=== PATIENT | female | born 1945 | race Caucasian/White ===

== ENCOUNTER → 2016-06-27 | Outpatient (CLI) | payer MEDICARE | LOC: MW.CHIM 11:00 | PROVIDERS: ATTEND Internal Medicine | DX: I10 Essential (primary) hypertension (principal); E11.9 Type 2 diabetes mellitus without complications; E78.00 Pure hypercholesterolemia, unspecified; E11.65 Type 2 diabetes mellitus with hyperglycemia; E66.9 Obesity, unspecified; J44.9 Chronic obstructive pulmonary disease, unspecified; F17.200 Nicotine dependence, unspecified, uncomplicated | CPT/HCPCS: 36415; 80053; 80061; 83036; 84439; 84443; 85025; 99214 ==

== ENCOUNTER → 2016-07-12 | Outpatient (CLI) | payer MEDICARE | LOC: MW.MNT 09:50 | PROVIDERS: ATTEND Internal Medicine | DX: Z71.3 Dietary counseling and surveillance (principal); E11.9 Type 2 diabetes mellitus without complications | CPT/HCPCS: 97802 ==

== ENCOUNTER 2017-03-31 12:07 | Emergency (ER) | payer MEDICARE ==
[2017-03-31] MEDS ORDERED: Sodium Chloride 0.9% 10 ML Syringe FLUSH PRN (12:11)
[2017-03-31] MEDS ORDERED: Sodium Chloride 0.9% 2.5 ML Syringe FLUSH PRN (12:11)
[2017-03-31] MEDS ORDERED: Sodium Chloride 0.9% 1,000 ML IV ONE (12:11)
[2017-03-31 12:56] LABS: CHLORIDE,CL 103 mmol/L (98-110); SODIUM,NA 136 mmol/L (136-146)
--- NOTE | 2017-03-31 13:24 | CR ---
EXAMINATION: Right forearm HISTORY: Pain COMPARISON: None TECHNIQUE: 2 views FINDINGS/IMPRESSION: There is no acute osseous abnormality, dislocation, or fracture.. There is gener alized soft tissue swelling most prominent along the dorsal aspect of the mid forearm. Degenerative c hanges noted within the first CMC joint, otherwise the joint spaces are preserved.
--- NOTE | 2017-03-31 14:32 | CT ---
EXAMINATION: Non contrast CT head. Coronal and sagittal reformats. HISTORY: Pain FINDINGS: No evidence of intra or extra axial hemorrhage, mass, midline shift, hydrocephalus or edema. No hypoattenuation changes in the major vascular territories to suggest acute infarct. No abnormal intracranial calcifications are detected. No evidence of substantial vascular calcificat ions. There is moderate mucosal thickening within the right maxillary sinus. Orbits and globes are symmetri c. Pituitary fossa appears unremarkable. Calvarium is intact. No evidence of skull fracture. IMPRESSION: 1. No acute intracranial findings. 2. Mild paranasal sinus disease.
--- NOTE | 2017-03-31 14:43 | EDM.PDOC ---
ED HPI GENERAL MEDICAL PROBLEM - General Chief Complaint: Upper Extremity Injury/Pain Stated Complaint: WEAK AND CONFUSION Time Seen by Provider: 03/31/17 12:10 Source of Information: Reports: Patient History Limitations: Reports: No Limitations - History of Present Illness INITIAL COMMENTS - FREE TEXT/NARRATIVE: History of present illness: []Patient was found by [facility] staff wandering the halls confused. Patient states she was coming to the hospital for 2 reasons 1 to see her aunt who was admitted and another to have her right arm looked at as she fell on it 4 days ago. He should states that when she got in the hospital she got turned around and was confused as to where she was at. She denies any headache, numbness or tingling, dizziness, blurry vision, chest pain or shortness of breath. Patient has a large ecchymotic area from her right arm to right forearm with an open laceration that is healing by second intention. No signs of infection Review of systems: As per history of present illness and below otherwise all systems reviewed and negative. Past medical history: As per history of present illness and as reviewed below otherwise noncontributory. Surgical history: As per history of present illness and as reviewed below otherwise noncontributory. Social history: No reported history of drug or alcohol abuse. Family history: As per history of present illness and as reviewed below otherwise noncontributory. Physical exam: General: Well developed, well nourished in NAD HEENT: Atraumatic, normocephalic, pupils reactive, negative for conjunctival pallor or scleral icterus, mucous membranes moist, throat clear, neck supple, nontender, trachea midline. Lungs: Clear to auscultation, breath sounds equal bilaterally, chest nontender. Heart: S1S2, regular, negative for clicks, rubs, or JVD. Abdomen: Soft, nondistended, nontender. Negative for masses or hepatosplenomegaly. Negative for costovertebral tenderness. Pelvis: Stable nontender. Genitourinary: Deferred. Rectal: Deferred. Extremities: Atraumatic, negative for cords or calf pain. Neurovascular unremarkable. Neuro: Awake, alert, oriented. Cranial nerves II through XII unremarkable. Cerebellum unremarkable. Motor and sensory unremarkable throughout. Exam nonfocal. Diagnostics: [] Therapeutics: [] Impression: [] Plan: [] Definitive disposition and diagnosis as appropriate pending reevaluation and review of above. right forearm Pain Score (Numeric/FACES): 8 - Related Data Allergies Allergy/AdvReac Type Severity Reaction Status Date / Time codeine Allergy Vomiting Verified 03/31/17 12:26 propoxyphene HCl Allergy Vomiting Verified 03/31/17 12:26 [From Darvon] Home Meds: Home Meds Hydrochlorothiazide 25 mg PO DAILY 07/24/13 [History] LORazepam 1 tab PO TID PRN 07/24/13 [History] Metoprolol Succinate [Toprol XL 100mg] 100 mg PO DAILY 07/24/13 [History] Nitroglycerin [Nitrostat] 1 tab SL ASDIRECTED PRN 07/24/13 [History] Pravastatin [Pravachol] 160 mg PO BEDTIME 07/24/13 [History] Aspirin [Low Dose Aspirin EC] 81 mg DAILY 10/06/15 [History] Citalopram [Celexa] 20 mg DAILY 10/06/15 [History] Fluticasone/Vilanterol [Breo Ellipta 100-25 MCG Inhalation Kit] 10/06/15 [ History] Gabapentin [Neurontin] 300 mg TID 10/06/15 [History] Potassium Chloride 10 meq DAILY 10/06/15 [History] metFORMIN [Glucophage XR] 500 mg DAILY 10/06/15 [History] Past Medical History - Past Health History Medical/Surgical History: Denies Medical/Surgical History HEENT History: Reports: Impaired Vision Cardiovascular History: Reports: CAD, Heart Failure, High Cholesterol, Hypertension, HI, SOB on Exertion, Stents Other Cardiovascular History: states she has had 7 stents placed Respiratory History: Reports: COPD, Pneumonia, Recurrent Gastrointestinal History: Reports: Irritable Bowel Syndrome Genitourinary History: Reports: UTI, Recurrent [employer] J[employer] History: Reports: Musculoskeletal History: Reports: RA Neurological History: Reports: Migraines Psychiatric History: Reports: Anxiety, Depression, Panic Attack Endocrine/Metabolic History: Reports: Diabetes, Type II - Infectious Disease History Infectious Disease History: Reports: None, Chicken Pox, Measles, Mumps - Past Surgical History HEENT Surgical History: Reports: Tonsillectomy Cardiovascular Surgical History: Reports: Other (See Below) Social & Family History - Family History Family Medical History: Noncontributory - Tobacco Use Smoking Status *Q: Current Every Day Smoker Years of Tobacco use: 45 Packs/Tins Daily: 1 Second Hand Smoke Exposure: Yes - Alcohol Use Days Per Week of Alcohol Use: 0 - Recreational Drug Use Recreational Drug Use: No Review of Systems - Review of Systems Review Of Systems: See Below (See history of present illness) ED EXAM, GENERAL - Physical Exam Exam: See Below (See history of present illness) Course - Vital Signs Last Recorded V/S: Last Vital Signs Temp 97.9 F 03/31/17 12:15 Pulse 70 03/31/17 12:15 Resp 18 03/31/17 12:15 BP 122/61 03/31/17 12:15 Pulse Ox 97 03/31/17 12:15 - Orders/Labs/Meds Orders: Active Orders 24 hr Category Date Time Status Sodium Chloride 0.9% [Saline Flush] Med 03/31/17 12:11 Active 10 ml FLUSH ASDIRECTED PRN Sodium Chloride 0.9% [Saline Flush] Med 03/31/17 12:11 Active 2.5 ml FLUSH ASDIRECTED PRN Saline Lock Insert [OM.PC] Stat Oth 03/31/17 12:10 Ordered Medication Orders Sodium Chloride (Saline Flush) 10 ml FLUSH ASDIRECTED PRN PRN Reason: Keep Vein Open Last Admin: 03/31/17 13:07 Dose: 10 ml Sodium Chloride (Saline Flush) 2.5 ml FLUSH ASDIRECTED PRN PRN Reason: Keep Vein Open Last Admin: 03/31/17 13:07 Dose: 2.5 ml Labs: Laboratory Tests 03/31/17 03/31/17 03/31/17 Range/Units 12:24 12:24 13:35 WBC 5.77 (4.0-11.0) K/uL RBC 4.16 L (4.30-5.90) M/uL Hgb 13.3 (12.0-16.0) g/dL Hct 40.4 (36.0-46.0) % MCV 97.1 (80.0-98.0) fL MCH 32.0 (27.0-32.0) pg MCHC 32.9 (31.0-37.0) g/dL RDW Std Deviation 51.1 (28.0-62.0) fl RDW Coeff of Ame 14 (11.0-15.0) % Plt Count 134 L (150-400) K/uL MPV 11.20 (7.40-12.00) fL Add Manual Diff YES Neutrophils % (Manual) 48 (48.0-80.0) % Lymphocytes % (Manual) 42 H (16.0-40.0) % Monocytes % (Manual) 5 (0.0-15.0) % Eosinophils % (Manual) 4 (0.0-7.0) % Basophils % (Manual) 1 (0.0-1.5) % Nucleated RBC % 0.0 /100WBC Absolute Seg Neuts 2.8 (1.4-5.7) Lymphocytes # (Manual) 2.4 (0.6-2.4) Monocytes # (Manual) 0.3 (0.0-0.8) Eosinophils # (Manual) 0.2 (0.0-0.7) Basophils # (Manual) 0.1 (0.0-0.1) Nucleated RBCs # 0 K/uL Sodium 136 (136-146) mmol/L Potassium 4.0 (3.5-5.1) mmol/L Chloride 103 (98-110) mmol/L Carbon Dioxide 25 (21-31) mmol/L BUN 23 (6.0-23.0) mg/dL Creatinine 0.9 (0.6-1.5) mg/dL Est Cr Clr Drug Dosing TNP Estimated GFR (MDRD) > 60.0 ml/min Glucose 159 H (60-110) mg/dL Calcium 9.7 (8.8-10.8) mg/dL Total Bilirubin 0.5 (0.1-1.5) mg/dL AST 32 (5-40) IU/L ALT 28 (8-54) IU/L Alkaline Phosphatase 112 (40-150) Troponin I < 0.10 (0.0-0.29) NG/ML Total Protein 7.8 (6.0-8.0) g/dL Albumin 3.6 (3.4-4.8) g/dL Globulin 4.2 H (2.0-3.5) g/dL Albumin/Globulin Ratio 0.9 L (1.3-2.8) Urine Color YELLOW Urine Appearance CLEAR Urine pH 6.0 (5.0-8.0) Ur Specific [place] >= 1.030 (1.001-1.035) Urine Protein NEGATIVE (NEGATIVE) mg/dL Urine Glucose (UA) NEGATIVE (NEGATIVE) mg/dL Urine Ketones NEGATIVE (NEGATIVE) mg/dL Urine Occult Blood NEGATIVE (NEGATIVE) Urine Nitrite NEGATIVE (NEGATIVE) Urine Bilirubin NEGATIVE (NEGATIVE) Urine Urobilinogen 0.2 (<2.0) EU/dL Ur Leukocyte Esterase NEGATIVE (NEGATIVE) Urine RBC 0-2 (0-2/HPF) Urine WBC 0-1 (0-5/HPF) Ur Epithelial Cells MODERATE (NONE-FEW) Amorphous Sediment FEW (NEGATIVE) Urine Bacteria FEW (NEGATIVE) Meds: Medications Generic Name Dose Route Start Last Admin Trade Name Freq PRN Reason Stop Dose Admin Sodium Chloride 10 ml 03/31/17 12:11 03/31/17 13:07 Saline Flush FLUSH 10 ml ASDIRECTED PRN Administration Keep Vein Open Sodium Chloride 2.5 ml 03/31/17 12:11 03/31/17 13:07 Saline Flush FLUSH 2.5 ml ASDIRECTED PRN Administration Keep Vein Open Discontinued Medications Generic Name Dose Route Start Last Admin Trade Name Freq PRN Reason Stop Dose Admin Sodium Chloride 1,000 mls @ 999 mls/hr 03/31/17 12:11 03/31/17 13:10 Normal Saline IV 03/31/17 13:11 999 mls/hr .Bolus ONE Administration Departure - Departure Time of Disposition: 14:46 Disposition: Home, Self-Care 01 Condition: Good Clinical Impression: Intermittent confusion Laceration of right forearm Qualifiers: Encounter type: initial encounter Qualified Code(s): S51.811A - Laceration without foreign body of right forearm, initial encounter - Discharge Information Referrals: PCP,Unknown [Primary Care Provider] - Forms: ED Department Discharge Additional Instructions: The following information is given to patients seen in the emergency department who are being discharged to home. This information is to outline your options for follow-up care. We provide all patients seen in our emergency department with a follow-up referral. The need for follow-up, as well as the timing and circumstances, are variable depending upon the specifics of your emergency department visit. If you don't have a primary care physician on staff, we will provide you with a referral. We always advise you to contact your personal physician following an emergency department visit to inform them of the circumstance of the visit and for follow-up with them and/or the need for any referrals to a consulting specialist. The emergency department will also refer you to a specialist when appropriate. This referral assures that you have the opportunity for follow-up care with a specialist. All of these measure are taken in an effort to provide you with optimal care, which includes your follow-up. Under all circumstances we always encourage you to contact your private physician who remains a resource for coordinating your care. When calling for follow-up care, please make the office aware that this follow-up is from your recent emergency room visit. If for any reason you are refused follow-up, please contact the [facility] Emergency Department at and asked to speak to the emergency department charge nurse. Change forearm dressing once a day return if any symptoms worsen or change such as redness or swelling to the arm Follow-up with primary care physician and neurologist [facility] Primary Care [address] [place] [id number] [facility] Specialty Care - Neurology Professional Building [address] [place] [address], [address] [place] [address] - My Orders Last 24 Hours: My Active Orders 03/31/17 12:10 Saline Lock Insert [OM.PC] Stat 03/31/17 12:11 Sodium Chloride 0.9% [Saline Flush] 10 ml FLUSH ASDIRECTED PRN Sodium Chloride 0.9% [Saline Flush] 2.5 ml FLUSH ASDIRECTED PRN - Assessment/Plan Last 24 Hours: My Active Orders 03/31/17 12:10 Saline Lock Insert [OM.PC] Stat 03/31/17 12:11 Sodium Chloride 0.9% [Saline Flush] 10 ml FLUSH ASDIRECTED PRN Sodium Chloride 0.9% [Saline Flush] 2.5 ml FLUSH ASDIRECTED PRN
[2017-03-31 15:06] VITALS: BP 148/88
== END 2017-03-31 15:20 | disposition home or self-care (01) ==
LOC: MW.ED 12:07
DX: S51.811A Laceration without foreign body of right forearm, initial encounter (principal); R41.0 Disorientation, unspecified; I11.0 Hypertensive heart disease with heart failure; I50.9 Heart failure, unspecified; E11.9 Type 2 diabetes mellitus without complications; F17.210 Nicotine dependence, cigarettes, uncomplicated; Z88.8 Allergy status to other drugs, medicaments and biological substances; Z79.899 Other long term (current) drug therapy; Z79.82 Long term (current) use of aspirin; Z79.84 Long term (current) use of oral hypoglycemic drugs; W19.XXXA Unspecified fall, initial encounter
CPT/HCPCS: 36415; 70450; 73090; 80053; 81001; 84484; 85025; 96360; 96361; 99285; J7040; 99284

== ENCOUNTER 2017-05-31 10:46 | Emergency (ER) | payer MEDICARE ==
--- NOTE | 2017-05-31 11:42 | EDM.PDOC ---
ED HPI GENERAL MEDICAL PROBLEM - General Chief Complaint: Lower Extremity Injury/Pain Stated Complaint: RT LEG HURTS Time Seen by Provider: 05/31/17 11:30 Source of Information: Reports: Patient History Limitations: Reports: No Limitations - History of Present Illness INITIAL COMMENTS - FREE TEXT/NARRATIVE: HISTORY AND PHYSICAL: History of present illness: [Patient comes to the emergency room complaining of right lower leg pain for the past week. States that she tripped on a wet rug and fell while at the hockey rink last week. For the past week, she's had pain to her right knee, right lower leg and right ankle. She's had some swelling to her foot as well. No fever or chills. No numbness or tingling. She has been able to bear weight in spite of her leg pain. text of this examiner privately expressing his concerns about increased lethargy and weakness as well as memory loss. He feels as though he's been unable to find a PCP who will spend the time address these concerns with him.] Review of systems: As per history of present illness and below otherwise all systems reviewed and negative. Past medical history: As per history of present illness and as reviewed below otherwise noncontributory. Surgical history: As per history of present illness and as reviewed below otherwise noncontributory. Social history: No reported history of drug or alcohol abuse. Family history: As per history of present illness and as reviewed below otherwise noncontributory. Physical exam: HEENT: Atraumatic, normocephalic. Extremities: Right lower extremity is atraumatic in appearance. She is tender with palpation to her right knee and ankle. No erythema ecchymosis or swelling is appreciated. Range of motion is full and intact. negative for cords or calf pain. Neurovascular unremarkable. Neuro: Awake, alert, oriented. Motor and sensory unremarkable throughout. Exam nonfocal. Diagnostics: [Right knee x-ray, right tib-fib x-ray, right ankle x-ray] Impression: [Right knee pain Right ankle pain] Plan: [Discussed with patient and her that x-rays are normal and without fracture. Recommend zond-zai-csuptil analgesics and anti-inflammatories. She is urged to use a walker when at home until she can follow-up with her PCP. She is put in an air splint today over her right ankle to provide extra support. Discussed with that we can certainly draw blood and do lab today to determine if there are any emergent conditions that may be contributing to patient's lethargy and forgetfulness. declined stating that they would like to be discharged to home at this time. Patient is given referral to establish with a PCP at the [facility]. Encourage to accompany to these appointments and to address his concerns with her PCP. He is in agreement following our discussion. ] Definitive disposition and diagnosis as appropriate pending reevaluation and review of above. right leg Pain Score (Numeric/FACES): 10 - Related Data Allergies Allergy/AdvReac Type Severity Reaction Status Date / Time codeine Allergy Vomiting Verified 05/31/17 11:24 propoxyphene HCl Allergy Vomiting Verified 05/31/17 11:24 [From Darvon] Home Meds: Home Meds Hydrochlorothiazide 25 mg PO DAILY 07/24/13 [History] LORazepam 1 tab PO TID PRN 07/24/13 [History] Metoprolol Succinate [Toprol XL 100mg] 100 mg PO DAILY 07/24/13 [History] Nitroglycerin [Nitrostat] 0.4 mg SL .EVERY 5 MINUTES PRN MDD 3 DOSES 07/24/13 [ History] Pravastatin [Pravachol] 80 mg PO BEDTIME 07/24/13 [History] Aspirin [Low Dose Aspirin EC] 81 mg PO DAILY 10/06/15 [History] Citalopram [Celexa] 20 mg DAILY 10/06/15 [History] Fluticasone/Vilanterol [Breo Ellipta 100-25 MCG Inhalation Kit] 10/06/15 [ History] Gabapentin [Neurontin] 600 mg PO TID 10/06/15 [History] Potassium Chloride 10 meq PO DAILY 10/06/15 [History] metFORMIN [Glucophage XR] 500 mg PO BID 10/06/15 [History] Glimepiride [Amaryl] 2 mg PO DAILY 03/31/17 [History] Nortriptyline [Nortriptyline] 20 mg PO BEDTIME 03/31/17 [History] SitaGLIPtin [Januvia] 100 mg PO DAILY 03/31/17 [History] Past Medical History - Past Health History Medical/Surgical History: Denies Medical/Surgical History HEENT History: Reports: Impaired Vision Cardiovascular History: Reports: CAD, Heart Failure, High Cholesterol, Hypertension, OR, SOB on Exertion, Stents Other Cardiovascular History: states she has had 7 stents placed Respiratory History: Reports: COPD, Pneumonia, Recurrent Gastrointestinal History: Reports: Irritable Bowel Syndrome Genitourinary History: Reports: UTI, Recurrent [employer] THER[employer]IST History: Reports: Musculoskeletal History: Reports: RA Neurological History: Reports: Migraines Psychiatric History: Reports: Anxiety, Depression, Panic Attack Endocrine/Metabolic History: Reports: Diabetes, Type II - Infectious Disease History Infectious Disease History: Reports: None, Chicken Pox, Measles, Mumps - Past Surgical History HEENT Surgical History: Reports: Tonsillectomy Cardiovascular Surgical History: Reports: Other (See Below) Social & Family History - Family History Family Medical History: Noncontributory - Tobacco Use Smoking Status *Q: Current Every Day Smoker Years of Tobacco use: 10 Packs/Tins Daily: 1 Second Hand Smoke Exposure: Yes - Alcohol Use Days Per Week of Alcohol Use: 0 - Recreational Drug Use Recreational Drug Use: No Review of Systems - Review of Systems Review Of Systems: ROS reveals no pertinent complaints other than HPI. ED EXAM, GENERAL - Physical Exam Exam: See Below Course - Vital Signs Last Recorded V/S: Last Vital Signs Temp 98.2 F 05/31/17 10:46 Pulse 82 05/31/17 13:45 Resp 18 05/31/17 13:45 BP 130/60 05/31/17 13:45 Pulse Ox 94 L 05/31/17 10:46 - Orders/Labs/Meds Orders: Active Orders 24 hr Category Date Time Status Ankle Min 3V Rt [CR] Stat Exams 05/31/17 11:39 Taken Knee 3V Rt [CR] Stat Exams 05/31/17 11:39 Taken Tibia Fibula Rt [CR] Stat Exams 05/31/17 11:39 Taken Departure - Departure Time of Disposition: 13:30 Disposition: Home, Self-Care 01 Condition: Good Clinical Impression: Ankle pain, right, Knee pain, right - Discharge Information Instructions: Knee Pain, Ankle Pain Referrals: PCP,Rhett [Primary Care Provider] - Waqar Saldivar [Resident] - Forms: ED Department Discharge Additional Instructions: The following information is given to patients seen in the emergency department who are being discharged to home. This information is to outline your options for follow-up care. We provide all patients seen in our emergency department with a follow-up referral. The need for follow-up, as well as the timing and circumstances, are variable depending upon the specifics of your emergency department visit. If you don't have a primary care physician on staff, we will provide you with a referral. We always advise you to contact your personal physician following an emergency department visit to inform them of the circumstance of the visit and for follow-up with them and/or the need for any referrals to a consulting specialist. The emergency department will also refer you to a specialist when appropriate. This referral assures that you have the opportunity for follow-up care with a specialist. All of these measure are taken in an effort to provide you with optimal care, which includes your follow-up. Under all circumstances we always encourage you to contact your private physician who remains a resource for coordinating your care. When calling for follow-up care, please make the office aware that this follow-up is from your recent emergency room visit. If for any reason you are refused follow-up, please contact the [facility] emergency department at and asked to speak to the emergency department charge nurse. [facility] Primary Care [address] [place] [address] Call the above listed phone number to be scheduled for an appointment with Dr. Saldivar. You should be seen there in the next 48-72 hours. Walkers are available for purchase at a local drug store, pharmacy or at [facility]. Wear your foot splint and use a walker until you see Dr. Saldivar. Return to ER as needed as discussed. - My Orders Last 24 Hours: My Active Orders 05/31/17 11:39 Ankle Min 3V Rt [CR] Stat Knee 3V Rt [CR] Stat Tibia Fibula Rt [CR] Stat - Assessment/Plan Last 24 Hours: My Active Orders 05/31/17 11:39 Ankle Min 3V Rt [CR] Stat Knee 3V Rt [CR] Stat Tibia Fibula Rt [CR] Stat
[2017-05-31 16:06] VITALS: BP 130/60
--- NOTE | 2017-06-02 12:38 | CR ---
EXAM DATE: 05/31/17 PATIENT'S AGE: 71 Patient: SUSAN RAIG Facility: [place], [place] Site . Site : 1945 Study: XRay Knee Right [id number]/10/2018 12:34:38 PM Ordering Physician: Doctor Zavala Final Report: HISTORY: Right knee pain. Fall 1 week Comparison : None. FINDINGS: Three views of the right knee. No evidence for acute fracture or dislocation. Minimal degenerative change. Suggestion of a small suprapatellar joint effusion. Dictated by Anais Zimmerman MD @ May 31 2017 1:05PM (Electronic Signature) Report Signed by Proxy. HANNA
--- NOTE | 2017-06-02 12:39 | CR ---
EXAM DATE: 05/31/17 PATIENT'S AGE: 71 Patient: SUSAN RAIG Facility: [place], [place] Site . Site : 1945 Study: XRay Extremity Right tib/fib [id number]/10/[id number] 12:37:33 PM Ordering Physician: Doctor Zavala Final Report: HISTORY: Fall. Leg pain. COMPARISON: None. FINDINGS: No evidence for acute fracture or dislocation. Soft tissues are within normal. Dictated by Anais Zimmerman MD @ May 31 2017 1:05PM (Electronic Signature) Report Signed by Proxy. HANNA
--- NOTE | 2017-06-02 12:39 | CR ---
EXAM DATE: 05/31/17 PATIENT'S AGE: 71 Patient: SUSAN RAIG Facility: [place], [place] Site . Site : 1945 Study: XRay Extremity Right ankle [id number]/10/[id number] 12:35:08 PM Ordering Physician: Doctor Zavala Final Report: HISTORY: Fall. Ankle pain. COMPARISON: None. FINDINGS: The ankle mortise is intact. No evidence for acute fracture or dislocation. Mild soft tissue swelling about the ankle. Dictated by Anais Zimmerman MD @ May 31 2017 1:05PM (Electronic Signature) Report Signed by Proxy. HANNA
== END 2017-05-31 13:45 | disposition home or self-care (01) ==
LOC: MW.ED 10:46
DX: M25.561 Pain in right knee (principal); M25.571 Pain in right ankle and joints of right foot; I11.0 Hypertensive heart disease with heart failure; I50.9 Heart failure, unspecified; E78.00 Pure hypercholesterolemia, unspecified; I25.10 Atherosclerotic heart disease of native coronary artery without angina pectoris; E11.9 Type 2 diabetes mellitus without complications; J44.9 Chronic obstructive pulmonary disease, unspecified; Z88.5 Allergy status to narcotic agent; Z88.6 Allergy status to analgesic agent; Z79.899 Other long term (current) drug therapy; Z79.84 Long term (current) use of oral hypoglycemic drugs; Z79.82 Long term (current) use of aspirin; W01.0XXA Fall on same level from slipping, tripping and stumbling without subsequent striking against object, initial encounter; Y92.330 Ice skating rink (indoor) (outdoor) as the place of occurrence of the external cause
CPT/HCPCS: 73562-26-RT; 73562-RT; 73590-26-RT; 73590-RT; 73610-26-RT; 73610-RT; 99283

== ENCOUNTER 2017-12-08 13:29 | Emergency (ER) | payer MEDICARE ==
[2017-12-08 13:44] VITALS: BP 140/57
[2017-12-08] MEDS ORDERED: Ketorolac 60 MG/2 ML SDV IM ONE (13:55)
--- NOTE | 2017-12-08 15:39 | EDM.PDOC ---
ED HPI GENERAL MEDICAL PROBLEM - General Chief Complaint: Chest Pain Stated Complaint: BACK PAIN Time Seen by Provider: 12/08/17 13:34 Source of Information: Reports: Patient History Limitations: Reports: No Limitations - History of Present Illness INITIAL COMMENTS - FREE TEXT/NARRATIVE: HISTORY AND PHYSICAL: History of present illness: Patient is a 71-year-old female who presents to the emergency room with complaints of left chest wall pain since falling 2 days ago. He shouldn't reports she was gardening and had tripped over a hose, resulting in her lying on her left side. She denies hitting her head or any loss of consciousness. Patient is fully ambulatory and using all extremities. She denies any fever, chills, chest pain, shortness of breath or cough. Denies any abdominal pain, nausea, vomiting, diarrhea or constipation. Review of systems: As per history of present illness and below otherwise all systems reviewed and negative. Past medical history: As per history of present illness and as reviewed below otherwise noncontributory. Surgical history: As per history of present illness and as reviewed below otherwise noncontributory. Social history: No reported history of drug or alcohol abuse. Family history: As per history of present illness and as reviewed below otherwise noncontributory. Physical exam: General: Well developed and well-nourished 71-year-old female. Alert and oriented. Nontoxic appearing and in no acute distress. HEENT: Atraumatic, normocephalic, pupils equal and reactive bilaterally, negative for conjunctival pallor or scleral icterus, mucous membranes moist, throat clear, neck supple, nontender, trachea midline. No drooling or trismus noted. No meningeal signs Lungs: Clear to auscultation, breath sounds equal bilaterally, left low chest wall pain to midaxillary line to posterior low rib - with palpation. Heart: S1S2, regular rate and rhythm without overt murmur Abdomen: Soft, nondistended, nontender. Negative for masses or hepatosplenomegaly. Negative for costovertebral tenderness. Pelvis: Stable nontender. Genitourinary: Deferred. Rectal: Deferred. Skin: Intact, warm, dry. No bruising, lesions or rashes noted. Extremities: Moves all per self without difficulty or pain. She is negative for cords or calf pain. Neurovascular unremarkable. C-spine/Back: Pinpoint vertebral tenderness upon palpation. No crepitus, step- offs or obvious deformities. Patient is fully ambulatory at the. Neuro: Awake, alert, oriented. Cranial nerves II through XII unremarkable. Cerebellum unremarkable. Motor and sensory unremarkable throughout. Exam nonfocal. Notes: Chest x-ray shows no evidence of fracture, pneumonia or infiltrate. Supportive care measures were reviewed and discussed. She voices understanding and is agreeable to plan of care. Denies any further questions or concerns at this time. Diagnostics: CXR with rib detail Therapeutics: Toradol IM Prescription: [place] #15 Impression: Rib Contusion, left Plan: 1. Alternate ice and gentle heat to the area. 2. Tylenol and/or ibuprofen as needed for pain management. Ultram for moderate to severe pain. This medication may cause drowsiness a do not take it will driving her needing to be functioning outside of the house. 3. Follow up with your primary care provider in the next 1-2 days. Return to the ED as needed and as discussed. Definitive disposition and diagnosis as appropriate pending reevaluation and review of above. Duration: Day(s): Location: Reports: Chest left ribs Pain Score (Numeric/FACES): 10 - Related Data Allergies Allergy/AdvReac Type Severity Reaction Status Date / Time codeine Allergy Vomiting Verified 12/08/17 13:42 diphenhydramine Allergy Itching Verified 12/08/17 13:42 [From Benadryl] propoxyphene HCl Allergy Vomiting Verified 12/08/17 13:42 [From Darvon] Home Meds: Home Meds LORazepam 1 tab PO TID PRN 07/24/13 [History] Metoprolol Succinate [Toprol XL 100mg] 100 mg PO DAILY 07/24/13 [History] Nitroglycerin [Nitrostat] 0.4 mg SL .EVERY 5 MINUTES PRN MDD 3 DOSES 07/24/13 [ History] Pravastatin [Pravachol] 80 mg PO BEDTIME 07/24/13 [History] hydroCHLOROthiazide [Hydrochlorothiazide] 25 mg PO DAILY 07/24/13 [History] Aspirin [Low Dose Aspirin EC] 81 mg PO DAILY 10/06/15 [History] Citalopram [Celexa] 20 mg DAILY 10/06/15 [History] Fluticasone/Vilanterol [Breo Ellipta 100-25 MCG Inhalation Kit] 10/06/15 [ History] Gabapentin [Neurontin] 600 mg PO TID 10/06/15 [History] Potassium Chloride 10 meq PO DAILY 10/06/15 [History] metFORMIN [Glucophage XR] 500 mg PO BID 10/06/15 [History] Glimepiride [Amaryl] 2 mg PO DAILY 03/31/17 [History] Nortriptyline 20 mg PO BEDTIME 03/31/17 [History] SitaGLIPtin [Januvia] 100 mg PO DAILY 03/31/17 [History] Acetaminophen/HYDROcodone [[place] 325-5 MG] 1 tab PO Q4H PRN #15 tablet 12/08/17 [Rx] traMADol [Ultram] 50 mg PO Q4H PRN #20 tab 12/08/17 [Rx] Past Medical History - Past Health History Medical/Surgical History: Denies Medical/Surgical History HEENT History: Reports: Impaired Vision Cardiovascular History: Reports: CAD, Heart Failure, High Cholesterol, Hypertension, [place], SOB on Exertion, Stents, Other (See Below) Other Cardiovascular History: states she has had 7 stents placed. 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: Musculoskeletal History: Reports: Back Pain, Chronic, RA Neurological History: Reports: Migraines Psychiatric History: Reports: Anxiety, Depression, Panic Attack Endocrine/Metabolic History: Reports: Diabetes, Type II, Osteopenia Hematologic History: Reports: Anticoagulation Therapy - Infectious Disease History Infectious Disease History: Reports: Chicken Pox, Measles, Mumps - Past Surgical History HEENT Surgical History: Reports: Tonsillectomy Cardiovascular Surgical History: Reports: Other (See Below) Social & Family History - Family History Family Medical History: Noncontributory - Tobacco Use Smoking Status *Q: Current Every Day Smoker Years of Tobacco use: 40 Packs/Tins Daily: 0.1 - Caffeine Use Caffeine Use: Reports: Coffee - Recreational Drug Use Recreational Drug Use: No ED ROS GENERAL - Review of Systems Review Of Systems: ROS reveals no pertinent complaints other than HPI. ED EXAM, GENERAL - Physical Exam Exam: See Below (See dictation) Course - Vital Signs Last Recorded V/S: Last Vital Signs Temp 97.7 F 12/08/17 13:40 Pulse 67 12/08/17 13:40 Resp 16 12/08/17 13:40 BP 140/57 L 12/08/17 13:40 Pulse Ox 96 12/08/17 13:40 - Orders/Labs/Meds Orders: Active Orders 24 hr Category Date Time Status Ribs 2V w Chest Lt [CR] Stat Exams 12/08/17 13:48 Taken Labs: Laboratory Tests 12/08/17 Range/Units 13:45 POC Glucose 78 (60-110) mg/dL Meds: Medications Discontinued Medications Generic Name Dose Route Start Last Admin Trade Name Freq PRN Reason Stop Dose Admin Ketorolac Tromethamine 60 mg 12/08/17 13:55 12/08/17 14:02 Toradol IM 12/08/17 13:56 60 mg ONETIME ONE Administration Departure - Departure Time of Disposition: 15:38 Disposition: Home, Self-Care 01 Clinical Impression: Contusion of rib on left side Qualifiers: Encounter type: initial encounter Qualified Code(s): S20.212A - Contusion of left front wall of thorax, initial encounter - Discharge Information Prescriptions: Acetaminophen/HYDROcodone [[place] 325-5 MG] 1 tab PO Q4H PRN #15 tablet PRN Reason: Pain traMADol [Ultram] 50 mg PO Q4H PRN #20 tab PRN Reason: Pain Instructions: Chest Contusion, Adult, [id number] Referrals: Keenan Damon MD [Primary Care Provider] - Forms: ED Department Discharge Additional Instructions: The following information is given to patients seen in the emergency department who are being discharged to home. This information is to outline your options for follow-up care. We provide all patients seen in our emergency department with a follow-up referral. The need for follow-up, as well as the timing and circumstances, are variable depending upon the specifics of your emergency department visit. If you don't have a primary care physician on staff, we will provide you with a referral. We always advise you to contact your personal physician following an emergency department visit to inform them of the circumstance of the visit and for follow-up with them and/or the need for any referrals to a consulting specialist. The emergency department will also refer you to a specialist when appropriate. This referral assures that you have the opportunity for follow-up care with a specialist. All of these measure are taken in an effort to provide you with optimal care, which includes your follow-up. Under all circumstances we always encourage you to contact your private physician who remains a resource for coordinating your care. When calling for follow-up care, please make the office aware that this follow-up is from your recent emergency room visit. If for any reason you are refused follow-up, please contact the [facility] Emergency Department at and asked to speak to the emergency department charge nurse. [facility] [place] [id number] 1. Alternate ice and gentle heat to the area. 2. Tylenol and/or ibuprofen as needed for pain management. Ultram for moderate to severe pain. This medication may cause drowsiness a do not take it will driving her needing to be functioning outside of the house. 3. Follow up with your primary care provider in the next 1-2 days. Return to the ED as needed and as discussed. - My Orders Last 24 Hours: My Active Orders 12/08/17 13:48 Ribs 2V w Chest Lt [CR] Stat - Assessment/Plan Last 24 Hours: My Active Orders 12/08/17 13:48 Ribs 2V w Chest Lt [CR] Stat
--- NOTE | 2017-12-08 18:13 | CR ---
EXAM DATE: 12/08/17 PATIENT'S AGE: 71 Patient: SUSAN RAIG Facility: [place], [place] Site . Site : 1945 Study: XRay Chest Left RIBS [id number]/2018 2:37:40 PM Ordering Physician: Doctor Zavala Final Report: HISTORY: Fall. Left rib pain. TECHNIQUE: Frontal chest and 3 views of the left ribs. COMPARISON: Chest x-ray 05/31/2015. FINDINGS: No airspace consolidation. No pleural effusion or pneumothorax. Pulmonary vasculature is within normal limits. Cardiomediastinal silhouette is upper normal size. Coronary artery stent. No left rib fracture. IMPRESSION: No acute findings. No left rib fracture. Dictated by Boy Moeller MD @ Dec 08 2017 3:13PM (Electronic Signature) Report Signed by Proxy. HANNA
== END 2017-12-08 15:50 | disposition home or self-care (01) ==
LOC: MW.ED 13:29
DX: S20.212A Contusion of left front wall of thorax, initial encounter (principal); I11.0 Hypertensive heart disease with heart failure; I50.9 Heart failure, unspecified; E11.9 Type 2 diabetes mellitus without complications; F17.210 Nicotine dependence, cigarettes, uncomplicated; Z88.5 Allergy status to narcotic agent; Z88.8 Allergy status to other drugs, medicaments and biological substances; Z79.82 Long term (current) use of aspirin; Z79.84 Long term (current) use of oral hypoglycemic drugs; W01.0XXA Fall on same level from slipping, tripping and stumbling without subsequent striking against object, initial encounter; Y93.H2 Activity, gardening and landscaping
CPT/HCPCS: 71101; 82962; 96372; 99283; J1885

== ENCOUNTER 2018-11-26 11:47 | Emergency (ER) | payer MEDICARE ==
[2018-11-26] MEDS ORDERED: Sodium Chloride 0.9% 10 ML Syringe FLUSH PRN (12:16)
[2018-11-26] MEDS ORDERED: Sodium Chloride 0.9% 2.5 ML Syringe FLUSH PRN (12:16)
--- NOTE | 2018-11-26 12:16 | EDM.PDOC ---
ED HPI GENERAL MEDICAL PROBLEM - General Chief Complaint: General Stated Complaint: SWELLING OF THE LEGS Time Seen by Provider: 11/26/18 11:56 Source of Information: Reports: Patient History Limitations: Reports: No Limitations - History of Present Illness INITIAL COMMENTS - FREE TEXT/NARRATIVE: History of present illness: []Patient has had chronic leg swelling that is now worse on the left. She saw Dr. Damon for this and was put on a diuretic however it has not been helping her. She denies any chest pain or shortness of breath, fevers, chills, trauma or numbness or tingling. Review of systems: As per history of present illness and below otherwise all systems reviewed and negative. Past medical history: As per history of present illness and as reviewed below otherwise noncontributory. Surgical history: As per history of present illness and as reviewed below otherwise noncontributory. Social history: No reported history of drug or alcohol abuse. Family history: As per history of present illness and as reviewed below otherwise noncontributory. Physical exam: General: Well developed, well nourished in NAD HEENT: Atraumatic, normocephalic, pupils reactive, negative for conjunctival pallor or scleral icterus, mucous membranes moist, throat clear, neck supple, nontender, trachea midline. Lungs: Clear to auscultation, breath sounds equal bilaterally, chest nontender. Heart: S1S2, regular, negative for clicks, rubs, or JVD. Abdomen: NABS, Soft, nondistended, nontender. Negative for masses or hepatosplenomegaly. Negative for costovertebral tenderness. Pelvis: Stable nontender. Genitourinary: Deferred. Rectal: Deferred. Extremities: Atraumatic, negative for cords or calf pain. Neurovascular unremarkable. Neuro: Awake, alert, oriented. Cranial nerves II through XII unremarkable. Cerebellum unremarkable. Motor and sensory unremarkable throughout. Exam nonfocal. Skin:warm and dry Diagnostics: CBC, chemistry, BNP, d-dimer, chest x-ray, ultrasound left lower extremity Therapeutics: Observed ED Course: Stable Impression: Dependent edema Prescriptions: None Plan: Elevate legs as much as possible higher than the heart and follow-up with primary care Definitive disposition and diagnosis as appropriate pending reevaluation and review of above. Generalized Pain Score (Numeric/FACES): 9 - Related Data Allergies Allergy/AdvReac Type Severity Reaction Status Date / Time codeine Allergy Vomiting Verified 12/26/17 13:10 diphenhydramine Allergy Itching Verified 12/26/17 13:10 [From Benadryl] propoxyphene HCl Allergy Vomiting Verified 12/26/17 13:10 [From Darvon] Home Meds: Home Meds LORazepam 1 tab PO TID PRN 07/24/13 [History] Metoprolol Succinate [Toprol XL 100mg] 100 mg PO DAILY 07/24/13 [History] Nitroglycerin [Nitrostat] 0.4 mg SL .EVERY 5 MINUTES PRN MDD 3 DOSES 07/24/13 [ History] Pravastatin [Pravachol] 80 mg PO BEDTIME 07/24/13 [History] hydroCHLOROthiazide [Hydrochlorothiazide] 25 mg PO DAILY 07/24/13 [History] Aspirin [Low Dose Aspirin EC] 81 mg PO DAILY 10/06/15 [History] Citalopram [Celexa] 20 mg DAILY 10/06/15 [History] Fluticasone/Vilanterol [Breo Ellipta 100-25 MCG Inhalation Kit] 10/06/15 [ History] Gabapentin [Neurontin] 600 mg PO TID 10/06/15 [History] Potassium Chloride 10 meq PO DAILY 10/06/15 [History] metFORMIN [Glucophage XR] 500 mg PO BID 10/06/15 [History] Glimepiride [Amaryl] 2 mg PO DAILY 03/31/17 [History] Nortriptyline 20 mg PO BEDTIME 03/31/17 [History] SitaGLIPtin [Januvia] 100 mg PO DAILY 03/31/17 [History] Acetaminophen/HYDROcodone [[place] 325-5 MG] 1 tab PO Q4H PRN #15 tablet 12/08/17 [Rx] traMADol [Ultram] 50 mg PO Q4H PRN #20 tab 12/08/17 [Rx] Penicillin V Potassium 500 mg PO Q6HR #40 tab 12/26/17 [Rx] Past Medical History - Past Health History Medical/Surgical History: Denies Medical/Surgical History HEENT History: Reports: Impaired Vision Cardiovascular History: Reports: CAD, Heart Failure, High Cholesterol, Hypertension, [place], SOB on Exertion, Stents, Other (See Below) Other Cardiovascular History: states she has had 7 stents placed. 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: Musculoskeletal History: Reports: Back Pain, Chronic, RA Neurological History: Reports: Migraines Psychiatric History: Reports: Anxiety, Depression, Panic Attack Endocrine/Metabolic History: Reports: Diabetes, Type II, Osteopenia Hematologic History: Reports: Anticoagulation Therapy - Infectious Disease History Infectious Disease History: Reports: Chicken Pox, Measles, Mumps - Past Surgical History HEENT Surgical History: Reports: Tonsillectomy Cardiovascular Surgical History: Reports: Other (See Below) Musculoskeletal Surgical History: Reports: None Social & Family History - Family History Family Medical History: Noncontributory - Tobacco Use Smoking Status *Q: Current Every Day Smoker Years of Tobacco use: 56 Packs/Tins Daily: 0.5 - Caffeine Use Caffeine Use: Reports: Coffee - Recreational Drug Use Recreational Drug Use: No ED ROS GENERAL - Review of Systems Review Of Systems: See Below ED EXAM, GENERAL - Physical Exam Exam: See Below Course - Vital Signs Last Recorded V/S: Last Vital Signs Temp 97.7 F 11/26/18 11:56 Pulse 58 L 11/26/18 15:53 Resp 16 11/26/18 15:53 BP 119/45 L 11/26/18 15:53 Pulse Ox 94 L 11/26/18 15:53 - Orders/Labs/Meds Orders: Active Orders 24 hr Category Date Time Status EKG 12 Lead [EKG Documentation Completion] [RC] STAT Care 11/26/18 12:21 Active Saline Lock Insert [OM.PC] Stat Oth 11/26/18 12:16 Ordered Labs: Laboratory Tests 11/26/18 11/26/18 11/26/18 Range/Units 12:30 12:30 12:30 D-Dimer, Quantitative 1.54 H (0.0-0.50) mg/L FEU Sodium 142 (136-145) mmol/L Potassium 3.4 L (3.5-5.1) mmol/L Chloride 106 (98-107) mmol/L Carbon Dioxide 28.2 (21.0-32.0) mmol/L BUN 15 (7.0-18.0) mg/dL Creatinine 0.9 (0.6-1.0) mg/dL Est Cr Clr Drug Dosing 50.84 mL/min Estimated GFR (MDRD) > 60.0 ml/min Glucose 112 H (74-106) mg/dL Calcium 9.4 (8.5-10.1) mg/dL Total Bilirubin 0.9 (0.2-1.0) mg/dL AST 29 (15-37) IU/L ALT 19 (14-63) IU/L Alkaline Phosphatase 99 (46-116) U/L B-Natriuretic Peptide 172 H (<100) PG/ML Total Protein 6.8 (6.4-8.2) g/dL Albumin 2.8 L (3.4-5.0) g/dL Globulin 4.0 (2.6-4.0) g/dL Albumin/Globulin Ratio 0.7 L (0.9-1.6) TSH 3rd Generation 1.79 (0.36-3.74) uIU/mL Meds: Medications Discontinued Medications Generic Name Dose Route Start Last Admin Trade Name Freq PRN Reason Stop Dose Admin Sodium Chloride 10 ml 11/26/18 12:16 11/26/18 12:40 Saline Flush FLUSH 10 ml ASDIRECTED PRN Administration Keep Vein Open Sodium Chloride 2.5 ml 11/26/18 12:16 11/26/18 12:40 Saline Flush FLUSH 2.5 ml ASDIRECTED PRN Administration Keep Vein Open Departure - Departure Time of Disposition: 15:40 Disposition: Home, Self-Care 01 Condition: Good Clinical Impression: Dependent edema - Discharge Information *PRESCRIPTION DRUG MONITORING PROGRAM REVIEWED*: No *COPY OF PRESCRIPTION DRUG MONITORING REPORT IN PATIENT RICKY: No Instructions: Edema, [id number] Referrals: PCP,None [Primary Care Provider] - Forms: ED Department Discharge Additional Instructions: The following information is given to patients seen in the emergency department who are being discharged to home. This information is to outline your options for follow-up care. We provide all patients seen in our emergency department with a follow-up referral. The need for follow-up, as well as the timing and circumstances, are variable depending upon the specifics of your emergency department visit. If you don't have a primary care physician on staff, we will provide you with a referral. We always advise you to contact your personal physician following an emergency department visit to inform them of the circumstance of the visit and for follow-up with them and/or the need for any referrals to a consulting specialist. The emergency department will also refer you to a specialist when appropriate. This referral assures that you have the opportunity for follow-up care with a specialist. All of these measure are taken in an effort to provide you with optimal care, which includes your follow-up. Under all circumstances we always encourage you to contact your private physician who remains a resource for coordinating your care. When calling for follow-up care, please make the office aware that this follow-up is from your recent emergency room visit. If for any reason you are refused follow-up, please contact the [facility] Emergency Department at and asked to speak to the emergency department charge nurse. Elevate legs above the level of your heart as much as possible. [facility] Primary Care [address] [place] [id number] - My Orders Last 24 Hours: My Active Orders 11/26/18 12:16 Saline Lock Insert [OM.PC] Stat 11/26/18 12:21 EKG 12 Lead [EKG Documentation Completion] [RC] STAT - Assessment/Plan Last 24 Hours: My Active Orders 11/26/18 12:16 Saline Lock Insert [OM.PC] Stat 11/26/18 12:21 EKG 12 Lead [EKG Documentation Completion] [RC] STAT
[2018-11-26 13:33] LABS: BLOOD UREA NITROGEN,BUN 15 mg/dL (7.0-18.0); CARBON DIOXIDE,CO2 28.2 mmol/L (21.0-32.0); CHLORIDE,CL 106 mmol/L (98-107); GLUCOSE RANDOM 112 mg/dL (74-106); POTASSIUM,K 3.4 mmol/L (3.5-5.1); SODIUM,NA 142 mmol/L (136-145)
--- NOTE | 2018-11-26 13:41 | CR ---
Indication: Chest pain. SOB Technique: Chest 1 view Comparison: 09/28/2018 Findings/Impression: Cardiovascular and mediastinum: Borderline cardiomegaly, partially related to the portable technique. Lungs and pleural space: Mildly increased interstitial markings could represent mild scarring. A small left basilar retrocardiac opacity may be related to superimposition of shadows. Correlate clinically and follow-up to exclude a small infiltrate. No pleural effusions. Bones and soft tissues: No significant change. Dictated by Aiden Hanks MD @ 11/26/2018 1:39:53 PM Dictated by: Aiden Hanks MD @ 11/26/2018 13:40:06 (Electronically Signed)
--- NOTE | 2018-11-26 15:38 | US ---
INDICATION: Left lower extremity swelling and pain COMPARISON: None available. FINDINGS: Ultrasound of the venous drainage of the left lower extremity shows no evidence of deep venous thrombosis. There is normal antegrade flow from the posterior tibial and popliteal veins superiorly through the common femoral vein. There is normal augmentation and compressibility of the veins. There is edema in the calf in the area of pain. The right common femoral vein is widely patent. IMPRESSION: No evidence of deep venous thrombosis on ultrasound examination of the left lower extremity. Edema in the calf in the area of pain. Dictated by Flakito Jones MD @ Nov 26 2018 3:34PM Signed by Dr. Flakito Jones @ Nov 26 2018 3:36PM
[2018-11-26 15:53] VITALS: BP 119/45; PULSE 58
== END 2018-11-26 15:53 | disposition home or self-care (01) ==
LOC: MW.ED 11:47
DX: R60.0 Localized edema (principal); I25.10 Atherosclerotic heart disease of native coronary artery without angina pectoris; I25.2 Old myocardial infarction; I11.0 Hypertensive heart disease with heart failure; I50.9 Heart failure, unspecified; J44.9 Chronic obstructive pulmonary disease, unspecified; F32.9 Major depressive disorder, single episode, unspecified; E78.00 Pure hypercholesterolemia, unspecified; E11.9 Type 2 diabetes mellitus without complications; F17.210 Nicotine dependence, cigarettes, uncomplicated; Z88.8 Allergy status to other drugs, medicaments and biological substances; Z88.5 Allergy status to narcotic agent; Z88.6 Allergy status to analgesic agent; Z79.899 Other long term (current) drug therapy; Z79.810 Long term (current) use of selective estrogen receptor modulators (SERMs); Z79.82 Long term (current) use of aspirin; Z79.84 Long term (current) use of oral hypoglycemic drugs; Z79.891 Long term (current) use of opiate analgesic; Z79.01 Long term (current) use of anticoagulants
CPT/HCPCS: 36415; 71045; 71045-26; 80053; 83880; 84443; 85379; 93005; 93971-26-LT; 93971-LT; 99284; 99284-25

== ENCOUNTER 2019-01-08 16:38 | Observation (INO) | payer MEDICARE ==
[2019-01-08] MEDS ORDERED: Sodium Chloride 0.9% 2.5 ML Syringe FLUSH PRN (17:34)
[2019-01-08] MEDS ORDERED: Sodium Chloride 0.9% 10 ML Syringe FLUSH PRN (17:34)
[2019-01-08] MEDS ORDERED: Sodium Chloride 0.9% 1,000 ML IV ONE (17:58)
--- NOTE | 2019-01-08 18:10 | EDM.PDOC ---
ED HPI GENERAL MEDICAL PROBLEM - General Chief Complaint: General Stated Complaint: WEAKNESS Time Seen by Provider: 01/08/19 17:31 Source of Information: Reports: Patient, Family History Limitations: Reports: No Limitations - History of Present Illness INITIAL COMMENTS - FREE TEXT/NARRATIVE: HISTORY AND PHYSICAL: History of present illness: Patient is a 73-year-old female presents to the ED today with her daughter for concern of confusion, issues with being weak and not able to walk per her baseline, and frequent falling 1 week. Patient states her only complaints today are mid back pain and abdominal pain. Patient states she does feels weak and slightly confused. Patient is slightly confused and vague in her explanations of what is going on today and does not offer more than this. Patients daughter states these falls have all been unwitnessed but knows that she fell today into the night stand as told by her daughter. Daughter does state that she's also been having a cough that she has noted but is unsure of how long its been going on. Patient has a history of congestive heart failure, coronary artery disease status post stent placement 7, fibromyalgia, frequent pneumonia infections, COPD, hyperlipidemia, hypertension, frequent urinary tract infections, and type 2 diabetes on oral medications. Patient denies fever, chills, chest pain, shortness of breath. Denies headache, neck stiff ness, change in vision, syncope, or near syncope. Denies nausea, vomiting, diarrhea, constipation, or dysuria. Has not noted any blood in urine or stool. Patient has been eating and drinking appropriately. Review of systems: As per history of present illness and below otherwise all systems reviewed and negative. Past medical history: As per history of present illness and as reviewed below otherwise noncontributory. Surgical history: As per history of present illness and as reviewed below otherwise noncontributory. Social history: See social history for further information Family history: As per history of present illness and as reviewed below otherwise noncontributory. Physical exam: General: Patient is alert, oriented but confused, and in no acute distress. Patient laying comfortably on exam table. Cervical collar placed upon arrival to the ED. HEENT: Atraumatic, normocephalic, pupils equal and reactive bilaterally, negative for conjunctival pallor or scleral icterus, mucous membranes moist, TMs normal bilaterally, throat clear, neck supple, nontender, trachea midline. No drooling or trismus noted. No meningeal signs. No hot potato voice noted. Lungs: Clear to auscultation, breath sounds equal bilaterally, chest nontender. Wet cough on exam. Heart: Distant but S1S2, regular rate and rhythm without overt murmur Abdomen: Soft, nondistended. Generalized mild pain to palpation of the abdomen. Negative for masses or hepatosplenomegaly. Negative for costovertebral tenderness. Pelvis: Stable nontender. Genitourinary: Deferred. Rectal: Deferred. Skin: Intact, warm, dry. No lesions or rashes noted. Extremities: Negative for cords or calf pain. Neurovascular unremarkable. No obvious deformities of the complete spine. No step-offs or crepitus on palpation of the complete spine the spinous process. There is a small 1 cm circular bruise overlying the mid thoracic area/spinous process but does have pain with palpation of this area. No obvious deformities of bilateral upper and bilateral lower extremities. Patient does have full range of motion of bilateral upper and bilateral lower extremities without pain or difficulty. Neuro: Awake, alert, oriented. Cranial nerves II through XII unremarkable. Cerebellum unremarkable. Motor and sensory unremarkable throughout. Exam nonfocal. Notes: Trauma alert was called upon arrival to the ED. Cervical collar was placed upon arrival. Dr. Zepeda directly involved in patient care. Dr. Perry was consulted on patient and will admit to observation. Dr. Tejada, general surgery, made aware of patient's admission to medical as patient was called as a trauma alert. Voices understanding and is agreeable to plan of care. Denies any further questions or concerns at this time. Diagnostics: CBC, CMP, UA, urine drug screen, lipase, troponin, EKG, bedside glucose, BNP, CPK, Ammonia, head CT, cervical spine CT, thoracic CT him a lumbar CT, chest CT , abdominal pelvic CT Therapeutics: Saline, Potassium, Protonix, Lactulose Impression: Confusion Hypokalemia Liver cirrhosis with esophageal varices, with elevated ammonia Gastritis Elevated renal function tests Congestive Heart Failure Positive marijuana use Plan: 1. Admit to observation to Dr. Perry Definitive disposition and diagnosis as appropriate pending reevaluation and review of above. - Related Data Allergies Allergy/AdvReac Type Severity Reaction Status Date / Time codeine Allergy Vomiting Verified 12/26/17 13:10 diphenhydramine Allergy Itching Verified 12/26/17 13:10 [From Benadryl] propoxyphene HCl Allergy Vomiting Verified 12/26/17 13:10 [From Darvon] Home Meds: Home Meds Aspirin 81 mg PO DAILY 01/08/19 [History] Furosemide [Lasix] 20 mg PO ASDIRECTED 01/08/19 [History] Glimepiride [Amaryl] 20 mg PO DAILY 01/08/19 [History] Isosorbide Dinitrate 30 mg PO DAILY 01/08/19 [History] Metoprolol Succinate [Toprol XL 100mg] 100 mg PO DAILY 01/08/19 [History] Nortriptyline 10 mg PO BID 01/08/19 [History] Potassium Chloride 20 meq PO DAILY 01/08/19 [History] Pravastatin [Pravachol] 80 mg PO DAILY 01/08/19 [History] Sertraline [Zoloft] 50 mg PO DAILY 01/08/19 [History] hydroCHLOROthiazide [Hydrochlorothiazide] 25 mg PO DAILY 01/08/19 [History] metFORMIN [Glucophage XR] 500 mg PO BID 01/08/19 [History] Past Medical History - Past Health History Medical/Surgical History: Denies Medical/Surgical History HEENT History: Reports: Impaired Vision Cardiovascular History: Reports: CAD, Heart Failure, High Cholesterol, Hypertension, IA, SOB on Exertion, Stents, Other (See Below) Other Cardiovascular History: states she has had 7 stents placed. Peripheral Atery Disease Respiratory History: Reports: COPD, Pneumonia, Recurrent Gastrointestinal History: Reports: Irritable Bowel Syndrome Genitourinary History: Reports: UTI, Recurrent UTILIZATION COORDINATOR History: Reports: Musculoskeletal History: Reports: Back Pain, Chronic, RA Neurological History: Reports: Migraines Psychiatric History: Reports: Anxiety, Depression, Panic Attack Endocrine/Metabolic History: Reports: Diabetes, Type II, Osteopenia Hematologic History: Reports: Anticoagulation Therapy - Infectious Disease History Infectious Disease History: Reports: Chicken Pox, Measles, Mumps - Past Surgical History HEENT Surgical History: Reports: Tonsillectomy Cardiovascular Surgical History: Reports: Other (See Below) Musculoskeletal Surgical History: Reports: None Social & Family History - Family History Family Medical History: Noncontributory - Tobacco Use Smoking Status *Q: Current Every Day Smoker Years of Tobacco use: 50 Packs/Tins Daily: 1 - Caffeine Use Caffeine Use: Reports: Coffee - Recreational Drug Use Recreational Drug Use: No ED ROS GENERAL - Review of Systems Review Of Systems: ROS reveals no pertinent complaints other than HPI. ED EXAM, GENERAL - Physical Exam Exam: See Below (See dictation) Course - Vital Signs Last Recorded V/S: Last Vital Signs Temp 36.2 C 01/08/19 17:37 Pulse 74 01/08/19 19:01 Resp 17 01/08/19 19:01 BP 97/42 L 01/08/19 19:01 Pulse Ox 93 L 01/08/19 19:01 - Orders/Labs/Meds Orders: Active Orders 24 hr Category Date Time Status Blood Glucose Check, Bedside [RC] ONETIME Care 01/08/19 18:00 Active EKG Documentation Completion [RC] STAT Care 01/08/19 17:33 Active Sodium Chloride 0.9% [Saline Flush] Med 01/08/19 17:34 Active 10 ml FLUSH ASDIRECTED PRN Sodium Chloride 0.9% [Saline Flush] Med 01/08/19 17:34 Active 2.5 ml FLUSH ASDIRECTED PRN Saline Lock Insert [OM.PC] Stat Oth 01/08/19 17:34 Ordered Medication Orders Sodium Chloride (Saline Flush) 10 ml FLUSH ASDIRECTED PRN PRN Reason: Keep Vein Open Sodium Chloride (Saline Flush) 2.5 ml FLUSH ASDIRECTED PRN PRN Reason: Keep Vein Open Labs: Laboratory Tests 01/08/19 01/08/19 01/08/19 Range/Units 17:45 17:45 17:45 WBC 7.41 (4.0-11.0) K/uL RBC 4.34 (4.30-5.90) M/uL Hgb 13.9 (12.0-16.0) g/dL Hct 41.4 (36.0-46.0) % MCV 95.4 (80.0-98.0) fL MCH 32.0 (27.0-32.0) pg MCHC 33.6 (31.0-37.0) g/dL RDW Std Deviation 53.0 (28.0-62.0) fl RDW Coeff of Ame 15 (11.0-15.0) % Plt Count 132 L (150-400) K/uL MPV 11.30 (7.40-12.00) fL Add Manual Diff YES Neutrophils % (Manual) 51 (48.0-80.0) % Lymphocytes % (Manual) 34 (16.0-40.0) % Monocytes % (Manual) 14 (0.0-15.0) % Nucleated RBC % 0.0 /100WBC Absolute Seg Neuts 3.8 (1.4-5.7) Lymphocytes # (Manual) 2.5 H (0.6-2.4) Monocytes # (Manual) 1.0 H (0.0-0.8) Nucleated RBCs # 0 K/uL INR 1.16 Sodium 139 (136-145) mmol/L Potassium 2.7 L (3.5-5.1) mmol/L Chloride 97 L (98-107) mmol/L Carbon Dioxide 34.0 H (21.0-32.0) mmol/L BUN 37 H (7.0-18.0) mg/dL Creatinine 1.9 H (0.6-1.0) mg/dL Est Cr Clr Drug Dosing 23.73 mL/min Estimated GFR (MDRD) 25.9 ml/min Glucose 121 H (74-106) mg/dL POC Glucose (60-110) mg/dL Calcium 9.9 (8.5-10.1) mg/dL Total Bilirubin 1.5 H (0.2-1.0) mg/dL AST 41 H (15-37) IU/L ALT 24 (14-63) IU/L Alkaline Phosphatase 104 (46-116) U/L Ammonia (19-54) ug/dL Creatine Kinase (26-308) U/L Troponin I (0.000-0.056) ng/mL B-Natriuretic Peptide (<100) PG/ML Total Protein 7.1 (6.4-8.2) g/dL Albumin 3.1 L (3.4-5.0) g/dL Globulin 4.0 (2.6-4.0) g/dL Albumin/Globulin Ratio 0.8 L (0.9-1.6) Lipase 198 (73-393) U/L Urine Color Urine Appearance Urine pH (5.0-8.0) Ur Specific [place] (1.001-1.035) Urine Protein (NEGATIVE) mg/dL Urine Glucose (UA) (NEGATIVE) mg/dL Urine Ketones (NEGATIVE) mg/dL Urine Occult Blood (NEGATIVE) Urine Nitrite (NEGATIVE) Urine Bilirubin (NEGATIVE) Urine Urobilinogen (<2.0) EU/dL Ur Leukocyte Esterase (NEGATIVE) Urine Opiates Screen (NEGATIVE) Ur Oxycodone Screen (NEGATIVE) Urine Methadone Screen (NEGATIVE) Ur Barbiturates Screen (NEGATIVE) Ur Phencyclidine Scrn (NEGATIVE) Ur Amphetamine Screen (NEGATIVE) U Methamphetamines Scrn (NEGATIVE) U Benzodiazepines Scrn (NEGATIVE) U Cocaine Metab Screen (NEGATIVE) U Marijuana (THC) Screen (NEGATIVE) 01/08/19 01/08/19 01/08/19 Range/Units 17:45 17:45 17:45 WBC (4.0-11.0) K/uL RBC (4.30-5.90) M/uL Hgb (12.0-16.0) g/dL Hct (36.0-46.0) % MCV (80.0-98.0) fL MCH (27.0-32.0) pg MCHC (31.0-37.0) g/dL RDW Std Deviation (28.0-62.0) fl RDW Coeff of Ame (11.0-15.0) % Plt Count (150-400) K/uL MPV (7.40-12.00) fL Add Manual Diff Neutrophils % (Manual) (48.0-80.0) % Lymphocytes % (Manual) (16.0-40.0) % Monocytes % (Manual) (0.0-15.0) % Nucleated RBC % /100WBC Absolute Seg Neuts (1.4-5.7) Lymphocytes # (Manual) (0.6-2.4) Monocytes # (Manual) (0.0-0.8) Nucleated RBCs # K/uL INR Sodium (136-145) mmol/L Potassium (3.5-5.1) mmol/L Chloride (98-107) mmol/L Carbon Dioxide (21.0-32.0) mmol/L BUN (7.0-18.0) mg/dL Creatinine (0.6-1.0) mg/dL Est Cr Clr Drug Dosing mL/min Estimated GFR (MDRD) ml/min Glucose (74-106) mg/dL POC Glucose (60-110) mg/dL Calcium (8.5-10.1) mg/dL Total Bilirubin (0.2-1.0) mg/dL AST (15-37) IU/L ALT (14-63) IU/L Alkaline Phosphatase (46-116) U/L Ammonia (19-54) ug/dL Creatine Kinase 85 (26-308) U/L Troponin I < 0.050 (0.000-0.056) ng/mL B-Natriuretic Peptide 170 H (<100) PG/ML Total Protein (6.4-8.2) g/dL Albumin (3.4-5.0) g/dL Globulin (2.6-4.0) g/dL Albumin/Globulin Ratio (0.9-1.6) Lipase (73-393) U/L Urine Color Urine Appearance Urine pH (5.0-8.0) Ur Specific [place] (1.001-1.035) Urine Protein (NEGATIVE) mg/dL Urine Glucose (UA) (NEGATIVE) mg/dL Urine Ketones (NEGATIVE) mg/dL Urine Occult Blood (NEGATIVE) Urine Nitrite (NEGATIVE) Urine Bilirubin (NEGATIVE) Urine Urobilinogen (<2.0) EU/dL Ur Leukocyte Esterase (NEGATIVE) Urine Opiates Screen (NEGATIVE) Ur Oxycodone Screen (NEGATIVE) Urine Methadone Screen (NEGATIVE) Ur Barbiturates Screen (NEGATIVE) Ur Phencyclidine Scrn (NEGATIVE) Ur Amphetamine Screen (NEGATIVE) U Methamphetamines Scrn (NEGATIVE) U Benzodiazepines Scrn (NEGATIVE) U Cocaine Metab Screen (NEGATIVE) U Marijuana (THC) Screen (NEGATIVE) 01/08/19 01/08/19 01/08/19 Range/Units 17:58 19:46 20:00 WBC (4.0-11.0) K/uL RBC (4.30-5.90) M/uL Hgb (12.0-16.0) g/dL Hct (36.0-46.0) % MCV (80.0-98.0) fL MCH (27.0-32.0) pg MCHC (31.0-37.0) g/dL RDW Std Deviation (28.0-62.0) fl RDW Coeff of Ame (11.0-15.0) % Plt Count (150-400) K/uL MPV (7.40-12.00) fL Add Manual Diff Neutrophils % (Manual) (48.0-80.0) % Lymphocytes % (Manual) (16.0-40.0) % Monocytes % (Manual) (0.0-15.0) % Nucleated RBC % /100WBC Absolute Seg Neuts (1.4-5.7) Lymphocytes # (Manual) (0.6-2.4) Monocytes # (Manual) (0.0-0.8) Nucleated RBCs # K/uL INR Sodium (136-145) mmol/L Potassium (3.5-5.1) mmol/L Chloride (98-107) mmol/L Carbon Dioxide (21.0-32.0) mmol/L BUN (7.0-18.0) mg/dL Creatinine (0.6-1.0) mg/dL Est Cr Clr Drug Dosing mL/min Estimated GFR (MDRD) ml/min Glucose (74-106) mg/dL POC Glucose 107 (60-110) mg/dL Calcium (8.5-10.1) mg/dL Total Bilirubin (0.2-1.0) mg/dL AST (15-37) IU/L ALT (14-63) IU/L Alkaline Phosphatase (46-116) U/L Ammonia 73 H (19-54) ug/dL Creatine Kinase (26-308) U/L Troponin I (0.000-0.056) ng/mL B-Natriuretic Peptide (<100) PG/ML Total Protein (6.4-8.2) g/dL Albumin (3.4-5.0) g/dL Globulin (2.6-4.0) g/dL Albumin/Globulin Ratio (0.9-1.6) Lipase (73-393) U/L Urine Color YELLOW Urine Appearance SLT CLOUDY Urine pH 7.5 (5.0-8.0) Ur Specific [place] 1.010 (1.001-1.035) Urine Protein NEGATIVE (NEGATIVE) mg/dL Urine Glucose (UA) NEGATIVE (NEGATIVE) mg/dL Urine Ketones NEGATIVE (NEGATIVE) mg/dL Urine Occult Blood NEGATIVE (NEGATIVE) Urine Nitrite NEGATIVE (NEGATIVE) Urine Bilirubin NEGATIVE (NEGATIVE) Urine Urobilinogen 2.0 H (<2.0) EU/dL Ur Leukocyte Esterase NEGATIVE (NEGATIVE) Urine Opiates Screen (NEGATIVE) Ur Oxycodone Screen (NEGATIVE) Urine Methadone Screen (NEGATIVE) Ur Barbiturates Screen (NEGATIVE) Ur Phencyclidine Scrn (NEGATIVE) Ur Amphetamine Screen (NEGATIVE) U Methamphetamines Scrn (NEGATIVE) U Benzodiazepines Scrn (NEGATIVE) U Cocaine Metab Screen (NEGATIVE) U Marijuana (THC) Screen (NEGATIVE) 01/08/19 Range/Units 20:00 WBC (4.0-11.0) K/uL RBC (4.30-5.90) M/uL Hgb (12.0-16.0) g/dL Hct (36.0-46.0) % MCV (80.0-98.0) fL MCH (27.0-32.0) pg MCHC (31.0-37.0) g/dL RDW Std Deviation (28.0-62.0) fl RDW Coeff of Ame (11.0-15.0) % Plt Count (150-400) K/uL MPV (7.40-12.00) fL Add Manual Diff Neutrophils % (Manual) (48.0-80.0) % Lymphocytes % (Manual) (16.0-40.0) % Monocytes % (Manual) (0.0-15.0) % Nucleated RBC % /100WBC Absolute Seg Neuts (1.4-5.7) Lymphocytes # (Manual) (0.6-2.4) Monocytes # (Manual) (0.0-0.8) Nucleated RBCs # K/uL INR Sodium (136-145) mmol/L Potassium (3.5-5.1) mmol/L Chloride (98-107) mmol/L Carbon Dioxide (21.0-32.0) mmol/L BUN (7.0-18.0) mg/dL Creatinine (0.6-1.0) mg/dL Est Cr Clr Drug Dosing mL/min Estimated GFR (MDRD) ml/min Glucose (74-106) mg/dL POC Glucose (60-110) mg/dL Calcium (8.5-10.1) mg/dL Total Bilirubin (0.2-1.0) mg/dL AST (15-37) IU/L ALT (14-63) IU/L Alkaline Phosphatase (46-116) U/L Ammonia (19-54) ug/dL Creatine Kinase (26-308) U/L Troponin I (0.000-0.056) ng/mL B-Natriuretic Peptide (<100) PG/ML Total Protein (6.4-8.2) g/dL Albumin (3.4-5.0) g/dL Globulin (2.6-4.0) g/dL Albumin/Globulin Ratio (0.9-1.6) Lipase (73-393) U/L Urine Color Urine Appearance Urine pH (5.0-8.0) Ur Specific [place] (1.001-1.035) Urine Protein (NEGATIVE) mg/dL Urine Glucose (UA) (NEGATIVE) mg/dL Urine Ketones (NEGATIVE) mg/dL Urine Occult Blood (NEGATIVE) Urine Nitrite (NEGATIVE) Urine Bilirubin (NEGATIVE) Urine Urobilinogen (<2.0) EU/dL Ur Leukocyte Esterase (NEGATIVE) Urine Opiates Screen NEGATIVE (NEGATIVE) Ur Oxycodone Screen NEGATIVE (NEGATIVE) Urine Methadone Screen NEGATIVE (NEGATIVE) Ur Barbiturates Screen NEGATIVE (NEGATIVE) Ur Phencyclidine Scrn NEGATIVE (NEGATIVE) Ur Amphetamine Screen NEGATIVE (NEGATIVE) U Methamphetamines Scrn NEGATIVE (NEGATIVE) U Benzodiazepines Scrn NEGATIVE (NEGATIVE) U Cocaine Metab Screen NEGATIVE (NEGATIVE) U Marijuana (THC) Screen POSITIVE (NEGATIVE) Meds: Medications Generic Name Dose Route Start Last Admin Trade Name Freq PRN Reason Stop Dose Admin Sodium Chloride 10 ml 01/08/19 17:34 Saline Flush FLUSH ASDIRECTED PRN Keep Vein Open Sodium Chloride 2.5 ml 01/08/19 17:34 Saline Flush FLUSH ASDIRECTED PRN Keep Vein Open Discontinued Medications Generic Name Dose Route Start Last Admin Trade Name Freq PRN Reason Stop Dose Admin Sodium Chloride 1,000 mls @ 500 mls/hr 01/08/19 17:58 01/08/19 18:30 Normal Saline IV 01/08/19 19:57 125 mls/hr STAT ONE Infusion Potassium Chloride 20 meq/ 50 mls @ 25 mls/hr 01/08/19 18:25 01/08/19 19:17 Premix IV 01/08/19 20:24 25 mls/hr ONETIME ONE Administration Iopamidol 85 ml 01/08/19 18:55 Isovue Multipack-370 (76%) IVPUSH 01/08/19 18:56 ONETIME STA Lactulose 20 gm 09/20/19 20:35 Chronulac PO 01/08/19 20:36 ONETIME ONE Pantoprazole Sodium 80 mg 01/08/19 19:36 Protonix Iv IVPUSH 01/08/19 19:37 .BOLUS ONE Departure - Departure Time of Disposition: 20:43 Disposition: Refer to Observation Clinical Impression: Confusion, Hypokalemia, Abnormal renal function test Liver cirrhosis Qualifiers: Hepatic cirrhosis type: unspecified hepatic cirrhosis Ascites presence: unspecified Qualified Code(s): K74.60 - Unspecified cirrhosis of liver Esophageal varices Qualifiers: Esophageal varices type: unspecified type Esophageal varices bleeding: without bleeding Qualified Code(s): I85.00 - Esophageal varices without bleeding Gastritis Qualifiers: Gastritis type: unspecified gastritis Chronicity: unspecified Gastritis bleeding: without bleeding Qualified Code(s): K29.70 - Gastritis, unspecified, without bleeding Congestive heart failure (CHF) Qualifiers: Heart failure type: unspecified Heart failure chronicity: unspecified Qualified Code(s): I50.9 - Heart failure, unspecified - Discharge Information - My Orders Last 24 Hours: My Active Orders 01/08/19 17:33 EKG Documentation Completion [RC] STAT 01/08/19 17:34 Sodium Chloride 0.9% [Saline Flush] 10 ml FLUSH ASDIRECTED PRN Sodium Chloride 0.9% [Saline Flush] 2.5 ml FLUSH ASDIRECTED PRN Saline Lock Insert [OM.PC] Stat 01/08/19 18:00 Blood Glucose Check, Bedside [RC] ONETIME - Assessment/Plan Last 24 Hours: My Active Orders 01/08/19 17:33 EKG Documentation Completion [RC] STAT 01/08/19 17:34 Sodium Chloride 0.9% [Saline Flush] 10 ml FLUSH ASDIRECTED PRN Sodium Chloride 0.9% [Saline Flush] 2.5 ml FLUSH ASDIRECTED PRN Saline Lock Insert [OM.PC] Stat 01/08/19 18:00 Blood Glucose Check, Bedside [RC] ONETIME
[2019-01-08 18:16] LABS: POTASSIUM,K 2.7 mmol/L (3.5-5.1)
[2019-01-08] MEDS ORDERED: Potassium Chloride Riders 20 MEQ in Premix Bag 1 BAG IV ONE (18:25)
[2019-01-08] MEDS ORDERED: Iopamidol 755 MG/ML 500 ML Multipack Bottle IVPUSH STA (18:55)
--- NOTE | 2019-01-08 19:27 | CT ---
INDICATION: Fall TECHNIQUE: Head CT without contrast. COMPARISON: July 31, 2017 FINDINGS: CSF spaces: Within normal limits for age. Brain parenchyma: There are nonspecific low attenuation white matter changes consistent with chronic microvascular disease. No sign of mass, hemorrhage, or midline shift. Skull base and calvarium: The visualized paranasal sinuses and mastoid air cells demonstrate no acute or significant findings. The visualized orbits are grossly unremarkable. No skull fractures. There is intracranial atherosclerosis. IMPRESSION: 1. No acute findings. 2. Nonspecific white matter disease, typical of chronic microvascular disease. Please note that all CT scans at this facility use dose modulation, iterative reconstruction, and/or weight-based dosing when appropriate to reduce radiation dose to as low as reasonably achievable. Dictated by Amena Ramos MD @ Jan 08 2019 7:25PM Signed by Dr. Amena Ramos @ Jan 08 2019 7:25PM
--- NOTE | 2019-01-08 19:27 | CT ---
Indication: Trauma. Fall. Technique: Multiple contiguous axial images were obtained from the lung bases through the symphysis pubis after the intravenous administration of 85 milliliters Isovue 370. Please note that all CT scans at this facility use dose modulation, iterative reconstruction, and/or weight-based dosing when appropriate to reduce radiation dose to as low as reasonably achievable. Comparison: None Findings: Right basilar atelectasis is identified. No infiltrate or pneumothorax is identified. The heart is normal in size. Coronary artery calcifications are identified. The liver is nodular. This can be seen with cirrhosis. Small amount of free fluid is identified surrounding the liver. The spleen, pancreas, adrenals, and kidneys are normal. Thickening of the wall of the distal stomach is identified, which can be seen with gastritis. In the pelvis, the urinary bladder is normal. No uterus is identified. The small and large bowel are normal in caliber. No free air or free fluid is identified within the abdomen or pelvis. The aorta is normal in caliber. Degenerative changes of the spine are identified. Both femoral heads are seated within the acetabula. No fracture of the visualized vertebra are identified. Impression: Findings most consistent with cirrhosis. A trace amount of free fluid is identified around the liver. Thickening of the wall of the distal stomach, which can be seen with gastritis. Please note that all CT scans at this facility use dose modulation, iterative reconstruction, and/or weight-based dosing when appropriate to reduce radiation dose to as low as reasonably achievable. Dictated by Asha Tejada MD @ Jan 08 2019 7:21PM Signed by Dr. Asha Tejada @ Jan 08 2019 7:26PM
--- NOTE | 2019-01-08 19:29 | CT ---
INDICATION: Fall TECHNIQUE: CT cervical spine without contrast. COMPARISON: None FINDINGS: Vertebral alignment: Alignment is normal. Vertebrae: There are no fractures or suspicious bony lesions. Discs and facet joints: There are moderate multilevel degenerative disc and facet changes. Extraspinal findings: Paraspinous soft tissues are unremarkable. IMPRESSION: 1. No sign of acute injury. 2. Multilevel degenerative spondylosis. Please note that all CT scans at this facility use dose modulation, iterative reconstruction, and/or weight-based dosing when appropriate to reduce radiation dose to as low as reasonably achievable. Dictated by Amena Ramos MD @ Jan 08 2019 7:22PM Signed by Dr. Amena Ramos @ Jan 08 2019 7:28PM
[2019-01-08] MEDS ORDERED: Pantoprazole 40 MG Vial IVPUSH ONE (19:36)
--- NOTE | 2019-01-08 19:44 | CT ---
INDICATION: Fall TECHNIQUE: CT chest was acquired with 85 cc Isovue 370 IV contrast. COMPARISON: April 24, 2007 FINDINGS: Cardiovascular structures: Heart size is normal. Coronary artery calcifications. Thoracic aorta and main pulmonary artery are normal in caliber. Mediastinum and alfred: No mass or adenopathy. Varices around the distal esophagus. Lungs: 4 mm subpleural pulmonary nodule right upper lobe image 45 series 201. Pleura and pericardium: No effusions. Chest wall and axilla: No mass or adenopathy. Upper abdomen: Nodular liver. Hepatic steatosis. Small amount of ascites. No focal hepatic mass. Status post cholecystectomy. Bones: No acute findings. Mild multilevel degenerative disc changes. IMPRESSION: No acute intrathoracic injury. Right upper lobe pulmonary nodule. Follow-up per Fleischner society guidelines recommended, as listed below. Coronary artery disease. Cirrhosis with small amount of ascites. Distal esophageal varices. Status post cholecystectomy. FLEISCHNER SOCIETY GUIDELINES - SOLID NODULES: SINGLE LOW RISK - nodule less than 6 mm: No routine follow-up. - nodule 6-8 mm: CT at 6-12 months, then consider CT at 18-24 months. - nodule greater than 8 mm: Consider CT at 3 months, PET/CT or tissue sampling. SINGLE HIGH RISK - nodule less than 6 mm: Optional CT at 12 months. - nodule 6-8 mm: CT at 6-12 months, then CT at 18-24 months. - nodule greater than 8 mm: Consider CT at 3 months, PET/CT or tissue sampling. Please note that all CT scans at this facility use dose modulation, iterative reconstruction, and/or weight-based dosing when appropriate to reduce radiation dose to as low as reasonably achievable. Dictated by Amena Ramos MD @ Jan 08 2019 7:43PM Signed by Dr. Amena Ramos @ Jan 08 2019 7:43PM
--- NOTE | 2019-01-08 19:46 | CT ---
INDICATION: Fall TECHNIQUE: CT thoracic spine without contrast. COMPARISON: None. FINDINGS: Vertebral alignment: Alignment is normal. Vertebrae: There are no fractures or suspicious bony lesions. Discs and facet joints: Mild multilevel degenerative disc changes. Extraspinal findings: Prevertebral soft tissues, visualized airway, and visualized lungs are unremarkable. IMPRESSION: No acute fracture or subluxation. Please note that all CT scans at this facility use dose modulation, iterative reconstruction, and/or weight-based dosing when appropriate to reduce radiation dose to as low as reasonably achievable. Dictated by Amena Ramos MD @ Jan 08 2019 7:28PM Signed by Dr. Amena Ramos @ Jan 08 2019 7:45PM
--- NOTE | 2019-01-08 19:48 | CT ---
INDICATION: Fall TECHNIQUE: CT lumbar spine without contrast. COMPARISON: None FINDINGS: Vertebral alignment: Alignment is normal. Vertebrae: There are no fractures or suspicious bony lesions. Discs and facet joints: Moderate multilevel degenerative disc and facet changes. Extraspinal findings: Hepatic steatosis. Moderate atherosclerotic disease. Vascular stents in the bilateral external iliac arteries. IMPRESSION: No lumbar spine fracture or subluxation. Please note that all CT scans at this facility use dose modulation, iterative reconstruction, and/or weight-based dosing when appropriate to reduce radiation dose to as low as reasonably achievable. Dictated by Amena Ramos MD @ Jan 08 2019 7:29PM Signed by Dr. Amena Ramos @ Jan 08 2019 7:47PM
[2019-01-08] MEDS ORDERED: Lactulose Soln 10 GM/15 ML 15 ML UD Cup PO ONE (20:35)
--- NOTE | 2019-01-08 23:13 | PCM.HP.2 ---
H&P History of Present Illness - General Date of Service: 01/08/19 Admit Problem/Dx: Admission Diagnosis/Problem Admission Diagnosis/Problem Confusion - History of Present Illness Initial Comments - Free Text/Narative: 73 yo female with pmh of CHF, CAD, COPD, HTN, DM who presents with dizziness, falls and confusion for past week. Patient reports she was on lasix for leg edema. Her leg edema has improved but patient believes she is dehydration. Patient stated she stopped taking lasix but uncertain if she was repeating instructions to stopped her lasix by ED provider kyler. CT scan of chest abdomen and pelvis was suggestive of liver cirrhosis. Patient denies any alcohol use. - Related Data Allergies/Adverse Reactions: Allergies Allergy/AdvReac Type Severity Reaction Status Date / Time codeine Allergy Vomiting Verified 01/08/19 23:14 diphenhydramine Allergy Itching Verified 01/08/19 23:14 [From Benadryl] propoxyphene HCl Allergy Vomiting Verified 01/08/19 23:14 [From Darvon] Home Medications: Home Meds Aspirin 81 mg PO DAILY 01/08/19 [History] Furosemide [Lasix] 20 mg PO ASDIRECTED 01/08/19 [History] Glimepiride [Amaryl] 20 mg PO DAILY 01/08/19 [History] Isosorbide Dinitrate 30 mg PO DAILY 01/08/19 [History] Metoprolol Succinate [Toprol XL 100mg] 100 mg PO DAILY 01/08/19 [History] Nortriptyline 10 mg PO BID 01/08/19 [History] Potassium Chloride 20 meq PO DAILY 01/08/19 [History] Pravastatin [Pravachol] 80 mg PO DAILY 01/08/19 [History] Sertraline [Zoloft] 50 mg PO DAILY 01/08/19 [History] hydroCHLOROthiazide [Hydrochlorothiazide] 25 mg PO DAILY 01/08/19 [History] metFORMIN [Glucophage XR] 500 mg PO BID 01/08/19 [History] Past Medical History - Past Health History Medical/Surgical History: Denies Medical/Surgical History HEENT History: Reports: Impaired Vision Cardiovascular History: Reports: CAD, Heart Failure, High Cholesterol, Hypertension, VA, SOB on Exertion, Stents, Other (See Below) Other Cardiovascular History: states she has had 7 stents placed. Peripheral Atery Disease Respiratory History: Reports: COPD, Pneumonia, Recurrent Gastrointestinal History: Reports: Irritable Bowel Syndrome Genitourinary History: Reports: UTI, Recurrent [employer] History: Reports: Musculoskeletal History: Reports: Back Pain, Chronic, RA Neurological History: Reports: Migraines Psychiatric History: Reports: Anxiety, Depression, Panic Attack Endocrine/Metabolic History: Reports: Diabetes, Type II, Osteopenia Hematologic History: Reports: Anticoagulation Therapy - Infectious Disease History Infectious Disease History: Reports: Chicken Pox, Measles, Mumps - Past Surgical History HEENT Surgical History: Reports: Tonsillectomy Cardiovascular Surgical History: Reports: Other (See Below) Musculoskeletal Surgical History: Reports: None Social & Family History - Family History Family Medical History: Noncontributory - Tobacco Use Smoking Status *Q: Current Every Day Smoker Years of Tobacco use: 50 Packs/Tins Daily: 1 - Caffeine Use Caffeine Use: Reports: Coffee - Recreational Drug Use Recreational Drug Use: No H&P Review of Systems - Review of Systems: Review Of Systems: ROS reveals no pertinent complaints other than HPI. Exam - Exam Exam: See Below - Vital Signs Vital Signs: Last Vital Signs Temp 36.3 C 01/08/19 22:00 Pulse 54 L 01/08/19 22:00 Resp 17 01/08/19 22:00 BP 112/53 L 01/08/19 22:00 Pulse Ox 93 L 01/08/19 22:00 Weight: 71.441 kg - Exam General: Alert, Oriented HEENT: Conjunctiva Clear Lungs: Clear to Auscultation, Normal Respiratory Effort Cardiovascular: Regular Rate, Regular Rhythm GI/Abdominal Exam: Soft, Non-Tender Skin: Dry, Other (skin tenting) - Patient Data Lab Results Last 24 hrs: Laboratory Results - last 24 hr 01/08/19 01/08/19 01/08/19 Range/Units 17:45 17:45 17:45 WBC 7.41 (4.0-11.0) K/uL RBC 4.34 (4.30-5.90) M/uL Hgb 13.9 (12.0-16.0) g/dL Hct 41.4 (36.0-46.0) % MCV 95.4 (80.0-98.0) fL MCH 32.0 (27.0-32.0) pg MCHC 33.6 (31.0-37.0) g/dL RDW Std Deviation 53.0 (28.0-62.0) fl RDW Coeff of Ame 15 (11.0-15.0) % Plt Count 132 L (150-400) K/uL MPV 11.30 (7.40-12.00) fL Add Manual Diff YES Neutrophils % (Manual) 51 (48.0-80.0) % Lymphocytes % (Manual) 34 (16.0-40.0) % Monocytes % (Manual) 14 (0.0-15.0) % Nucleated RBC % 0.0 /100WBC Absolute Seg Neuts 3.8 (1.4-5.7) Lymphocytes # (Manual) 2.5 H (0.6-2.4) Monocytes # (Manual) 1.0 H (0.0-0.8) Nucleated RBCs # 0 K/uL INR 1.16 Sodium 139 (136-145) mmol/L Potassium 2.7 L (3.5-5.1) mmol/L Chloride 97 L (98-107) mmol/L Carbon Dioxide 34.0 H (21.0-32.0) mmol/L BUN 37 H (7.0-18.0) mg/dL Creatinine 1.9 H (0.6-1.0) mg/dL Est Cr Clr Drug Dosing 23.73 mL/min Estimated GFR (MDRD) 25.9 ml/min Glucose 121 H (74-106) mg/dL POC Glucose (60-110) mg/dL Calcium 9.9 (8.5-10.1) mg/dL Total Bilirubin 1.5 H (0.2-1.0) mg/dL AST 41 H (15-37) IU/L ALT 24 (14-63) IU/L Alkaline Phosphatase 104 (46-116) U/L Ammonia (19-54) ug/dL Creatine Kinase (26-308) U/L Troponin I (0.000-0.056) ng/mL B-Natriuretic Peptide (<100) PG/ML Total Protein 7.1 (6.4-8.2) g/dL Albumin 3.1 L (3.4-5.0) g/dL Globulin 4.0 (2.6-4.0) g/dL Albumin/Globulin Ratio 0.8 L (0.9-1.6) Lipase 198 (73-393) U/L Urine Color Urine Appearance Urine pH (5.0-8.0) Ur Specific [place] (1.001-1.035) Urine Protein (NEGATIVE) mg/dL Urine Glucose (UA) (NEGATIVE) mg/dL Urine Ketones (NEGATIVE) mg/dL Urine Occult Blood (NEGATIVE) Urine Nitrite (NEGATIVE) Urine Bilirubin (NEGATIVE) Urine Urobilinogen (<2.0) EU/dL Ur Leukocyte Esterase (NEGATIVE) Urine Opiates Screen (NEGATIVE) Ur Oxycodone Screen (NEGATIVE) Urine Methadone Screen (NEGATIVE) Ur Barbiturates Screen (NEGATIVE) Ur Phencyclidine Scrn (NEGATIVE) Ur Amphetamine Screen (NEGATIVE) U Methamphetamines Scrn (NEGATIVE) U Benzodiazepines Scrn (NEGATIVE) U Cocaine Metab Screen (NEGATIVE) U Marijuana (THC) Screen (NEGATIVE) 01/08/19 01/08/19 01/08/19 Range/Units 17:45 17:45 17:45 WBC (4.0-11.0) K/uL RBC (4.30-5.90) M/uL Hgb (12.0-16.0) g/dL Hct (36.0-46.0) % MCV (80.0-98.0) fL MCH (27.0-32.0) pg MCHC (31.0-37.0) g/dL RDW Std Deviation (28.0-62.0) fl RDW Coeff of Ame (11.0-15.0) % Plt Count (150-400) K/uL MPV (7.40-12.00) fL Add Manual Diff Neutrophils % (Manual) (48.0-80.0) % Lymphocytes % (Manual) (16.0-40.0) % Monocytes % (Manual) (0.0-15.0) % Nucleated RBC % /100WBC Absolute Seg Neuts (1.4-5.7) Lymphocytes # (Manual) (0.6-2.4) Monocytes # (Manual) (0.0-0.8) Nucleated RBCs # K/uL INR Sodium (136-145) mmol/L Potassium (3.5-5.1) mmol/L Chloride (98-107) mmol/L Carbon Dioxide (21.0-32.0) mmol/L BUN (7.0-18.0) mg/dL Creatinine (0.6-1.0) mg/dL Est Cr Clr Drug Dosing mL/min Estimated GFR (MDRD) ml/min Glucose (74-106) mg/dL POC Glucose (60-110) mg/dL Calcium (8.5-10.1) mg/dL Total Bilirubin (0.2-1.0) mg/dL AST (15-37) IU/L ALT (14-63) IU/L Alkaline Phosphatase (46-116) U/L Ammonia (19-54) ug/dL Creatine Kinase 85 (26-308) U/L Troponin I < 0.050 (0.000-0.056) ng/mL B-Natriuretic Peptide 170 H (<100) PG/ML Total Protein (6.4-8.2) g/dL Albumin (3.4-5.0) g/dL Globulin (2.6-4.0) g/dL Albumin/Globulin Ratio (0.9-1.6) Lipase (73-393) U/L Urine Color Urine Appearance Urine pH (5.0-8.0) Ur Specific [place] (1.001-1.035) Urine Protein (NEGATIVE) mg/dL Urine Glucose (UA) (NEGATIVE) mg/dL Urine Ketones (NEGATIVE) mg/dL Urine Occult Blood (NEGATIVE) Urine Nitrite (NEGATIVE) Urine Bilirubin (NEGATIVE) Urine Urobilinogen (<2.0) EU/dL Ur Leukocyte Esterase (NEGATIVE) Urine Opiates Screen (NEGATIVE) Ur Oxycodone Screen (NEGATIVE) Urine Methadone Screen (NEGATIVE) Ur Barbiturates Screen (NEGATIVE) Ur Phencyclidine Scrn (NEGATIVE) Ur Amphetamine Screen (NEGATIVE) U Methamphetamines Scrn (NEGATIVE) U Benzodiazepines Scrn (NEGATIVE) U Cocaine Metab Screen (NEGATIVE) U Marijuana (THC) Screen (NEGATIVE) 01/08/19 01/08/19 01/08/19 Range/Units 17:58 19:46 20:00 WBC (4.0-11.0) K/uL RBC (4.30-5.90) M/uL Hgb (12.0-16.0) g/dL Hct (36.0-46.0) % MCV (80.0-98.0) fL MCH (27.0-32.0) pg MCHC (31.0-37.0) g/dL RDW Std Deviation (28.0-62.0) fl RDW Coeff of Ame (11.0-15.0) % Plt Count (150-400) K/uL MPV (7.40-12.00) fL Add Manual Diff Neutrophils % (Manual) (48.0-80.0) % Lymphocytes % (Manual) (16.0-40.0) % Monocytes % (Manual) (0.0-15.0) % Nucleated RBC % /100WBC Absolute Seg Neuts (1.4-5.7) Lymphocytes # (Manual) (0.6-2.4) Monocytes # (Manual) (0.0-0.8) Nucleated RBCs # K/uL INR Sodium (136-145) mmol/L Potassium (3.5-5.1) mmol/L Chloride (98-107) mmol/L Carbon Dioxide (21.0-32.0) mmol/L BUN (7.0-18.0) mg/dL Creatinine (0.6-1.0) mg/dL Est Cr Clr Drug Dosing mL/min Estimated GFR (MDRD) ml/min Glucose (74-106) mg/dL POC Glucose 107 (60-110) mg/dL Calcium (8.5-10.1) mg/dL Total Bilirubin (0.2-1.0) mg/dL AST (15-37) IU/L ALT (14-63) IU/L Alkaline Phosphatase (46-116) U/L Ammonia 73 H (19-54) ug/dL Creatine Kinase (26-308) U/L Troponin I (0.000-0.056) ng/mL B-Natriuretic Peptide (<100) PG/ML Total Protein (6.4-8.2) g/dL Albumin (3.4-5.0) g/dL Globulin (2.6-4.0) g/dL Albumin/Globulin Ratio (0.9-1.6) Lipase (73-393) U/L Urine Color YELLOW Urine Appearance SLT CLOUDY Urine pH 7.5 (5.0-8.0) Ur Specific [place] 1.010 (1.001-1.035) Urine Protein NEGATIVE (NEGATIVE) mg/dL Urine Glucose (UA) NEGATIVE (NEGATIVE) mg/dL Urine Ketones NEGATIVE (NEGATIVE) mg/dL Urine Occult Blood NEGATIVE (NEGATIVE) Urine Nitrite NEGATIVE (NEGATIVE) Urine Bilirubin NEGATIVE (NEGATIVE) Urine Urobilinogen 2.0 H (<2.0) EU/dL Ur Leukocyte Esterase NEGATIVE (NEGATIVE) Urine Opiates Screen (NEGATIVE) Ur Oxycodone Screen (NEGATIVE) Urine Methadone Screen (NEGATIVE) Ur Barbiturates Screen (NEGATIVE) Ur Phencyclidine Scrn (NEGATIVE) Ur Amphetamine Screen (NEGATIVE) U Methamphetamines Scrn (NEGATIVE) U Benzodiazepines Scrn (NEGATIVE) U Cocaine Metab Screen (NEGATIVE) U Marijuana (THC) Screen (NEGATIVE) 01/08/19 Range/Units 20:00 WBC (4.0-11.0) K/uL RBC (4.30-5.90) M/uL Hgb (12.0-16.0) g/dL Hct (36.0-46.0) % MCV (80.0-98.0) fL MCH (27.0-32.0) pg MCHC (31.0-37.0) g/dL RDW Std Deviation (28.0-62.0) fl RDW Coeff of Ame (11.0-15.0) % Plt Count (150-400) K/uL MPV (7.40-12.00) fL Add Manual Diff Neutrophils % (Manual) (48.0-80.0) % Lymphocytes % (Manual) (16.0-40.0) % Monocytes % (Manual) (0.0-15.0) % Nucleated RBC % /100WBC Absolute Seg Neuts (1.4-5.7) Lymphocytes # (Manual) (0.6-2.4) Monocytes # (Manual) (0.0-0.8) Nucleated RBCs # K/uL INR Sodium (136-145) mmol/L Potassium (3.5-5.1) mmol/L Chloride (98-107) mmol/L Carbon Dioxide (21.0-32.0) mmol/L BUN (7.0-18.0) mg/dL Creatinine (0.6-1.0) mg/dL Est Cr Clr Drug Dosing mL/min Estimated GFR (MDRD) ml/min Glucose (74-106) mg/dL POC Glucose (60-110) mg/dL Calcium (8.5-10.1) mg/dL Total Bilirubin (0.2-1.0) mg/dL AST (15-37) IU/L ALT (14-63) IU/L Alkaline Phosphatase (46-116) U/L Ammonia (19-54) ug/dL Creatine Kinase (26-308) U/L Troponin I (0.000-0.056) ng/mL B-Natriuretic Peptide (<100) PG/ML Total Protein (6.4-8.2) g/dL Albumin (3.4-5.0) g/dL Globulin (2.6-4.0) g/dL Albumin/Globulin Ratio (0.9-1.6) Lipase (73-393) U/L Urine Color Urine Appearance Urine pH (5.0-8.0) Ur Specific [place] (1.001-1.035) Urine Protein (NEGATIVE) mg/dL Urine Glucose (UA) (NEGATIVE) mg/dL Urine Ketones (NEGATIVE) mg/dL Urine Occult Blood (NEGATIVE) Urine Nitrite (NEGATIVE) Urine Bilirubin (NEGATIVE) Urine Urobilinogen (<2.0) EU/dL Ur Leukocyte Esterase (NEGATIVE) Urine Opiates Screen NEGATIVE (NEGATIVE) Ur Oxycodone Screen NEGATIVE (NEGATIVE) Urine Methadone Screen NEGATIVE (NEGATIVE) Ur Barbiturates Screen NEGATIVE (NEGATIVE) Ur Phencyclidine Scrn NEGATIVE (NEGATIVE) Ur Amphetamine Screen NEGATIVE (NEGATIVE) U Methamphetamines Scrn NEGATIVE (NEGATIVE) U Benzodiazepines Scrn NEGATIVE (NEGATIVE) U Cocaine Metab Screen NEGATIVE (NEGATIVE) U Marijuana (THC) Screen POSITIVE (NEGATIVE) Result Diagrams: 01/09/19 05:35 01/09/19 15:58 Problem List Initiated/Reviewed/Updated: Yes Orders Last 24hrs: Active Orders 24 hr Category Date Time Status Admission Status [Patient Status] [ADT] Stat ADT 01/08/19 20:33 Active Antiembolic Devices [RC] PER UNIT ROUTINE Care 01/08/19 23:07 Ordered Blood Glucose Check, Bedside [RC] ONETIME Care 01/08/19 18:00 Active EKG Documentation Completion [RC] STAT Care 01/08/19 17:33 Active Oxygen Therapy [RC] PRN Care 01/08/19 23:06 Ordered Telemetry Monitoring [Cardiac Monitoring] [RC] . Care 01/08/19 21:21 Active DIRECTED VTE/DVT Education [RC] PER UNIT ROUTINE Care 01/08/19 23:06 Ordered Vital Signs [RC] Q4H Care 01/08/19 23:06 Ordered Regular Diet [DIET] Diet 01/08/19 Breakfast Ordered CBC WITH AUTO DIFF [HEME] AM Lab 01/09/19 05:11 Ordered COMPREHENSIVE METABOLIC PN,CMP [CHEM] AM Lab 01/09/19 05:11 Ordered Metoprolol Succinate [Toprol XL] Med 01/09/19 09:00 Ordered 100 mg PO DAILY Potassium Chloride [Klor-Con] Med 01/08/19 23:15 Ordered 20 meq PO ASDIRECTED Potassium Chloride [Potassium Chloride] Med 01/09/19 09:00 Ordered 20 meq PO DAILY Pravastatin [Pravachol] Med 01/09/19 09:00 Ordered 80 mg PO DAILY Sertraline [Zoloft] Med 01/09/19 09:00 Ordered 50 mg PO DAILY Sodium Chloride 0.9% @ 125 MLS/HR (1,000ml) Med 01/08/19 23:15 Ordered Sodium Chloride 0.9% [Normal Saline] 1,000 ml IV ASDIRECTED Sodium Chloride 0.9% [Saline Flush] Med 01/08/19 17:34 Active 10 ml FLUSH ASDIRECTED PRN Sodium Chloride 0.9% [Saline Flush] Med 01/08/19 17:34 Active 2.5 ml FLUSH ASDIRECTED PRN Saline Lock Insert [OM.PC] Stat Oth 01/08/19 17:34 Ordered Sequential Compression Device [OM.PC] Per Unit Routine Oth 01/08/19 23:06 Ordered Medication Orders Sodium Chloride (Normal Saline) 1,000 mls @ 125 mls/hr IV ASDIRECTED OREN Stop: 01/09/19 04:15 Metoprolol Succinate (Toprol Xl) 100 mg PO DAILY OREN Non-Formulary Medication (Potassium Chloride [Potassium Chloride]) 20 meq PO DAILY OREN Potassium Chloride (Klor-Con) 20 meq PO ASDIRECTED OREN Pravastatin Sodium (Pravachol) 80 mg PO DAILY OREN Sertraline HCl (Zoloft) 50 mg PO DAILY OREN Sodium Chloride (Saline Flush) 10 ml FLUSH ASDIRECTED PRN PRN Reason: Keep Vein Open Sodium Chloride (Saline Flush) 2.5 ml FLUSH ASDIRECTED PRN PRN Reason: Keep Vein Open Assessment/Plan Comment:: 73 yo female who presented with confusion and falls, found to have liver cirrhosis, hypokalemia and acute kidney injury. I suspect metabolic encephalopathy from dehydration from over diuresis and possible hepatic encephalopathy. We will hydrate with IV fluids and replace potassium. Abdominal ultrasound, and hepatitis panel has been ordered. Patient has received lactulose in the ED.
[2019-01-08] MEDS ORDERED: Potassium Chloride 20 MEQ Packet PO SCH (23:15)
[2019-01-08] MEDS ORDERED: Sodium Chloride 0.9% 1,000 ML IV SCH (23:15)
[2019-01-09 07:02] LABS: CARBON DIOXIDE,CO2 30.4 mmol/L (21.0-32.0)
[2019-01-09 07:08] LABS: POTASSIUM,K 2.4 mmol/L (3.5-5.1)
[2019-01-09] MEDS ORDERED: Potassium Chloride 20 MEQ Tab.ER PO ONE (07:17)
[2019-01-09] MEDS: Potassium Chloride 20 MEQ Tab.ER PO SCH (08:24)
[2019-01-09] MEDS: Metoprolol Succinate 100 MG Tab.ER PO SCH (10:00)
[2019-01-09] MEDS: Sertraline 50 MG Tab PO SCH (10:00)
[2019-01-09] MEDS: Pravastatin 40 MG Tab PO SCH (10:00)
--- NOTE | 2019-01-09 10:10 | PCM.PN ---
- General Info Date of Service: 01/09/19 Subjective Update: Patient seen at bedside; patient appears confused. States everything hurts however was sleeping and resting comfortably on arrival to bedside; when asked what hurts the most: she states her "arms". Family at bedside states she is "slower" than her usual baseline. endorses some THC drops for pain relief. - Review of Systems General: Reports: Weakness. Denies: Fever HEENT: Reports: Headaches Pulmonary: Denies: Shortness of Breath, Cough Cardiovascular: Denies: Chest Pain Gastrointestinal: Reports: Abdominal Pain, Nausea. Denies: Diarrhea, Vomiting Genitourinary: Reports: No Symptoms Musculoskeletal: Reports: Arm Pain Skin: Reports: No Symptoms Neurological: Reports: Confusion, Headache Psychiatric: Reports: No Symptoms - Patient Data Vitals - Most Recent: Last Vital Signs Temp 96.3 F 01/09/19 07:00 Pulse 53 L 01/09/19 07:00 Resp 18 01/09/19 07:00 BP 104/37 L 01/09/19 07:00 Pulse Ox 92 L 01/09/19 07:00 Weight - Most Recent: 155 lb 3.2 oz I&O - Last 24 Hours: Intake & Output 01/08/19 01/09/19 01/09/19 22:59 06:59 14:59 Intake Total 683 Output Total 300 Balance 383 Lab Results Last 24 Hours: Laboratory Results - last 24 hr 01/08/19 01/08/19 01/08/19 Range/Units 17:45 17:45 17:45 WBC 7.41 (4.0-11.0) K/uL RBC 4.34 (4.30-5.90) M/uL Hgb 13.9 (12.0-16.0) g/dL Hct 41.4 (36.0-46.0) % MCV 95.4 (80.0-98.0) fL MCH 32.0 (27.0-32.0) pg MCHC 33.6 (31.0-37.0) g/dL RDW Std Deviation 53.0 (28.0-62.0) fl RDW Coeff of Ame 15 (11.0-15.0) % Plt Count 132 L (150-400) K/uL MPV 11.30 (7.40-12.00) fL Neut % (Auto) (48.0-80.0) % Lymph % (Auto) (16.0-40.0) % [place] % (Auto) (0.0-15.0) % Eos % (Auto) (0.0-7.0) % Baso % (Auto) (0.0-1.5) % Neut # (Auto) (1.4-5.7) K/uL Lymph # (Auto) (0.6-2.4) K/uL [place] # (Auto) (0.0-0.8) K/uL Eos # (Auto) (0.0-0.7) K/uL Baso # (Auto) (0.0-0.1) K/uL Add Manual Diff YES Neutrophils % (Manual) 51 (48.0-80.0) % Lymphocytes % (Manual) 34 (16.0-40.0) % Monocytes % (Manual) 14 (0.0-15.0) % Nucleated RBC % 0.0 /100WBC Absolute Seg Neuts 3.8 (1.4-5.7) Lymphocytes # (Manual) 2.5 H (0.6-2.4) Monocytes # (Manual) 1.0 H (0.0-0.8) Nucleated RBCs # 0 K/uL INR 1.16 Sodium 139 (136-145) mmol/L Potassium 2.7 L (3.5-5.1) mmol/L Chloride 97 L (98-107) mmol/L Carbon Dioxide 34.0 H (21.0-32.0) mmol/L BUN 37 H (7.0-18.0) mg/dL Creatinine 1.9 H (0.6-1.0) mg/dL Est Cr Clr Drug Dosing 23.73 mL/min Estimated GFR (MDRD) 25.9 ml/min Glucose 121 H (74-106) mg/dL POC Glucose (60-110) mg/dL Calcium 9.9 (8.5-10.1) mg/dL Total Bilirubin 1.5 H (0.2-1.0) mg/dL AST 41 H (15-37) IU/L ALT 24 (14-63) IU/L Alkaline Phosphatase 104 (46-116) U/L Ammonia (19-54) ug/dL Creatine Kinase (26-308) U/L Troponin I (0.000-0.056) ng/mL B-Natriuretic Peptide (<100) PG/ML Total Protein 7.1 (6.4-8.2) g/dL Albumin 3.1 L (3.4-5.0) g/dL Globulin 4.0 (2.6-4.0) g/dL Albumin/Globulin Ratio 0.8 L (0.9-1.6) Lipase 198 (73-393) U/L Urine Color Urine Appearance Urine pH (5.0-8.0) Ur Specific [place] (1.001-1.035) Urine Protein (NEGATIVE) mg/dL Urine Glucose (UA) (NEGATIVE) mg/dL Urine Ketones (NEGATIVE) mg/dL Urine Occult Blood (NEGATIVE) Urine Nitrite (NEGATIVE) Urine Bilirubin (NEGATIVE) Urine Urobilinogen (<2.0) EU/dL Ur Leukocyte Esterase (NEGATIVE) Urine Opiates Screen (NEGATIVE) Ur Oxycodone Screen (NEGATIVE) Urine Methadone Screen (NEGATIVE) Ur Barbiturates Screen (NEGATIVE) Ur Phencyclidine Scrn (NEGATIVE) Ur Amphetamine Screen (NEGATIVE) U Methamphetamines Scrn (NEGATIVE) U Benzodiazepines Scrn (NEGATIVE) U Cocaine Metab Screen (NEGATIVE) U Marijuana (THC) Screen (NEGATIVE) 01/08/19 01/08/19 01/08/19 Range/Units 17:45 17:45 17:45 WBC (4.0-11.0) K/uL RBC (4.30-5.90) M/uL Hgb (12.0-16.0) g/dL Hct (36.0-46.0) % MCV (80.0-98.0) fL MCH (27.0-32.0) pg MCHC (31.0-37.0) g/dL RDW Std Deviation (28.0-62.0) fl RDW Coeff of Ame (11.0-15.0) % Plt Count (150-400) K/uL MPV (7.40-12.00) fL Neut % (Auto) (48.0-80.0) % Lymph % (Auto) (16.0-40.0) % [place] % (Auto) (0.0-15.0) % Eos % (Auto) (0.0-7.0) % Baso % (Auto) (0.0-1.5) % Neut # (Auto) (1.4-5.7) K/uL Lymph # (Auto) (0.6-2.4) K/uL [place] # (Auto) (0.0-0.8) K/uL Eos # (Auto) (0.0-0.7) K/uL Baso # (Auto) (0.0-0.1) K/uL Add Manual Diff Neutrophils % (Manual) (48.0-80.0) % Lymphocytes % (Manual) (16.0-40.0) % Monocytes % (Manual) (0.0-15.0) % Nucleated RBC % /100WBC Absolute Seg Neuts (1.4-5.7) Lymphocytes # (Manual) (0.6-2.4) Monocytes # (Manual) (0.0-0.8) Nucleated RBCs # K/uL INR Sodium (136-145) mmol/L Potassium (3.5-5.1) mmol/L Chloride (98-107) mmol/L Carbon Dioxide (21.0-32.0) mmol/L BUN (7.0-18.0) mg/dL Creatinine (0.6-1.0) mg/dL Est Cr Clr Drug Dosing mL/min Estimated GFR (MDRD) ml/min Glucose (74-106) mg/dL POC Glucose (60-110) mg/dL Calcium (8.5-10.1) mg/dL Total Bilirubin (0.2-1.0) mg/dL AST (15-37) IU/L ALT (14-63) IU/L Alkaline Phosphatase (46-116) U/L Ammonia (19-54) ug/dL Creatine Kinase 85 (26-308) U/L Troponin I < 0.050 (0.000-0.056) ng/mL B-Natriuretic Peptide 170 H (<100) PG/ML Total Protein (6.4-8.2) g/dL Albumin (3.4-5.0) g/dL Globulin (2.6-4.0) g/dL Albumin/Globulin Ratio (0.9-1.6) Lipase (73-393) U/L Urine Color Urine Appearance Urine pH (5.0-8.0) Ur Specific [place] (1.001-1.035) Urine Protein (NEGATIVE) mg/dL Urine Glucose (UA) (NEGATIVE) mg/dL Urine Ketones (NEGATIVE) mg/dL Urine Occult Blood (NEGATIVE) Urine Nitrite (NEGATIVE) Urine Bilirubin (NEGATIVE) Urine Urobilinogen (<2.0) EU/dL Ur Leukocyte Esterase (NEGATIVE) Urine Opiates Screen (NEGATIVE) Ur Oxycodone Screen (NEGATIVE) Urine Methadone Screen (NEGATIVE) Ur Barbiturates Screen (NEGATIVE) Ur Phencyclidine Scrn (NEGATIVE) Ur Amphetamine Screen (NEGATIVE) U Methamphetamines Scrn (NEGATIVE) U Benzodiazepines Scrn (NEGATIVE) U Cocaine Metab Screen (NEGATIVE) U Marijuana (THC) Screen (NEGATIVE) 01/08/19 01/08/19 01/08/19 Range/Units 17:58 19:46 20:00 WBC (4.0-11.0) K/uL RBC (4.30-5.90) M/uL Hgb (12.0-16.0) g/dL Hct (36.0-46.0) % MCV (80.0-98.0) fL MCH (27.0-32.0) pg MCHC (31.0-37.0) g/dL RDW Std Deviation (28.0-62.0) fl RDW Coeff of Ame (11.0-15.0) % Plt Count (150-400) K/uL MPV (7.40-12.00) fL Neut % (Auto) (48.0-80.0) % Lymph % (Auto) (16.0-40.0) % [place] % (Auto) (0.0-15.0) % Eos % (Auto) (0.0-7.0) % Baso % (Auto) (0.0-1.5) % Neut # (Auto) (1.4-5.7) K/uL Lymph # (Auto) (0.6-2.4) K/uL [place] # (Auto) (0.0-0.8) K/uL Eos # (Auto) (0.0-0.7) K/uL Baso # (Auto) (0.0-0.1) K/uL Add Manual Diff Neutrophils % (Manual) (48.0-80.0) % Lymphocytes % (Manual) (16.0-40.0) % Monocytes % (Manual) (0.0-15.0) % Nucleated RBC % /100WBC Absolute Seg Neuts (1.4-5.7) Lymphocytes # (Manual) (0.6-2.4) Monocytes # (Manual) (0.0-0.8) Nucleated RBCs # K/uL INR Sodium (136-145) mmol/L Potassium (3.5-5.1) mmol/L Chloride (98-107) mmol/L Carbon Dioxide (21.0-32.0) mmol/L BUN (7.0-18.0) mg/dL Creatinine (0.6-1.0) mg/dL Est Cr Clr Drug Dosing mL/min Estimated GFR (MDRD) ml/min Glucose (74-106) mg/dL POC Glucose 107 (60-110) mg/dL Calcium (8.5-10.1) mg/dL Total Bilirubin (0.2-1.0) mg/dL AST (15-37) IU/L ALT (14-63) IU/L Alkaline Phosphatase (46-116) U/L Ammonia 73 H (19-54) ug/dL Creatine Kinase (26-308) U/L Troponin I (0.000-0.056) ng/mL B-Natriuretic Peptide (<100) PG/ML Total Protein (6.4-8.2) g/dL Albumin (3.4-5.0) g/dL Globulin (2.6-4.0) g/dL Albumin/Globulin Ratio (0.9-1.6) Lipase (73-393) U/L Urine Color YELLOW Urine Appearance SLT CLOUDY Urine pH 7.5 (5.0-8.0) Ur Specific [place] 1.010 (1.001-1.035) Urine Protein NEGATIVE (NEGATIVE) mg/dL Urine Glucose (UA) NEGATIVE (NEGATIVE) mg/dL Urine Ketones NEGATIVE (NEGATIVE) mg/dL Urine Occult Blood NEGATIVE (NEGATIVE) Urine Nitrite NEGATIVE (NEGATIVE) Urine Bilirubin NEGATIVE (NEGATIVE) Urine Urobilinogen 2.0 H (<2.0) EU/dL Ur Leukocyte Esterase NEGATIVE (NEGATIVE) Urine Opiates Screen (NEGATIVE) Ur Oxycodone Screen (NEGATIVE) Urine Methadone Screen (NEGATIVE) Ur Barbiturates Screen (NEGATIVE) Ur Phencyclidine Scrn (NEGATIVE) Ur Amphetamine Screen (NEGATIVE) U Methamphetamines Scrn (NEGATIVE) U Benzodiazepines Scrn (NEGATIVE) U Cocaine Metab Screen (NEGATIVE) U Marijuana (THC) Screen (NEGATIVE) 01/08/19 01/09/19 01/09/19 Range/Units 20:00 05:35 05:35 WBC 5.39 (4.0-11.0) K/uL RBC 3.93 L (4.30-5.90) M/uL Hgb 12.3 (12.0-16.0) g/dL Hct 37.9 (36.0-46.0) % MCV 96.4 (80.0-98.0) fL MCH 31.3 (27.0-32.0) pg MCHC 32.5 (31.0-37.0) g/dL RDW Std Deviation 54.3 (28.0-62.0) fl RDW Coeff of Ame 15 (11.0-15.0) % Plt Count 94 L (150-400) K/uL MPV 12.60 H (7.40-12.00) fL Neut % (Auto) 37.3 L (48.0-80.0) % Lymph % (Auto) 43.8 H (16.0-40.0) % [place] % (Auto) 16.5 H (0.0-15.0) % Eos % (Auto) 2.0 (0.0-7.0) % Baso % (Auto) 0.4 (0.0-1.5) % Neut # (Auto) 2.0 (1.4-5.7) K/uL Lymph # (Auto) 2.4 (0.6-2.4) K/uL [place] # (Auto) 0.9 H (0.0-0.8) K/uL Eos # (Auto) 0.1 (0.0-0.7) K/uL Baso # (Auto) 0.0 (0.0-0.1) K/uL Add Manual Diff Neutrophils % (Manual) (48.0-80.0) % Lymphocytes % (Manual) (16.0-40.0) % Monocytes % (Manual) (0.0-15.0) % Nucleated RBC % 0.0 /100WBC Absolute Seg Neuts (1.4-5.7) Lymphocytes # (Manual) (0.6-2.4) Monocytes # (Manual) (0.0-0.8) Nucleated RBCs # 0 K/uL INR Sodium 141 (136-145) mmol/L Potassium 2.4 L* (3.5-5.1) mmol/L Chloride 102 (98-107) mmol/L Carbon Dioxide 30.4 (21.0-32.0) mmol/L BUN 29 H (7.0-18.0) mg/dL Creatinine 1.4 H (0.6-1.0) mg/dL Est Cr Clr Drug Dosing 32.20 mL/min Estimated GFR (MDRD) 36.9 ml/min Glucose 83 (74-106) mg/dL POC Glucose (60-110) mg/dL Calcium 8.8 (8.5-10.1) mg/dL Total Bilirubin 1.1 H (0.2-1.0) mg/dL AST 36 (15-37) IU/L ALT 17 (14-63) IU/L Alkaline Phosphatase 79 (46-116) U/L Ammonia (19-54) ug/dL Creatine Kinase (26-308) U/L Troponin I (0.000-0.056) ng/mL B-Natriuretic Peptide (<100) PG/ML Total Protein 6.0 L (6.4-8.2) g/dL Albumin 2.5 L (3.4-5.0) g/dL Globulin 3.5 (2.6-4.0) g/dL Albumin/Globulin Ratio 0.7 L (0.9-1.6) Lipase (73-393) U/L Urine Color Urine Appearance Urine pH (5.0-8.0) Ur Specific [place] (1.001-1.035) Urine Protein (NEGATIVE) mg/dL Urine Glucose (UA) (NEGATIVE) mg/dL Urine Ketones (NEGATIVE) mg/dL Urine Occult Blood (NEGATIVE) Urine Nitrite (NEGATIVE) Urine Bilirubin (NEGATIVE) Urine Urobilinogen (<2.0) EU/dL Ur Leukocyte Esterase (NEGATIVE) Urine Opiates Screen NEGATIVE (NEGATIVE) Ur Oxycodone Screen NEGATIVE (NEGATIVE) Urine Methadone Screen NEGATIVE (NEGATIVE) Ur Barbiturates Screen NEGATIVE (NEGATIVE) Ur Phencyclidine Scrn NEGATIVE (NEGATIVE) Ur Amphetamine Screen NEGATIVE (NEGATIVE) U Methamphetamines Scrn NEGATIVE (NEGATIVE) U Benzodiazepines Scrn NEGATIVE (NEGATIVE) U Cocaine Metab Screen NEGATIVE (NEGATIVE) U Marijuana (THC) Screen POSITIVE (NEGATIVE) 01/09/19 Range/Units 06:35 WBC (4.0-11.0) K/uL RBC (4.30-5.90) M/uL Hgb (12.0-16.0) g/dL Hct (36.0-46.0) % MCV (80.0-98.0) fL MCH (27.0-32.0) pg MCHC (31.0-37.0) g/dL RDW Std Deviation (28.0-62.0) fl RDW Coeff of Ame (11.0-15.0) % Plt Count (150-400) K/uL MPV (7.40-12.00) fL Neut % (Auto) (48.0-80.0) % Lymph % (Auto) (16.0-40.0) % [place] % (Auto) (0.0-15.0) % Eos % (Auto) (0.0-7.0) % Baso % (Auto) (0.0-1.5) % Neut # (Auto) (1.4-5.7) K/uL Lymph # (Auto) (0.6-2.4) K/uL [place] # (Auto) (0.0-0.8) K/uL Eos # (Auto) (0.0-0.7) K/uL Baso # (Auto) (0.0-0.1) K/uL Add Manual Diff Neutrophils % (Manual) (48.0-80.0) % Lymphocytes % (Manual) (16.0-40.0) % Monocytes % (Manual) (0.0-15.0) % Nucleated RBC % /100WBC Absolute Seg Neuts (1.4-5.7) Lymphocytes # (Manual) (0.6-2.4) Monocytes # (Manual) (0.0-0.8) Nucleated RBCs # K/uL INR Sodium (136-145) mmol/L Potassium (3.5-5.1) mmol/L Chloride (98-107) mmol/L Carbon Dioxide (21.0-32.0) mmol/L BUN (7.0-18.0) mg/dL Creatinine (0.6-1.0) mg/dL Est Cr Clr Drug Dosing mL/min Estimated GFR (MDRD) ml/min Glucose (74-106) mg/dL POC Glucose 74 (60-110) mg/dL Calcium (8.5-10.1) mg/dL Total Bilirubin (0.2-1.0) mg/dL AST (15-37) IU/L ALT (14-63) IU/L Alkaline Phosphatase (46-116) U/L Ammonia (19-54) ug/dL Creatine Kinase (26-308) U/L Troponin I (0.000-0.056) ng/mL B-Natriuretic Peptide (<100) PG/ML Total Protein (6.4-8.2) g/dL Albumin (3.4-5.0) g/dL Globulin (2.6-4.0) g/dL Albumin/Globulin Ratio (0.9-1.6) Lipase (73-393) U/L Urine Color Urine Appearance Urine pH (5.0-8.0) Ur Specific [place] (1.001-1.035) Urine Protein (NEGATIVE) mg/dL Urine Glucose (UA) (NEGATIVE) mg/dL Urine Ketones (NEGATIVE) mg/dL Urine Occult Blood (NEGATIVE) Urine Nitrite (NEGATIVE) Urine Bilirubin (NEGATIVE) Urine Urobilinogen (<2.0) EU/dL Ur Leukocyte Esterase (NEGATIVE) Urine Opiates Screen (NEGATIVE) Ur Oxycodone Screen (NEGATIVE) Urine Methadone Screen (NEGATIVE) Ur Barbiturates Screen (NEGATIVE) Ur Phencyclidine Scrn (NEGATIVE) Ur Amphetamine Screen (NEGATIVE) U Methamphetamines Scrn (NEGATIVE) U Benzodiazepines Scrn (NEGATIVE) U Cocaine Metab Screen (NEGATIVE) U Marijuana (THC) Screen (NEGATIVE) Med Orders - Current: Current Medications Metoprolol Succinate (Toprol Xl) 100 mg PO DAILY OREN Potassium Chloride (Klor-Con) 20 meq PO ASDIRECTED OREN Potassium Chloride (Klor-Con M20) 20 meq PO DAILY OREN Last Admin: 01/09/19 08:24 Dose: 20 meq Pravastatin Sodium (Pravachol) 80 mg PO DAILY OREN Sertraline HCl (Zoloft) 50 mg PO DAILY OREN Sodium Chloride (Saline Flush) 10 ml FLUSH ASDIRECTED PRN PRN Reason: Keep Vein Open Sodium Chloride (Saline Flush) 2.5 ml FLUSH ASDIRECTED PRN PRN Reason: Keep Vein Open Discontinued Medications Sodium Chloride (Normal Saline) 1,000 mls @ 500 mls/hr IV STAT ONE Stop: 01/08/19 19:57 Last Infusion: 01/08/19 18:30 Dose: 125 mls/hr Potassium Chloride 20 meq/ (Premix) 50 mls @ 25 mls/hr IV ONETIME ONE Stop: 01/08/19 20:24 Last Admin: 01/08/19 19:17 Dose: 25 mls/hr Sodium Chloride (Normal Saline) 1,000 mls @ 125 mls/hr IV ASDIRECTED OREN Stop: 01/09/19 04:15 Last Admin: 01/08/19 23:20 Dose: 125 mls/hr Iopamidol (Isovue Multipack-370 (76%)) 85 ml IVPUSH ONETIME STA Stop: 01/08/19 18:56 Last Admin: 01/09/19 05:07 Dose: Not Given Lactulose (Chronulac) 20 gm PO ONETIME ONE Stop: 01/08/19 20:36 Last Admin: 01/08/19 22:10 Dose: 20 gm Pantoprazole Sodium (Protonix Iv) 80 mg IVPUSH .BOLUS ONE Stop: 01/08/19 19:37 Last Admin: 01/08/19 21:22 Dose: 80 mg Potassium Chloride (Klor-Con M20) 40 meq PO ONETIME ONE Stop: 01/09/19 07:18 Last Admin: 01/09/19 08:24 Dose: 40 meq - Exam General: Alert, Cooperative, Mild Distress, Lethargic HEENT: EOMI Neck: Supple Lungs: Other (coarse BS b/l lung bases ) Cardiovascular: Regular Rate, Regular Rhythm GI/Abdominal Exam: Other (+gaurding w/ palpable liver edge; -murphys, no rebound tenderness, no point tenderness ) Extremities: Other (1-2 + pitting edema of l/e ) Skin: Warm, Dry, Intact Neurological: Other (appears confused but CN intact ) Psy/Mental Status: Alert, Other (lethargic) - Problem List Review Problem List Initiated/Reviewed/Updated: Yes - Plan Plan:: Assessment: Confusion most likely secondary to metabolic encephalopathy secondary to dehydration/diuretic use. Severe hypokalemia Acute kidney injury Past medical history: CHF, CAD, COPD hypertension, type 2 diabetes Plan: 1. Metabolic encephalopathy/dehydration: Continue IV fluid rehydration. Reassess neurological status throughout. Received a one-time dose of lactulose in ED 2. Cirrhosis: Hepatitis panel ordered Abdominal ultrasound ordered 3. Hypokalemia: Continue replete PO and IV. Recheck BMP this afternoon. EKG if chest pain or arrhythmia develops. 4. FRANCIS: Continue Hydration 73 yo female who presented with confusion and falls, found to have liver cirrhosis, hypokalemia and acute kidney injury. I suspect metabolic encephalopathy from dehydration from over diuresis and possible hepatic encephalopathy. We will hydrate with IV fluids and replace potassium. Abdominal ultrasound, and hepatitis panel has been ordered. Patient has received lactulose in the ED.
--- NOTE | 2019-01-09 10:26 | US ---
INDICATION: Hepatic cirrhosis. TECHNIQUE: Abdominal ultrasound. FINDINGS: Liver: Subtle nodularity of the capsule. Coarsening of the parenchymal echoes. No discrete liver mass. No biliary dilatation. Common bile duct 3 mm. Spleen: No mass lesion. The creative technologist did not measure the spleen. Ascites: No ascites. Pancreas: Unremarkable. Gallbladder: Absent. Kidneys: Normal. Right kidney 9.7 cm. Left kidney 10 cm. IMPRESSION: 1. Cirrhotic morphology of the liver. No discrete mass. 2. No biliary dilatation. 3. No ascites. Dictated by Mitul Rodas MD @ Jan 09 2019 10:25AM Signed by Dr. Mitul Rodas @ Jan 09 2019 10:25AM
[2019-01-09] MEDS ORDERED: Sodium Chloride 0.9% with KCl 1,000 ML IV SCH (10:45)
[2019-01-10 06:39] LABS: POTASSIUM,K 3.4 mmol/L (3.5-5.1)
[2019-01-10] MEDS ORDERED: Potassium Chloride 20 MEQ Tab.ER PO ONE (06:53)
[2019-01-10] MEDS: Potassium Chloride 20 MEQ Tab.ER PO SCH (09:23)
[2019-01-10] MEDS: Sertraline 50 MG Tab PO SCH (09:24)
[2019-01-10] MEDS: Pravastatin 40 MG Tab PO SCH (09:24)
[2019-01-10] MEDS: Metoprolol Succinate 100 MG Tab.ER PO SCH (09:24)
--- NOTE | 2019-01-10 09:35 | PCM.PN ---
- General Info Date of Service: 01/10/19 Subjective Update: Patient denies chest pain, shortness of breath, or abdominal pain. She is still confused and slow to respond. Eating and drinking appropriately. - Review of Systems General: Reports: Weakness HEENT: Reports: No Symptoms Pulmonary: Reports: No Symptoms Cardiovascular: Reports: No Symptoms Gastrointestinal: Reports: No Symptoms Genitourinary: Reports: No Symptoms Musculoskeletal: Reports: No Symptoms Skin: Reports: No Symptoms Neurological: Reports: Confusion Psychiatric: Reports: Confusion - Patient Data Vitals - Most Recent: Last Vital Signs Temp 97.8 F 01/10/19 07:32 Pulse 63 01/10/19 09:24 Resp 18 01/10/19 07:32 BP 104/52 L 01/10/19 09:24 Pulse Ox 91 L 01/10/19 07:32 Weight - Most Recent: 72.938 kg I&O - Last 24 Hours: Intake & Output 01/09/19 01/10/19 01/10/19 22:59 06:59 14:59 Intake Total 1959 550 Output Total 700 700 Balance 1259 -150 Lab Results Last 24 Hours: Laboratory Results - last 24 hr 01/09/19 01/09/19 01/09/19 Range/Units 05:35 05:35 12:46 WBC (4.0-11.0) K/uL RBC (4.30-5.90) M/uL Hgb (12.0-16.0) g/dL Hct (36.0-46.0) % MCV (80.0-98.0) fL MCH (27.0-32.0) pg MCHC (31.0-37.0) g/dL RDW Std Deviation (28.0-62.0) fl RDW Coeff of Ame (11.0-15.0) % Plt Count (150-400) K/uL MPV (7.40-12.00) fL Add Manual Diff Neutrophils % (Manual) (48.0-80.0) % Lymphocytes % (Manual) (16.0-40.0) % Monocytes % (Manual) (0.0-15.0) % Eosinophils % (Manual) (0.0-7.0) % Basophils % (Manual) (0.0-1.5) % Nucleated RBC % /100WBC Absolute Seg Neuts (1.4-5.7) Lymphocytes # (Manual) (0.6-2.4) Monocytes # (Manual) (0.0-0.8) Eosinophils # (Manual) (0.0-0.7) Basophils # (Manual) (0.0-0.1) Nucleated RBCs # K/uL Sodium (136-145) mmol/L Potassium (3.5-5.1) mmol/L Chloride (98-107) mmol/L Carbon Dioxide (21.0-32.0) mmol/L BUN (7.0-18.0) mg/dL Creatinine (0.6-1.0) mg/dL Est Cr Clr Drug Dosing mL/min Estimated GFR (MDRD) ml/min Glucose (74-106) mg/dL POC Glucose 204 H (60-110) mg/dL Calcium (8.5-10.1) mg/dL Magnesium 1.9 (1.8-2.4) mg/dL Total Bilirubin (0.2-1.0) mg/dL AST (15-37) IU/L ALT (14-63) IU/L Alkaline Phosphatase (46-116) U/L Creatine Kinase 67 (26-308) U/L Total Protein (6.4-8.2) g/dL Albumin (3.4-5.0) g/dL Globulin (2.6-4.0) g/dL Albumin/Globulin Ratio (0.9-1.6) 01/09/19 01/09/19 01/10/19 Range/Units 15:58 17:12 05:55 WBC 5.93 (4.0-11.0) K/uL RBC 3.86 L (4.30-5.90) M/uL Hgb 12.4 (12.0-16.0) g/dL Hct 37.1 (36.0-46.0) % MCV 96.1 (80.0-98.0) fL MCH 32.1 H (27.0-32.0) pg MCHC 33.4 (31.0-37.0) g/dL RDW Std Deviation 54.2 (28.0-62.0) fl RDW Coeff of Ame 16 H (11.0-15.0) % Plt Count 82 L (150-400) K/uL MPV 11.50 (7.40-12.00) fL Add Manual Diff YES Neutrophils % (Manual) 62 (48.0-80.0) % Lymphocytes % (Manual) 25 (16.0-40.0) % Monocytes % (Manual) 10 (0.0-15.0) % Eosinophils % (Manual) 2 (0.0-7.0) % Basophils % (Manual) 1 (0.0-1.5) % Nucleated RBC % 0.0 /100WBC Absolute Seg Neuts 3.7 (1.4-5.7) Lymphocytes # (Manual) 1.5 (0.6-2.4) Monocytes # (Manual) 0.6 (0.0-0.8) Eosinophils # (Manual) 0.1 (0.0-0.7) Basophils # (Manual) 0.1 (0.0-0.1) Nucleated RBCs # 0 K/uL Sodium (136-145) mmol/L Potassium 3.7 (3.5-5.1) mmol/L Chloride (98-107) mmol/L Carbon Dioxide (21.0-32.0) mmol/L BUN (7.0-18.0) mg/dL Creatinine (0.6-1.0) mg/dL Est Cr Clr Drug Dosing mL/min Estimated GFR (MDRD) ml/min Glucose (74-106) mg/dL POC Glucose 94 (60-110) mg/dL Calcium (8.5-10.1) mg/dL Magnesium (1.8-2.4) mg/dL Total Bilirubin (0.2-1.0) mg/dL AST (15-37) IU/L ALT (14-63) IU/L Alkaline Phosphatase (46-116) U/L Creatine Kinase (26-308) U/L Total Protein (6.4-8.2) g/dL Albumin (3.4-5.0) g/dL Globulin (2.6-4.0) g/dL Albumin/Globulin Ratio (0.9-1.6) 01/10/19 01/10/19 Range/Units 05:55 06:36 WBC (4.0-11.0) K/uL RBC (4.30-5.90) M/uL Hgb (12.0-16.0) g/dL Hct (36.0-46.0) % MCV (80.0-98.0) fL MCH (27.0-32.0) pg MCHC (31.0-37.0) g/dL RDW Std Deviation (28.0-62.0) fl RDW Coeff of Ame (11.0-15.0) % Plt Count (150-400) K/uL MPV (7.40-12.00) fL Add Manual Diff Neutrophils % (Manual) (48.0-80.0) % Lymphocytes % (Manual) (16.0-40.0) % Monocytes % (Manual) (0.0-15.0) % Eosinophils % (Manual) (0.0-7.0) % Basophils % (Manual) (0.0-1.5) % Nucleated RBC % /100WBC Absolute Seg Neuts (1.4-5.7) Lymphocytes # (Manual) (0.6-2.4) Monocytes # (Manual) (0.0-0.8) Eosinophils # (Manual) (0.0-0.7) Basophils # (Manual) (0.0-0.1) Nucleated RBCs # K/uL Sodium 140 (136-145) mmol/L Potassium 3.4 L (3.5-5.1) mmol/L Chloride 106 (98-107) mmol/L Carbon Dioxide 27.0 (21.0-32.0) mmol/L BUN 19 H (7.0-18.0) mg/dL Creatinine 1.2 H (0.6-1.0) mg/dL Est Cr Clr Drug Dosing 37.57 mL/min Estimated GFR (MDRD) 44.0 ml/min Glucose 111 H (74-106) mg/dL POC Glucose 109 (60-110) mg/dL Calcium 8.7 (8.5-10.1) mg/dL Magnesium (1.8-2.4) mg/dL Total Bilirubin 0.9 (0.2-1.0) mg/dL AST 35 (15-37) IU/L ALT 17 (14-63) IU/L Alkaline Phosphatase 75 (46-116) U/L Creatine Kinase (26-308) U/L Total Protein 6.0 L (6.4-8.2) g/dL Albumin 2.4 L (3.4-5.0) g/dL Globulin 3.6 (2.6-4.0) g/dL Albumin/Globulin Ratio 0.7 L (0.9-1.6) Med Orders - Current: Current Medications Lactulose (Chronulac) 30 gm PO ONETIME ONE Stop: 01/10/19 09:46 Metoprolol Succinate (Toprol Xl) 100 mg PO DAILY [facility] Last Admin: 01/10/19 09:24 Dose: Not Given Potassium Chloride (Klor-Con M20) 20 meq PO DAILY [facility] Last Admin: 01/10/19 09:23 Dose: 20 meq Pravastatin Sodium (Pravachol) 80 mg PO DAILY [facility] Last Admin: 01/10/19 09:24 Dose: 80 mg Sertraline HCl (Zoloft) 50 mg PO DAILY [facility] Last Admin: 01/10/19 09:24 Dose: 50 mg Sodium Chloride (Saline Flush) 10 ml FLUSH ASDIRECTED PRN PRN Reason: Keep Vein Open Sodium Chloride (Saline Flush) 2.5 ml FLUSH ASDIRECTED PRN PRN Reason: Keep Vein Open Discontinued Medications Sodium Chloride (Normal Saline) 1,000 mls @ 500 mls/hr IV STAT ONE Stop: 01/08/19 19:57 Last Infusion: 01/08/19 18:30 Dose: 125 mls/hr Potassium Chloride 20 meq/ (Premix) 50 mls @ 25 mls/hr IV ONETIME ONE Stop: 01/08/19 20:24 Last Admin: 01/08/19 19:17 Dose: 25 mls/hr Sodium Chloride (Normal Saline) 1,000 mls @ 125 mls/hr IV ASDIRECTED OREN Stop: 01/09/19 04:15 Last Admin: 01/08/19 23:20 Dose: 125 mls/hr Potassium Chloride/Sodium Chloride (Normal Saline With 40 Meq Kcl) 1,000 mls @ 150 mls/hr IV ASDIRECTED OREN Stop: 01/09/19 17:24 Last Admin: 01/09/19 11:15 Dose: 150 mls/hr Iopamidol (Isovue Multipack-370 (76%)) 85 ml IVPUSH ONETIME STA Stop: 01/08/19 18:56 Last Admin: 01/09/19 05:07 Dose: Not Given Lactulose (Chronulac) 20 gm PO ONETIME ONE Stop: 01/08/19 20:36 Last Admin: 01/08/19 22:10 Dose: 20 gm Pantoprazole Sodium (Protonix Iv) 80 mg IVPUSH .BOLUS ONE Stop: 01/08/19 19:37 Last Admin: 01/08/19 21:22 Dose: 80 mg Potassium Chloride (Klor-Con) 20 meq PO ASDIRECTED OREN Potassium Chloride (Klor-Con M20) 40 meq PO ONETIME ONE Stop: 01/09/19 07:18 Last Admin: 01/09/19 08:24 Dose: 40 meq Potassium Chloride (Klor-Con M20) 40 meq PO ONETIME ONE Stop: 01/10/19 06:54 Last Admin: 01/10/19 07:34 Dose: 40 meq - Exam General: Alert, Cooperative, Other (slow to respond) Lungs: Clear to Auscultation, Normal Respiratory Effort Cardiovascular: Regular Rate, Regular Rhythm GI/Abdominal Exam: Normal Bowel Sounds, Soft, Non-Tender, No Distention Extremities: Pedal Edema Skin: Warm, Dry Psy/Mental Status: Alert. No: Normal Affect - Problem List Review Problem List Initiated/Reviewed/Updated: Yes - My Orders Last 24 Hours: My Active Orders 01/10/19 09:31 Brain wo Cont [MR] Routine 01/10/19 09:45 Lactulose [Chronulac] 30 gm PO ONETIME ONE - Plan Plan:: 1. Encephalopathy- was thought to be caused by dehydration but she has been rehydrated and no improvement. Could be hepatic secondary to liver cirrhosis- was treated with one time dose of lactulose in ER, will give additional lactulose. CT head was negative but will order MRI brain to look for any other underlying causes of her confusion. 2. Hypokalemia- improving, give additional 40 mEq and then continue 20 dialy 3. FRANCIS- improved with IVF, hold further IVF due to hx of CHF 4. Cirrhosis on imaging- hep panel pending.
[2019-01-10] MEDS ORDERED: Lactulose Soln 10 GM/15 ML 15 ML UD Cup PO ONE (09:45)
[2019-01-11 06:50] LABS: CARBON DIOXIDE,CO2 24.9 mmol/L (21.0-32.0); POTASSIUM,K 3.4 mmol/L (3.5-5.1)
[2019-01-11] MEDS ORDERED: LORazepam 2 MG/ML SDV IVPUSH SCH (08:59)
[2019-01-11] MEDS: Pravastatin 40 MG Tab PO SCH (09:10)
[2019-01-11] MEDS: Metoprolol Succinate 100 MG Tab.ER PO SCH (09:10)
[2019-01-11] MEDS: Potassium Chloride 20 MEQ Tab.ER PO SCH (09:11)
[2019-01-11] MEDS: Sertraline 50 MG Tab PO SCH (09:11)
[2019-01-11] MEDS ORDERED: Magnesium Sulfate/Water 4 GM in Premix Bag 1 BAG IV ONE (10:00)
--- NOTE | 2019-01-11 10:59 | PCM.PN ---
- General Info Date of Service: 01/11/19 Admission Dx/Problem (Free Text): Admission Diagnosis/Problem Admission Diagnosis/Problem Confusion Subjective Update: Feeling somewhat improved today. No pain. at bedside, very eager to have MRI completed. Asking for sedation during MRI. No chest pain or SOB. Slightly confused and rambling at times. Appears very anxious. Functional Status: Reports: Pain Controlled, Tolerating Diet, Ambulating - Review of Systems General: Reports: Weakness. Denies: Fever, Fatigue, Malaise HEENT: Reports: No Symptoms. Denies: Headaches, Sore Throat, Visual Changes Pulmonary: Reports: No Symptoms. Denies: Shortness of Breath Cardiovascular: Reports: No Symptoms. Denies: Chest Pain Gastrointestinal: Reports: No Symptoms. Denies: Abdominal Pain, Nausea, Vomiting Genitourinary: Reports: No Symptoms. Denies: Dysuria, Frequency, Burning Neurological: Reports: Confusion. Denies: Headache Psychiatric: Reports: Confusion, Anxiety - Patient Data Vitals - Most Recent: Last Vital Signs Temp 97.0 F 01/11/19 08:00 Pulse 81 01/11/19 09:10 Resp 17 01/11/19 08:00 BP 113/46 L 01/11/19 09:10 Pulse Ox 93 L 01/11/19 08:00 Weight - Most Recent: 73.346 kg I&O - Last 24 Hours: Intake & Output 01/10/19 01/11/19 01/11/19 22:59 06:59 14:59 Intake Total 700 940 Output Total 400 400 Balance 300 540 Lab Results Last 24 Hours: Laboratory Results - last 24 hr 01/10/19 01/10/19 01/11/19 Range/Units 11:58 16:32 06:03 WBC 5.91 (4.0-11.0) K/uL RBC 3.90 L (4.30-5.90) M/uL Hgb 12.5 (12.0-16.0) g/dL Hct 37.5 (36.0-46.0) % MCV 96.2 (80.0-98.0) fL MCH 32.1 H (27.0-32.0) pg MCHC 33.3 (31.0-37.0) g/dL RDW Std Deviation 54.7 (28.0-62.0) fl RDW Coeff of Ame 16 H (11.0-15.0) % Plt Count 72 L (150-400) K/uL MPV 12.00 (7.40-12.00) fL Add Manual Diff YES Neutrophils % (Manual) 54 (48.0-80.0) % Lymphocytes % (Manual) 29 (16.0-40.0) % Monocytes % (Manual) 16 H (0.0-15.0) % Eosinophils % (Manual) 1 (0.0-7.0) % Nucleated RBC % 0.0 /100WBC Absolute Seg Neuts 3.2 (1.4-5.7) Lymphocytes # (Manual) 1.7 (0.6-2.4) Monocytes # (Manual) 0.9 H (0.0-0.8) Eosinophils # (Manual) 0.1 (0.0-0.7) Nucleated RBCs # 0 K/uL Sodium (136-145) mmol/L Potassium (3.5-5.1) mmol/L Chloride (98-107) mmol/L Carbon Dioxide (21.0-32.0) mmol/L BUN (7.0-18.0) mg/dL Creatinine (0.6-1.0) mg/dL Est Cr Clr Drug Dosing mL/min Estimated GFR (MDRD) ml/min Glucose (74-106) mg/dL POC Glucose 127 H 172 H (60-110) mg/dL Calcium (8.5-10.1) mg/dL Magnesium (1.8-2.4) mg/dL Total Bilirubin (0.2-1.0) mg/dL AST (15-37) IU/L ALT (14-63) IU/L Alkaline Phosphatase (46-116) U/L Total Protein (6.4-8.2) g/dL Albumin (3.4-5.0) g/dL Globulin (2.6-4.0) g/dL Albumin/Globulin Ratio (0.9-1.6) Vitamin B12 (193-986) pg/mL 01/11/19 01/11/19 01/11/19 Range/Units 06:03 06:03 06:30 WBC (4.0-11.0) K/uL RBC (4.30-5.90) M/uL Hgb (12.0-16.0) g/dL Hct (36.0-46.0) % MCV (80.0-98.0) fL MCH (27.0-32.0) pg MCHC (31.0-37.0) g/dL RDW Std Deviation (28.0-62.0) fl RDW Coeff of Ame (11.0-15.0) % Plt Count (150-400) K/uL MPV (7.40-12.00) fL Add Manual Diff Neutrophils % (Manual) (48.0-80.0) % Lymphocytes % (Manual) (16.0-40.0) % Monocytes % (Manual) (0.0-15.0) % Eosinophils % (Manual) (0.0-7.0) % Nucleated RBC % /100WBC Absolute Seg Neuts (1.4-5.7) Lymphocytes # (Manual) (0.6-2.4) Monocytes # (Manual) (0.0-0.8) Eosinophils # (Manual) (0.0-0.7) Nucleated RBCs # K/uL Sodium 141 (136-145) mmol/L Potassium 3.4 L (3.5-5.1) mmol/L Chloride 108 H (98-107) mmol/L Carbon Dioxide 24.9 (21.0-32.0) mmol/L BUN 10 (7.0-18.0) mg/dL Creatinine 1.0 (0.6-1.0) mg/dL Est Cr Clr Drug Dosing 45.08 mL/min Estimated GFR (MDRD) 54.3 ml/min Glucose 96 (74-106) mg/dL POC Glucose (60-110) mg/dL Calcium 8.5 (8.5-10.1) mg/dL Magnesium 1.5 L (1.8-2.4) mg/dL Total Bilirubin 1.0 (0.2-1.0) mg/dL AST 45 H (15-37) IU/L ALT 20 (14-63) IU/L Alkaline Phosphatase 78 (46-116) U/L Total Protein 6.1 L (6.4-8.2) g/dL Albumin 2.4 L (3.4-5.0) g/dL Globulin 3.7 (2.6-4.0) g/dL Albumin/Globulin Ratio 0.7 L (0.9-1.6) Vitamin B12 997 H (193-986) pg/mL Med Orders - Current: Current Medications Magnesium Sulfate 4 gm/ Premix 100 mls @ 50 mls/hr IV ONETIME ONE Stop: 01/11/19 11:59 Lorazepam (Ativan) 1 mg IVPUSH ONCALL [facility] Metoprolol Succinate (Toprol Xl) 100 mg PO DAILY [facility] Last Admin: 01/11/19 09:10 Dose: 100 mg Potassium Chloride (Klor-Con M20) 20 meq PO DAILY [facility] Last Admin: 01/11/19 09:11 Dose: 20 meq Potassium Chloride (Klor-Con M20) 40 meq PO ONETIME@1200 ONE Stop: 01/11/19 12:01 Pravastatin Sodium (Pravachol) 80 mg PO DAILY [facility] Last Admin: 01/11/19 09:10 Dose: 80 mg Sertraline HCl (Zoloft) 50 mg PO DAILY [facility] Last Admin: 01/11/19 09:11 Dose: 50 mg Sodium Chloride (Saline Flush) 10 ml FLUSH ASDIRECTED PRN PRN Reason: Keep Vein Open Sodium Chloride (Saline Flush) 2.5 ml FLUSH ASDIRECTED PRN PRN Reason: Keep Vein Open Discontinued Medications Sodium Chloride (Normal Saline) 1,000 mls @ 500 mls/hr IV STAT ONE Stop: 01/08/19 19:57 Last Infusion: 01/08/19 18:30 Dose: 125 mls/hr Potassium Chloride 20 meq/ (Premix) 50 mls @ 25 mls/hr IV ONETIME ONE Stop: 01/08/19 20:24 Last Admin: 01/08/19 19:17 Dose: 25 mls/hr Sodium Chloride (Normal Saline) 1,000 mls @ 125 mls/hr IV ASDIRECTED OREN Stop: 01/09/19 04:15 Last Admin: 01/08/19 23:20 Dose: 125 mls/hr Potassium Chloride/Sodium Chloride (Normal Saline With 40 Meq Kcl) 1,000 mls @ 150 mls/hr IV ASDIRECTED OREN Stop: 01/09/19 17:24 Last Admin: 01/09/19 11:15 Dose: 150 mls/hr Iopamidol (Isovue Multipack-370 (76%)) 85 ml IVPUSH ONETIME STA Stop: 01/08/19 18:56 Last Admin: 01/09/19 05:07 Dose: Not Given Lactulose (Chronulac) 20 gm PO ONETIME ONE Stop: 01/08/19 20:36 Last Admin: 01/08/19 22:10 Dose: 20 gm Lactulose (Chronulac) 30 gm PO ONETIME ONE Stop: 01/10/19 09:46 Last Admin: 01/10/19 09:59 Dose: 30 gm Pantoprazole Sodium (Protonix Iv) 80 mg IVPUSH .BOLUS ONE Stop: 01/08/19 19:37 Last Admin: 01/08/19 21:22 Dose: 80 mg Potassium Chloride (Klor-Con) 20 meq PO ASDIRECTED OREN Potassium Chloride (Klor-Con M20) 40 meq PO ONETIME ONE Stop: 01/09/19 07:18 Last Admin: 01/09/19 08:24 Dose: 40 meq Potassium Chloride (Klor-Con M20) 40 meq PO ONETIME ONE Stop: 01/10/19 06:54 Last Admin: 01/10/19 07:34 Dose: 40 meq - Exam General: Alert, Oriented Neck: Supple Lungs: Clear to Auscultation, Normal Respiratory Effort Cardiovascular: Regular Rate, Regular Rhythm GI/Abdominal Exam: Normal Bowel Sounds, Soft, Non-Tender Extremities: Normal Inspection, Normal Range of Motion, Non-Tender, No Pedal Edema - Problem List & Annotations (1) Liver cirrhosis SNOMED Code(s): 83419726 Code(s): K74.60 - UNSPECIFIED CIRRHOSIS OF LIVER Status: Acute Current Visit: Yes Qualifiers: Hepatic cirrhosis type: unspecified hepatic cirrhosis Ascites presence: unspecified Qualified Code(s): K74.60 - Unspecified cirrhosis of liver (2) DM type 2 (diabetes mellitus, type 2) SNOMED Code(s): 03540917 Code(s): E11.9 - TYPE 2 DIABETES MELLITUS WITHOUT COMPLICATIONS Status: Chronic Current Visit: Yes (3) Anxiety and depression SNOMED Code(s): 510357205 Code(s): F41.9 - ANXIETY DISORDER, UNSPECIFIED; F32.9 - MAJOR DEPRESSIVE DISORDER, SINGLE EPISODE, UNSPECIFIED Status: Chronic Current Visit: Yes (4) COPD (chronic obstructive pulmonary disease) SNOMED Code(s): 85869052 Code(s): J44.9 - CHRONIC OBSTRUCTIVE PULMONARY DISEASE, UNSPECIFIED Status : Chronic Current Visit: Yes (5) PVD (peripheral vascular disease) SNOMED Code(s): 589048702 Code(s): I73.9 - PERIPHERAL VASCULAR DISEASE, UNSPECIFIED Status: Chronic Current Visit: Yes (6) CAD (coronary artery disease) SNOMED Code(s): 15637975 Code(s): I25.10 - ATHSCL HEART DISEASE OF [place] CORONARY ARTERY W/O ANG PCTRS Status: Chronic Current Visit: Yes (7) History of coronary artery stent placement SNOMED Code(s): 496297382, 615281954 Code(s): Z95.5 - PRESENCE OF CORONARY ANGIOPLASTY IMPLANT AND GRAFT Status : Chronic Current Visit: Yes (8) Dyslipidemia SNOMED Code(s): 901756686 Code(s): E78.5 - HYPERLIPIDEMIA, UNSPECIFIED Status: Chronic Current Visit: Yes (9) Smoker SNOMED Code(s): 50855154 Code(s): F17.200 - NICOTINE DEPENDENCE, UNSPECIFIED, UNCOMPLICATED Status: Chronic Current Visit: Yes (10) Congestive heart failure (CHF) SNOMED Code(s): 50622878 Code(s): I50.9 - HEART FAILURE, UNSPECIFIED Status: Chronic Current Visit : Yes Qualifiers: Heart failure type: unspecified Heart failure chronicity: unspecified Qualified Code(s): I50.9 - Heart failure, unspecified (11) Dependent edema SNOMED Code(s): 203419004 Code(s): R60.9 - EDEMA, UNSPECIFIED Status: Chronic Current Visit: No (12) Encephalopathy SNOMED Code(s): 50055521 Code(s): G93.40 - ENCEPHALOPATHY, UNSPECIFIED Status: Acute Current Visit : Yes - Problem List Review Problem List Initiated/Reviewed/Updated: Yes - My Orders Last 24 Hours: My Active Orders 01/11/19 08:59 Brain w wo Cont [MR] Routine LORazepam [Ativan] 1 mg IVPUSH ONCALL 01/11/19 10:00 Magnesium Sulfate/Water [Magnesium Sulfate in Water Premix] 4 gm Premix Bag 1 bag IV ONETIME 01/11/19 12:00 Potassium Chloride [Klor-Con M20] 40 meq PO ONETIME@1200 ONE - Plan Plan:: This 73 year old female admitted with encephalopathy and dehydration with FRANCIS and hypokalemia 1. Encephalopathy- No improvement with hydration. Slight improvement with Lactulose dosing. CT head was negative but will order MRI brain w and wo contrast. Has History of work up for memory with Dr Judd in July 2017. Will arrange outpatient follow up. B12 normal and TSH in November 2018 normal as well. 2. Hypokalemia- Improving, replace with 40 PO this afternoon along with 20 this mornig, Magnesium 1.5 Supplement with 4 gm IV. 3. FRANCIS- improved. Hold diuretics today. 4. Cirrhosis on imaging- hep panel pending. No alcohol use. reports history of blood transfusion in 1980s post hysterectomy. No history of drug use. Thrombocytopenia noted. VTE prophylaxis: SCDs due to increased risk bleeding due to thrombosytopenia Dispo: possibly later today.
[2019-01-11] MEDS ORDERED: Potassium Chloride 20 MEQ Tab.ER PO ONE (12:00)
--- NOTE | 2019-01-11 13:56 | MR ---
INDICATION: 73-year-old female. Confused. Encephalopathy. TECHNIQUE: Sagittal T1 axial FLAIR T2 diffusion weighted images and gadolinium-enhanced volumetric T1 weighted images of the head. COMPARISON: CT brain 01/08/2019. FINDINGS: The ventricles normal in size and configuration. Mild prominence of subarachnoid spaces due to mild volume loss. No mass effect or midline shift. Diffusion-weighted images show a single small focus of increased signal (diffusion restriction within the midline splenium of the posterior corpus callosum. No associated pathologic enhancement or mass effect. There are several focal areas of FLAIR and T2 hyperintensity scattered within the frontal and parietal lobe white matter bilaterally consistent with chronic small vessel ischemic disease. Orbits sella turcica and skullbase are unremarkable there is inflammatory mucosal thickening right maxillary sinus. IMPRESSION: 1. Small solitary focus of diffusion restriction within the splenium of the corpus callosum. Finding such as this has been described with toxic metabolic insult, seizure activity, drug toxicity as well as small recent infarction. 2. There are mild scattered chronic small vessel ischemic changes within bilateral deep cerebral white matter. 3. Image quality is reduced due to patient motion artifact. Dictated by Meet Márquez MD @ Jan 11 2019 1:47PM Signed by Dr. Meet Márquez @ Jan 11 2019 1:55PM
--- NOTE | 2019-01-11 16:31 | US ---
Carotid ultrasound: Duplex and color flow imaging was obtained of the carotid arteries. Mild amount of plaque noted within the proximal left internal carotid artery. Right side: CCA has a peak systolic velocity of 0.71 m/sec. ICA has a peak systolic velocity of 0.55 m/sec and peak end-diastolic velocity of 0.21 m/sec. ECA has a peak systolic velocity of 1.09 m/sec. ICA/CCA ratio is 1.04. Vertebral artery has a peak systolic velocity of 0.51. Left side: CCA has a peak systolic velocity of 1.08 m/sec. ICA has a peak systolic velocity of 1.10 m/sec and peak end-diastolic velocity of 0.29 m/sec. ECA has a peak systolic velocity of 1.09 m/sec. ICA/CCA ratio is 1.73. Vertebral artery has a peak systolic velocity of 0.74. Impression: 1. Mild amount of plaque. 2. Velocity measurements within both internal carotid arteries correspond to stenosis in the range of 1-49%. Diagnostic code #2 MTDD
[2019-01-12 07:11] LABS: BLOOD UREA NITROGEN,BUN 7 mg/dL (7.0-18.0); CARBON DIOXIDE,CO2 22.6 mmol/L (21.0-32.0); CHLORIDE,CL 108 mmol/L (98-107); GLUCOSE RANDOM 88 mg/dL (74-106); POTASSIUM,K 4.5 mmol/L (3.5-5.1); SODIUM,NA 140 mmol/L (136-145)
[2019-01-12] MEDS: Pravastatin 40 MG Tab PO SCH (08:11)
[2019-01-12] MEDS: Sertraline 50 MG Tab PO SCH (08:12)
[2019-01-12] MEDS: Potassium Chloride 20 MEQ Tab.ER PO SCH (08:12)
[2019-01-12] MEDS: Metoprolol Succinate 100 MG Tab.ER PO SCH (08:13)
--- NOTE | 2019-01-12 10:34 | PCM.DCSUM1 ---
Discharge Summary - Hospital Course Brief History: 73 yo female with pmh of CHF, CAD, COPD, HTN, DM who presents with dizziness, falls and confusion for past week. Patient reports she was on lasix for leg edema. Her leg edema has improved but patient believes she is dehydration. Patient stated she stopped taking lasix but uncertain if she was repeating instructions to stopped her lasix by ED provider kyler. CT scan of chest abdomen and pelvis was suggestive of liver cirrhosis. Patient denies any alcohol use. Diagnosis: Stroke: Yes Modified Duc Scale: No Signif.Disability Despite Sympt.Able to Carry Out Usual Act./Duties Modified [place] Scale Score: 1 - Discharge Data Discharge Date: 01/12/19 Discharge Disposition: Home, Self-Care 01 Condition: Good - Referral to Home Health Primary Care Physician: Keenan Damon MD - Discharge Diagnosis/Problem(s) (1) Liver cirrhosis SNOMED Code(s): 47686359 ICD Code: K74.60 - UNSPECIFIED CIRRHOSIS OF LIVER Status: Acute Current Visit: Yes Qualifiers: Hepatic cirrhosis type: unspecified hepatic cirrhosis Ascites presence: unspecified Qualified Code(s): K74.60 - Unspecified cirrhosis of liver (2) DM type 2 (diabetes mellitus, type 2) SNOMED Code(s): 96106577 ICD Code: E11.9 - TYPE 2 DIABETES MELLITUS WITHOUT COMPLICATIONS Status: Chronic Current Visit: Yes (3) Anxiety and depression SNOMED Code(s): 389374706 ICD Code: F41.9 - ANXIETY DISORDER, UNSPECIFIED; F32.9 - MAJOR DEPRESSIVE DISORDER, SINGLE EPISODE, UNSPECIFIED Status: Chronic Current Visit: Yes (4) COPD (chronic obstructive pulmonary disease) SNOMED Code(s): 45643088 ICD Code: J44.9 - CHRONIC OBSTRUCTIVE PULMONARY DISEASE, UNSPECIFIED Status : Chronic Current Visit: Yes (5) PVD (peripheral vascular disease) SNOMED Code(s): 364847440 ICD Code: I73.9 - PERIPHERAL VASCULAR DISEASE, UNSPECIFIED Status: Chronic Current Visit: Yes (6) CAD (coronary artery disease) SNOMED Code(s): 63725259 ICD Code: I25.10 - ATHSCL HEART DISEASE OF [place] CORONARY ARTERY W/O ANG PCTRS Status: Chronic Current Visit: Yes (7) History of coronary artery stent placement SNOMED Code(s): 501347012, 929300902 ICD Code: Z95.5 - PRESENCE OF CORONARY ANGIOPLASTY IMPLANT AND GRAFT Status : Chronic Current Visit: Yes (8) Dyslipidemia SNOMED Code(s): 751464424 ICD Code: E78.5 - HYPERLIPIDEMIA, UNSPECIFIED Status: Chronic Current Visit: Yes (9) Smoker SNOMED Code(s): 93885754 ICD Code: F17.200 - NICOTINE DEPENDENCE, UNSPECIFIED, UNCOMPLICATED Status : Chronic Current Visit: Yes (10) Congestive heart failure (CHF) SNOMED Code(s): 19502103 ICD Code: I50.9 - HEART FAILURE, UNSPECIFIED Status: Chronic Current Visit: Yes Qualifiers: Heart failure type: unspecified Heart failure chronicity: unspecified Qualified Code(s): I50.9 - Heart failure, unspecified (11) Dependent edema SNOMED Code(s): 924840308 ICD Code: R60.9 - EDEMA, UNSPECIFIED Status: Chronic Current Visit: No (12) Encephalopathy SNOMED Code(s): 62240623 ICD Code: G93.40 - ENCEPHALOPATHY, UNSPECIFIED Status: Acute Current Visit: Yes - Patient Instructions Diet: Heart Healthy Diet, Diabetic Diet Activity: No Strenuous Activities Driving: Do Not Drive Showering/Bathing: May Shower Notify Provider of: Fever, Increased Pain, Swelling and Redness, Drainage, Nausea and/or Vomiting Other/Special Instructions: Follow up with PT/OT regarding shoulder pain. Referral sent to orthopedics for shoulder pain as well. - Discharge Plan *PRESCRIPTION DRUG MONITORING PROGRAM REVIEWED*: Not Applicable *COPY OF PRESCRIPTION DRUG MONITORING REPORT IN PATIENT RICKY: Not Applicable Home Medications: Home Meds Aspirin 81 mg PO DAILY 01/08/19 [History] Furosemide [Lasix] 20 mg PO ASDIRECTED 01/08/19 [History] Glimepiride [Amaryl] 20 mg PO DAILY 01/08/19 [History] Isosorbide Dinitrate 30 mg PO DAILY 01/08/19 [History] Metoprolol Succinate [Toprol XL 100mg] 100 mg PO DAILY 01/08/19 [History] Nortriptyline 10 mg PO BID 01/08/19 [History] Potassium Chloride 20 meq PO DAILY 01/08/19 [History] Pravastatin [Pravachol] 80 mg PO DAILY 01/08/19 [History] Sertraline [Zoloft] 50 mg PO DAILY 01/08/19 [History] hydroCHLOROthiazide [Hydrochlorothiazide] 25 mg PO DAILY 01/08/19 [History] metFORMIN [Glucophage XR] 500 mg PO BID 01/08/19 [History] Oxygen Therapy Mode: Room Air Patient Handouts: Confusion Referrals: [facility] [Outside] Jennifer Judd MD [Physician] - 01/25/19 3:30 pm Michell Damon MD [Resident] - 01/21/19 2:00 pm Alex Portillo DO [Physician] - 01/18/19 8:15 am - Discharge Summary/Plan Comment DC Time >30 min.: No Discharge Summary/Plan Comment: Admitting Diagnoses: AMS Dehydration Hypokalemia Dischareg Diagnoses: Liver Cirrhosis Subacute CVA Other PMH DM Type 2 CHF Anxiety and depression COPD Tobacco abuse PVD CAD Bilateral shoulder pain Radha was admitted secondary to increased confusion. She was treated with IVFs for suspected dehydration from over diuresis. She did not improve with hydration. Abdomen pelvis CT was obtained and noted cirrhotic liver. Hepatitis panel obtained and is still pending. She was noted to have slightly elevated Ammonia on admission, treated with Lactulose x 2, with mild improvement in confusion. MRI of brain ordered to fully evaluate, this revealed very tiny infarct in corpus callosum. I spoke with Dr Judd, Neurology regarding finds. She suggested full work up with ECHO, carotid. Continue Statin, ASA, and encouraged smoking cessation. Carotid US obtained which was WNL. ECHO obtained in Nov, no good imaging windows noted. Will have her follow with Dr Judd and if she would like repeat that can be done then. No PT/OT or ST needed as confusion only noted symptom. This morning Radha is alert and oriented. Family reports she is more herself now. We did speak to the possibility of some confusion being more psychosomatic in nature due to hx of anxiety and depression. Radha is concerned about bilateral shoulder pain. Movement hurts, the pain is intermittent. Palpation of bilateral shoulders/trapezius were tender to palpation, yet she said the palpation felt good. She reports icy hot patches help the pain. I will have her follow up with PT/OT as outpatient for ADLS and stretching working shoulder. I will set her up with Orthopedics to evaluate for possible arthritic or rotator cuff concerns. Non narcotics for pain, Tylenol. She will need to follow up with PCP regarding Hepatitis panel as well as repeat labwork to evaluate thrombocytopenia, which may be related to Cirrhosis. COntinue all home medications. Stop daily use of Lasix, back to Lasix 20 mg PRN edema. She is to return to ED or clinic if concerns should arise. - General Info Date of Service: 01/12/19 Admission Dx/Problem (Free Text: Admission Diagnosis/Problem Admission Diagnosis/Problem Confusion Subjective Update: Doing better today. Fmaily at bedside, Marcella and Tristan. Notified of findings on MRI. Encouraged smoking cessation. Continuing Statin medication as well as ASA. Complaints of shoulder pain. Will arrange follow up. Functional Status: Reports: Pain Controlled, Tolerating Diet, Ambulating, Urinating - Review of Systems General: Reports: No Symptoms. Denies: Weakness, Malaise HEENT: Reports: No Symptoms. Denies: Headaches, Sore Throat, Visual Changes Pulmonary: Reports: No Symptoms. Denies: Shortness of Breath Cardiovascular: Reports: No Symptoms. Denies: Chest Pain Gastrointestinal: Reports: No Symptoms. Denies: Abdominal Pain, Nausea, Vomiting Genitourinary: Reports: No Symptoms Musculoskeletal: Reports: Shoulder Pain (bilateral, hurts to lifts arms. ) Skin: Reports: No Symptoms Neurological: Reports: No Symptoms Psychiatric: Reports: Depression, Anxiety. Denies: Suicidal Ideation - Patient Data Vitals - Most Recent: Last Vital Signs Temp 97.7 F 01/12/19 07:00 Pulse 70 01/12/19 08:13 Resp 17 01/12/19 07:00 BP 101/50 L 01/12/19 08:13 Pulse Ox 93 L 01/12/19 07:00 Weight - Most Recent: 74.446 kg I&O - Last 24 hours: Intake & Output 01/11/19 01/12/19 01/12/19 22:59 06:59 14:59 Intake Total 550 220 Output Total 300 300 Balance 250 -80 Lab Results - Last 24 hrs: Laboratory Results - last 24 hr 01/11/19 01/11/19 01/11/19 Range/Units 06:16 11:16 17:28 WBC (4.0-11.0) K/uL RBC (4.30-5.90) M/uL Hgb (12.0-16.0) g/dL Hct (36.0-46.0) % MCV (80.0-98.0) fL MCH (27.0-32.0) pg MCHC (31.0-37.0) g/dL RDW Std Deviation (28.0-62.0) fl RDW Coeff of Ame (11.0-15.0) % Plt Count (150-400) K/uL MPV (7.40-12.00) fL Neut % (Auto) (48.0-80.0) % Lymph % (Auto) (16.0-40.0) % [place] % (Auto) (0.0-15.0) % Eos % (Auto) (0.0-7.0) % Baso % (Auto) (0.0-1.5) % Neut # (Auto) (1.4-5.7) K/uL Lymph # (Auto) (0.6-2.4) K/uL [place] # (Auto) (0.0-0.8) K/uL Eos # (Auto) (0.0-0.7) K/uL Baso # (Auto) (0.0-0.1) K/uL Nucleated RBC % /100WBC Nucleated RBCs # K/uL Sodium (136-145) mmol/L Potassium (3.5-5.1) mmol/L Chloride (98-107) mmol/L Carbon Dioxide (21.0-32.0) mmol/L BUN (7.0-18.0) mg/dL Creatinine (0.6-1.0) mg/dL Est Cr Clr Drug Dosing mL/min Estimated GFR (MDRD) ml/min Glucose (74-106) mg/dL POC Glucose 81 222 H 123 H (60-110) mg/dL Calcium (8.5-10.1) mg/dL Magnesium (1.8-2.4) mg/dL 01/12/19 01/12/19 01/12/19 Range/Units 05:37 05:37 06:27 WBC 6.29 (4.0-11.0) K/uL RBC 4.10 L (4.30-5.90) M/uL Hgb 13.1 (12.0-16.0) g/dL Hct 39.7 (36.0-46.0) % MCV 96.8 (80.0-98.0) fL MCH 32.0 (27.0-32.0) pg MCHC 33.0 (31.0-37.0) g/dL RDW Std Deviation 56.9 (28.0-62.0) fl RDW Coeff of Ame 16 H (11.0-15.0) % Plt Count 52 L (150-400) K/uL MPV 12.50 H (7.40-12.00) fL Neut % (Auto) 51.8 (48.0-80.0) % Lymph % (Auto) 32.3 (16.0-40.0) % [place] % (Auto) 13.2 (0.0-15.0) % Eos % (Auto) 2.1 (0.0-7.0) % Baso % (Auto) 0.6 (0.0-1.5) % Neut # (Auto) 3.3 (1.4-5.7) K/uL Lymph # (Auto) 2.0 (0.6-2.4) K/uL [place] # (Auto) 0.8 (0.0-0.8) K/uL Eos # (Auto) 0.1 (0.0-0.7) K/uL Baso # (Auto) 0.0 (0.0-0.1) K/uL Nucleated RBC % 0.0 /100WBC Nucleated RBCs # 0 K/uL Sodium 140 (136-145) mmol/L Potassium 4.5 (3.5-5.1) mmol/L Chloride 108 H (98-107) mmol/L Carbon Dioxide 22.6 (21.0-32.0) mmol/L BUN 7 (7.0-18.0) mg/dL Creatinine 0.9 (0.6-1.0) mg/dL Est Cr Clr Drug Dosing 50.09 mL/min Estimated GFR (MDRD) > 60.0 ml/min Glucose 88 (74-106) mg/dL POC Glucose 104 (60-110) mg/dL Calcium 8.5 (8.5-10.1) mg/dL Magnesium 1.9 (1.8-2.4) mg/dL Med Orders - Current: Current Medications Lorazepam (Ativan) 1 mg IVPUSH ONCALL OREN Last Admin: 01/11/19 11:12 Dose: 1 mg Metoprolol Succinate (Toprol Xl) 100 mg PO DAILY [facility] Last Admin: 01/12/19 08:13 Dose: 100 mg Potassium Chloride (Klor-Con M20) 20 meq PO DAILY [facility] Last Admin: 01/12/19 08:12 Dose: 20 meq Pravastatin Sodium (Pravachol) 80 mg PO DAILY [facility] Last Admin: 01/12/19 08:11 Dose: 80 mg Sertraline HCl (Zoloft) 50 mg PO DAILY [facility] Last Admin: 01/12/19 08:12 Dose: 50 mg Sodium Chloride (Saline Flush) 10 ml FLUSH ASDIRECTED PRN PRN Reason: Keep Vein Open Sodium Chloride (Saline Flush) 2.5 ml FLUSH ASDIRECTED PRN PRN Reason: Keep Vein Open Discontinued Medications Sodium Chloride (Normal Saline) 1,000 mls @ 500 mls/hr IV STAT ONE Stop: 01/08/19 19:57 Last Infusion: 01/08/19 18:30 Dose: 125 mls/hr Potassium Chloride 20 meq/ (Premix) 50 mls @ 25 mls/hr IV ONETIME ONE Stop: 01/08/19 20:24 Last Admin: 01/08/19 19:17 Dose: 25 mls/hr Sodium Chloride (Normal Saline) 1,000 mls @ 125 mls/hr IV ASDIRECTED [facility] Stop: 01/09/19 04:15 Last Admin: 01/08/19 23:20 Dose: 125 mls/hr Potassium Chloride/Sodium Chloride (Normal Saline With 40 Meq Kcl) 1,000 mls @ 150 mls/hr IV ASDIRECTED [facility] Stop: 01/09/19 17:24 Last Admin: 01/09/19 11:15 Dose: 150 mls/hr Magnesium Sulfate 4 gm/ Premix 100 mls @ 50 mls/hr IV ONETIME ONE Stop: 01/11/19 11:59 Last Admin: 01/11/19 11:12 Dose: 50 mls/hr Iopamidol (Isovue Multipack-370 (76%)) 85 ml IVPUSH ONETIME STA Stop: 01/08/19 18:56 Last Admin: 01/09/19 05:07 Dose: Not Given Lactulose (Chronulac) 20 gm PO ONETIME ONE Stop: 01/08/19 20:36 Last Admin: 01/08/19 22:10 Dose: 20 gm Lactulose (Chronulac) 30 gm PO ONETIME ONE Stop: 01/10/19 09:46 Last Admin: 01/10/19 09:59 Dose: 30 gm Pantoprazole Sodium (Protonix Iv) 80 mg IVPUSH .BOLUS ONE Stop: 01/08/19 19:37 Last Admin: 01/08/19 21:22 Dose: 80 mg Potassium Chloride (Klor-Con) 20 meq PO ASDIRECTED OREN Potassium Chloride (Klor-Con M20) 40 meq PO ONETIME ONE Stop: 01/09/19 07:18 Last Admin: 01/09/19 08:24 Dose: 40 meq Potassium Chloride (Klor-Con M20) 40 meq PO ONETIME ONE Stop: 01/10/19 06:54 Last Admin: 01/10/19 07:34 Dose: 40 meq Potassium Chloride (Klor-Con M20) 40 meq PO ONETIME@1200 ONE Stop: 01/11/19 12:01 Last Admin: 01/11/19 11:13 Dose: 40 meq - Exam General: Reports: Alert, Oriented, Cooperative, No Acute Distress Lungs: Reports: Clear to Auscultation, Normal Respiratory Effort Cardiovascular: Reports: Regular Rate, Regular Rhythm GI/Abdominal Exam: Normal Bowel Sounds, Soft, Non-Tender Back Exam: Reports: Normal Inspection, Full Range of Motion Extremities: Normal Inspection, Normal Range of Motion, Other (tenderness to palpation of bilateral shoulders and trapezius, more musculoskeletal pain.) Neurological: Reports: No New Focal Deficit Psy/Mental Status: Reports: Alert, Normal Affect, Normal Mood
[2019-01-12] MEDS ORDERED: Acetaminophen 325 MG Tab PO PRN (11:12)
[2019-01-12 12:45] VITALS: BP 110/53; PULSE 67
== END 2019-01-12 13:20 | disposition home or self-care (01) ==
LOC: MW.ED 16:38 → MW.MS 20:33
PROVIDERS: ADMIT Internal Medicine; ATTEND Internal Medicine
DX: I63.9 Cerebral infarction, unspecified (principal); K74.60 Unspecified cirrhosis of liver; E87.6 Hypokalemia; I73.9 Peripheral vascular disease, unspecified; I25.10 Atherosclerotic heart disease of native coronary artery without angina pectoris; E78.5 Hyperlipidemia, unspecified; I11.0 Hypertensive heart disease with heart failure; I50.9 Heart failure, unspecified; J44.9 Chronic obstructive pulmonary disease, unspecified; E11.9 Type 2 diabetes mellitus without complications; E78.00 Pure hypercholesterolemia, unspecified; R60.9 Edema, unspecified; F41.9 Anxiety disorder, unspecified; F32.9 Major depressive disorder, single episode, unspecified; G93.40 Encephalopathy, unspecified; R41.82 Altered mental status, unspecified; F17.210 Nicotine dependence, cigarettes, uncomplicated; E86.0 Dehydration; M25.512 Pain in left shoulder; M25.511 Pain in right shoulder; G43.909 Migraine, unspecified, not intractable, without status migrainosus; R42 Dizziness and giddiness; R29.6 Repeated falls; Z95.5 Presence of coronary angioplasty implant and graft; Z88.5 Allergy status to narcotic agent; Z88.8 Allergy status to other drugs, medicaments and biological substances
CPT/HCPCS: 36415; 70450; 70553; 71260; 72125; 72131; 74177; 76700; 80048; 80053; 80074; 80305; 81003; 82140; 82550; 82607; 82962; 83690; 83735; 83880; 84132; 84484; 85025; 85610; 93005; 93880; 96361; 96365; 96366; 96375; 99285; A9270; C9113; G0378; J2060; J3475; J3480; J7040; 72128; 72128-26

== ENCOUNTER 2019-05-26 11:35 | Observation (INO) | payer MEDICARE ==
--- NOTE | 2019-05-26 12:06 | EDM.PDOC ---
ED HPI GENERAL MEDICAL PROBLEM - General Chief Complaint: Neurological Problem Stated Complaint: FELL Time Seen by Provider: 05/26/19 11:42 Source of Information: Reports: Patient, Family History Limitations: Reports: No Limitations - History of Present Illness INITIAL COMMENTS - FREE TEXT/NARRATIVE: HISTORY AND PHYSICAL: History of present illness: Patient is a 73-year-old female who presents to the ED today with concern of a fall that occurred 2 days ago. Patient states that she has had an increase in fall over the past couple weeks but had a bigger fall that occurred 2 days ago. Patient states that she does not know why she is falling but it can happen even when she is just standing there. Patient states she fell 2 days ago and hurt her right hand/wrist, right ribs and has a bruise on her right eyebrow. Patient states since then she has been able to walk move around without pain or difficulty but states that her right ribs are the most bothersome to her. Patient states she was recently started on new blood pressure medications and is not sure if this is contributing to her symptoms. Patient has a history of congestive heart failure, COPD, and liver cirrhosis (but states this is not related to alcohol use but unsure why she has this). Patient denies fever, chills, chest pain, shortness of breath, or cough. Denies headache, neck stiff ness, change in vision, syncope, or near syncope. Denies nausea, vomiting, abdominal pain, diarrhea, constipation, or dysuria. Has not noted any blood in urine or stool. Patient has been eating and drinking appropriately. Review of systems: As per history of present illness and below otherwise all systems reviewed and negative. Past medical history: As per history of present illness and as reviewed below otherwise noncontributory. Surgical history: As per history of present illness and as reviewed below otherwise noncontributory. Social history: See social history for further information Family history: As per history of present illness and as reviewed below otherwise noncontributory. Physical exam: General: Patient is alert, oriented, and in no acute distress. Patient sitting comfortably on exam table. HEENT: There is a healing bruise over the left eyebrow without edema, no crepitus of palpation of facial bones, normocephalic, pupils equal and reactive bilaterally, negative for conjunctival pallor or scleral icterus, mucous membranes moist, TMs normal bilaterally, throat clear, neck supple, nontender, trachea midline. No drooling or trismus noted. No meningeal signs. No hot potato voice noted. Lungs: Mild wheezing to auscultation throughout all lung ojeda, breath sounds equal bilaterally, pain with palpation of the right sided anterior ribs #9-11 without crepitus. Heart: S1S2, regular rate and rhythm without overt murmur Abdomen: Soft, nondistended, nontender. Negative for masses or hepatosplenomegaly. Negative for costovertebral tenderness. Pelvis: Stable nontender. Genitourinary: Deferred. Rectal: Deferred. Skin: Intact, warm, dry. No lesions or rashes noted. Extremities: The right hand does have a bruise over the base of the thumb with positive stuff box tenderness but patient does have full ROM of complete bilateral lower extremities. negative for cords or calf pain. Neurovascular unremarkable. Neuro: Awake, alert, oriented. Cranial nerves II through XII unremarkable. Cerebellum unremarkable. Motor and sensory unremarkable throughout. Exam nonfocal. Notes: Dr. Gan directly involved in patient care. Dr. Bowman consulted on patient and will admit to observation with telemetry. Voices understanding and is agreeable to plan of care. Denies any further questions or concerns at this time. Diagnostics: CBC, CMP, UA, EKG, chest x-ray, troponin, rib x-ray, right hand x-ray, head CT, cervical spine CT, BNP, ammonia Therapeutics: thumb spica splint Impression: H/O syncopal event Right rib pain Right hand injury Right eyebrow contusion Plan: 1. Admit to observation to Dr. Bowman on telemetry. Definitive disposition and diagnosis as appropriate pending reevaluation and review of above. Left Hand/Wrist/Ribs/Eye Pain Score (Numeric/FACES): 9 - Related Data Allergies Allergy/AdvReac Type Severity Reaction Status Date / Time codeine Allergy Vomiting Verified 05/26/19 11:53 diphenhydramine Allergy Itching Verified 05/26/19 11:53 [From Benadryl] propoxyphene HCl Allergy Vomiting Verified 05/26/19 11:53 [From Darvon] Home Meds: Home Meds Aspirin 81 mg PO DAILY 01/08/19 [History] Glimepiride [Amaryl] 2 mg PO DAILY 01/08/19 [History] Isosorbide Dinitrate 30 mg PO DAILY 01/08/19 [History] Metoprolol Succinate [Toprol XL 100mg] 100 mg PO DAILY 01/08/19 [History] Nortriptyline 20 mg PO DAILY 01/08/19 [History] Potassium Chloride 20 meq PO BID 01/08/19 [History] Pravastatin [Pravachol] 80 mg PO DAILY 01/08/19 [History] Sertraline [Zoloft] 100 mg PO DAILY 01/08/19 [History] Spironolactone [Aldactone] 25 mg PO DAILY 05/26/19 [History] Torsemide 20 mg PO DAILY 05/26/19 [History] metFORMIN HCl [Metformin HCl] 500 mg PO BID 05/26/19 [History] Past Medical History - Past Health History Medical/Surgical History: Denies Medical/Surgical History HEENT History: Reports: Impaired Vision Cardiovascular History: Reports: CAD, Heart Failure, High Cholesterol, Hypertension, [place], SOB on Exertion, Stents, Other (See Below) Other Cardiovascular History: states she has had 7 stents placed. 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: Musculoskeletal History: Reports: Back Pain, Chronic, RA Neurological History: Reports: Migraines Psychiatric History: Reports: Anxiety, Depression, Panic Attack Endocrine/Metabolic History: Reports: Diabetes, Type II, Osteopenia Hematologic History: Reports: Anticoagulation Therapy - Infectious Disease History Infectious Disease History: Reports: Chicken Pox, Measles, Mumps - Past Surgical History HEENT Surgical History: Reports: Tonsillectomy Cardiovascular Surgical History: Reports: Other (See Below) Musculoskeletal Surgical History: Reports: None Social & Family History - Family History Family Medical History: Noncontributory - Caffeine Use Caffeine Use: Reports: Coffee ED ROS GENERAL - Review of Systems Review Of Systems: Comprehensive ROS is negative, except as noted in HPI. ED EXAM, GENERAL - Physical Exam Exam: See Below (see dictation) Course - Vital Signs Last Recorded V/S: Last Vital Signs Temp 97.1 F 05/26/19 11:53 Pulse 69 05/26/19 13:01 Resp 16 05/26/19 13:01 BP 126/36 L 05/26/19 13:01 Pulse Ox 98 05/26/19 13:01 - Orders/Labs/Meds Orders: Active Orders 24 hr Category Date Time Status Admission Status [Patient Status] [ADT] Stat ADT 05/26/19 14:15 Ordered EKG 12 Lead [EKG Documentation Completion] [RC] STAT Care 05/26/19 11:53 Active B-TYPE NATRIURETIC PEPTIDE,BNP [CHEM] Stat Lab 05/26/19 12:15 Received DME for Discharge [COMM] Stat Oth 05/26/19 13:59 Ordered Labs: Laboratory Tests 05/26/19 05/26/19 05/26/19 Range/Units 12:15 12:15 12:15 WBC 5.68 (4.0-11.0) K/uL RBC 3.76 L (4.30-5.90) M/uL Hgb 11.7 L (12.0-16.0) g/dL Hct 36.4 (36.0-46.0) % MCV 96.8 (80.0-98.0) fL MCH 31.1 (27.0-32.0) pg MCHC 32.1 (31.0-37.0) g/dL RDW Std Deviation 58.4 (28.0-62.0) fl RDW Coeff of Ame 16 H (11.0-15.0) % Plt Count 134 L (150-400) K/uL MPV 11.00 (7.40-12.00) fL Neut % (Auto) 47.4 L (48.0-80.0) % Lymph % (Auto) 37.7 (16.0-40.0) % [place] % (Auto) 12.5 (0.0-15.0) % Eos % (Auto) 1.9 (0.0-7.0) % Baso % (Auto) 0.5 (0.0-1.5) % Neut # (Auto) 2.7 (1.4-5.7) K/uL Lymph # (Auto) 2.1 (0.6-2.4) K/uL [place] # (Auto) 0.7 (0.0-0.8) K/uL Eos # (Auto) 0.1 (0.0-0.7) K/uL Baso # (Auto) 0.0 (0.0-0.1) K/uL Nucleated RBC % 0.0 /100WBC Nucleated RBCs # 0 K/uL INR 1.04 Sodium 141 (136-145) mmol/L Potassium 4.2 (3.5-5.1) mmol/L Chloride 107 (98-107) mmol/L Carbon Dioxide 25.3 (21.0-32.0) mmol/L BUN 14 (7.0-18.0) mg/dL Creatinine 1.0 (0.6-1.0) mg/dL Est Cr Clr Drug Dosing 46.90 mL/min Estimated GFR (MDRD) 54.3 ml/min Glucose 187 H (74-106) mg/dL Calcium 9.0 (8.5-10.1) mg/dL Total Bilirubin 0.5 (0.2-1.0) mg/dL AST 55 H (15-37) IU/L ALT 40 (14-63) IU/L Alkaline Phosphatase 144 H (46-116) U/L Ammonia (19-54) ug/dL Troponin I < 0.050 (0.000-0.056) ng/mL Total Protein 6.8 (6.4-8.2) g/dL Albumin 2.5 L (3.4-5.0) g/dL Globulin 4.3 H (2.6-4.0) g/dL Albumin/Globulin Ratio 0.6 L (0.9-1.6) Lipase 179 (73-393) U/L Urine Color Urine Appearance Urine pH (5.0-8.0) Ur Specific [place] (1.001-1.035) Urine Protein (NEGATIVE) mg/dL Urine Glucose (UA) (NEGATIVE) mg/dL Urine Ketones (NEGATIVE) mg/dL Urine Occult Blood (NEGATIVE) Urine Nitrite (NEGATIVE) Urine Bilirubin (NEGATIVE) Urine Urobilinogen (<2.0) EU/dL Ur Leukocyte Esterase (NEGATIVE) 05/26/19 05/26/19 Range/Units 12:15 13:18 WBC (4.0-11.0) K/uL RBC (4.30-5.90) M/uL Hgb (12.0-16.0) g/dL Hct (36.0-46.0) % MCV (80.0-98.0) fL MCH (27.0-32.0) pg MCHC (31.0-37.0) g/dL RDW Std Deviation (28.0-62.0) fl RDW Coeff of Ame (11.0-15.0) % Plt Count (150-400) K/uL MPV (7.40-12.00) fL Neut % (Auto) (48.0-80.0) % Lymph % (Auto) (16.0-40.0) % [place] % (Auto) (0.0-15.0) % Eos % (Auto) (0.0-7.0) % Baso % (Auto) (0.0-1.5) % Neut # (Auto) (1.4-5.7) K/uL Lymph # (Auto) (0.6-2.4) K/uL [place] # (Auto) (0.0-0.8) K/uL Eos # (Auto) (0.0-0.7) K/uL Baso # (Auto) (0.0-0.1) K/uL Nucleated RBC % /100WBC Nucleated RBCs # K/uL INR Sodium (136-145) mmol/L Potassium (3.5-5.1) mmol/L Chloride (98-107) mmol/L Carbon Dioxide (21.0-32.0) mmol/L BUN (7.0-18.0) mg/dL Creatinine (0.6-1.0) mg/dL Est Cr Clr Drug Dosing mL/min Estimated GFR (MDRD) ml/min Glucose (74-106) mg/dL Calcium (8.5-10.1) mg/dL Total Bilirubin (0.2-1.0) mg/dL AST (15-37) IU/L ALT (14-63) IU/L Alkaline Phosphatase (46-116) U/L Ammonia 52 (19-54) ug/dL Troponin I (0.000-0.056) ng/mL Total Protein (6.4-8.2) g/dL Albumin (3.4-5.0) g/dL Globulin (2.6-4.0) g/dL Albumin/Globulin Ratio (0.9-1.6) Lipase (73-393) U/L Urine Color YELLOW Urine Appearance SLT CLOUDY Urine pH 6.0 (5.0-8.0) Ur Specific [place] 1.025 (1.001-1.035) Urine Protein NEGATIVE (NEGATIVE) mg/dL Urine Glucose (UA) NEGATIVE (NEGATIVE) mg/dL Urine Ketones TRACE H (NEGATIVE) mg/dL Urine Occult Blood NEGATIVE (NEGATIVE) Urine Nitrite NEGATIVE (NEGATIVE) Urine Bilirubin NEGATIVE (NEGATIVE) Urine Urobilinogen 1.0 (<2.0) EU/dL Ur Leukocyte Esterase NEGATIVE (NEGATIVE) Departure - Departure Time of Disposition: 14:17 Disposition: Refer to Observation Clinical Impression: History of syncope, Rib pain on right side Hand injury Qualifiers: Encounter type: initial encounter Laterality: right Qualified Code(s): S69.91XA - Unspecified injury of right wrist, hand and finger(s), initial encounter Injury of eyebrow Qualifiers: Encounter type: initial encounter Qualified Code(s): S09.93XA - Unspecified injury of face, initial encounter - Discharge Information Referrals: Keenan Damon MD [Primary Care Provider] - Forms: ED Department Discharge Sepsis Event Note - Evaluation Sepsis Screening Result: No Definite Risk - Focused Exam Vital Signs: Vital Signs Temp Pulse Resp BP Pulse Ox 05/26/19 13:01 69 16 126/36 L 98 05/26/19 11:53 97.1 F 66 16 116/41 L 96 Date Exam was Performed: 05/26/19 Time Exam was Performed: 14:16 - My Orders Last 24 Hours: My Active Orders 05/26/19 11:53 EKG 12 Lead [EKG Documentation Completion] [RC] STAT 05/26/19 12:15 B-TYPE NATRIURETIC PEPTIDE,BNP [CHEM] Stat 05/26/19 13:59 DME for Discharge [COMM] Stat 05/26/19 14:15 Admission Status [Patient Status] [ADT] Stat - Assessment/Plan Last 24 Hours: My Active Orders 05/26/19 11:53 EKG 12 Lead [EKG Documentation Completion] [RC] STAT 05/26/19 12:15 B-TYPE NATRIURETIC PEPTIDE,BNP [CHEM] Stat 05/26/19 13:59 DME for Discharge [COMM] Stat 05/26/19 14:15 Admission Status [Patient Status] [ADT] Stat
[2019-05-26 12:50] LABS: BLOOD UREA NITROGEN,BUN 14 mg/dL (7.0-18.0); CARBON DIOXIDE,CO2 25.3 mmol/L (21.0-32.0); CHLORIDE,CL 107 mmol/L (98-107); GLUCOSE RANDOM 187 mg/dL (74-106); LIPASE 179 U/L (73-393); POTASSIUM,K 4.2 mmol/L (3.5-5.1); SODIUM,NA 141 mmol/L (136-145)
--- NOTE | 2019-05-26 13:07 | CR ---
Chest and right ribs: Frontal view of the chest was obtained as well as 2 views of the right ribs. Comparison: Prior chest x-ray of 11/26/18 is available. Heart size and mediastinum are within normal limits. Atelectasis is seen within the right lung base. Bony structures are osteopenic. No discrete fracture or other right sided rib abnormality is appreciated. Impression: 1. Right basilar atelectasis. 2. No discrete right-sided rib fracture is seen. Nondisplaced fracture could easily be missed due to osteopenia. Diagnostic code #2 This report was dictated in [place] Standard Time
--- NOTE | 2019-05-26 13:07 | CR ---
Right hand: 3 views of the right hand were obtained. Comparison: Previous hand exam is not available. Severe degenerative change is seen within the CMC joint of the thumb. Mild degenerative change is scattered within the DIP and PIP joints. Osteopenia is present. No acute fracture, dislocation or other bony abnormality is appreciated. Impression: 1. Degenerative change and osteopenia. 2. Nothing acute is appreciated on right hand exam. Diagnostic code #2 This report was dictated in [place] Standard Time
--- NOTE | 2019-05-26 13:39 | CT ---
Head CT Technique: Multiple axial sections through the brain were obtained. Intravenous contrast was not utilized. Comparison: Prior head CT study of 01/08/19. Findings: Ventricles along with basal cisterns and sulci over the convexities are mildly prominent. No abnormal parenchymal densities are seen. No evidence of intracranial hemorrhage. No midline shift or mass-effect is appreciated. Bone window settings were reviewed. No acute calvarial abnormality is seen. Mastoid sinuses show nothing acute. Mild mucosal thickening seen within the right maxillary sinus. No acute paranasal sinus findings are seen. Impression: 1. Generalized atrophy. 2. No acute intracranial abnormality is appreciated. Diagnostic code #2 This report was dictated in [place] Standard Time
--- NOTE | 2019-05-26 13:39 | CT ---
CT cervical spine Technique: Multiple axial sections through the cervical spine were obtained from above C1 inferiorly to the inferior T2 level. Reconstructed coronal and sagittal images were obtained. Comparison: Prior CT cervical spine study of 01/08/19. Degenerative change is noted between the dens and anterior arch of C1. Mild spondylolisthesis is seen at C2-3 which is due to degenerative apophyseal change. Degenerative apophyseal change is also scattered throughout other portions of the cervical spine. There is fairly severe disc space narrowing at C3-4, C4-5, C5-6 and C6-7 with mild disc space narrowing at C7-T1. Posterior osteophytes are noted at C3-4 through C6-7. Scattered anterior osteophytes are also seen at the same levels. Scattered neural foraminal narrowing is seen within the cervical spine. Mild scoliosis is also noted. Vertebral bodies and posterior arches are intact. No fracture is seen. Impression: 1. Degenerative change as noted above. 2. No acute fracture is seen. 3. Spondylolisthesis at C3-4 which is due to degenerative apophyseal change. 4. Findings are fairly stable from previous CT cervical spine study. Diagnostic code #2 This report was dictated in [place] Standard Time
--- NOTE | 2019-05-26 17:00 | PCM.HP.2 ---
H&P History of Present Illness - General Date of Service: 05/26/19 Admit Problem/Dx: Admission Diagnosis/Problem Admission Diagnosis/Problem Syncope - History of Present Illness Initial Comments - Free Text/Narative: 73 yo female with pmh of CHF, CAD, COPD, HTN, DM, and liver cirrhosis who presents to the ED with complain of fall. Patient reports she has been falling frequently at home. She denies pass out. She states she does not trip anything she just falls to the floor. Last night fell and got a black eye and sprained right wrist. She reports she has been taking her lactulose regularly and having 1-2 bowel movements a day. She does admit to some memory problems as she sometimes forgets what she was saying in mid sentence. She reports cough and subjective fevers and chills at home. She states her legs are a little swollen today but have been much worse. CT head, cervical spine and right hand x-ray show no acute disease. Her CXR shows no rib fractures but right lower infiltrate. Left Hand/Wrist/Ribs/Eye Pain Score (Numeric/FACES): 9 - Related Data Allergies/Adverse Reactions: Allergies Allergy/AdvReac Type Severity Reaction Status Date / Time codeine Allergy Vomiting Verified 05/26/19 15:58 diphenhydramine Allergy Itching Verified 05/26/19 15:58 [From Benadryl] propoxyphene HCl Allergy Vomiting Verified 05/26/19 15:58 [From Darvon] Home Medications: Home Meds Aspirin 81 mg PO DAILY 01/08/19 [History] Glimepiride [Amaryl] 2 mg PO DAILY 01/08/19 [History] Isosorbide Dinitrate 30 mg PO DAILY 01/08/19 [History] Metoprolol Succinate [Toprol XL 100mg] 100 mg PO DAILY 01/08/19 [History] Nortriptyline 20 mg PO DAILY 01/08/19 [History] Potassium Chloride 20 meq PO BID 01/08/19 [History] Pravastatin [Pravachol] 80 mg PO DAILY 01/08/19 [History] Sertraline [Zoloft] 100 mg PO DAILY 01/08/19 [History] Spironolactone [Aldactone] 25 mg PO DAILY 05/26/19 [History] Torsemide 20 mg PO DAILY 05/26/19 [History] metFORMIN HCl [Metformin HCl] 500 mg PO BID 05/26/19 [History] Past Medical History - Past Health History Medical/Surgical History: Denies Medical/Surgical History HEENT History: Reports: Impaired Vision Cardiovascular History: Reports: CAD, Heart Failure, High Cholesterol, Hypertension, [place], SOB on Exertion, Stents, Other (See Below) Other Cardiovascular History: states she has had 7 stents placed. 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: Musculoskeletal History: Reports: Back Pain, Chronic, RA Neurological History: Reports: Migraines Psychiatric History: Reports: Anxiety, Depression, Panic Attack Endocrine/Metabolic History: Reports: Diabetes, Type II, Osteopenia Hematologic History: Reports: Anticoagulation Therapy - Infectious Disease History Infectious Disease History: Reports: Chicken Pox, Measles, Mumps - Past Surgical History HEENT Surgical History: Reports: Tonsillectomy Cardiovascular Surgical History: Reports: Other (See Below) Musculoskeletal Surgical History: Reports: None Social & Family History - Family History Family Medical History: Noncontributory - Tobacco Use Smoking Status *Q: Never Smoker - Caffeine Use Caffeine Use: Reports: Coffee - Recreational Drug Use Recreational Drug Use: No H&P Review of Systems - Review of Systems: Review Of Systems: Comprehensive ROS is negative, except as noted in HPI. Exam - Exam Exam: See Below - Vital Signs Vital Signs: Last Vital Signs Temp 36.2 C 05/26/19 11:53 Pulse 58 L 05/26/19 14:43 Resp 16 05/26/19 13:01 BP 111/39 L 05/26/19 14:43 Pulse Ox 95 05/26/19 14:43 Weight: 70.8 kg - Exam General: Alert, Oriented HEENT: Conjunctiva Clear, EOMI, Mucosa Moist & [place], Normal Nasal Septum, Other (mild bruising about the right eye) Neck: Supple Lungs: Clear to Auscultation, Normal Respiratory Effort Cardiovascular: Regular Rate, Regular Rhythm GI/Abdominal Exam: Normal Bowel Sounds, Soft, Non-Tender Back Exam: Normal Inspection Extremities: Normal Inspection, Non-Tender, No Pedal Edema Skin: Warm, Dry, Intact Neurological: Cranial Nerves Intact, Reflexes Equal Bilateral, Strength Equal Bilateral, Normal Tone, Sensation Intact. No: Focal Deficit - Patient Data Lab Results Last 24 hrs: Laboratory Results - last 24 hr 05/26/19 05/26/19 05/26/19 Range/Units 12:15 12:15 12:15 WBC 5.68 (4.0-11.0) K/uL RBC 3.76 L (4.30-5.90) M/uL Hgb 11.7 L (12.0-16.0) g/dL Hct 36.4 (36.0-46.0) % MCV 96.8 (80.0-98.0) fL MCH 31.1 (27.0-32.0) pg MCHC 32.1 (31.0-37.0) g/dL RDW Std Deviation 58.4 (28.0-62.0) fl RDW Coeff of Ame 16 H (11.0-15.0) % Plt Count 134 L (150-400) K/uL MPV 11.00 (7.40-12.00) fL Neut % (Auto) 47.4 L (48.0-80.0) % Lymph % (Auto) 37.7 (16.0-40.0) % [place] % (Auto) 12.5 (0.0-15.0) % Eos % (Auto) 1.9 (0.0-7.0) % Baso % (Auto) 0.5 (0.0-1.5) % Neut # (Auto) 2.7 (1.4-5.7) K/uL Lymph # (Auto) 2.1 (0.6-2.4) K/uL [place] # (Auto) 0.7 (0.0-0.8) K/uL Eos # (Auto) 0.1 (0.0-0.7) K/uL Baso # (Auto) 0.0 (0.0-0.1) K/uL Nucleated RBC % 0.0 /100WBC Nucleated RBCs # 0 K/uL INR 1.04 Sodium 141 (136-145) mmol/L Potassium 4.2 (3.5-5.1) mmol/L Chloride 107 (98-107) mmol/L Carbon Dioxide 25.3 (21.0-32.0) mmol/L BUN 14 (7.0-18.0) mg/dL Creatinine 1.0 (0.6-1.0) mg/dL Est Cr Clr Drug Dosing 46.90 mL/min Estimated GFR (MDRD) 54.3 ml/min Glucose 187 H (74-106) mg/dL Calcium 9.0 (8.5-10.1) mg/dL Total Bilirubin 0.5 (0.2-1.0) mg/dL AST 55 H (15-37) IU/L ALT 40 (14-63) IU/L Alkaline Phosphatase 144 H (46-116) U/L Ammonia (19-54) ug/dL Troponin I < 0.050 (0.000-0.056) ng/mL B-Natriuretic Peptide (<100) PG/ML Total Protein 6.8 (6.4-8.2) g/dL Albumin 2.5 L (3.4-5.0) g/dL Globulin 4.3 H (2.6-4.0) g/dL Albumin/Globulin Ratio 0.6 L (0.9-1.6) Lipase 179 (73-393) U/L Urine Color Urine Appearance Urine pH (5.0-8.0) Ur Specific [place] (1.001-1.035) Urine Protein (NEGATIVE) mg/dL Urine Glucose (UA) (NEGATIVE) mg/dL Urine Ketones (NEGATIVE) mg/dL Urine Occult Blood (NEGATIVE) Urine Nitrite (NEGATIVE) Urine Bilirubin (NEGATIVE) Urine Urobilinogen (<2.0) EU/dL Ur Leukocyte Esterase (NEGATIVE) 05/26/19 05/26/19 05/26/19 Range/Units 12:15 12:15 13:18 WBC (4.0-11.0) K/uL RBC (4.30-5.90) M/uL Hgb (12.0-16.0) g/dL Hct (36.0-46.0) % MCV (80.0-98.0) fL MCH (27.0-32.0) pg MCHC (31.0-37.0) g/dL RDW Std Deviation (28.0-62.0) fl RDW Coeff of Ame (11.0-15.0) % Plt Count (150-400) K/uL MPV (7.40-12.00) fL Neut % (Auto) (48.0-80.0) % Lymph % (Auto) (16.0-40.0) % [place] % (Auto) (0.0-15.0) % Eos % (Auto) (0.0-7.0) % Baso % (Auto) (0.0-1.5) % Neut # (Auto) (1.4-5.7) K/uL Lymph # (Auto) (0.6-2.4) K/uL [place] # (Auto) (0.0-0.8) K/uL Eos # (Auto) (0.0-0.7) K/uL Baso # (Auto) (0.0-0.1) K/uL Nucleated RBC % /100WBC Nucleated RBCs # K/uL INR Sodium (136-145) mmol/L Potassium (3.5-5.1) mmol/L Chloride (98-107) mmol/L Carbon Dioxide (21.0-32.0) mmol/L BUN (7.0-18.0) mg/dL Creatinine (0.6-1.0) mg/dL Est Cr Clr Drug Dosing mL/min Estimated GFR (MDRD) ml/min Glucose (74-106) mg/dL Calcium (8.5-10.1) mg/dL Total Bilirubin (0.2-1.0) mg/dL AST (15-37) IU/L ALT (14-63) IU/L Alkaline Phosphatase (46-116) U/L Ammonia 52 (19-54) ug/dL Troponin I (0.000-0.056) ng/mL B-Natriuretic Peptide 267 H (<100) PG/ML Total Protein (6.4-8.2) g/dL Albumin (3.4-5.0) g/dL Globulin (2.6-4.0) g/dL Albumin/Globulin Ratio (0.9-1.6) Lipase (73-393) U/L Urine Color YELLOW Urine Appearance SLT CLOUDY Urine pH 6.0 (5.0-8.0) Ur Specific [place] 1.025 (1.001-1.035) Urine Protein NEGATIVE (NEGATIVE) mg/dL Urine Glucose (UA) NEGATIVE (NEGATIVE) mg/dL Urine Ketones TRACE H (NEGATIVE) mg/dL Urine Occult Blood NEGATIVE (NEGATIVE) Urine Nitrite NEGATIVE (NEGATIVE) Urine Bilirubin NEGATIVE (NEGATIVE) Urine Urobilinogen 1.0 (<2.0) EU/dL Ur Leukocyte Esterase NEGATIVE (NEGATIVE) Result Diagrams: 05/26/19 12:15 05/26/19 12:15 Sepsis Event Note - Evaluation Sepsis Screening Result: No Definite Risk - Focused Exam Vital Signs: Vital Signs Temp Pulse Resp BP Pulse Ox 05/26/19 14:43 58 L 111/39 L 95 05/26/19 13:01 69 16 126/36 L 98 05/26/19 11:53 36.2 C 66 16 116/41 L 96 Date Exam was Performed: 05/26/19 Time Exam was Performed: 16:55 Problem List Initiated/Reviewed/Updated: Yes Orders Last 24hrs: Active Orders 24 hr Category Date Time Status Admission Status [Patient Status] [ADT] Stat ADT 05/26/19 14:15 Active EKG 12 Lead [EKG Documentation Completion] [RC] STAT Care 05/26/19 11:53 Active Telemetry Monitoring [Cardiac Monitoring] [RC] Q8H Care 05/26/19 15:12 Active DME for Discharge [COMM] Stat Oth 05/26/19 13:59 Ordered Assessment/Plan Comment:: 73 yo female admitted following a fall. We will monitor overnight on telemetry and check orthostatic vital signs. We will consult physical therapy. We will start Rocephin and azithromycin for possible pneumonia.
[2019-05-26] MEDS: cefTRIAXone 1 GM in Sodium Chloride 0.9% 50 ML IV SCH (17:59)
[2019-05-26] MEDS: Azithromycin 250 MG Tab PO SCH (18:05)
[2019-05-26] MEDS: Ibuprofen 200 MG Tab PO PRN (18:29)
[2019-05-26] MEDS: metFORMIN 500 MG Tab PO SCH (21:06)
[2019-05-26] MEDS: Nystatin Topical Powder 15 GM Bottle TOP SCH (21:06)
[2019-05-27] MEDS: Nystatin Topical Powder 15 GM Bottle TOP SCH ×3 (06:29→21:31)
[2019-05-27 06:36] LABS: BLOOD UREA NITROGEN,BUN 15 mg/dL (7.0-18.0); CARBON DIOXIDE,CO2 26.2 mmol/L (21.0-32.0); CHLORIDE,CL 111 mmol/L (98-107); GLUCOSE RANDOM 108 mg/dL (74-106); POTASSIUM,K 4.8 mmol/L (3.5-5.1); SODIUM,NA 144 mmol/L (136-145)
[2019-05-27] MEDS: Insulin Aspart 100 Units/ML 3 ML Pen SUBCUT SCH ×3 (07:46→17:06)
[2019-05-27] MEDS: Aspirin 81 MG Tab.Chew PO SCH (08:50)
[2019-05-27] MEDS: Pravastatin 40 MG Tab PO SCH (08:51)
[2019-05-27] MEDS: metFORMIN 500 MG Tab PO SCH ×2 (08:51→21:31)
[2019-05-27] MEDS: Sertraline 50 MG Tab PO SCH (08:52)
[2019-05-27] MEDS: Nortriptyline 10 MG Cap PO SCH (08:53)
[2019-05-27] MEDS ORDERED: Isosorbide Mononitrate 30 MG Tab.ER PO SCH (09:00)
[2019-05-27] MEDS ORDERED: Spironolactone 25 MG Tab PO SCH (09:00)
[2019-05-27] MEDS ORDERED: Metoprolol Succinate 100 MG Tab.ER PO SCH (09:00)
[2019-05-27] MEDS ORDERED: Torsemide 20 MG Tab PO SCH (09:00)
[2019-05-27] MEDS: Ibuprofen 200 MG Tab PO PRN ×2 (10:10→21:57)
--- NOTE | 2019-05-27 10:53 | PCM.PN ---
- General Info Date of Service: 05/27/19 Admission Dx/Problem (Free Text): Admission Diagnosis/Problem Admission Diagnosis/Problem Syncope Subjective Update: seen and examined at bedside, still feels weak, no chest pain, sob - Review of Systems General: Reports: Weakness. Denies: Fever, Fatigue, Malaise Pulmonary: Denies: Shortness of Breath, Pleuritic Chest Pain Cardiovascular: Denies: Chest Pain, Palpitations Gastrointestinal: Denies: Abdominal Pain, Constipation Genitourinary: Denies: Dysuria, Frequency Musculoskeletal: Denies: Neck Pain, Shoulder Pain Skin: Denies: Cyanosis, Jaundice - Patient Data Vitals - Most Recent: Last Vital Signs Temp 36.6 C 05/27/19 08:45 Pulse 74 05/27/19 08:55 Resp 17 05/27/19 08:45 BP 110/53 L 05/27/19 08:55 Pulse Ox 95 05/27/19 08:45 Orthostatic Blood Pressure [ 102/45 Standing] Orthostatic Blood Pressure [ 102/46 Sitting] Orthostatic Blood Pressure [ 109/53 Supine] Weight - Most Recent: 70.987 kg I&O - Last 24 Hours: Intake & Output 05/26/19 05/27/19 05/27/19 22:59 06:59 14:59 Intake Total 710 Output Total 500 Balance 210 Lab Results Last 24 Hours: Laboratory Results - last 24 hr 05/26/19 05/26/19 05/26/19 Range/Units 12:15 12:15 12:15 WBC 5.68 (4.0-11.0) K/uL RBC 3.76 L (4.30-5.90) M/uL Hgb 11.7 L (12.0-16.0) g/dL Hct 36.4 (36.0-46.0) % MCV 96.8 (80.0-98.0) fL MCH 31.1 (27.0-32.0) pg MCHC 32.1 (31.0-37.0) g/dL RDW Std Deviation 58.4 (28.0-62.0) fl RDW Coeff of Ame 16 H (11.0-15.0) % Plt Count 134 L (150-400) K/uL MPV 11.00 (7.40-12.00) fL Neut % (Auto) 47.4 L (48.0-80.0) % Lymph % (Auto) 37.7 (16.0-40.0) % [place] % (Auto) 12.5 (0.0-15.0) % Eos % (Auto) 1.9 (0.0-7.0) % Baso % (Auto) 0.5 (0.0-1.5) % Neut # (Auto) 2.7 (1.4-5.7) K/uL Lymph # (Auto) 2.1 (0.6-2.4) K/uL [place] # (Auto) 0.7 (0.0-0.8) K/uL Eos # (Auto) 0.1 (0.0-0.7) K/uL Baso # (Auto) 0.0 (0.0-0.1) K/uL Nucleated RBC % 0.0 /100WBC Nucleated RBCs # 0 K/uL INR 1.04 Sodium 141 (136-145) mmol/L Potassium 4.2 (3.5-5.1) mmol/L Chloride 107 (98-107) mmol/L Carbon Dioxide 25.3 (21.0-32.0) mmol/L BUN 14 (7.0-18.0) mg/dL Creatinine 1.0 (0.6-1.0) mg/dL Est Cr Clr Drug Dosing 46.90 mL/min Estimated GFR (MDRD) 54.3 ml/min Glucose 187 H (74-106) mg/dL POC Glucose (60-110) mg/dL Calcium 9.0 (8.5-10.1) mg/dL Magnesium (1.8-2.4) mg/dL Total Bilirubin 0.5 (0.2-1.0) mg/dL AST 55 H (15-37) IU/L ALT 40 (14-63) IU/L Alkaline Phosphatase 144 H (46-116) U/L Ammonia (19-54) ug/dL Troponin I < 0.050 (0.000-0.056) ng/mL B-Natriuretic Peptide (<100) PG/ML Total Protein 6.8 (6.4-8.2) g/dL Albumin 2.5 L (3.4-5.0) g/dL Globulin 4.3 H (2.6-4.0) g/dL Albumin/Globulin Ratio 0.6 L (0.9-1.6) Lipase 179 (73-393) U/L Urine Color Urine Appearance Urine pH (5.0-8.0) Ur Specific [place] (1.001-1.035) Urine Protein (NEGATIVE) mg/dL Urine Glucose (UA) (NEGATIVE) mg/dL Urine Ketones (NEGATIVE) mg/dL Urine Occult Blood (NEGATIVE) Urine Nitrite (NEGATIVE) Urine Bilirubin (NEGATIVE) Urine Urobilinogen (<2.0) EU/dL Ur Leukocyte Esterase (NEGATIVE) 05/26/19 05/26/19 05/26/19 Range/Units 12:15 12:15 13:18 WBC (4.0-11.0) K/uL RBC (4.30-5.90) M/uL Hgb (12.0-16.0) g/dL Hct (36.0-46.0) % MCV (80.0-98.0) fL MCH (27.0-32.0) pg MCHC (31.0-37.0) g/dL RDW Std Deviation (28.0-62.0) fl RDW Coeff of Ame (11.0-15.0) % Plt Count (150-400) K/uL MPV (7.40-12.00) fL Neut % (Auto) (48.0-80.0) % Lymph % (Auto) (16.0-40.0) % [place] % (Auto) (0.0-15.0) % Eos % (Auto) (0.0-7.0) % Baso % (Auto) (0.0-1.5) % Neut # (Auto) (1.4-5.7) K/uL Lymph # (Auto) (0.6-2.4) K/uL [place] # (Auto) (0.0-0.8) K/uL Eos # (Auto) (0.0-0.7) K/uL Baso # (Auto) (0.0-0.1) K/uL Nucleated RBC % /100WBC Nucleated RBCs # K/uL INR Sodium (136-145) mmol/L Potassium (3.5-5.1) mmol/L Chloride (98-107) mmol/L Carbon Dioxide (21.0-32.0) mmol/L BUN (7.0-18.0) mg/dL Creatinine (0.6-1.0) mg/dL Est Cr Clr Drug Dosing mL/min Estimated GFR (MDRD) ml/min Glucose (74-106) mg/dL POC Glucose (60-110) mg/dL Calcium (8.5-10.1) mg/dL Magnesium (1.8-2.4) mg/dL Total Bilirubin (0.2-1.0) mg/dL AST (15-37) IU/L ALT (14-63) IU/L Alkaline Phosphatase (46-116) U/L Ammonia 52 (19-54) ug/dL Troponin I (0.000-0.056) ng/mL B-Natriuretic Peptide 267 H (<100) PG/ML Total Protein (6.4-8.2) g/dL Albumin (3.4-5.0) g/dL Globulin (2.6-4.0) g/dL Albumin/Globulin Ratio (0.9-1.6) Lipase (73-393) U/L Urine Color YELLOW Urine Appearance SLT CLOUDY Urine pH 6.0 (5.0-8.0) Ur Specific [place] 1.025 (1.001-1.035) Urine Protein NEGATIVE (NEGATIVE) mg/dL Urine Glucose (UA) NEGATIVE (NEGATIVE) mg/dL Urine Ketones TRACE H (NEGATIVE) mg/dL Urine Occult Blood NEGATIVE (NEGATIVE) Urine Nitrite NEGATIVE (NEGATIVE) Urine Bilirubin NEGATIVE (NEGATIVE) Urine Urobilinogen 1.0 (<2.0) EU/dL Ur Leukocyte Esterase NEGATIVE (NEGATIVE) 05/26/19 05/27/19 05/27/19 Range/Units 17:39 05:48 05:48 WBC 5.77 (4.0-11.0) K/uL RBC 3.66 L (4.30-5.90) M/uL Hgb 11.4 L (12.0-16.0) g/dL Hct 35.5 L (36.0-46.0) % MCV 97.0 (80.0-98.0) fL MCH 31.1 (27.0-32.0) pg MCHC 32.1 (31.0-37.0) g/dL RDW Std Deviation 58.9 (28.0-62.0) fl RDW Coeff of Ame 17 H (11.0-15.0) % Plt Count 124 L (150-400) K/uL MPV 11.20 (7.40-12.00) fL Neut % (Auto) 51.2 (48.0-80.0) % Lymph % (Auto) 32.4 (16.0-40.0) % [place] % (Auto) 14.0 (0.0-15.0) % Eos % (Auto) 1.9 (0.0-7.0) % Baso % (Auto) 0.5 (0.0-1.5) % Neut # (Auto) 3.0 (1.4-5.7) K/uL Lymph # (Auto) 1.9 (0.6-2.4) K/uL [place] # (Auto) 0.8 (0.0-0.8) K/uL Eos # (Auto) 0.1 (0.0-0.7) K/uL Baso # (Auto) 0.0 (0.0-0.1) K/uL Nucleated RBC % 0.0 /100WBC Nucleated RBCs # 0 K/uL INR Sodium 144 (136-145) mmol/L Potassium 4.8 (3.5-5.1) mmol/L Chloride 111 H (98-107) mmol/L Carbon Dioxide 26.2 (21.0-32.0) mmol/L BUN 15 (7.0-18.0) mg/dL Creatinine 0.9 (0.6-1.0) mg/dL Est Cr Clr Drug Dosing 48.07 mL/min Estimated GFR (MDRD) > 60.0 ml/min Glucose 108 H (74-106) mg/dL POC Glucose 221 H (60-110) mg/dL Calcium 8.7 (8.5-10.1) mg/dL Magnesium (1.8-2.4) mg/dL Total Bilirubin (0.2-1.0) mg/dL AST (15-37) IU/L ALT (14-63) IU/L Alkaline Phosphatase (46-116) U/L Ammonia (19-54) ug/dL Troponin I (0.000-0.056) ng/mL B-Natriuretic Peptide (<100) PG/ML Total Protein (6.4-8.2) g/dL Albumin (3.4-5.0) g/dL Globulin (2.6-4.0) g/dL Albumin/Globulin Ratio (0.9-1.6) Lipase (73-393) U/L Urine Color Urine Appearance Urine pH (5.0-8.0) Ur Specific [place] (1.001-1.035) Urine Protein (NEGATIVE) mg/dL Urine Glucose (UA) (NEGATIVE) mg/dL Urine Ketones (NEGATIVE) mg/dL Urine Occult Blood (NEGATIVE) Urine Nitrite (NEGATIVE) Urine Bilirubin (NEGATIVE) Urine Urobilinogen (<2.0) EU/dL Ur Leukocyte Esterase (NEGATIVE) 05/27/19 05/27/19 Range/Units 05:48 05:56 WBC (4.0-11.0) K/uL RBC (4.30-5.90) M/uL Hgb (12.0-16.0) g/dL Hct (36.0-46.0) % MCV (80.0-98.0) fL MCH (27.0-32.0) pg MCHC (31.0-37.0) g/dL RDW Std Deviation (28.0-62.0) fl RDW Coeff of Ame (11.0-15.0) % Plt Count (150-400) K/uL MPV (7.40-12.00) fL Neut % (Auto) (48.0-80.0) % Lymph % (Auto) (16.0-40.0) % [place] % (Auto) (0.0-15.0) % Eos % (Auto) (0.0-7.0) % Baso % (Auto) (0.0-1.5) % Neut # (Auto) (1.4-5.7) K/uL Lymph # (Auto) (0.6-2.4) K/uL [place] # (Auto) (0.0-0.8) K/uL Eos # (Auto) (0.0-0.7) K/uL Baso # (Auto) (0.0-0.1) K/uL Nucleated RBC % /100WBC Nucleated RBCs # K/uL INR Sodium (136-145) mmol/L Potassium (3.5-5.1) mmol/L Chloride (98-107) mmol/L Carbon Dioxide (21.0-32.0) mmol/L BUN (7.0-18.0) mg/dL Creatinine (0.6-1.0) mg/dL Est Cr Clr Drug Dosing mL/min Estimated GFR (MDRD) ml/min Glucose (74-106) mg/dL POC Glucose 107 (60-110) mg/dL Calcium (8.5-10.1) mg/dL Magnesium 1.9 (1.8-2.4) mg/dL Total Bilirubin (0.2-1.0) mg/dL AST (15-37) IU/L ALT (14-63) IU/L Alkaline Phosphatase (46-116) U/L Ammonia (19-54) ug/dL Troponin I (0.000-0.056) ng/mL B-Natriuretic Peptide (<100) PG/ML Total Protein (6.4-8.2) g/dL Albumin (3.4-5.0) g/dL Globulin (2.6-4.0) g/dL Albumin/Globulin Ratio (0.9-1.6) Lipase (73-393) U/L Urine Color Urine Appearance Urine pH (5.0-8.0) Ur Specific [place] (1.001-1.035) Urine Protein (NEGATIVE) mg/dL Urine Glucose (UA) (NEGATIVE) mg/dL Urine Ketones (NEGATIVE) mg/dL Urine Occult Blood (NEGATIVE) Urine Nitrite (NEGATIVE) Urine Bilirubin (NEGATIVE) Urine Urobilinogen (<2.0) EU/dL Ur Leukocyte Esterase (NEGATIVE) Med Orders - Current: Current Medications Aspirin (Aspirin) 81 mg PO DAILY [facility] Last Admin: 05/27/19 08:50 Dose: 81 mg Azithromycin (Zithromax) 500 mg PO Q24H [facility] Last Admin: 05/26/19 18:05 Dose: 500 mg Ceftriaxone Sodium 1 gm/ (Sodium Chloride) 50 mls @ 100 mls/hr IV Q24H [facility] Last Admin: 05/26/19 17:59 Dose: 100 mls/hr Ibuprofen (Motrin) 200 mg PO Q6H PRN PRN Reason: Pain Last Admin: 05/27/19 10:10 Dose: 200 mg Insulin Aspart (Novolog) 0 unit SUBCUT TIDAC [facility]; Protocol Last Admin: 05/27/19 07:46 Dose: Not Given Isosorbide Mononitrate (Imdur) 30 mg PO DAILY [facility] Last Admin: 05/27/19 08:54 Dose: 30 mg Isosorbide Mononitrate (Imdur) 30 mg PO DAILY [facility] Metformin HCl (Glucophage) 500 mg PO BID [facility] Last Admin: 05/27/19 08:51 Dose: 500 mg Metoprolol Succinate (Toprol Xl) 100 mg PO DAILY [facility] Last Admin: 05/27/19 08:55 Dose: 100 mg Nortriptyline HCl (Nortriptyline) 20 mg PO DAILY [facility] Last Admin: 05/27/19 08:53 Dose: 20 mg Nystatin (Nystop) 0 gm TOP TID [facility] Last Admin: 05/27/19 06:29 Dose: 1 applic Pravastatin Sodium (Pravachol) 80 mg PO DAILY [facility] Last Admin: 05/27/19 08:51 Dose: 80 mg Sertraline HCl (Zoloft) 100 mg PO DAILY [facility] Last Admin: 05/27/19 08:52 Dose: 100 mg Spironolactone (Aldactone) 25 mg PO DAILY [facility] Last Admin: 05/27/19 08:55 Dose: 25 mg Torsemide (Demadex) 20 mg PO DAILY [facility] Last Admin: 05/27/19 08:54 Dose: 20 mg - Exam Quality Assessment: Supplemental Oxygen General: Alert, Oriented Neck: Supple, Trachea Midline Lungs: Clear to Auscultation, Decreased Breath Sounds Cardiovascular: Regular Rate, Regular Rhythm GI/Abdominal Exam: Normal Bowel Sounds, Soft, Non-Tender (Female) Exam: Normal External Exam, Normal Speculum Exam Peripheral Pulses: 3+: Dorsalis Pedis (L), Dorsalis Pedis (R) Skin: Warm, Dry Sepsis Event Note - Evaluation Sepsis Screening Result: No Definite Risk - Focused Exam Vital Signs: Vital Signs Temp Pulse Pulse Resp BP BP Pulse Ox 05/27/19 08:55 74 110/53 L 05/27/19 08:54 110/53 L 05/27/19 08:45 36.6 C 74 17 110/53 L 95 05/27/19 04:00 36.0 C 78 17 113/56 L 90 L 05/27/19 00:46 36.3 C 78 16 113/53 L 91 L Date Exam was Performed: 05/27/19 Time Exam was Performed: 17:27 - Problem List & Annotations (1) Fall SNOMED Code(s): 8311159, 836209964 Code(s): W19.XXXA - UNSPECIFIED FALL, INITIAL ENCOUNTER Status: Acute Current Visit: Yes (2) Liver dysfunction SNOMED Code(s): 87663347 Code(s): K76.89 - OTHER SPECIFIED DISEASES OF LIVER Status: Acute Current Visit: Yes (3) Ambulatory dysfunction SNOMED Code(s): 979123523 Code(s): R26.2 - DIFFICULTY IN WALKING, NOT ELSEWHERE CLASSIFIED Status: Acute Current Visit: Yes (4) Community acquired pneumonia SNOMED Code(s): 824583267 Code(s): J18.9 - PNEUMONIA, UNSPECIFIED ORGANISM Status: Acute Current Visit: Yes - Problem List Review Problem List Initiated/Reviewed/Updated: Yes - My Orders Last 24 Hours: My Active Orders 05/27/19 10:44 Consult to Physical Therapy [PT Evaluation and Treatment] [CONS] Routine 05/28/19 09:00 Isosorbide Mononitrate [Imdur] 30 mg PO DAILY - Plan Plan:: 73 yo female admitted following a fall. cont Rocephin and azithromycin for possible pneumonia. IVF as patient looks dehydrated Incentive spirometry Will consult physical therapy. cont to monitor vitals closely
[2019-05-27] MEDS ORDERED: Lactated Ringers 1,000 ML IV ONE ×3 (15:48→17:30)
[2019-05-27] MEDS: Azithromycin 250 MG Tab PO SCH (17:26)
[2019-05-27] MEDS: cefTRIAXone 1 GM in Sodium Chloride 0.9% 50 ML IV SCH (18:34)
[2019-05-28 05:42] LABS: CARBON DIOXIDE,CO2 25.8 mmol/L (21.0-32.0)
[2019-05-28] MEDS: Nystatin Topical Powder 15 GM Bottle TOP SCH (05:51)
[2019-05-28] MEDS ORDERED: Magnesium Sulfate/Water 2 GM in Premix Bag 1 BAG IV ONE (06:54)
[2019-05-28] MEDS: Insulin Aspart 100 Units/ML 3 ML Pen SUBCUT SCH (07:03)
[2019-05-28 08:57] VITALS: BP 121/56; PULSE 70
[2019-05-28] MEDS ORDERED: Isosorbide Mononitrate 30 MG Tab.ER PO SCH (09:00)
[2019-05-28] MEDS: Aspirin 81 MG Tab.Chew PO SCH (09:06)
[2019-05-28] MEDS: Pravastatin 40 MG Tab PO SCH (09:06)
[2019-05-28] MEDS: metFORMIN 500 MG Tab PO SCH (09:06)
[2019-05-28] MEDS: Nortriptyline 10 MG Cap PO SCH (09:07)
[2019-05-28] MEDS: Sertraline 50 MG Tab PO SCH (09:07)
--- NOTE | 2019-05-28 10:27 | PCM.DCSUM1 ---
Discharge Summary - Hospital Course HPI Initial Comments: Admission Date: 05/26/19 Discharge Date: 05/28/19 Admission Diagnosis: 1. Fall 2. CAP 3. DMII Discharge Diagnosis: 1. Fall 2. CAP 3. DMII 4. Hypotension 5. Hypomagnesemia Procedures: None Consults: None Hospital Course: 73 yo female with pmh of CHF, CAD, COPD, HTN, DM, and liver cirrhosis who presents to the ED with complain of fall. Patient reports she has been falling frequently at home. She denies pass out. She reports cough and subjective fevers and chills at home. CT head, cervical spine and right hand x-ray show no acute disease. Her CXR shows no rib fractures but right lower infiltrate. Admitted to the medical floor, treated wtih azithromycin and rocephin for CAP. At time of discharge afebrile and satting well on room air. Was evaluated by PT for falls, evaluated and PT stated patient was at baseline, did recommend single point cane and shower chair upon discharge. She was placed on sliding scale and accuchecks for DMII> She did have lower blood pressures, orthostatics wnl, but she is on 4 different blood pressure medications at home, when held, BP improved. Had low magnesemia which was replaced. By day of discharge, BP had improved, tolerating oral diet, and ambulating at baseline. Will discharge on only one of her blood pressure medications, she can follow up with PCP to slowly add back more medications if needed. Patient understood and agreed to the plan. Disposition: Home Discharge Condition: vitals stable, tolerating oral diet, symptom improvement Discharge Instructions: regular diet as tolerated, activity as tolerated, take medications as prescribed. Symptoms to report to physician include fever/chills , chest pain, shortness of breath, abdominal pain, erythema, drainage/discharge , or not improving as expected. Discharge Medications: Aspirin 81 mg PO DAILY Glimepiride [Amaryl] 2 mg PO DAILY Nortriptyline 20 mg PO DAILY Pravastatin [Pravachol] 80 mg PO DAILY Sertraline [Zoloft] 100 mg PO DAILY metFORMIN HCl [Metformin HCl] 500 mg PO BID Amoxicillin 1,000 mg PO TID 4 days Azithromycin 250 mg PO DAILY 4 Days Metoprolol Succinate [Toprol XL 50mg] 50 mg PO DAILY Nystatin [Nystop] 0 gm TOP TID bottle Follow-up: 1. PCP- Dr. Damon on 06/09/19 - Discharge Data Discharge Date: 05/28/19 Discharge Disposition: Home, Self-Care 01 Condition: Stable - Referral to Home Health Primary Care Physician: Keenan Damon MD - Patient Summary/Data Consults: Consultations 05/27/19 10:44 Consult to Physical Therapy [PT Evaluation and Treatment] [CONS] Routine - Patient Instructions Diet: Heart Healthy Diet Activity: As Tolerated Showering/Bathing: May Shower Notify Provider of: Fever, Increased Pain, Swelling and Redness, Drainage, Nausea and/or Vomiting Other/Special Instructions: Additional symptoms include chest pain, shortness of breath, or abdominal pain. Check BP daily and keep log, take log to follow up appt with regular doctor. We stopped most of your blood pressure pills because your blood pressure was too low. We only restarted one at a lower dose , your regular doctor may have to add more back. - Discharge Plan *PRESCRIPTION DRUG MONITORING PROGRAM REVIEWED*: No *COPY OF PRESCRIPTION DRUG MONITORING REPORT IN PATIENT RICKY: No Prescriptions/Med Rec: Amoxicillin 1,000 mg PO TID 8 Days #4 tab Azithromycin 250 mg PO DAILY 4 Days #4 tablet Metoprolol Succinate [Toprol XL 50mg] 50 mg PO DAILY 14 Days #14 tab.er Home Medications: Home Meds Aspirin 81 mg PO DAILY 01/08/19 [History] Glimepiride [Amaryl] 2 mg PO DAILY 01/08/19 [History] Nortriptyline 20 mg PO DAILY 01/08/19 [History] Pravastatin [Pravachol] 80 mg PO DAILY 01/08/19 [History] Sertraline [Zoloft] 100 mg PO DAILY 01/08/19 [History] metFORMIN HCl [Metformin HCl] 500 mg PO BID 05/26/19 [History] Amoxicillin 1,000 mg PO TID 8 Days #4 tab 05/28/19 [Rx] Azithromycin 250 mg PO DAILY 4 Days #4 tablet 05/28/19 [Rx] Metoprolol Succinate [Toprol XL 50mg] 50 mg PO DAILY 14 Days #14 tab.er [Rx] Nystatin [Nystop] 0 gm TOP TID bottle 05/28/19 [Rx] Patient Handouts: Metoprolol extended-release tablets, Amoxicillin capsules or tablets, Azithromycin tablets, Syncope, [id number] Referrals: Keenan Damon MD [Primary Care Provider] - 06/09/19 1:30 pm - Discharge Summary/Plan Comment DC Time >30 min.: No - Patient Data Vitals - Most Recent: Last Vital Signs Temp 98.1 F 05/28/19 08:00 Pulse 70 05/28/19 08:00 Resp 14 05/28/19 08:00 BP 121/56 L 05/28/19 08:00 Pulse Ox 90 L 05/28/19 08:00 Orthostatic Blood Pressure [ 102/45 Standing] Orthostatic Blood Pressure [ 102/46 Sitting] Orthostatic Blood Pressure [ 109/53 Supine] Weight - Most Recent: 72.5 kg I&O - Last 24 hours: Intake & Output 05/27/19 05/28/19 05/28/19 22:59 06:59 14:59 Intake Total 574 630 Output Total 100 375 Balance 474 255 Lab Results - Last 24 hrs: Laboratory Results - last 24 hr 05/27/19 05/27/19 05/28/19 Range/Units 12:04 16:29 04:55 WBC 6.61 (4.0-11.0) K/uL RBC 3.56 L (4.30-5.90) M/uL Hgb 11.2 L (12.0-16.0) g/dL Hct 34.0 L (36.0-46.0) % MCV 95.5 (80.0-98.0) fL MCH 31.5 (27.0-32.0) pg MCHC 32.9 (31.0-37.0) g/dL RDW Std Deviation 57.9 (28.0-62.0) fl RDW Coeff of Ame 17 H (11.0-15.0) % Plt Count 116 L (150-400) K/uL MPV 10.60 (7.40-12.00) fL Neut % (Auto) 48.3 (48.0-80.0) % Lymph % (Auto) 32.8 (16.0-40.0) % [place] % (Auto) 16.3 H (0.0-15.0) % Eos % (Auto) 2.3 (0.0-7.0) % Baso % (Auto) 0.3 (0.0-1.5) % Neut # (Auto) 3.2 (1.4-5.7) K/uL Lymph # (Auto) 2.2 (0.6-2.4) K/uL [place] # (Auto) 1.1 H (0.0-0.8) K/uL Eos # (Auto) 0.2 (0.0-0.7) K/uL Baso # (Auto) 0.0 (0.0-0.1) K/uL Nucleated RBC % 0.0 /100WBC Nucleated RBCs # 0 K/uL Sodium (136-145) mmol/L Potassium (3.5-5.1) mmol/L Chloride (98-107) mmol/L Carbon Dioxide (21.0-32.0) mmol/L BUN (7.0-18.0) mg/dL Creatinine (0.6-1.0) mg/dL Est Cr Clr Drug Dosing mL/min Estimated GFR (MDRD) ml/min Glucose (74-106) mg/dL POC Glucose 119 H 120 H (60-110) mg/dL Calcium (8.5-10.1) mg/dL Phosphorus (2.6-4.7) mg/dL Magnesium (1.8-2.4) mg/dL 05/28/19 05/28/19 Range/Units 04:55 06:13 WBC (4.0-11.0) K/uL RBC (4.30-5.90) M/uL Hgb (12.0-16.0) g/dL Hct (36.0-46.0) % MCV (80.0-98.0) fL MCH (27.0-32.0) pg MCHC (31.0-37.0) g/dL RDW Std Deviation (28.0-62.0) fl RDW Coeff of Ame (11.0-15.0) % Plt Count (150-400) K/uL MPV (7.40-12.00) fL Neut % (Auto) (48.0-80.0) % Lymph % (Auto) (16.0-40.0) % [place] % (Auto) (0.0-15.0) % Eos % (Auto) (0.0-7.0) % Baso % (Auto) (0.0-1.5) % Neut # (Auto) (1.4-5.7) K/uL Lymph # (Auto) (0.6-2.4) K/uL [place] # (Auto) (0.0-0.8) K/uL Eos # (Auto) (0.0-0.7) K/uL Baso # (Auto) (0.0-0.1) K/uL Nucleated RBC % /100WBC Nucleated RBCs # K/uL Sodium 140 (136-145) mmol/L Potassium 4.0 (3.5-5.1) mmol/L Chloride 107 (98-107) mmol/L Carbon Dioxide 25.8 (21.0-32.0) mmol/L BUN 18 (7.0-18.0) mg/dL Creatinine 1.0 (0.6-1.0) mg/dL Est Cr Clr Drug Dosing 43.27 mL/min Estimated GFR (MDRD) 54.3 ml/min Glucose 100 (74-106) mg/dL POC Glucose 96 (60-110) mg/dL Calcium 8.6 (8.5-10.1) mg/dL Phosphorus 2.7 (2.6-4.7) mg/dL Magnesium 1.7 L (1.8-2.4) mg/dL Med Orders - Current: Current Medications Aspirin (Aspirin) 81 mg PO DAILY [facility] Last Admin: 05/28/19 09:06 Dose: 81 mg Azithromycin (Zithromax) 500 mg PO Q24H [facility] Last Admin: 05/27/19 17:26 Dose: 500 mg Ceftriaxone Sodium 1 gm/ (Sodium Chloride) 50 mls @ 100 mls/hr IV Q24H [facility] Last Admin: 05/27/19 18:34 Dose: 100 mls/hr Ibuprofen (Motrin) 200 mg PO Q6H PRN PRN Reason: Pain Last Admin: 05/27/19 21:57 Dose: 200 mg Insulin Aspart (Novolog) 0 unit SUBCUT TIDAC [facility]; Protocol Last Admin: 05/28/19 07:03 Dose: Not Given Metformin HCl (Glucophage) 500 mg PO BID [facility] Last Admin: 05/28/19 09:06 Dose: 500 mg Nortriptyline HCl (Nortriptyline) 20 mg PO DAILY [facility] Last Admin: 05/28/19 09:07 Dose: 20 mg Nystatin (Nystop) 0 gm TOP TID [facility] Last Admin: 05/28/19 05:51 Dose: 1 applic Pravastatin Sodium (Pravachol) 80 mg PO DAILY [facility] Last Admin: 05/28/19 09:06 Dose: 80 mg Sertraline HCl (Zoloft) 100 mg PO DAILY [facility] Last Admin: 05/28/19 09:07 Dose: 100 mg Discontinued Medications Lactated Ringer's (Ringers, Lactated) 1,000 mls @ 999 mls/hr IV .BOLUS ONE Stop: 05/27/19 16:48 Last Admin: 05/27/19 15:52 Dose: 999 mls/hr Lactated Ringer's (Ringers, Lactated) 1,000 mls @ 999 mls/hr IV .BOLUS ONE Stop: 05/27/19 18:30 Last Admin: 05/27/19 17:25 Dose: 999 mls/hr Magnesium Sulfate 2 gm/ Premix 50 mls @ 25 mls/hr IV ONETIME ONE Stop: 05/28/19 08:53 Last Admin: 05/28/19 07:21 Dose: 25 mls/hr Isosorbide Mononitrate (Imdur) 30 mg PO DAILY [facility] Last Admin: 05/27/19 08:54 Dose: 30 mg Isosorbide Mononitrate (Imdur) 30 mg PO DAILY [facility] Metoprolol Succinate (Toprol Xl) 100 mg PO DAILY [facility] Last Admin: 05/27/19 08:55 Dose: 100 mg Spironolactone (Aldactone) 25 mg PO DAILY [facility] Last Admin: 05/27/19 08:55 Dose: 25 mg Torsemide (Demadex) 20 mg PO DAILY [facility] Last Admin: 05/27/19 08:54 Dose: 20 mg
[2019-05-28] MEDS: Ibuprofen 200 MG Tab PO PRN (12:15)
== END 2019-05-28 12:32 | disposition home or self-care (01) ==
LOC: MW.ED 11:35 → MW.MS 14:31
PROVIDERS: ADMIT Internal Medicine; ATTEND Internal Medicine
DX: J18.9 Pneumonia, unspecified organism (principal); R29.6 Repeated falls; K76.89 Other specified diseases of liver; I95.9 Hypotension, unspecified; E83.42 Hypomagnesemia; E11.51 Type 2 diabetes mellitus with diabetic peripheral angiopathy without gangrene; I70.209 Unspecified atherosclerosis of native arteries of extremities, unspecified extremity; I11.0 Hypertensive heart disease with heart failure; I50.9 Heart failure, unspecified; I25.10 Atherosclerotic heart disease of native coronary artery without angina pectoris; I25.2 Old myocardial infarction; E78.00 Pure hypercholesterolemia, unspecified; J44.9 Chronic obstructive pulmonary disease, unspecified; G43.909 Migraine, unspecified, not intractable, without status migrainosus; F41.9 Anxiety disorder, unspecified; F32.9 Major depressive disorder, single episode, unspecified; G89.29 Other chronic pain; M54.9 Dorsalgia, unspecified; Z88.5 Allergy status to narcotic agent; Z88.8 Allergy status to other drugs, medicaments and biological substances; Z79.82 Long term (current) use of aspirin; Z79.84 Long term (current) use of oral hypoglycemic drugs; Z79.899 Other long term (current) drug therapy; Z79.01 Long term (current) use of anticoagulants; Z95.5 Presence of coronary angioplasty implant and graft
CPT/HCPCS: 36415; 70450; 71101; 72125; 73130; 80048; 80053; 81003; 82140; 82962; 83690; 83735; 83880; 84100; 84484; 85025; 85610; 93005; 97161; A9270; J0696; J3475; J7050; J7120; 96361; 96374; 96375; 96376; G0378

== ENCOUNTER 2019-07-02 21:21 | Inpatient (IN) | payer MEDICARE ==
--- NOTE | 2019-07-02 21:56 | CT ---
INDICATION: Altered mental status. Stroke protocol TECHNIQUE: CT head without contrast. COMPARISON: 05/26/2019 FINDINGS: Again noted is age-related cortical atrophy. The ventricles are within normal limits for the patient`s age. There is no mass effect or midline shift. Few small white matter hypodensities are suggestive of minor chronic small vessel ischemic changes. There is no loss of lomeli-white differentiation. A very subtle left thalamic low-density focus on image 24 of series 201 was probably seen on the prior study. There is no evidence of an acute intracranial hemorrhage. No acute calvarial fracture is seen. There is mild maxillary sinus mucosal thickening. The mastoid air cells are clear. Again seen are calcifications along the periphery of the bilateral globes, nonspecific. IMPRESSION: No evidence of an acute intracranial hemorrhage, mass effect or loss of lomeli-white differentiation. Maxillary sinus disease. Bilateral globe calcifications again seen, nonspecific The findings were communicated to Dr. Gandhi on 07/02/2019 at 9:54 p.m.. Dictated by Aiden Hanks MD @ 07/02/2019 9:54:56 PM Please note that all CT scans at this facility use dose modulation, iterative reconstruction, and/or weight-based dosing when appropriate to reduce radiation dose to as low as reasonably achievable. Dictated by: Aiden Hanks MD @ 07/02/2019 21:54:59 (Electronically Signed)
[2019-07-02] MEDS ORDERED: Sodium Chloride 0.9% 10 ML Syringe FLUSH PRN (21:58)
[2019-07-02] MEDS ORDERED: Sodium Chloride 0.9% 2.5 ML Syringe FLUSH PRN (21:58)
[2019-07-02] MEDS ORDERED: Sodium Chloride 0.9% 1,000 ML IV ONE (22:01)
--- NOTE | 2019-07-02 22:01 | EDM.PDOC ---
ED HPI GENERAL MEDICAL PROBLEM - General Chief Complaint: Neuro Symptoms/Deficits Stated Complaint: shortness of breath Time Seen by Provider: 07/02/19 21:30 Source of Information: Reports: Patient, Family History Limitations: Reports: Altered Mental Status - History of Present Illness INITIAL COMMENTS - FREE TEXT/NARRATIVE: 73-year-old female presents with altered mental status. Family reports talking to on the phone about 2 hours before presentation. She was doing fine then however about an hour ago they noticed that she was very slow to respond and taking deep breaths occasionally. She also reported that both of her lower legs were numb. No recent trauma. No chest pain or shortness of breath. No recent illnesses. However family does report that the patient been reporting some black and tarry or possibly bloody stools over the past week or so. Family endorses confusion tonight. He denies any rapid breathing, color change , recent falls, changes inbladder habits. Patient does endorse some shortness of breath. Treatments EXCHANGE ADMINISTRATOR: Reports: Other (see below) Other Treatments EXCHANGE ADMINISTRATOR: BG 152 Generalized Pain Score (Numeric/FACES): 9 - Related Data Allergies Allergy/AdvReac Type Severity Reaction Status Date / Time codeine Allergy Vomiting Verified 05/26/19 15:58 diphenhydramine Allergy Itching Verified 05/26/19 15:58 [From Benadryl] propoxyphene HCl Allergy Vomiting Verified 05/26/19 15:58 [From Darvon] Home Meds: Home Meds Aspirin 81 mg PO DAILY 01/08/19 [History] Glimepiride [Amaryl] 2 mg PO DAILY 01/08/19 [History] Nortriptyline 20 mg PO DAILY 01/08/19 [History] Pravastatin [Pravachol] 80 mg PO DAILY 01/08/19 [History] Sertraline [Zoloft] 100 mg PO DAILY 01/08/19 [History] metFORMIN HCl [Metformin HCl] 500 mg PO BID 05/26/19 [History] Amoxicillin 1,000 mg PO TID 8 Days #4 tab 05/28/19 [Rx] Azithromycin 250 mg PO DAILY 4 Days #4 tablet 05/28/19 [Rx] Metoprolol Succinate [Toprol XL 50mg] 50 mg PO DAILY 14 Days #14 tab.er [Rx] Nystatin [Nystop] 0 gm TOP TID bottle 05/28/19 [Rx] Past Medical History - Past Health History Medical/Surgical History: Denies Medical/Surgical History HEENT History: Reports: Impaired Vision Cardiovascular History: Reports: CAD, Heart Failure, High Cholesterol, Hypertension, [place], SOB on Exertion, Stents, Other (See Below) Other Cardiovascular History: states she has had 7 stents placed. 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: Musculoskeletal History: Reports: Back Pain, Chronic, RA Neurological History: Reports: Migraines Psychiatric History: Reports: Anxiety, Depression, Panic Attack Endocrine/Metabolic History: Reports: Diabetes, Type II, Osteopenia Hematologic History: Reports: Anticoagulation Therapy - Infectious Disease History Infectious Disease History: Reports: Chicken Pox, Measles, Mumps - Past Surgical History HEENT Surgical History: Reports: Tonsillectomy Cardiovascular Surgical History: Reports: Other (See Below) Musculoskeletal Surgical History: Reports: None Social & Family History - Family History Family Medical History: Noncontributory - Caffeine Use Caffeine Use: Reports: Coffee ED ROS GENERAL - Review of Systems Review Of Systems: Comprehensive ROS is negative, except as noted in HPI. ED EXAM, GENERAL - Physical Exam Exam: See Below Free Text/Narrative:: General: No acute distress. Heent: Examination revealed mild pallor, no icterus, no lymphadenopathy. The patient normal posterior pharynx, somewhat dry mucous membranes. Neck: Supple. No JVD. No rigidity. Heart: Normal rate and rhythm. No murmurs appreciated. Lungs: Somewhat course. No focal findings. Abdomen: The patient had bowel sounds present, nontender, nondistended, soft, no CVA tenderness. Neuro: Pt alert and oriented, but slow movements. PERRL. EOMI. Strength maintained in all four extremities. Good centrifugal operator strength. Normal phonation without evidence of receptive or expressive pathology. No facial droop. surgical orderly 2-12 intact. Normal reflexes BLEs (2+ patellar). Negative clonus. Normal power hip flexion. Normal finger to nose and rapid alternating hand movements bilaterally. Normal power below knee, plntar and dorsiflexion of the foot. No clonus BLEs. Skin: Exposed areas appeared normally perfused, warm, normal color with no meaningful rashes or lesions. Extremities: Peripheral examination revealed no pedal edema. Peripheral pulses were 2+. NIHHS: I had no positive findings from a stroke scale. Nursing reported some left upper extremity ataxia. However did not find this on my exam. EKG INTERPRETATION EKG Interpretation Comments: EKG taken at 10:14 PM sinus rhythm at 93 bpm. Normal axis. Slightly widened intervals. No significant ST elevation. Loss of T waves V5 V6. Occasional PVC. QTC elevated at 491. Flat T waves lead III and aVF. Course - Vital Signs Text/Narrative:: Patient arrives with family concern for strokelike symptoms. On my exam she was completely negative for strokelike symptoms. Nursing had mentioned possible left upper extremity ataxia but I did not find this on my exam. She has excellent strength throughout. And although she seems to process slow and seemed a little bit altered in that sense, she is able to answer all questions of the stroke scale including the mental inventory just fine. There is no neglect or weakness anywhere. There is no ataxia anywhere. Speech is crisp. Just slow. No role here for TPA in my mind. Did touch base with neurology environmental services director, they agree no role for tPa. Importantly we did complete a Hemoccult on this patient which was negative. No evidence of GI bleeding at this time and no evidence of esophageal variceal bleeding. Patient has some soft pressures here which responded somewhat to fluid. Her maps remained reasonable above 65. No clear indication for pressors at this time. Broad-spectrum coverage for possible infection although there is no source at this point given her clear lungs and clear urine. Importantly after the first bolus, she perked up and was responding much more at baseline according to her family member who was there. Last Recorded V/S: Last Vital Signs Temp 98 F 07/03/19 03:00 Pulse 96 07/03/19 00:11 Resp 16 07/03/19 05:30 BP 89/34 L 07/03/19 05:30 Pulse Ox 95 07/03/19 05:30 - Orders/Labs/Meds Orders: Active Orders 24 hr Category Date Time Status CULTURE BLOOD [] Stat Lab 07/02/19 22:23 Received CULTURE BLOOD [] Stat Lab 07/02/19 22:33 Results Lactated Ringers [Ringers, Lactated] 1,000 ml Med 07/03/19 00:00 Active IV .BOLUS Sodium Chloride 0.9% [Saline Flush] Med 07/02/19 21:58 Active 10 ml FLUSH ASDIRECTED PRN Sodium Chloride 0.9% [Saline Flush] Med 07/02/19 21:58 Active 2.5 ml FLUSH ASDIRECTED PRN Blood Culture x2 Reflex Set [OM.PC] Stat Oth 07/02/19 22:02 Ordered Saline Lock Insert [OM.PC] Stat Oth 07/02/19 21:58 Ordered Medication Orders Lactated Ringer's (Ringers, Lactated) 1,000 mls @ 999 mls/hr IV .BOLUS OREN Last Admin: 07/03/19 00:14 Dose: 999 mls/hr Sodium Chloride (Normal Saline) 1,000 mls @ 125 mls/hr IV ASDIRECTED OREN Last Infusion: 07/03/19 04:58 Dose: 999 mls/hr Admin: 07/03/19 03:34 Dose: 125 mls/hr Pantoprazole Sodium 40 mg/ (Sodium Chloride) 10 mls @ 300 mls/hr IV Q24H OREN Last Admin: 07/03/19 04:48 Dose: 300 mls/hr Norepinephrine Bitartrate (Norepinephr-0.9% Nacl 4 Mg/250) 4 mg in 250 mls @ 7.5 mls/hr IV TITRATE OREN; Protocol Last Admin: 07/03/19 05:47 Dose: 2 mcg/min, 7.5 mls/hr Insulin Aspart (Novolog) 0 unit SUBCUT TIDAC OREN; Protocol Sodium Chloride (Saline Flush) 10 ml FLUSH ASDIRECTED PRN PRN Reason: Keep Vein Open Last Admin: 07/03/19 00:17 Dose: 10 ml Sodium Chloride (Saline Flush) 2.5 ml FLUSH ASDIRECTED PRN PRN Reason: Keep Vein Open Last Admin: 07/03/19 00:17 Dose: 2.5 ml Labs: Laboratory Tests 07/02/19 07/02/19 07/02/19 Range/Units 00:01 22:03 22:03 WBC 6.00 (4.0-11.0) K/uL RBC 3.60 L (4.30-5.90) M/uL Hgb 11.1 L (12.0-16.0) g/dL Hct 34.8 L (36.0-46.0) % MCV 96.7 (80.0-98.0) fL MCH 30.8 (27.0-32.0) pg MCHC 31.9 (31.0-37.0) g/dL RDW Std Deviation 59.8 (28.0-62.0) fl RDW Coeff of Ame 17 H (11.0-15.0) % Plt Count 151 (150-400) K/uL MPV 11.10 (7.40-12.00) fL Neut % (Auto) 50.1 (48.0-80.0) % Lymph % (Auto) 33.7 (16.0-40.0) % [place] % (Auto) 12.5 (0.0-15.0) % Eos % (Auto) 3.0 (0.0-7.0) % Baso % (Auto) 0.7 (0.0-1.5) % Neut # (Auto) 3.0 (1.4-5.7) K/uL Lymph # (Auto) 2.0 (0.6-2.4) K/uL [place] # (Auto) 0.8 (0.0-0.8) K/uL Eos # (Auto) 0.2 (0.0-0.7) K/uL Baso # (Auto) 0.0 (0.0-0.1) K/uL Nucleated RBC % 0.0 /100WBC Nucleated RBCs # 0 K/uL Lactate (0.20-2.00) mmol/L Sodium 136 (136-145) mmol/L Potassium 4.9 (3.5-5.1) mmol/L Chloride 102 (98-107) mmol/L Carbon Dioxide 29.3 (21.0-32.0) mmol/L BUN 14 (7.0-18.0) mg/dL Creatinine 1.2 H (0.6-1.0) mg/dL Est Cr Clr Drug Dosing 36.05 mL/min Estimated GFR (MDRD) 44.0 ml/min Glucose 135 H (74-106) mg/dL Calcium 8.9 (8.5-10.1) mg/dL Magnesium 2.2 (1.8-2.4) mg/dL Total Bilirubin 0.7 (0.2-1.0) mg/dL AST 50 H (15-37) IU/L ALT 30 (14-63) IU/L Alkaline Phosphatase 169 H (46-116) U/L Ammonia (19-54) ug/dL Total Protein 6.7 (6.4-8.2) g/dL Albumin 2.5 L (3.4-5.0) g/dL Globulin 4.2 H (2.6-4.0) g/dL Albumin/Globulin Ratio 0.6 L (0.9-1.6) Urine Color Urine Appearance Urine pH (5.0-8.0) Ur Specific [place] (1.001-1.035) Urine Protein (NEGATIVE) mg/dL Urine Glucose (UA) (NEGATIVE) mg/dL Urine Ketones (NEGATIVE) mg/dL Urine Occult Blood (NEGATIVE) Urine Nitrite (NEGATIVE) Urine Bilirubin (NEGATIVE) Urine Urobilinogen (<2.0) EU/dL Ur Leukocyte Esterase (NEGATIVE) 07/02/19 07/02/19 07/02/19 Range/Units 22:03 22:03 22:59 WBC (4.0-11.0) K/uL RBC (4.30-5.90) M/uL Hgb (12.0-16.0) g/dL Hct (36.0-46.0) % MCV (80.0-98.0) fL MCH (27.0-32.0) pg MCHC (31.0-37.0) g/dL RDW Std Deviation (28.0-62.0) fl RDW Coeff of Ame (11.0-15.0) % Plt Count (150-400) K/uL MPV (7.40-12.00) fL Neut % (Auto) (48.0-80.0) % Lymph % (Auto) (16.0-40.0) % [place] % (Auto) (0.0-15.0) % Eos % (Auto) (0.0-7.0) % Baso % (Auto) (0.0-1.5) % Neut # (Auto) (1.4-5.7) K/uL Lymph # (Auto) (0.6-2.4) K/uL [place] # (Auto) (0.0-0.8) K/uL Eos # (Auto) (0.0-0.7) K/uL Baso # (Auto) (0.0-0.1) K/uL Nucleated RBC % /100WBC Nucleated RBCs # K/uL Lactate 2.9 H* (0.20-2.00) mmol/L Sodium (136-145) mmol/L Potassium (3.5-5.1) mmol/L Chloride (98-107) mmol/L Carbon Dioxide (21.0-32.0) mmol/L BUN (7.0-18.0) mg/dL Creatinine (0.6-1.0) mg/dL Est Cr Clr Drug Dosing mL/min Estimated GFR (MDRD) ml/min Glucose (74-106) mg/dL Calcium (8.5-10.1) mg/dL Magnesium (1.8-2.4) mg/dL Total Bilirubin (0.2-1.0) mg/dL AST (15-37) IU/L ALT (14-63) IU/L Alkaline Phosphatase (46-116) U/L Ammonia 41 (19-54) ug/dL Total Protein (6.4-8.2) g/dL Albumin (3.4-5.0) g/dL Globulin (2.6-4.0) g/dL Albumin/Globulin Ratio (0.9-1.6) Urine Color YELLOW Urine Appearance CLEAR Urine pH 6.5 (5.0-8.0) Ur Specific [place] 1.010 (1.001-1.035) Urine Protein NEGATIVE (NEGATIVE) mg/dL Urine Glucose (UA) NEGATIVE (NEGATIVE) mg/dL Urine Ketones NEGATIVE (NEGATIVE) mg/dL Urine Occult Blood NEGATIVE (NEGATIVE) Urine Nitrite NEGATIVE (NEGATIVE) Urine Bilirubin NEGATIVE (NEGATIVE) Urine Urobilinogen 0.2 (<2.0) EU/dL Ur Leukocyte Esterase NEGATIVE (NEGATIVE) Meds: Medications Generic Name Dose Route Start Last Admin Trade Name Freq PRN Reason Stop Dose Admin Lactated Ringer's 1,000 mls @ 999 mls/hr 07/03/19 00:00 07/03/19 00:14 Ringers, Lactated IV 999 mls/hr .BOLUS OREN Administration Sodium Chloride 1,000 mls @ 125 mls/hr 07/03/19 03:15 07/03/19 04:58 Normal Saline IV 999 mls/hr ASDIRECTED OREN Infusion Pantoprazole Sodium 40 mg/ 10 mls @ 300 mls/hr 07/03/19 04:30 07/03/19 04:48 Sodium Chloride IV 300 mls/hr Q24H OREN Administration Norepinephrine Bitartrate 4 mg in 250 mls @ 7.5 mls/hr 07/03/19 05:45 05:47 Norepinephr-0.9% Nacl 4 Mg/250 IV 2 mcg/min TITRATE OREN 7.5 mls/hr Administration Protocol 2 MCG/MIN Insulin Aspart 0 unit 07/03/19 07:30 Novolog SUBCUT TIDAC OREN Protocol Sodium Chloride 10 ml 07/02/19 21:58 07/03/19 00:17 Saline Flush FLUSH 10 ml ASDIRECTED PRN Administration Keep Vein Open Sodium Chloride 2.5 ml 07/02/19 21:58 07/03/19 00:17 Saline Flush FLUSH 2.5 ml ASDIRECTED PRN Administration Keep Vein Open Discontinued Medications Generic Name Dose Route Start Last Admin Trade Name Freq PRN Reason Stop Dose Admin Sodium Chloride 1,000 mls @ 999 mls/hr 07/02/19 22:01 07/02/19 22:10 Normal Saline IV 07/02/19 23:01 999 mls/hr .Bolus ONE Administration Cefepime HCl 2 gm/ Premix 50 mls @ 100 mls/hr 07/03/19 00:21 07/03/19 01:38 IV 07/03/19 00:50 100 mls/hr ONETIME ONE Administration Departure - Departure Time of Disposition: 00:05 Disposition: Admitted As Inpatient 66 Condition: Fair Clinical Impression: Altered mental status Qualifiers: Altered mental status type: unspecified Qualified Code(s): R41.82 - Altered mental status, unspecified - Discharge Information Sepsis Event Note - Evaluation Sepsis Screening Result: No Definite Risk - Focused Exam Vital Signs: Vital Signs Temp Pulse Resp BP Pulse Ox 07/03/19 00:11 96 18 96/46 L 91 L 07/02/19 22:10 97.6 F 85 18 87/43 L 95 07/02/19 21:38 98.1 F 96 20 118/54 L 95 Date Exam was Performed: 07/03/19 Time Exam was Performed: 05:48 - My Orders Last 24 Hours: My Active Orders 07/02/19 21:58 Sodium Chloride 0.9% [Saline Flush] 10 ml FLUSH ASDIRECTED PRN Sodium Chloride 0.9% [Saline Flush] 2.5 ml FLUSH ASDIRECTED PRN Saline Lock Insert [OM.PC] Stat 07/02/19 22:02 Blood Culture x2 Reflex Set [OM.PC] Stat 07/02/19 22:23 CULTURE BLOOD [BC] Stat 07/02/19 22:33 CULTURE BLOOD [BC] Stat 07/03/19 00:00 Lactated Ringers [Ringers, Lactated] 1,000 ml IV .BOLUS - Assessment/Plan Last 24 Hours: My Active Orders 07/02/19 21:58 Sodium Chloride 0.9% [Saline Flush] 10 ml FLUSH ASDIRECTED PRN Sodium Chloride 0.9% [Saline Flush] 2.5 ml FLUSH ASDIRECTED PRN Saline Lock Insert [OM.PC] Stat 07/02/19 22:02 Blood Culture x2 Reflex Set [OM.PC] Stat 07/02/19 22:23 CULTURE BLOOD [BC] Stat 07/02/19 22:33 CULTURE BLOOD [BC] Stat 07/03/19 00:00 Lactated Ringers [Ringers, Lactated] 1,000 ml IV .BOLUS
--- NOTE | 2019-07-02 22:17 | CR ---
Indication: Stroke code Technique: Chest 1 view Comparison: 05/26/2019 Findings/Impression: Cardiovascular and mediastinum: Grossly stable cardiomediastinal silhouette, allowing for differences in technique. Lungs and pleural space: Persistent right basilar subsegmental atelectasis or scarring. No lobar consolidation or pleural effusions. Bones and soft tissues: No significant change. Dictated by Aiden Hanks MD @ 07/02/2019 10:16:12 PM Dictated by: Aiden Hanks MD @ 07/02/2019 22:16:18 (Electronically Signed)
[2019-07-02 22:37] LABS: CARBON DIOXIDE,CO2 29.3 mmol/L (21.0-32.0); POTASSIUM,K 4.9 mmol/L (3.5-5.1)
[2019-07-03] MEDS ORDERED: Lactated Ringers 1,000 ML IV SCH
[2019-07-03] MEDS ORDERED: Cefepime 2 GM in Premix Bag 1 BAG IV ONE (00:21)
--- NOTE | 2019-07-03 03:10 | PCM.HP.2 ---
H&P History of Present Illness - General Date of Service: 07/03/19 Admit Problem/Dx: Admission Diagnosis/Problem Admission Diagnosis/Problem Altered mental status - History of Present Illness Initial Comments - Free Text/Narative: 73 yo female with pmh of CHF, CAD, COPD, HTN, DM, and liver cirrhosis who presented to the ED with altered mental status. Patient had called daughter complaining of not feeling well. When daughter had arrived patient was not answering questions appropriately, had a facial droop and looked pale. EMS was called and brought patient to ED where she was noted to have blood pressures in the 90s-110s systolically. Family reports patient has been taking lasix and lactulose about 1-2 times a week to avoid dehydration however she did state she was having multiple stools yesterday. Patient reports bright red blood per rectum last week. IN the ED her hemocult was negative. PAtient has been admitted this past year twice for altered mental status and low blood pressure which was thought to be due to dehydration and pneumonia. PAtient denies any fevers, cough or chest pain. - Related Data Allergies/Adverse Reactions: Allergies Allergy/AdvReac Type Severity Reaction Status Date / Time codeine Allergy Vomiting Verified 05/26/19 15:58 diphenhydramine Allergy Itching Verified 05/26/19 15:58 [From Benadryl] propoxyphene HCl Allergy Vomiting Verified 05/26/19 15:58 [From Darvon] Home Medications: Home Meds Aspirin 81 mg PO DAILY 01/08/19 [History] Glimepiride [Amaryl] 2 mg PO DAILY 01/08/19 [History] Nortriptyline 20 mg PO DAILY 01/08/19 [History] Pravastatin [Pravachol] 80 mg PO DAILY 01/08/19 [History] Sertraline [Zoloft] 100 mg PO DAILY 01/08/19 [History] metFORMIN HCl [Metformin HCl] 500 mg PO BID 05/26/19 [History] Azithromycin 500 mg PO DAILY 2 Days #2 tablet 07/06/19 [Rx] Cefdinir [Omnicef] 300 mg PO BID 4 Days #8 cap 07/06/19 [Rx] Furosemide 40 mg PO DAILY 30 Days #30 tablet 07/06/19 [Rx] Lactulose 10 gm PO DAILY 30 Days #1350 ml 03/17/20 [Rx] Past Medical History - Past Health History Medical/Surgical History: Denies Medical/Surgical History HEENT History: Reports: Impaired Vision Cardiovascular History: Reports: CAD, Heart Failure, High Cholesterol, Hypertension, ND, SOB on Exertion, Stents, Other (See Below) Other Cardiovascular History: states she has had 7 stents placed. Peripheral Atery Disease Respiratory History: Reports: COPD, Pneumonia, Recurrent Gastrointestinal History: Reports: Irritable Bowel Syndrome Genitourinary History: Reports: UTI, Recurrent [employer] History: Reports: Musculoskeletal History: Reports: Back Pain, Chronic, RA Neurological History: Reports: Migraines Psychiatric History: Reports: Anxiety, Depression, Panic Attack Endocrine/Metabolic History: Reports: Diabetes, Type II, Osteopenia Hematologic History: Reports: Anticoagulation Therapy - Infectious Disease History Infectious Disease History: Reports: Chicken Pox, Measles, Mumps - Past Surgical History HEENT Surgical History: Reports: Tonsillectomy Cardiovascular Surgical History: Reports: Other (See Below) Musculoskeletal Surgical History: Reports: None Social & Family History - Family History Family Medical History: Noncontributory - Tobacco Use Smoking Status *Q: Current Some Day Smoker Years of Tobacco use: 50 Packs/Tins Daily: 0.5 - Caffeine Use Caffeine Use: Reports: Coffee - Recreational Drug Use Recreational Drug Use: No H&P Review of Systems - Review of Systems: Review Of Systems: Comprehensive ROS is negative, except as noted in HPI. Exam - Exam Exam: See Below - Vital Signs Vital Signs: Last Vital Signs Temp 36.4 C 07/02/19 22:10 Pulse 96 07/03/19 00:11 Resp 18 07/03/19 00:11 BP 96/46 L 07/03/19 00:11 Pulse Ox 91 L 07/03/19 00:11 Weight: 63.503 kg - Exam General: Cooperative HEENT: Mucosa Moist & [place] Neck: Carotid Bruit Lungs: Clear to Auscultation Cardiovascular: Regular Rate, Regular Rhythm GI/Abdominal Exam: Normal Bowel Sounds, Soft, Non-Tender Extremities: Non-Tender, No Pedal Edema Skin: Warm, Dry, Intact Neurological: Cranial Nerves Intact, Reflexes Equal Bilateral - Patient Data Lab Results Last 24 hrs: Laboratory Results - last 24 hr 07/02/19 07/02/19 07/02/19 Range/Units 00:01 22:03 22:03 WBC 6.00 (4.0-11.0) K/uL RBC 3.60 L (4.30-5.90) M/uL Hgb 11.1 L (12.0-16.0) g/dL Hct 34.8 L (36.0-46.0) % MCV 96.7 (80.0-98.0) fL MCH 30.8 (27.0-32.0) pg MCHC 31.9 (31.0-37.0) g/dL RDW Std Deviation 59.8 (28.0-62.0) fl RDW Coeff of Ame 17 H (11.0-15.0) % Plt Count 151 (150-400) K/uL MPV 11.10 (7.40-12.00) fL Neut % (Auto) 50.1 (48.0-80.0) % Lymph % (Auto) 33.7 (16.0-40.0) % Benzie % (Auto) 12.5 (0.0-15.0) % Eos % (Auto) 3.0 (0.0-7.0) % Baso % (Auto) 0.7 (0.0-1.5) % Neut # (Auto) 3.0 (1.4-5.7) K/uL Lymph # (Auto) 2.0 (0.6-2.4) K/uL Benzie # (Auto) 0.8 (0.0-0.8) K/uL Eos # (Auto) 0.2 (0.0-0.7) K/uL Baso # (Auto) 0.0 (0.0-0.1) K/uL Nucleated RBC % 0.0 /100WBC Nucleated RBCs # 0 K/uL Lactate (0.20-2.00) mmol/L Sodium 136 (136-145) mmol/L Potassium 4.9 (3.5-5.1) mmol/L Chloride 102 (98-107) mmol/L Carbon Dioxide 29.3 (21.0-32.0) mmol/L BUN 14 (7.0-18.0) mg/dL Creatinine 1.2 H (0.6-1.0) mg/dL Est Cr Clr Drug Dosing 36.05 mL/min Estimated GFR (MDRD) 44.0 ml/min Glucose 135 H (74-106) mg/dL Calcium 8.9 (8.5-10.1) mg/dL Magnesium 2.2 (1.8-2.4) mg/dL Total Bilirubin 0.7 (0.2-1.0) mg/dL AST 50 H (15-37) IU/L ALT 30 (14-63) IU/L Alkaline Phosphatase 169 H (46-116) U/L Ammonia (19-54) ug/dL Total Protein 6.7 (6.4-8.2) g/dL Albumin 2.5 L (3.4-5.0) g/dL Globulin 4.2 H (2.6-4.0) g/dL Albumin/Globulin Ratio 0.6 L (0.9-1.6) Urine Color Urine Appearance Urine pH (5.0-8.0) Ur Specific [place] (1.001-1.035) Urine Protein (NEGATIVE) mg/dL Urine Glucose (UA) (NEGATIVE) mg/dL Urine Ketones (NEGATIVE) mg/dL Urine Occult Blood (NEGATIVE) Urine Nitrite (NEGATIVE) Urine Bilirubin (NEGATIVE) Urine Urobilinogen (<2.0) EU/dL Ur Leukocyte Esterase (NEGATIVE) 07/02/19 07/02/19 07/02/19 Range/Units 22:03 22:03 22:59 WBC (4.0-11.0) K/uL RBC (4.30-5.90) M/uL Hgb (12.0-16.0) g/dL Hct (36.0-46.0) % MCV (80.0-98.0) fL MCH (27.0-32.0) pg MCHC (31.0-37.0) g/dL RDW Std Deviation (28.0-62.0) fl RDW Coeff of Ame (11.0-15.0) % Plt Count (150-400) K/uL MPV (7.40-12.00) fL Neut % (Auto) (48.0-80.0) % Lymph % (Auto) (16.0-40.0) % Benzie % (Auto) (0.0-15.0) % Eos % (Auto) (0.0-7.0) % Baso % (Auto) (0.0-1.5) % Neut # (Auto) (1.4-5.7) K/uL Lymph # (Auto) (0.6-2.4) K/uL Benzie # (Auto) (0.0-0.8) K/uL Eos # (Auto) (0.0-0.7) K/uL Baso # (Auto) (0.0-0.1) K/uL Nucleated RBC % /100WBC Nucleated RBCs # K/uL Lactate 2.9 H* (0.20-2.00) mmol/L Sodium (136-145) mmol/L Potassium (3.5-5.1) mmol/L Chloride (98-107) mmol/L Carbon Dioxide (21.0-32.0) mmol/L BUN (7.0-18.0) mg/dL Creatinine (0.6-1.0) mg/dL Est Cr Clr Drug Dosing mL/min Estimated GFR (MDRD) ml/min Glucose (74-106) mg/dL Calcium (8.5-10.1) mg/dL Magnesium (1.8-2.4) mg/dL Total Bilirubin (0.2-1.0) mg/dL AST (15-37) IU/L ALT (14-63) IU/L Alkaline Phosphatase (46-116) U/L Ammonia 41 (19-54) ug/dL Total Protein (6.4-8.2) g/dL Albumin (3.4-5.0) g/dL Globulin (2.6-4.0) g/dL Albumin/Globulin Ratio (0.9-1.6) Urine Color YELLOW Urine Appearance CLEAR Urine pH 6.5 (5.0-8.0) Ur Specific [place] 1.010 (1.001-1.035) Urine Protein NEGATIVE (NEGATIVE) mg/dL Urine Glucose (UA) NEGATIVE (NEGATIVE) mg/dL Urine Ketones NEGATIVE (NEGATIVE) mg/dL Urine Occult Blood NEGATIVE (NEGATIVE) Urine Nitrite NEGATIVE (NEGATIVE) Urine Bilirubin NEGATIVE (NEGATIVE) Urine Urobilinogen 0.2 (<2.0) EU/dL Ur Leukocyte Esterase NEGATIVE (NEGATIVE) Result Diagrams: 07/06/19 06:16 07/06/19 06:16 [place] Results Last 24 hrs: Microbiology 07/02/19 22:33 Anaerobic Blood Culture - Final Blood - Venous - Lab Draw Sepsis Event Note - Evaluation Sepsis Screening Result: No Definite Risk - Focused Exam Vital Signs: Vital Signs Temp Pulse Resp BP Pulse Ox 07/03/19 00:11 96 18 96/46 L 91 L 07/02/19 22:10 36.4 C 85 18 87/43 L 95 07/02/19 21:38 36.7 C 96 20 118/54 L 95 Date Exam was Performed: 07/06/19 Time Exam was Performed: 16:13 Problem List Initiated/Reviewed/Updated: Yes Orders Last 24hrs: Active Orders 24 hr Category Date Time Status Admission Status [Patient Status] [ADT] Stat ADT 07/03/19 00:18 Active Blood Glucose Check, Bedside [RC] TIDAC Care 07/03/19 02:54 Active BASIC METABOLIC PANEL,BMP [CHEM] Routine Lab 07/03/19 05:00 Ordered CBC WITH AUTO DIFF [HEME] Routine Lab 07/03/19 05:00 Ordered CULTURE BLOOD [BC] Stat Lab 07/02/19 22:23 Received CULTURE BLOOD [BC] Stat Lab 07/02/19 22:33 Results LACTIC ACID,WHOLE BLOOD [BG] Q6H Lab 07/03/19 04:00 Ordered LACTIC ACID,WHOLE BLOOD [BG] Q6H Lab 07/03/19 10:00 Ordered LACTIC ACID,WHOLE BLOOD [BG] Q6H Lab 07/03/19 16:00 Ordered Insulin Aspart [NovoLOG] Med 07/03/19 07:30 Ordered See Protocol SUBCUT TIDAC Lactated Ringers [Ringers, Lactated] 1,000 ml Med 07/03/19 00:00 Active IV .BOLUS Sodium Chloride 0.9% [Normal Saline] 1,000 ml Med 07/03/19 03:15 Ordered IV ASDIRECTED Sodium Chloride 0.9% [Saline Flush] Med 07/02/19 21:58 Active 10 ml FLUSH ASDIRECTED PRN Sodium Chloride 0.9% [Saline Flush] Med 07/02/19 21:58 Active 2.5 ml FLUSH ASDIRECTED PRN Blood Culture x2 Reflex Set [OM.PC] Stat Oth 07/02/19 22:02 Ordered Saline Lock Insert [OM.PC] Stat Oth 07/02/19 21:58 Ordered Medication Orders Lactated Ringer's (Ringers, Lactated) 1,000 mls @ 999 mls/hr IV .BOLUS OREN Last Admin: 07/03/19 00:14 Dose: 999 mls/hr Sodium Chloride (Normal Saline) 1,000 mls @ 125 mls/hr IV ASDIRECTED [facility] Insulin Aspart (Novolog) 0 unit SUBCUT TIDAC [facility]; Protocol Sodium Chloride (Saline Flush) 10 ml FLUSH ASDIRECTED PRN PRN Reason: Keep Vein Open Last Admin: 07/03/19 00:17 Dose: 10 ml Sodium Chloride (Saline Flush) 2.5 ml FLUSH ASDIRECTED PRN PRN Reason: Keep Vein Open Last Admin: 07/03/19 00:17 Dose: 2.5 ml Assessment/Plan Comment:: 73 yo female admitted for altered mental status and low blood pressures. Her blood pressure has improved since receiving fluid boluses. Patient has received a dose of cefepime in the ED until sepsis has been ruled out but currently infection appears less likely. We will repeat labs this morning.
[2019-07-03] MEDS: Sodium Chloride 0.9% 1,000 ML IV SCH ×2 (03:34→08:09)
[2019-07-03 04:20] LABS: CARBON DIOXIDE,CO2 26.4 mmol/L (21.0-32.0); POTASSIUM,K 3.8 mmol/L (3.5-5.1)
[2019-07-03] MEDS: Pantoprazole 40 MG in Sodium Chloride 0.9% 10 ML IV SCH (04:48)
[2019-07-03] MEDS: Insulin Aspart 100 Units/ML 3 ML Pen SUBCUT SCH ×3 (06:57→18:19)
[2019-07-03] MEDS ORDERED: Acetaminophen 325 MG Tab PO PRN (08:04)
[2019-07-03] MEDS ORDERED: Sodium Chloride 0.9% 1,000 ML IV SCH (09:30)
--- NOTE | 2019-07-03 11:06 | CT ---
CT chest Technique: Multiple axial sections were obtained from above the lung apices inferiorly through the lung bases. Intravenous contrast was not utilized. Comparison: No previous CT chest, previous chest x-ray of 05/26/19 is available. Findings: Atherosclerotic calcification seen within the aorta. No aneurysm is seen. Small mediastinal lymph nodes are noted believed to be within normal limits. No axillary adenopathy is appreciated. Prominent coronary artery calcification is seen. No pericardial thickening is identified. Small bilateral pleural effusions are noted. Increased density noted within the right lung base. Questionable nodule within the right lung base measuring 1.4 cm. Slight atelectasis is noted adjacent to the pleural effusions. Lungs otherwise shows mild emphysematous change as well as slight pulmonary vascular prominence. Impression: 1. Small bilateral pleural effusions. 2. Density within the right lung base; uncertain how much of this density represents atelectasis, fibrosis and/or pneumonia without any comparison chest CT. 3. Nodular density also noted within the right lung base measuring 1.4 cm and difficult at this point to exclude a mass. Follow-up chest CT is recommended in 6 months (December,) to further evaluate. 4. Emphysematous change and minimal pulmonary vascular congestion. Diagnostic code #9 This report was dictated in MDT
--- NOTE | 2019-07-03 11:08 | CT ---
CT abdomen and pelvis Technique: Multiple axial sections were obtained from above the dome of the diaphragm inferiorly through the pubic symphysis. Intravenous and oral contrast not utilized. Findings: Liver is small and shows a slightly nodular contour having the appearance of cirrhosis. Mild ascites is seen within the abdomen. Spleen shows no discrete abnormality. Adrenal glands show no discrete nodule. Pancreas is within normal limits. Kidneys show no hydronephrosis. No abnormal calcifications are seen within the kidneys. Haziness throughout the mesentery presumably due to mesenteric congestion. Aorta shows atherosclerotic calcification which continues into the iliac vessels. No aneurysm is seen. Small retroperitoneal lymph nodes are noted believed to be within normal limits. No pelvic mass or adenopathy is appreciated. Appendix not visualized with certainty. Bone window settings shows scattered degenerative change throughout the spine with mild scoliosis. Mild degenerative change is also noted within both hips. No acute osseous finding is appreciated. Impression: 1. Cirrhotic change within the liver. 2. Mild ascites. 3. Haziness within the mesentery most likely representing mesenteric congestion. 4. Other findings believed to be incidental as described above. Diagnostic code #3 This report was dictated in MDT
[2019-07-03] MEDS ORDERED: Cefepime 2 GM in Premix Bag 1 BAG IV SCH (11:45)
--- NOTE | 2019-07-03 13:10 | PN ---
THC Physician - Brief Progress GuvfXUSTORYUR44/14/2020 12:23[facility] Leticia Tomlinson, [place] - [facility] - ISAURA FRASERSUSAN RODRIGUEZDanielDate of Service 07/03/2019 12:23HPI/Events of Note Pt remains on pressors this am and Dr. Gonzalez called to discuss placement of a TLC and art stefany e. Her SBP is > 100 on just 2 mcgs. She also has a very low DBP of 34 which pulls down the MAP. For n ow we will hold off on a TLC and art line, use a goal of a SBP > 90 to wean off the Levophed, and con parts cataloger Albumin if needed to accomplish his goal. She otherwise seems to be mentating well in NAD with a stable BP close to her baseline. CT of the chest did demonstrate a LL pneumonia for which she will remain on antibiotics. Her nurse Shital was updated to the plan of care.Interventions Major-Hypoten li - evaluation and managementIntermediate-Communication with other healthcare providers and/or [facility], Infection - evaluation and management, Medication change / dose adjustment
[2019-07-03] MEDS: Azithromycin 500 MG in Sodium Chloride 0.9% 250 ML IV SCH (13:40)
--- NOTE | 2019-07-03 14:53 | PCM.PN ---
- General Info Date of Service: 07/03/19 Subjective Update: Reports no complaints this morning. Beulah dizzy while ambulating to bathroom. Denies fevers, chills, n/v/d. - Patient Data Vitals - Most Recent: Last Vital Signs Temp 98 F 07/03/19 12:00 Pulse 96 07/03/19 00:11 Resp 24 H 07/03/19 13:00 BP 107/50 L 07/03/19 13:00 Pulse Ox 91 L 07/03/19 13:00 Orthostatic Blood Pressure [ 90/34 Standing] Orthostatic Blood Pressure [ 118/48 Sitting] Orthostatic Blood Pressure [ 110/53 Supine] Weight - Most Recent: 156 lb 3.2 oz I&O - Last 24 Hours: Intake & Output 07/02/19 07/03/19 07/03/19 22:59 06:59 14:59 Intake Total 989 300 Balance 989 300 Lab Results Last 24 Hours: Laboratory Results - last 24 hr 07/02/19 07/02/19 07/02/19 Range/Units 00:01 22:03 22:03 WBC 6.00 (4.0-11.0) K/uL RBC 3.60 L (4.30-5.90) M/uL Hgb 11.1 L (12.0-16.0) g/dL Hct 34.8 L (36.0-46.0) % MCV 96.7 (80.0-98.0) fL MCH 30.8 (27.0-32.0) pg MCHC 31.9 (31.0-37.0) g/dL RDW Std Deviation 59.8 (28.0-62.0) fl RDW Coeff of Ame 17 H (11.0-15.0) % Plt Count 151 (150-400) K/uL MPV 11.10 (7.40-12.00) fL Neut % (Auto) 50.1 (48.0-80.0) % Lymph % (Auto) 33.7 (16.0-40.0) % [place] % (Auto) 12.5 (0.0-15.0) % Eos % (Auto) 3.0 (0.0-7.0) % Baso % (Auto) 0.7 (0.0-1.5) % Neut # (Auto) 3.0 (1.4-5.7) K/uL Lymph # (Auto) 2.0 (0.6-2.4) K/uL [place] # (Auto) 0.8 (0.0-0.8) K/uL Eos # (Auto) 0.2 (0.0-0.7) K/uL Baso # (Auto) 0.0 (0.0-0.1) K/uL Nucleated RBC % 0.0 /100WBC Nucleated RBCs # 0 K/uL Lactate (0.20-2.00) mmol/L Sodium 136 (136-145) mmol/L Potassium 4.9 (3.5-5.1) mmol/L Chloride 102 (98-107) mmol/L Carbon Dioxide 29.3 (21.0-32.0) mmol/L BUN 14 (7.0-18.0) mg/dL Creatinine 1.2 H (0.6-1.0) mg/dL Est Cr Clr Drug Dosing 36.05 mL/min Estimated GFR (MDRD) 44.0 ml/min Glucose 135 H (74-106) mg/dL POC Glucose (60-110) mg/dL Calcium 8.9 (8.5-10.1) mg/dL Magnesium 2.2 (1.8-2.4) mg/dL Total Bilirubin 0.7 (0.2-1.0) mg/dL AST 50 H (15-37) IU/L ALT 30 (14-63) IU/L Alkaline Phosphatase 169 H (46-116) U/L Ammonia (19-54) ug/dL Total Protein 6.7 (6.4-8.2) g/dL Albumin 2.5 L (3.4-5.0) g/dL Globulin 4.2 H (2.6-4.0) g/dL Albumin/Globulin Ratio 0.6 L (0.9-1.6) Urine Color Urine Appearance Urine pH (5.0-8.0) Ur Specific [place] (1.001-1.035) Urine Protein (NEGATIVE) mg/dL Urine Glucose (UA) (NEGATIVE) mg/dL Urine Ketones (NEGATIVE) mg/dL Urine Occult Blood (NEGATIVE) Urine Nitrite (NEGATIVE) Urine Bilirubin (NEGATIVE) Urine Urobilinogen (<2.0) EU/dL Ur Leukocyte Esterase (NEGATIVE) 07/02/19 07/02/19 07/02/19 Range/Units 22:03 22:03 22:59 WBC (4.0-11.0) K/uL RBC (4.30-5.90) M/uL Hgb (12.0-16.0) g/dL Hct (36.0-46.0) % MCV (80.0-98.0) fL MCH (27.0-32.0) pg MCHC (31.0-37.0) g/dL RDW Std Deviation (28.0-62.0) fl RDW Coeff of Ame (11.0-15.0) % Plt Count (150-400) K/uL MPV (7.40-12.00) fL Neut % (Auto) (48.0-80.0) % Lymph % (Auto) (16.0-40.0) % [place] % (Auto) (0.0-15.0) % Eos % (Auto) (0.0-7.0) % Baso % (Auto) (0.0-1.5) % Neut # (Auto) (1.4-5.7) K/uL Lymph # (Auto) (0.6-2.4) K/uL [place] # (Auto) (0.0-0.8) K/uL Eos # (Auto) (0.0-0.7) K/uL Baso # (Auto) (0.0-0.1) K/uL Nucleated RBC % /100WBC Nucleated RBCs # K/uL Lactate 2.9 H* (0.20-2.00) mmol/L Sodium (136-145) mmol/L Potassium (3.5-5.1) mmol/L Chloride (98-107) mmol/L Carbon Dioxide (21.0-32.0) mmol/L BUN (7.0-18.0) mg/dL Creatinine (0.6-1.0) mg/dL Est Cr Clr Drug Dosing mL/min Estimated GFR (MDRD) ml/min Glucose (74-106) mg/dL POC Glucose (60-110) mg/dL Calcium (8.5-10.1) mg/dL Magnesium (1.8-2.4) mg/dL Total Bilirubin (0.2-1.0) mg/dL AST (15-37) IU/L ALT (14-63) IU/L Alkaline Phosphatase (46-116) U/L Ammonia 41 (19-54) ug/dL Total Protein (6.4-8.2) g/dL Albumin (3.4-5.0) g/dL Globulin (2.6-4.0) g/dL Albumin/Globulin Ratio (0.9-1.6) Urine Color YELLOW Urine Appearance CLEAR Urine pH 6.5 (5.0-8.0) Ur Specific [place] 1.010 (1.001-1.035) Urine Protein NEGATIVE (NEGATIVE) mg/dL Urine Glucose (UA) NEGATIVE (NEGATIVE) mg/dL Urine Ketones NEGATIVE (NEGATIVE) mg/dL Urine Occult Blood NEGATIVE (NEGATIVE) Urine Nitrite NEGATIVE (NEGATIVE) Urine Bilirubin NEGATIVE (NEGATIVE) Urine Urobilinogen 0.2 (<2.0) EU/dL Ur Leukocyte Esterase NEGATIVE (NEGATIVE) 07/03/19 07/03/19 07/03/19 Range/Units 04:00 04:00 04:00 WBC 5.35 (4.0-11.0) K/uL RBC 3.11 L (4.30-5.90) M/uL Hgb 9.7 L (12.0-16.0) g/dL Hct 29.9 L (36.0-46.0) % MCV 96.1 (80.0-98.0) fL MCH 31.2 (27.0-32.0) pg MCHC 32.4 (31.0-37.0) g/dL RDW Std Deviation 59.2 (28.0-62.0) fl RDW Coeff of Ame 17 H (11.0-15.0) % Plt Count 131 L (150-400) K/uL MPV 10.90 (7.40-12.00) fL Neut % (Auto) 58.5 (48.0-80.0) % Lymph % (Auto) 27.5 (16.0-40.0) % [place] % (Auto) 12.3 (0.0-15.0) % Eos % (Auto) 1.3 (0.0-7.0) % Baso % (Auto) 0.4 (0.0-1.5) % Neut # (Auto) 3.1 (1.4-5.7) K/uL Lymph # (Auto) 1.5 (0.6-2.4) K/uL [place] # (Auto) 0.7 (0.0-0.8) K/uL Eos # (Auto) 0.1 (0.0-0.7) K/uL Baso # (Auto) 0.0 (0.0-0.1) K/uL Nucleated RBC % 0.0 /100WBC Nucleated RBCs # 0 K/uL Lactate 1.5 (0.20-2.00) mmol/L Sodium 142 (136-145) mmol/L Potassium 3.8 (3.5-5.1) mmol/L Chloride 108 H (98-107) mmol/L Carbon Dioxide 26.4 (21.0-32.0) mmol/L BUN 14 (7.0-18.0) mg/dL Creatinine 1.0 (0.6-1.0) mg/dL Est Cr Clr Drug Dosing 43.27 mL/min Estimated GFR (MDRD) 54.3 ml/min Glucose 122 H (74-106) mg/dL POC Glucose (60-110) mg/dL Calcium 8.2 L (8.5-10.1) mg/dL Magnesium (1.8-2.4) mg/dL Total Bilirubin (0.2-1.0) mg/dL AST (15-37) IU/L ALT (14-63) IU/L Alkaline Phosphatase (46-116) U/L Ammonia (19-54) ug/dL Total Protein (6.4-8.2) g/dL Albumin (3.4-5.0) g/dL Globulin (2.6-4.0) g/dL Albumin/Globulin Ratio (0.9-1.6) Urine Color Urine Appearance Urine pH (5.0-8.0) Ur Specific [place] (1.001-1.035) Urine Protein (NEGATIVE) mg/dL Urine Glucose (UA) (NEGATIVE) mg/dL Urine Ketones (NEGATIVE) mg/dL Urine Occult Blood (NEGATIVE) Urine Nitrite (NEGATIVE) Urine Bilirubin (NEGATIVE) Urine Urobilinogen (<2.0) EU/dL Ur Leukocyte Esterase (NEGATIVE) 07/03/19 07/03/1920 Range/Units 06:53 08:33 11:52 WBC (4.0-11.0) K/uL RBC (4.30-5.90) M/uL Hgb (12.0-16.0) g/dL Hct (36.0-46.0) % MCV (80.0-98.0) fL MCH (27.0-32.0) pg MCHC (31.0-37.0) g/dL RDW Std Deviation (28.0-62.0) fl RDW Coeff of Ame (11.0-15.0) % Plt Count (150-400) K/uL MPV (7.40-12.00) fL Neut % (Auto) (48.0-80.0) % Lymph % (Auto) (16.0-40.0) % [place] % (Auto) (0.0-15.0) % Eos % (Auto) (0.0-7.0) % Baso % (Auto) (0.0-1.5) % Neut # (Auto) (1.4-5.7) K/uL Lymph # (Auto) (0.6-2.4) K/uL [place] # (Auto) (0.0-0.8) K/uL Eos # (Auto) (0.0-0.7) K/uL Baso # (Auto) (0.0-0.1) K/uL Nucleated RBC % /100WBC Nucleated RBCs # K/uL Lactate (0.20-2.00) mmol/L Sodium (136-145) mmol/L Potassium (3.5-5.1) mmol/L Chloride (98-107) mmol/L Carbon Dioxide (21.0-32.0) mmol/L BUN (7.0-18.0) mg/dL Creatinine (0.6-1.0) mg/dL Est Cr Clr Drug Dosing mL/min Estimated GFR (MDRD) ml/min Glucose (74-106) mg/dL POC Glucose 95 95 128 H (60-110) mg/dL Calcium (8.5-10.1) mg/dL Magnesium (1.8-2.4) mg/dL Total Bilirubin (0.2-1.0) mg/dL AST (15-37) IU/L ALT (14-63) IU/L Alkaline Phosphatase (46-116) U/L Ammonia (19-54) ug/dL Total Protein (6.4-8.2) g/dL Albumin (3.4-5.0) g/dL Globulin (2.6-4.0) g/dL Albumin/Globulin Ratio (0.9-1.6) Urine Color Urine Appearance Urine pH (5.0-8.0) Ur Specific [place] (1.001-1.035) Urine Protein (NEGATIVE) mg/dL Urine Glucose (UA) (NEGATIVE) mg/dL Urine Ketones (NEGATIVE) mg/dL Urine Occult Blood (NEGATIVE) Urine Nitrite (NEGATIVE) Urine Bilirubin (NEGATIVE) Urine Urobilinogen (<2.0) EU/dL Ur Leukocyte Esterase (NEGATIVE) [place] Results Last 24 Hours: Microbiology 07/02/19 22:33 Anaerobic Blood Culture - Final Blood - Venous - Lab Draw Med Orders - Current: Current Medications Acetaminophen (Tylenol) 650 mg PO Q4H PRN PRN Reason: Pain (Mild 1-3)/fever Pantoprazole Sodium 40 mg/ (Sodium Chloride) 10 mls @ 300 mls/hr IV Q24H [facility] Last Admin: 07/03/19 04:48 Dose: 300 mls/hr Norepinephrine Bitartrate (Norepinephr-0.9% Nacl 4 Mg/250) 4 mg in 250 mls @ 7.5 mls/hr IV TITRATE [facility]; Protocol Last Titration: 07/03/19 06:33 Dose: 1 mcg/min, 3.75 mls/hr Sodium Chloride (Normal Saline) 1,000 mls @ 20 mls/hr IV ASDIRECTED [facility] Azithromycin 500 mg/ Sodium (Chloride) 250 mls @ 250 mls/hr IV DAILY [facility] Last Admin: 07/03/19 13:40 Dose: 250 mls/hr Cefepime HCl 2 gm/ Premix 50 mls @ 100 mls/hr IV Q8H [facility] Insulin Aspart (Novolog) 0 unit SUBCUT TIDAC [facility]; Protocol Last Admin: 07/03/19 11:50 Dose: Not Given Sodium Chloride (Saline Flush) 10 ml FLUSH ASDIRECTED PRN PRN Reason: Keep Vein Open Last Admin: 07/03/19 00:17 Dose: 10 ml Sodium Chloride (Saline Flush) 2.5 ml FLUSH ASDIRECTED PRN PRN Reason: Keep Vein Open Last Admin: 07/03/19 00:17 Dose: 2.5 ml Discontinued Medications Sodium Chloride (Normal Saline) 1,000 mls @ 999 mls/hr IV .Bolus ONE Stop: 07/02/19 23:01 Last Admin: 07/02/19 22:10 Dose: 999 mls/hr Lactated Ringer's (Ringers, Lactated) 1,000 mls @ 999 mls/hr IV .BOLUS [facility] Last Admin: 07/03/19 00:14 Dose: 999 mls/hr Cefepime HCl 2 gm/ Premix 50 mls @ 100 mls/hr IV ONETIME ONE Stop: 07/03/19 00:50 Last Admin: 07/03/19 01:38 Dose: 100 mls/hr Sodium Chloride (Normal Saline) 1,000 mls @ 125 mls/hr IV ASDIRECTED [facility] Stop: 07/03/19 09:30 Last Admin: 07/03/19 08:09 Dose: 999 mls/hr Cefepime HCl 2 gm/ Premix 50 mls @ 100 mls/hr IV Q8H [facility] Last Admin: 07/03/19 13:05 Dose: 100 mls/hr - Exam General: Alert, Oriented, Cooperative, No Acute Distress Lungs: Clear to Auscultation, Normal Respiratory Effort Cardiovascular: Regular Rate, Regular Rhythm GI/Abdominal Exam: Normal Bowel Sounds, Soft, Non-Tender, Other (mild distention ) Extremities: Normal Inspection, No Pedal Edema Skin: Warm, Dry, Intact Sepsis Event Note - Evaluation Sepsis Screening Result: No Definite Risk - Focused Exam Vital Signs: Vital Signs Temp Resp BP Pulse Ox 07/03/19 13:00 24 H 107/50 L 91 L 07/03/19 12:00 98 F 20 109/53 L 93 L 07/03/19 11:00 25 H 103/47 L 92 L 07/03/19 10:00 23 H 110/46 L 93 L 07/03/19 09:04 15 105/55 L 93 L 07/03/19 08:00 98.1 F 20 118/48 L 92 L 07/03/19 07:00 19 110/53 L 94 L 07/03/19 06:00 17 96/43 L 07/03/19 05:30 16 89/34 L 95 07/03/19 05:00 20 88/48 L 95 07/03/19 04:00 18 103/36 L 95 07/03/19 03:00 98 F 20 96/38 L 95 Date Exam was Performed: 07/03/19 Time Exam was Performed: 14:47 - Problem List Review Problem List Initiated/Reviewed/Updated: Yes - My Orders Last 24 Hours: My Active Orders 07/03/19 04:00 CORTISOL [REF] Routine 07/03/19 08:04 Oxygen Therapy [RC] PRN Up With Assistance [RC] ASDIRECTED VTE/DVT Education [RC] PER UNIT ROUTINE Vital Signs [RC] Q1H Acetaminophen [Tylenol] 650 mg PO Q4H PRN Sequential Compression Device [OM.PC] Per Unit Routine 07/03/19 08:05 Antiembolic Devices [RC] PER UNIT ROUTINE 07/03/19 08:49 Code Status [Resuscitation Status] Routine 07/03/19 11:21 OCCULT BLOOD DIAGNOSTIC [OP] Urgent 07/03/19 11:43 Notify Provider Consults [RC] ASDIRECTED Consult to Physician [CONS] Urgent 07/03/19 12:15 Azithromycin [Zithromax] 500 mg Sodium Chloride 0.9% [Normal Saline (AdvBag)] 250 ml IV DAILY 07/03/19 21:00 Cefepime [Maxipime in D5W 2 GM/50 ML] 2 gm Premix Bag 1 bag IV Q8H 07/03/19 Breakfast [employer] [employer] Diet [DIET] - Plan Plan:: Assessment and Plan: 1. Sepsis secondary to community acquired pneumonia: - Continue to monitor blood pressures. Currently on levophed drip. Continue IV cefepime and azithromycin. CT chest showed RLL pneumonia. Blood cultures pending. Lactic acid level has normalized. UA negative. 2. Altered mental status secondary to #1: - Per family, patient's mentation has improved since being in the hospital. Will continue to monitor. 3. Bloody stool: - Patient reports bloody stool a few days ago. Hemoccult test negative on admission. Stool occult pending. 4. Diabetes mellitus type 2: - ADA diet, SSI. 5. Past medical history of CHF, CAD s/p stents, [place], COPD, HTN and liver cirrhosis. 6. DVT prophylaxis: SCD's for now.
[2019-07-03] MEDS: Cefepime 2 GM in Premix Bag 1 BAG IV SCH (20:18)
[2019-07-04] MEDS: Pantoprazole 40 MG in Sodium Chloride 0.9% 10 ML IV SCH (04:28)
[2019-07-04] MEDS: Cefepime 2 GM in Premix Bag 1 BAG IV SCH ×3 (04:35→20:38)
[2019-07-04 06:36] LABS: BLOOD UREA NITROGEN,BUN 17 mg/dL (7.0-18.0); CARBON DIOXIDE,CO2 25.8 mmol/L (21.0-32.0); CHLORIDE,CL 110 mmol/L (98-107); GLUCOSE RANDOM 83 mg/dL (74-106); SODIUM,NA 142 mmol/L (136-145)
[2019-07-04] MEDS: Pravastatin 40 MG Tab PO SCH (08:30)
[2019-07-04] MEDS: Nortriptyline 10 MG Cap PO SCH (08:31)
[2019-07-04] MEDS: Sertraline 100 MG Tab PO SCH (08:31)
[2019-07-04] MEDS: Aspirin 81 MG Tab.Chew PO SCH (08:31)
[2019-07-04] MEDS: Azithromycin 500 MG in Sodium Chloride 0.9% 250 ML IV SCH (08:33)
[2019-07-04] MEDS: Insulin Aspart 100 Units/ML 3 ML Pen SUBCUT SCH ×3 (08:49→17:49)
[2019-07-04] MEDS ORDERED: Potassium Chloride 20 MEQ Tab.ER PO SCH (09:00)
[2019-07-04] MEDS ORDERED: Isosorbide Mononitrate 30 MG Tab.ER PO SCH (09:00)
[2019-07-04] MEDS ORDERED: Torsemide 20 MG Tab PO SCH (09:00)
[2019-07-04] MEDS ORDERED: Spironolactone 25 MG Tab PO SCH (09:00)
[2019-07-04] MEDS ORDERED: Lactulose Soln 10 GM/15 ML 15 ML UD Cup PO ONE (13:06)
--- NOTE | 2019-07-04 13:08 | PCM.PN ---
- General Info Date of Service: 07/04/19 - Review of Systems Systems Review Comment:: feeling better, reports chronic cough, no fevers, daughter reports increased confusion, no bowel movements - Patient Data Vitals - Most Recent: Last Vital Signs Temp 36.3 C 07/04/19 12:00 Pulse 96 07/03/19 00:11 Resp 20 07/04/19 12:00 BP 149/44 H 07/04/19 12:00 Pulse Ox 95 07/04/19 12:00 Orthostatic Blood Pressure [ 90/34 Standing] Orthostatic Blood Pressure [ 118/48 Sitting] Orthostatic Blood Pressure [ 110/53 Supine] Weight - Most Recent: 72.121 kg I&O - Last 24 Hours: Intake & Output 07/03/19 07/04/19 07/04/19 22:59 06:59 14:59 Intake Total 690 310 250 Output Total 550 1250 Balance 140 -940 250 Lab Results Last 24 Hours: Laboratory Results - last 24 hr 07/03/19 07/04/19 07/04/19 Range/Units 18:19 05:57 05:57 WBC 5.61 (4.0-11.0) K/uL RBC 3.50 L (4.30-5.90) M/uL Hgb 10.9 L (12.0-16.0) g/dL Hct 33.7 L (36.0-46.0) % MCV 96.3 (80.0-98.0) fL MCH 31.1 (27.0-32.0) pg MCHC 32.3 (31.0-37.0) g/dL RDW Std Deviation 60.4 (28.0-62.0) fl RDW Coeff of Ame 17 H (11.0-15.0) % Plt Count 128 L (150-400) K/uL MPV 10.50 (7.40-12.00) fL Neut % (Auto) 54.5 (48.0-80.0) % Lymph % (Auto) 25.7 (16.0-40.0) % [place] % (Auto) 16.0 H (0.0-15.0) % Eos % (Auto) 3.4 (0.0-7.0) % Baso % (Auto) 0.4 (0.0-1.5) % Neut # (Auto) 3.1 (1.4-5.7) K/uL Lymph # (Auto) 1.4 (0.6-2.4) K/uL [place] # (Auto) 0.9 H (0.0-0.8) K/uL Eos # (Auto) 0.2 (0.0-0.7) K/uL Baso # (Auto) 0.0 (0.0-0.1) K/uL Nucleated RBC % 0.0 /100WBC Nucleated RBCs # 0 K/uL Sodium 142 (136-145) mmol/L Potassium 4.0 (3.5-5.1) mmol/L Chloride 110 H (98-107) mmol/L Carbon Dioxide 25.8 (21.0-32.0) mmol/L BUN 17 (7.0-18.0) mg/dL Creatinine 0.8 (0.6-1.0) mg/dL Est Cr Clr Drug Dosing 54.08 mL/min Estimated GFR (MDRD) > 60.0 ml/min Glucose 83 (74-106) mg/dL POC Glucose 123 H (60-110) mg/dL Calcium 8.2 L (8.5-10.1) mg/dL 07/04/19 07/04/19 Range/Units 08:29 12:46 WBC (4.0-11.0) K/uL RBC (4.30-5.90) M/uL Hgb (12.0-16.0) g/dL Hct (36.0-46.0) % MCV (80.0-98.0) fL MCH (27.0-32.0) pg MCHC (31.0-37.0) g/dL RDW Std Deviation (28.0-62.0) fl RDW Coeff of Ame (11.0-15.0) % Plt Count (150-400) K/uL MPV (7.40-12.00) fL Neut % (Auto) (48.0-80.0) % Lymph % (Auto) (16.0-40.0) % [place] % (Auto) (0.0-15.0) % Eos % (Auto) (0.0-7.0) % Baso % (Auto) (0.0-1.5) % Neut # (Auto) (1.4-5.7) K/uL Lymph # (Auto) (0.6-2.4) K/uL [place] # (Auto) (0.0-0.8) K/uL Eos # (Auto) (0.0-0.7) K/uL Baso # (Auto) (0.0-0.1) K/uL Nucleated RBC % /100WBC Nucleated RBCs # K/uL Sodium (136-145) mmol/L Potassium (3.5-5.1) mmol/L Chloride (98-107) mmol/L Carbon Dioxide (21.0-32.0) mmol/L BUN (7.0-18.0) mg/dL Creatinine (0.6-1.0) mg/dL Est Cr Clr Drug Dosing mL/min Estimated GFR (MDRD) ml/min Glucose (74-106) mg/dL POC Glucose 71 113 H (60-110) mg/dL Calcium (8.5-10.1) mg/dL [place] Results Last 24 Hours: Microbiology 07/02/19 22:23 Aerobic Blood Culture - Preliminary Blood - Venous NO GROWTH AFTER 1 DAY Anaerobic Blood Culture - Preliminary NO GROWTH AFTER 1 DAY 07/02/19 22:33 Aerobic Blood Culture - Preliminary Blood - Venous - Lab Draw NO GROWTH AFTER 1 DAY Anaerobic Blood Culture - Final Med Orders - Current: Current Medications Acetaminophen (Tylenol) 650 mg PO Q4H PRN PRN Reason: Pain (Mild 1-3)/fever Aspirin (Aspirin) 81 mg PO DAILY [facility] Last Admin: 07/04/19 08:31 Dose: 81 mg Pantoprazole Sodium 40 mg/ (Sodium Chloride) 10 mls @ 300 mls/hr IV Q24H [facility] Last Admin: 07/04/19 04:28 Dose: 300 mls/hr Norepinephrine Bitartrate (Norepinephr-0.9% Nacl 4 Mg/250) 4 mg in 250 mls @ 7.5 mls/hr IV TITRATE [facility]; Protocol Last Titration: 07/03/19 06:33 Dose: 1 mcg/min, 3.75 mls/hr Sodium Chloride (Normal Saline) 1,000 mls @ 20 mls/hr IV ASDIRECTED [facility] Azithromycin 500 mg/ Sodium (Chloride) 250 mls @ 250 mls/hr IV DAILY [facility] Last Admin: 07/04/19 08:33 Dose: 250 mls/hr Cefepime HCl 2 gm/ Premix 50 mls @ 100 mls/hr IV Q8H [facility] Last Admin: 07/04/19 04:35 Dose: 100 mls/hr Insulin Aspart (Novolog) 0 unit SUBCUT TIDAC [facility]; Protocol Last Admin: 07/04/19 12:56 Dose: Not Given Nortriptyline HCl (Nortriptyline) 20 mg PO DAILY [facility] Last Admin: 07/04/19 08:31 Dose: 20 mg Pravastatin Sodium (Pravachol) 80 mg PO DAILY [facility] Last Admin: 07/04/19 08:30 Dose: 80 mg Sertraline HCl (Zoloft) 100 mg PO DAILY [facility] Last Admin: 07/04/19 08:31 Dose: 100 mg Sodium Chloride (Saline Flush) 10 ml FLUSH ASDIRECTED PRN PRN Reason: Keep Vein Open Last Admin: 07/03/19 00:17 Dose: 10 ml Sodium Chloride (Saline Flush) 2.5 ml FLUSH ASDIRECTED PRN PRN Reason: Keep Vein Open Last Admin: 07/03/19 00:17 Dose: 2.5 ml Discontinued Medications Sodium Chloride (Normal Saline) 1,000 mls @ 999 mls/hr IV .Bolus ONE Stop: 07/02/19 23:01 Last Admin: 07/02/19 22:10 Dose: 999 mls/hr Lactated Ringer's (Ringers, Lactated) 1,000 mls @ 999 mls/hr IV .BOLUS [facility] Last Admin: 07/03/19 00:14 Dose: 999 mls/hr Cefepime HCl 2 gm/ Premix 50 mls @ 100 mls/hr IV ONETIME ONE Stop: 07/03/19 00:50 Last Admin: 07/03/19 01:38 Dose: 100 mls/hr Sodium Chloride (Normal Saline) 1,000 mls @ 125 mls/hr IV ASDIRECTED [facility] Stop: 07/03/19 09:30 Last Admin: 07/03/19 08:09 Dose: 999 mls/hr Cefepime HCl 2 gm/ Premix 50 mls @ 100 mls/hr IV Q8H [facility] Last Admin: 07/03/19 13:05 Dose: 100 mls/hr Isosorbide Mononitrate (Imdur) 30 mg PO DAILY [facility] Potassium Chloride (Klor-Con M20) 20 meq PO BID [facility] Spironolactone (Aldactone) 25 mg PO DAILY [facility] Torsemide (Demadex) 20 mg PO DAILY [facility] - Exam General: Cooperative, No Acute Distress Lungs: Clear to Auscultation, Normal Respiratory Effort Cardiovascular: Regular Rate, Regular Rhythm GI/Abdominal Exam: Normal Bowel Sounds, Soft, Non-Tender, No Distention Extremities: Non-Tender, No Pedal Edema Skin: Warm, Dry, Intact Neurological: No New Focal Deficit Sepsis Event Note - Evaluation Sepsis Screening Result: No Definite Risk - Focused Exam Vital Signs: Vital Signs Temp Resp BP Pulse Ox 07/04/19 12:00 36.3 C 20 149/44 H 95 07/04/19 11:00 16 106/53 L 92 L 07/04/19 10:00 14 97/52 L 92 L 07/04/19 09:00 16 130/60 94 L 07/04/19 08:00 36.4 C 17 107/50 L 95 07/04/19 07:00 19 127/52 L 95 07/04/19 06:00 20 127/57 L 95 07/04/19 05:00 20 112/58 L 93 L 07/04/19 04:00 36.6 C 20 109/42 L 94 L 07/04/19 03:00 20 109/35 L 94 L 07/04/19 02:00 19 100/40 L 94 L Date Exam was Performed: 07/04/19 Time Exam was Performed: 13:05 - Problem List Review Problem List Initiated/Reviewed/Updated: Yes - My Orders Last 24 Hours: My Active Orders 07/05/19 05:11 CBC WITH AUTO DIFF [HEME] AM CMP [COMPREHENSIVE METABOLIC PN,CMP] [CHEM] AM - Plan Plan:: Assessment and Plan: 1. Sepsis secondary to community acquired pneumonia: - levophed drip weaned off. Continue IV cefepime and azithromycin. 2. Altered mental status - will restart lactulose 3. Bloody stool: - Patient reports bloody stool a few days ago. Hemoccult test negative on admission. Stool occult pending. 4. Diabetes mellitus type 2: - ADA diet, SSI. 5. Past medical history of CHF, CAD s/p stents, [place], COPD, HTN and liver cirrhosis. 6. DVT prophylaxis: SCD's for now.
[2019-07-05] MEDS: Pantoprazole 40 MG in Sodium Chloride 0.9% 10 ML IV SCH (05:13)
[2019-07-05] MEDS: Cefepime 2 GM in Premix Bag 1 BAG IV SCH (05:14)
[2019-07-05 06:24] LABS: BLOOD UREA NITROGEN,BUN 16 mg/dL (7.0-18.0); CARBON DIOXIDE,CO2 25.5 mmol/L (21.0-32.0); CHLORIDE,CL 109 mmol/L (98-107); GLUCOSE RANDOM 105 mg/dL (74-106); POTASSIUM,K 4.1 mmol/L (3.5-5.1); SODIUM,NA 141 mmol/L (136-145)
[2019-07-05] MEDS ORDERED: Lactulose Soln 10 GM/15 ML 15 ML UD Cup PO ONE (07:19)
--- NOTE | 2019-07-05 07:21 | PCM.PN ---
- General Info Date of Service: 07/05/19 - Review of Systems Systems Review Comment:: no bowel movement - Patient Data Vitals - Most Recent: Last Vital Signs Temp 36.5 C 07/05/19 04:00 Pulse 96 07/03/19 00:11 Resp 23 H 07/05/19 06:00 BP 124/60 07/05/19 06:00 Pulse Ox 92 L 07/05/19 06:00 Orthostatic Blood Pressure [ 90/34 Standing] Orthostatic Blood Pressure [ 118/48 Sitting] Orthostatic Blood Pressure [ 110/53 Supine] Weight - Most Recent: 74.843 kg I&O - Last 24 Hours: Intake & Output 07/04/19 07/05/19 07/05/19 22:59 06:59 14:59 Intake Total 790 1150 Output Total 400 400 Balance 390 750 Lab Results Last 24 Hours: Laboratory Results - last 24 hr 07/04/19 07/04/19 07/04/19 Range/Units 08:29 12:46 17:49 WBC (4.0-11.0) K/uL RBC (4.30-5.90) M/uL Hgb (12.0-16.0) g/dL Hct (36.0-46.0) % MCV (80.0-98.0) fL MCH (27.0-32.0) pg MCHC (31.0-37.0) g/dL RDW Std Deviation (28.0-62.0) fl RDW Coeff of Ame (11.0-15.0) % Plt Count (150-400) K/uL MPV (7.40-12.00) fL Neut % (Auto) (48.0-80.0) % Lymph % (Auto) (16.0-40.0) % [place] % (Auto) (0.0-15.0) % Eos % (Auto) (0.0-7.0) % Baso % (Auto) (0.0-1.5) % Neut # (Auto) (1.4-5.7) K/uL Lymph # (Auto) (0.6-2.4) K/uL [place] # (Auto) (0.0-0.8) K/uL Eos # (Auto) (0.0-0.7) K/uL Baso # (Auto) (0.0-0.1) K/uL Nucleated RBC % /100WBC Nucleated RBCs # K/uL Sodium (136-145) mmol/L Potassium (3.5-5.1) mmol/L Chloride (98-107) mmol/L Carbon Dioxide (21.0-32.0) mmol/L BUN (7.0-18.0) mg/dL Creatinine (0.6-1.0) mg/dL Est Cr Clr Drug Dosing mL/min Estimated GFR (MDRD) ml/min Glucose (74-106) mg/dL POC Glucose 71 113 H 98 (60-110) mg/dL Calcium (8.5-10.1) mg/dL Total Bilirubin (0.2-1.0) mg/dL AST (15-37) IU/L ALT (14-63) IU/L Alkaline Phosphatase (46-116) U/L Total Protein (6.4-8.2) g/dL Albumin (3.4-5.0) g/dL Globulin (2.6-4.0) g/dL Albumin/Globulin Ratio (0.9-1.6) 07/05/19 07/05/19 Range/Units 05:58 05:58 WBC 5.83 (4.0-11.0) K/uL RBC 3.49 L (4.30-5.90) M/uL Hgb 10.7 L (12.0-16.0) g/dL Hct 33.2 L (36.0-46.0) % MCV 95.1 (80.0-98.0) fL MCH 30.7 (27.0-32.0) pg MCHC 32.2 (31.0-37.0) g/dL RDW Std Deviation 58.6 (28.0-62.0) fl RDW Coeff of Ame 17 H (11.0-15.0) % Plt Count 135 L (150-400) K/uL MPV 10.30 (7.40-12.00) fL Neut % (Auto) 60.2 (48.0-80.0) % Lymph % (Auto) 21.8 (16.0-40.0) % [place] % (Auto) 14.8 (0.0-15.0) % Eos % (Auto) 2.7 (0.0-7.0) % Baso % (Auto) 0.5 (0.0-1.5) % Neut # (Auto) 3.5 (1.4-5.7) K/uL Lymph # (Auto) 1.3 (0.6-2.4) K/uL [place] # (Auto) 0.9 H (0.0-0.8) K/uL Eos # (Auto) 0.2 (0.0-0.7) K/uL Baso # (Auto) 0.0 (0.0-0.1) K/uL Nucleated RBC % 0.0 /100WBC Nucleated RBCs # 0 K/uL Sodium 141 (136-145) mmol/L Potassium 4.1 (3.5-5.1) mmol/L Chloride 109 H (98-107) mmol/L Carbon Dioxide 25.5 (21.0-32.0) mmol/L BUN 16 (7.0-18.0) mg/dL Creatinine 0.9 (0.6-1.0) mg/dL Est Cr Clr Drug Dosing 48.07 mL/min Estimated GFR (MDRD) > 60.0 ml/min Glucose 105 (74-106) mg/dL POC Glucose (60-110) mg/dL Calcium 8.4 L (8.5-10.1) mg/dL Total Bilirubin 0.9 (0.2-1.0) mg/dL AST 52 H (15-37) IU/L ALT 31 (14-63) IU/L Alkaline Phosphatase 130 H (46-116) U/L Total Protein 5.9 L (6.4-8.2) g/dL Albumin 2.0 L (3.4-5.0) g/dL Globulin 3.9 (2.6-4.0) g/dL Albumin/Globulin Ratio 0.5 L (0.9-1.6) [place] Results Last 24 Hours: Microbiology 07/02/19 22:23 Aerobic Blood Culture - Preliminary Blood - Venous NO GROWTH AFTER 2 DAYS Anaerobic Blood Culture - Preliminary NO GROWTH AFTER 2 DAYS 07/02/19 22:33 Aerobic Blood Culture - Preliminary Blood - Venous - Lab Draw NO GROWTH AFTER 2 DAYS Anaerobic Blood Culture - Final Med Orders - Current: Current Medications Acetaminophen (Tylenol) 650 mg PO Q4H PRN PRN Reason: Pain (Mild 1-3)/fever Aspirin (Aspirin) 81 mg PO DAILY [facility] Last Admin: 07/04/19 08:31 Dose: 81 mg Pantoprazole Sodium 40 mg/ (Sodium Chloride) 10 mls @ 300 mls/hr IV Q24H [facility] Last Admin: 07/05/19 05:13 Dose: 300 mls/hr Norepinephrine Bitartrate (Norepinephr-0.9% Nacl 4 Mg/250) 4 mg in 250 mls @ 7.5 mls/hr IV TITRATE [facility]; Protocol Last Titration: 07/03/19 13:15 Dose: 0 mcg/min, 0 mls/hr Sodium Chloride (Normal Saline) 1,000 mls @ 20 mls/hr IV ASDIRECTED [facility] Azithromycin 500 mg/ Sodium (Chloride) 250 mls @ 250 mls/hr IV DAILY [facility] Last Admin: 07/04/19 08:33 Dose: 250 mls/hr Cefepime HCl 2 gm/ Premix 50 mls @ 100 mls/hr IV Q8H [facility] Last Admin: 07/05/19 05:14 Dose: 100 mls/hr Insulin Aspart (Novolog) 0 unit SUBCUT TIDAC [facility]; Protocol Last Admin: 07/04/19 17:49 Dose: Not Given Nortriptyline HCl (Nortriptyline) 20 mg PO DAILY [facility] Last Admin: 07/04/19 08:31 Dose: 20 mg Pravastatin Sodium (Pravachol) 80 mg PO DAILY [facility] Last Admin: 07/04/19 08:30 Dose: 80 mg Sertraline HCl (Zoloft) 100 mg PO DAILY [facility] Last Admin: 07/04/19 08:31 Dose: 100 mg Sodium Chloride (Saline Flush) 10 ml FLUSH ASDIRECTED PRN PRN Reason: Keep Vein Open Last Admin: 07/03/19 00:17 Dose: 10 ml Sodium Chloride (Saline Flush) 2.5 ml FLUSH ASDIRECTED PRN PRN Reason: Keep Vein Open Last Admin: 07/03/19 00:17 Dose: 2.5 ml Discontinued Medications Sodium Chloride (Normal Saline) 1,000 mls @ 999 mls/hr IV .Bolus ONE Stop: 07/02/19 23:01 Last Admin: 07/02/19 22:10 Dose: 999 mls/hr Lactated Ringer's (Ringers, Lactated) 1,000 mls @ 999 mls/hr IV .BOLUS [facility] Last Admin: 07/03/19 00:14 Dose: 999 mls/hr Cefepime HCl 2 gm/ Premix 50 mls @ 100 mls/hr IV ONETIME ONE Stop: 07/03/19 00:50 Last Admin: 07/03/19 01:38 Dose: 100 mls/hr Sodium Chloride (Normal Saline) 1,000 mls @ 125 mls/hr IV ASDIRECTED [facility] Stop: 07/03/19 09:30 Last Admin: 07/03/19 08:09 Dose: 999 mls/hr Cefepime HCl 2 gm/ Premix 50 mls @ 100 mls/hr IV Q8H [facility] Last Admin: 07/03/19 13:05 Dose: 100 mls/hr Isosorbide Mononitrate (Imdur) 30 mg PO DAILY [facility] Lactulose (Chronulac) 10 gm PO ONETIME ONE Stop: 07/04/19 13:07 Last Admin: 07/04/19 13:32 Dose: 5 gm Potassium Chloride (Klor-Con M20) 20 meq PO BID [facility] Spironolactone (Aldactone) 25 mg PO DAILY [facility] Torsemide (Demadex) 20 mg PO DAILY [facility] - Exam General: Alert, Oriented Neck: Supple Lungs: Clear to Auscultation, Normal Respiratory Effort Cardiovascular: Regular Rate, Regular Rhythm GI/Abdominal Exam: Soft, Non-Tender Extremities: Non-Tender, Pedal Edema (+1) Sepsis Event Note - Evaluation Sepsis Screening Result: No Definite Risk - Focused Exam Vital Signs: Vital Signs Temp Resp BP Pulse Ox 07/05/19 06:00 23 H 124/60 92 L 07/05/19 05:00 20 127/55 L 89 L 07/05/19 04:00 36.5 C 20 125/50 L 91 L 07/05/19 03:00 19 120/47 L 94 L 07/05/19 02:00 22 H 105/35 L 91 L 07/05/19 01:00 22 H 112/45 L 94 L 07/05/19 00:00 36.6 C 19 103/54 L 91 L 07/04/19 23:00 20 94/50 L 92 L 07/04/19 22:00 18 93/51 L 92 L 07/04/19 21:00 16 103/41 L 96 07/04/19 20:00 36.4 C 17 108/49 L 95 Date Exam was Performed: 07/05/19 Time Exam was Performed: 07:19 - Problem List Review Problem List Initiated/Reviewed/Updated: Yes - My Orders Last 24 Hours: My Active Orders 07/05/19 06:53 PT Evaluation and Treatment [CONS] Routine 07/05/19 07:19 Lactulose [Chronulac] 10 gm PO ONETIME ONE 07/06/19 05:11 BASIC METABOLIC PANEL,BMP [CHEM] AM CBC WITH AUTO DIFF [HEME] AM - Plan Plan:: Assessment and Plan: 1. Sepsis secondary to community acquired pneumonia: - Continue IV cefepime and azithromycin. cultures ngtd 2. Altered mental status - will restart lactulose slowly as patient and family is concerned about causing too much diarrhea 3. Bloody stool: - Patient reports bloody stool a few days ago. Hemoccult test negative on admission. Stool occult pending. 4. Diabetes mellitus type 2: - ADA diet, SSI. 5. Past medical history of CHF, CAD s/p stents, CT, COPD, HTN and liver cirrhosis. 6. DVT prophylaxis: SCD's for now.
[2019-07-05] MEDS: Nortriptyline 10 MG Cap PO SCH (08:35)
[2019-07-05] MEDS: Sertraline 100 MG Tab PO SCH (08:35)
[2019-07-05] MEDS: Azithromycin 500 MG in Sodium Chloride 0.9% 250 ML IV SCH ×2 (08:35→10:23)
[2019-07-05] MEDS: Pravastatin 40 MG Tab PO SCH (08:35)
[2019-07-05] MEDS: Aspirin 81 MG Tab.Chew PO SCH (08:35)
--- NOTE | 2019-07-05 09:38 | PCM.SN ---
- Free Text/Narrative Note: called for consult for central line placement for sepsis; consult cancelled as pt seemed to be doing better. Recall if question.
[2019-07-05] MEDS ORDERED: Azithromycin 250 MG Tab PO ONE (09:41)
[2019-07-05] MEDS: Insulin Aspart 100 Units/ML 3 ML Pen SUBCUT SCH ×3 (10:10→18:11)
[2019-07-05] MEDS: Azithromycin 250 MG Tab PO SCH (10:20)
[2019-07-05] MEDS: Cefdinir 300 MG Cap PO SCH (22:22)
[2019-07-06] MEDS: Pantoprazole 40 MG in Sodium Chloride 0.9% 10 ML IV SCH ×2 (06:00→07:47)
[2019-07-06 06:06] VITALS: PULSE 91
[2019-07-06] MEDS: Insulin Aspart 100 Units/ML 3 ML Pen SUBCUT SCH ×2 (06:55→12:01)
[2019-07-06 07:09] LABS: BLOOD UREA NITROGEN,BUN 15 mg/dL (7.0-18.0); CARBON DIOXIDE,CO2 25.6 mmol/L (21.0-32.0); CHLORIDE,CL 110 mmol/L (98-107); GLUCOSE RANDOM 90 mg/dL (74-106); POTASSIUM,K 4.3 mmol/L (3.5-5.1); SODIUM,NA 143 mmol/L (136-145)
[2019-07-06 07:17] VITALS: BP 108/49
[2019-07-06] MEDS ORDERED: Azithromycin 250 MG Tab PO SCH (09:00)
[2019-07-06] MEDS: Sertraline 100 MG Tab PO SCH (09:24)
[2019-07-06] MEDS: Aspirin 81 MG Tab.Chew PO SCH (09:24)
[2019-07-06] MEDS: Cefdinir 300 MG Cap PO SCH (09:24)
[2019-07-06] MEDS: Azithromycin 250 MG Tab PO SCH (09:24)
[2019-07-06] MEDS: Nortriptyline 10 MG Cap PO SCH (09:24)
[2019-07-06] MEDS: Pravastatin 40 MG Tab PO SCH (09:24)
--- NOTE | 2019-07-06 10:45 | PCM.DCSUM1 ---
Discharge Summary - Hospital Course Free Text/Narrative:: 73-year-old female admitted for sepsis secondary to community acquired pneumonia and altered mental status. She has a PMH of PR s/p stents, CHF, COPD, HTN, DM type 2 and liver cirrhosis. Patient was admitted to the ICU and started on norepinephrine drip, IV cefepime and IV azithromycin. CXR was negative. CT head was negative. CT abd/pelvis showed mild ascites in abdomen and cirrhotic liver changes. CT chest showed small b/l pleural effusion, emphysematous changes , right lung density representing possible atelectasis, fibrosis or pneumonia. There was also a right lung base nodular density measuring 1.4 cm difficult to exclude a mass. Follow-up CT chest was recommended in 6 months. Blood cultures were negative. Patient's blood pressures improved and she was weaned off of norepinephrine drip and eventually transferred out of ICU onto med/surg floor. Patient also reported having bloody stools in the past week, however, Hemoccult test and stool occult test was negative for blood. Lactulose was restarted slowly as family report difficulty tolerating the medication. The following medications were discontinued on discharge for now because of her hypotension: metoprolol, imdur and aldactone. Please see home medication list for current medication regimen. Advised patient to follow-up with her PCP for further medication management. Patient discharged in stable condition with home health referral. - Discharge Data Discharge Date: 07/06/19 Discharge Disposition: Home, W Home Health Agency 06 Condition: Stable - Referral to Home Health Date of Face to Face Encounter: 07/06/19 Reason for Homebound Status: Patient able to ambulate less than 20 feet before becoming short of breath and requiring a rest break. Patient is unsteady when walking and is a fall risk. Patient also has weakness and deconditioning secondary exacerbation of chronic disease. Primary Care Physician: Keenan Damon MD Skilled Need: RN to monitor blood pressure, weight and medication changes. Patient will require PT and OT. - Patient Summary/Data Consults: Consultations 07/03/19 11:43 Consult to Physician [CONS] Urgent 07/05/19 06:53 PT Evaluation and Treatment [CONS] Routine - Patient Instructions Diet: Low Sodium, Fluid Restriction, Diabetic Diet Diet, Other: Sodium < 2 g per day, Fluids < 2 L per day Activity: As Tolerated Notify Provider of: Fever, Increased Pain, Swelling and Redness, Drainage, Nausea and/or Vomiting - Discharge Plan *PRESCRIPTION DRUG MONITORING PROGRAM REVIEWED*: Not Applicable *COPY OF PRESCRIPTION DRUG MONITORING REPORT IN PATIENT RICKY: Not Applicable Prescriptions/Med Rec: Azithromycin 500 mg PO DAILY 2 Days #2 tablet Cefdinir [Omnicef] 300 mg PO BID 4 Days #8 cap Furosemide 40 mg PO DAILY 30 Days #30 tablet Lactulose 10 gm PO DAILY 30 Days #1350 ml Home Medications: Home Meds Aspirin 81 mg PO DAILY 01/08/19 [History] Glimepiride [Amaryl] 2 mg PO DAILY 01/08/19 [History] Nortriptyline 20 mg PO DAILY 01/08/19 [History] Pravastatin [Pravachol] 80 mg PO DAILY 01/08/19 [History] Sertraline [Zoloft] 100 mg PO DAILY 01/08/19 [History] metFORMIN HCl [Metformin HCl] 500 mg PO BID 05/26/19 [History] Azithromycin 500 mg PO DAILY 2 Days #2 tablet 07/06/19 [Rx] Cefdinir [Omnicef] 300 mg PO BID 4 Days #8 cap 07/06/19 [Rx] Furosemide 40 mg PO DAILY 30 Days #30 tablet 07/06/19 [Rx] Lactulose 10 gm PO DAILY 30 Days #1350 ml 07/06/19 [Rx] Oxygen Therapy Mode: Room Air Patient Handouts: Furosemide tablets, Cefdinir capsules, Azithromycin tablets, Lactulose oral solution, Community-Acquired Pneumonia, Adult, [id number] Referrals: Cecil Palafox MD [Resident] - 07/13/19 2:00 pm - Discharge Summary/Plan Comment DC Time >30 min.: No - Patient Data Vitals - Most Recent: Last Vital Signs Temp 98 F 07/06/19 07:14 Pulse 91 07/06/19 07:14 Resp 16 07/06/19 07:14 BP 108/49 L 07/06/19 07:14 Pulse Ox 91 L 07/06/19 07:14 Orthostatic Blood Pressure [ 90/34 Standing] Orthostatic Blood Pressure [ 118/48 Sitting] Orthostatic Blood Pressure [ 110/53 Supine] Weight - Most Recent: 162 lb 3.2 oz I&O - Last 24 hours: Intake & Output 07/05/19 07/06/19 07/06/19 22:59 06:59 14:59 Intake Total 375 100 Output Total 300 0 Balance 75 100 Lab Results - Last 24 hrs: Laboratory Results - last 24 hr 07/03/19 07/05/19 07/05/19 Range/Units 04:00 13:16 18:06 WBC (4.0-11.0) K/uL RBC (4.30-5.90) M/uL Hgb (12.0-16.0) g/dL Hct (36.0-46.0) % MCV (80.0-98.0) fL MCH (27.0-32.0) pg MCHC (31.0-37.0) g/dL RDW Std Deviation (28.0-62.0) fl RDW Coeff of Ame (11.0-15.0) % Plt Count (150-400) K/uL MPV (7.40-12.00) fL Neut % (Auto) (48.0-80.0) % Lymph % (Auto) (16.0-40.0) % [place] % (Auto) (0.0-15.0) % Eos % (Auto) (0.0-7.0) % Baso % (Auto) (0.0-1.5) % Neut # (Auto) (1.4-5.7) K/uL Lymph # (Auto) (0.6-2.4) K/uL [place] # (Auto) (0.0-0.8) K/uL Eos # (Auto) (0.0-0.7) K/uL Baso # (Auto) (0.0-0.1) K/uL Nucleated RBC % /100WBC Nucleated RBCs # K/uL Sodium (136-145) mmol/L Potassium (3.5-5.1) mmol/L Chloride (98-107) mmol/L Carbon Dioxide (21.0-32.0) mmol/L BUN (7.0-18.0) mg/dL Creatinine (0.6-1.0) mg/dL Est Cr Clr Drug Dosing Estimated GFR (MDRD) ml/min Glucose (74-106) mg/dL POC Glucose 153 H 178 H (60-110) mg/dL Calcium (8.5-10.1) mg/dL Cortisol 7.2 ug/dL 07/06/19 07/06/19 07/06/19 Range/Units 06:16 06:16 06:16 WBC 6.26 (4.0-11.0) K/uL RBC 3.90 L (4.30-5.90) M/uL Hgb 11.9 L (12.0-16.0) g/dL Hct 37.3 (36.0-46.0) % MCV 95.6 (80.0-98.0) fL MCH 30.5 (27.0-32.0) pg MCHC 31.9 (31.0-37.0) g/dL RDW Std Deviation 59.8 (28.0-62.0) fl RDW Coeff of Ame 17 H (11.0-15.0) % Plt Count 149 L (150-400) K/uL MPV 10.60 (7.40-12.00) fL Neut % (Auto) 57.5 (48.0-80.0) % Lymph % (Auto) 26.2 (16.0-40.0) % [place] % (Auto) 12.8 (0.0-15.0) % Eos % (Auto) 2.9 (0.0-7.0) % Baso % (Auto) 0.6 (0.0-1.5) % Neut # (Auto) 3.6 (1.4-5.7) K/uL Lymph # (Auto) 1.6 (0.6-2.4) K/uL [place] # (Auto) 0.8 (0.0-0.8) K/uL Eos # (Auto) 0.2 (0.0-0.7) K/uL Baso # (Auto) 0.0 (0.0-0.1) K/uL Nucleated RBC % 0.0 /100WBC Nucleated RBCs # 0 K/uL Sodium 143 (136-145) mmol/L Potassium 4.3 (3.5-5.1) mmol/L Chloride 110 H (98-107) mmol/L Carbon Dioxide 25.6 (21.0-32.0) mmol/L BUN 15 (7.0-18.0) mg/dL Creatinine 0.9 (0.6-1.0) mg/dL Est Cr Clr Drug Dosing TNP Estimated GFR (MDRD) > 60.0 ml/min Glucose 90 (74-106) mg/dL POC Glucose 73 (60-110) mg/dL Calcium 8.8 (8.5-10.1) mg/dL Cortisol ug/dL [facility] Results - Last 24 hrs: Microbiology 07/02/19 22:23 Aerobic Blood Culture - Preliminary Blood - Venous NO GROWTH AFTER 3 DAYS Anaerobic Blood Culture - Preliminary NO GROWTH AFTER 3 DAYS 07/02/19 22:33 Aerobic Blood Culture - Preliminary Blood - Venous - Lab Draw NO GROWTH AFTER 3 DAYS Anaerobic Blood Culture - Final 07/05/19 10:20 Stool Occult Blood (CTAE) - Final Stool / Feces Med Orders - Current: Current Medications Acetaminophen (Tylenol) 650 mg PO Q4H PRN PRN Reason: Pain (Mild 1-3)/fever Last Admin: 07/05/19 10:21 Dose: 650 mg Aspirin (Aspirin) 81 mg PO DAILY [facility] Last Admin: 07/06/19 09:24 Dose: 81 mg Azithromycin (Zithromax) 500 mg PO DAILY [facility] Last Admin: 07/06/19 09:24 Dose: 500 mg Cefdinir (Omnicef) 300 mg PO BID [facility] Last Admin: 07/06/19 09:24 Dose: 300 mg Pantoprazole Sodium 40 mg/ (Sodium Chloride) 10 mls @ 300 mls/hr IV Q24H [facility] Last Admin: 07/06/19 07:47 Dose: Not Given Norepinephrine Bitartrate (Norepinephr-0.9% Nacl 4 Mg/250) 4 mg in 250 mls @ 7.5 mls/hr IV TITRATE [facility]; Protocol Last Titration: 07/03/19 13:15 Dose: 0 mcg/min, 0 mls/hr Sodium Chloride (Normal Saline) 1,000 mls @ 20 mls/hr IV ASDIRECTED [facility] Insulin Aspart (Novolog) 0 unit SUBCUT TIDAC [facility]; Protocol Last Admin: 07/06/19 06:55 Dose: Not Given Nortriptyline HCl (Nortriptyline) 20 mg PO DAILY [facility] Last Admin: 07/06/19 09:24 Dose: 20 mg Pravastatin Sodium (Pravachol) 80 mg PO DAILY [facility] Last Admin: 07/06/19 09:24 Dose: 80 mg Sertraline HCl (Zoloft) 100 mg PO DAILY [facility] Last Admin: 07/06/19 09:24 Dose: 100 mg Sodium Chloride (Saline Flush) 10 ml FLUSH ASDIRECTED PRN PRN Reason: Keep Vein Open Last Admin: 07/03/19 00:17 Dose: 10 ml Sodium Chloride (Saline Flush) 2.5 ml FLUSH ASDIRECTED PRN PRN Reason: Keep Vein Open Last Admin: 07/03/19 00:17 Dose: 2.5 ml Discontinued Medications Azithromycin (Zithromax) 500 mg PO Q24H ONE Stop: 07/05/19 09:42 Last Admin: 07/05/19 11:45 Dose: Not Given Azithromycin (Zithromax) 500 mg PO DAILY [facility] Sodium Chloride (Normal Saline) 1,000 mls @ 999 mls/hr IV .Bolus ONE Stop: 07/02/19 23:01 Last Admin: 07/02/19 22:10 Dose: 999 mls/hr Lactated Ringer's (Ringers, Lactated) 1,000 mls @ 999 mls/hr IV .BOLUS [facility] Last Admin: 07/03/19 00:14 Dose: 999 mls/hr Cefepime HCl 2 gm/ Premix 50 mls @ 100 mls/hr IV ONETIME ONE Stop: 07/03/19 00:50 Last Admin: 07/03/19 01:38 Dose: 100 mls/hr Sodium Chloride (Normal Saline) 1,000 mls @ 125 mls/hr IV ASDIRECTED [facility] Stop: 07/03/19 09:30 Last Admin: 07/03/19 08:09 Dose: 999 mls/hr Azithromycin 500 mg/ Sodium (Chloride) 250 mls @ 250 mls/hr IV DAILY [facility] Last Admin: 07/05/19 10:23 Dose: Not Given Cefepime HCl 2 gm/ Premix 50 mls @ 100 mls/hr IV Q8H [facility] Last Admin: 07/03/19 13:05 Dose: 100 mls/hr Cefepime HCl 2 gm/ Premix 50 mls @ 100 mls/hr IV Q8H [facility] Last Admin: 07/05/19 05:14 Dose: 100 mls/hr Isosorbide Mononitrate (Imdur) 30 mg PO DAILY [facility] Lactulose (Chronulac) 10 gm PO ONETIME ONE Stop: 07/04/19 13:07 Last Admin: 07/04/19 13:32 Dose: 5 gm Lactulose (Chronulac) 10 gm PO ONETIME ONE Stop: 07/05/19 07:20 Last Admin: 07/05/19 08:34 Dose: 10 gm Potassium Chloride (Klor-Con M20) 20 meq PO BID [facility] Spironolactone (Aldactone) 25 mg PO DAILY [facility] Torsemide (Demadex) 20 mg PO DAILY [facility]
== END 2019-07-06 11:30 | disposition home health service (06) | DRG 871 ==
LOC: MW.ED 21:21 → MW.ICU 07-03 00:18 → MW.MS 07-05 18:08
PROVIDERS: ADMIT Internal Medicine; ATTEND Internal Medicine
PROC: 3E033XZ Introduction of Vasopressor into Peripheral Vein, Percutaneous Approach (ICD-10-PCS; principal; 2019-07-03)
DX: A41.9 Sepsis, unspecified organism (principal); J18.9 Pneumonia, unspecified organism; K92.1 Melena; J98.11 Atelectasis; R18.8 Other ascites; E78.00 Pure hypercholesterolemia, unspecified; I50.9 Heart failure, unspecified; Z95.5 Presence of coronary angioplasty implant and graft; I73.9 Peripheral vascular disease, unspecified; J44.9 Chronic obstructive pulmonary disease, unspecified; Z87.01 Personal history of pneumonia (recurrent); K58.9 Irritable bowel syndrome, unspecified; I25.10 Atherosclerotic heart disease of native coronary artery without angina pectoris; H54.7 Unspecified visual loss; M06.9 Rheumatoid arthritis, unspecified; Z87.440 Personal history of urinary (tract) infections; J84.10 Pulmonary fibrosis, unspecified; E11.9 Type 2 diabetes mellitus without complications; I11.0 Hypertensive heart disease with heart failure; M19.90 Unspecified osteoarthritis, unspecified site; M54.9 Dorsalgia, unspecified; G89.29 Other chronic pain; G43.909 Migraine, unspecified, not intractable, without status migrainosus; F41.9 Anxiety disorder, unspecified; R41.82 Altered mental status, unspecified; F32.9 Major depressive disorder, single episode, unspecified; M85.80 Other specified disorders of bone density and structure, unspecified site; F17.210 Nicotine dependence, cigarettes, uncomplicated; J43.9 Emphysema, unspecified; K74.60 Unspecified cirrhosis of liver; Z79.01 Long term (current) use of anticoagulants; Z90.89 Acquired absence of other organs; Z88.5 Allergy status to narcotic agent; Z88.8 Allergy status to other drugs, medicaments and biological substances; Z79.82 Long term (current) use of aspirin; Z79.84 Long term (current) use of oral hypoglycemic drugs; Z79.2 Long term (current) use of antibiotics; Z79.899 Other long term (current) drug therapy; I25.2 Old myocardial infarction; Z95.818 Presence of other cardiac implants and grafts
CPT/HCPCS: 36415; 70450; 71045; 80053; 81003; 82140; 83605; 83735; 85025; 87040 ×2; 93005; 99285; J7030; J7120; 71250; 71250-26; 74176; 74176-26; 80048; 82272; 82533; 82962; 97161-GP; A9270-GY; C9113; J0456; J0692; J1815-GY; J7050

== ENCOUNTER 2019-11-30 14:46 | Observation (INO) | payer MEDICARE, OTHER ==
[2019-11-30] MEDS ORDERED: Sodium Chloride 0.9% 2.5 ML Syringe FLUSH PRN (15:33)
[2019-11-30] MEDS ORDERED: Sodium Chloride 0.9% 10 ML Syringe FLUSH PRN (15:33)
[2019-11-30] MEDS ORDERED: Acetaminophen/oxyCODONE 325-5 MG Tab PO ONE (15:34)
[2019-11-30] MEDS ORDERED: Diphtheria,Pertussis(Acell),Tetanus Vaccine 0.5 ML Syringe IM ONE (15:37)
--- NOTE | 2019-11-30 15:39 | EDM.PDOC ---
ED HPI GENERAL MEDICAL PROBLEM - General Chief Complaint: Laceration Stated Complaint: LACERATIN LT HAND Time Seen by Provider: 11/30/19 15:13 Source of Information: Reports: Patient, Old Records History Limitations: Reports: No Limitations - History of Present Illness INITIAL COMMENTS - FREE TEXT/NARRATIVE: 73-year-old female with a past medical history of type 2 diabetes mellitus, cirrhosis of the liver, esophageal varices, congestive heart failure, COPD, CAD, hyperlipidemia presenting with syncope and an injury to the left hand. Patient states that she was getting up to leave the bathroom when she reached the bathroom door and then suddenly collapsed onto the ground. She is not sure why she fell. She denies any preceding chest discomfort, shortness of breath, or pa lpitations. She states that she struck the top of her head on something but she is not sure what. She does not believe that she lost consciousness. She noticed a skin tear to the left hand and placed some medicinal salve prior to arrival. Her only complaint is the wound to the dorsum of the left hand. She denies any headache, neck pain, chest or abdominal pain, back pain, pain to the lower extremities. Her tetanus immunization status is not up-to-date. ROS: A 10-point review of systems was negative, except as noted in the HPI (or in the ROS section of this note). Past medical history: Reviewed, no additional pertinent history. Surgical history: Reviewed in system, no additional pertinent history. Social history: Reviewed in system, no additional pertinent history. Family history: Reviewed in system, no additional pertinent history. PHYSICAL EXAM Vital signs reviewed. Nursing notes reviewed. Constitutional: Awake, alert, non-distressed. Head: Normocephalic, atraumatic. Eyes: EOMI, conjunctiva normal, no discharge, no scleral icterus. Pupils 3 mm bilaterally. Ears, Nose, Throat: External ears and nose normal, moist oral mucosa. No otorrhea or rhinorrhea. TMs and EACs clear bilaterally. No grace sign or raccoon's eyes. Cardiovascular: 2+ radial pulse, capillary refill less than 2 seconds. Pulmonary: normal work of breathing, no accessory muscle use. Back: Nontender spine, no wounds. Abdomen/GI: Soft, nontender, nondistended, no guarding or rigidity, no masses. Musculoskeletal: No deformities. Full passive range of motion of all extremity joints. Integumentary: Appropriate color for ethnicity, warm, dry, no pallor or jaundice, no rash. Large skin tear over the dorsal surface of the left hand with medicinal salve applied prior to arrival. Superficial abrasion over the left patella. Neurologic: Alert, answering questions appropriately, normal speech, no facial droop, moving all extremities well. Psychiatric: Appropriate mood and affect, normal thought process. bilateral hips to feet Pain Score (Numeric/FACES): 9 - Related Data Allergies Allergy/AdvReac Type Severity Reaction Status Date / Time codeine Allergy Vomiting Verified 11/30/19 19:21 diphenhydramine Allergy Itching Verified 11/30/19 19:21 [From Benadryl] propoxyphene HCl Allergy Vomiting Verified 11/30/19 19:21 [From Darvon] Home Meds: Home Meds Aspirin 81 mg PO DAILY 01/08/19 [History] Glimepiride [Amaryl] 2 mg PO DAILY 01/08/19 [History] Nortriptyline 20 mg PO BEDTIME 01/08/19 [History] Pravastatin [Pravachol] 80 mg PO DAILY 01/08/19 [History] Sertraline [Zoloft] 100 mg PO DAILY 01/08/19 [History] metFORMIN HCl [Metformin HCl] 500 mg PO BID 05/26/19 [History] Azithromycin 500 mg PO DAILY 2 Days #2 tablet 07/06/19 [Rx] Cefdinir [Omnicef] 300 mg PO BID 4 Days #8 cap 07/06/19 [Rx] Furosemide 40 mg PO DAILY 30 Days #30 tablet 07/06/19 [Rx] Lactulose 10 gm PO DAILY 11/30/19 [History] Past Medical History - Past Health History Medical/Surgical History: Denies Medical/Surgical History HEENT History: Reports: Impaired Vision Other HEENT History: wears corrective glasses Cardiovascular History: Reports: CAD, Heart Failure, High Cholesterol, Hypertension, NC, SOB on Exertion, Stents, Other (See Below) Other Cardiovascular History: states she has had 7 stents placed. Peripheral Atery Disease Respiratory History: Reports: COPD, Pneumonia, Recurrent Gastrointestinal History: Reports: Irritable Bowel Syndrome Genitourinary History: Reports: UTI, Recurrent [employer]ER [employer]TER History: Reports: Musculoskeletal History: Reports: Back Pain, Chronic, RA Neurological History: Reports: Migraines Psychiatric History: Reports: Anxiety, Depression, Panic Attack Endocrine/Metabolic History: Reports: Diabetes, Type II, Osteopenia Hematologic History: Reports: Anticoagulation Therapy - Infectious Disease History Infectious Disease History: Reports: Chicken Pox, Measles, Mumps - Past Surgical History HEENT Surgical History: Reports: Tonsillectomy Cardiovascular Surgical History: Reports: Other (See Below) Musculoskeletal Surgical History: Reports: None Social & Family History - Family History Family Medical History: Noncontributory - Tobacco Use Smoking Status *Q: Current Every Day Smoker Years of Tobacco use: 55 Packs/Tins Daily: 0.2 - Caffeine Use Caffeine Use: Reports: Coffee - Recreational Drug Use Recreational Drug Use: No ED ROS GENERAL - Review of Systems Review Of Systems: See Below ED EXAM, SKIN/RASH Exam: See Below EKG INTERPRETATION EKG Interpretation Comments: 12-Lead ECG Interpretation Acquired: 4:10 PM Rhythm: Sinus rhythm Rate: 76 bpm [place]: Normal Intervals: Normal Ectopy: Unifocal PVCs Ischemic Changes: None apparent RV Strain: No obvious RV strain pattern. ST Segments/T-Waves: No notable changes Course - Vital Signs Text/Narrative:: Labs show mild normocytic anemia. Mild hyponatremia, creatinine elevation to 1.5. Troponin negative. Alkaline phosphatase elevated at 196. COVID testing is negative. Obtain CT imaging of the head and cervical spine which shows no acute injury. X-rays left hand negative for bony injury. Twelve-lead EKG shows no acute ischemia, ectopy, or preexcitation pattern. Given lack of clear story of mechanical fall and lack of prodrome, there is some concern for cardiac syncope given that the patient collapsed without any symptoms. Will plan to admit her to observation overnight for telemetry monitoring. She also has an acute kidney injury may require gentle fluids. We will clean and bandage the large skin tear on her left hand but it is not amenable to laceration repair due to the amount of tissue loss. I spoke with the hospitalist Dr. Emery Perry who agrees to admit to observation. Last Recorded V/S: Last Vital Signs Temp 36.2 C 11/30/19 17:01 Pulse 76 11/30/19 17:01 Resp 16 11/30/19 17:01 BP 112/61 11/30/19 17:01 Pulse Ox 98 11/30/19 17:01 - Orders/Labs/Meds Orders: Active Orders 24 hr Category Date Time Status Cardiac Monitoring [RC] . DIRECTED Care 11/30/19 15:33 Active EKG Documentation Completion [RC] STAT Care 11/30/19 15:33 Active Pulse Oximetry [RC] ASDIRECTED Care 11/30/19 15:33 Active Vaccines to be Administered [RC] PER UNIT ROUTINE Care 11/30/19 15:37 Active Sodium Chloride 0.9% [Saline Flush] Med 11/30/19 15:33 Active 10 ml FLUSH ASDIRECTED PRN Sodium Chloride 0.9% [Saline Flush] Med 11/30/19 15:33 Active 2.5 ml FLUSH ASDIRECTED PRN Saline Lock Insert [OM.PC] Stat Oth 11/30/19 15:34 Ordered Medication Orders Acetaminophen (Tylenol) 650 mg PO Q4H PRN PRN Reason: Pain (Mild 1-3)/fever Albuterol/Ipratropium (Duoneb 3.0-0.5 Mg/3 Ml) 3 ml NEB Q4HRRT PRN PRN Reason: Dyspnea Aspirin (Aspirin) 81 mg PO DAILY [facility] Insulin Aspart (Novolog) 0 unit SUBCUT TIDAC [facility]; Protocol Nortriptyline HCl (Nortriptyline) 20 mg PO BEDTIME [facility] Ondansetron HCl (Zofran Odt) 4 mg PO Q4H PRN PRN Reason: nausea, able to take PO Ondansetron HCl (Zofran) 4 mg IVPUSH Q4H PRN PRN Reason: Nausea Sodium Chloride (Saline Flush) 10 ml FLUSH ASDIRECTED PRN PRN Reason: Keep Vein Open Last Admin: 11/30/19 16:41 Dose: 10 ml Documented by: MARTHA Sodium Chloride (Saline Flush) 2.5 ml FLUSH ASDIRECTED PRN PRN Reason: Keep Vein Open Last Admin: 11/30/19 16:41 Dose: 2.5 ml Documented by: MARTHA Labs: Laboratory Tests 11/30/19 11/30/19 11/30/19 Range/Units 15:47 15:47 15:49 WBC 4.86 (4.0-11.0) K/uL RBC 3.69 L (4.30-5.90) M/uL Hgb 11.0 L (12.0-16.0) g/dL Hct 33.7 L (36.0-46.0) % MCV 91.3 (80.0-98.0) fL MCH 29.8 (27.0-32.0) pg MCHC 32.6 (31.0-37.0) g/dL RDW Std Deviation 57.2 (28.0-62.0) fl RDW Coeff of Ame 17 H (11.0-15.0) % Plt Count 146 L (150-400) K/uL MPV 10.30 (7.40-12.00) fL Neut % (Auto) 50.7 (48.0-80.0) % Lymph % (Auto) 31.9 (16.0-40.0) % [place] % (Auto) 15.4 H (0.0-15.0) % Eos % (Auto) 1.4 (0.0-7.0) % Baso % (Auto) 0.6 (0.0-1.5) % Neut # (Auto) 2.5 (1.4-5.7) K/uL Lymph # (Auto) 1.6 (0.6-2.4) K/uL [place] # (Auto) 0.8 (0.0-0.8) K/uL Eos # (Auto) 0.1 (0.0-0.7) K/uL Baso # (Auto) 0.0 (0.0-0.1) K/uL Nucleated RBC % 0.0 /100WBC Nucleated RBCs # 0 K/uL Sodium 132 L (136-145) mmol/L Potassium 4.2 (3.5-5.1) mmol/L Chloride 100 (98-107) mmol/L Carbon Dioxide 28.8 (21.0-32.0) mmol/L BUN 33 H (7.0-18.0) mg/dL Creatinine 1.5 H (0.6-1.0) mg/dL Est Cr Clr Drug Dosing 28.84 mL/min Estimated GFR (MDRD) 34.0 ml/min Glucose 114 H (74-106) mg/dL Calcium 9.1 (8.5-10.1) mg/dL Phosphorus 3.6 (2.6-4.7) mg/dL Magnesium 1.9 (1.8-2.4) mg/dL Total Bilirubin 0.8 (0.2-1.0) mg/dL AST 54 H (15-37) IU/L ALT 37 (14-63) IU/L Alkaline Phosphatase 196 H (46-116) U/L Troponin I < 0.050 (0.000-0.056) ng/mL Total Protein 7.5 (6.4-8.2) g/dL Albumin 2.5 L (3.4-5.0) g/dL Globulin 5.0 H (2.6-4.0) g/dL Albumin/Globulin Ratio 0.5 L (0.9-1.6) COVID-19 ([facility]) (NEGATIVE) 11/30/19 Range/Units 17:19 WBC (4.0-11.0) K/uL RBC (4.30-5.90) M/uL Hgb (12.0-16.0) g/dL Hct (36.0-46.0) % MCV (80.0-98.0) fL MCH (27.0-32.0) pg MCHC (31.0-37.0) g/dL RDW Std Deviation (28.0-62.0) fl RDW Coeff of Ame (11.0-15.0) % Plt Count (150-400) K/uL MPV (7.40-12.00) fL Neut % (Auto) (48.0-80.0) % Lymph % (Auto) (16.0-40.0) % [place] % (Auto) (0.0-15.0) % Eos % (Auto) (0.0-7.0) % Baso % (Auto) (0.0-1.5) % Neut # (Auto) (1.4-5.7) K/uL Lymph # (Auto) (0.6-2.4) K/uL [place] # (Auto) (0.0-0.8) K/uL Eos # (Auto) (0.0-0.7) K/uL Baso # (Auto) (0.0-0.1) K/uL Nucleated RBC % /100WBC Nucleated RBCs # K/uL Sodium (136-145) mmol/L Potassium (3.5-5.1) mmol/L Chloride (98-107) mmol/L Carbon Dioxide (21.0-32.0) mmol/L BUN (7.0-18.0) mg/dL Creatinine (0.6-1.0) mg/dL Est Cr Clr Drug Dosing mL/min Estimated GFR (MDRD) ml/min Glucose (74-106) mg/dL Calcium (8.5-10.1) mg/dL Phosphorus (2.6-4.7) mg/dL Magnesium (1.8-2.4) mg/dL Total Bilirubin (0.2-1.0) mg/dL AST (15-37) IU/L ALT (14-63) IU/L Alkaline Phosphatase (46-116) U/L Troponin I (0.000-0.056) ng/mL Total Protein (6.4-8.2) g/dL Albumin (3.4-5.0) g/dL Globulin (2.6-4.0) g/dL Albumin/Globulin Ratio (0.9-1.6) COVID-19 ([facility]) NEGATIVE (NEGATIVE) Meds: Medications Generic Name Dose Route Start Last Admin Trade Name Freq PRN Reason Stop Dose Admin Acetaminophen 650 mg 11/30/19 18:30 Tylenol PO Q4H PRN Pain (Mild 1-3)/fever Albuterol/Ipratropium 3 ml 11/30/19 19:05 Duoneb 3.0-0.5 Mg/3 Ml NEB Q4HRRT PRN Dyspnea Aspirin 81 mg 12/01/19 09:00 Aspirin PO DAILY [facility] Insulin Aspart 0 unit 12/01/19 07:30 Novolog SUBCUT TIDAC [facility] Protocol Nortriptyline HCl 20 mg 11/30/19 21:00 Nortriptyline PO BEDTIME [facility] Ondansetron HCl 4 mg 11/30/19 18:30 Zofran Odt PO Q4H PRN nausea, able to take PO Ondansetron HCl 4 mg 11/30/19 18:30 Zofran IVPUSH Q4H PRN Nausea Sodium Chloride 10 ml 11/30/19 15:33 11/30/19 16:41 Saline Flush FLUSH 10 ml ASDIRECTED PRN Administration Keep Vein Open Sodium Chloride 2.5 ml 11/30/19 15:33 11/30/19 16:41 Saline Flush FLUSH 2.5 ml ASDIRECTED PRN Administration Keep Vein Open Discontinued Medications Generic Name Dose Route Start Last Admin Trade Name Freq PRN Reason Stop Dose Admin Diphtheria/Tetanus/Acell Pertussis 0.5 ml 11/30/19 15:37 11/30/19 16:15 Adacel IM 11/30/19 15:38 0.5 ml .ONCE ONE Administration Lactated Ringer's 1,000 mls @ 999 mls/hr 11/30/19 16:21 11/30/19 16:41 Ringers, Lactated IV 11/30/19 17:21 999 mls/hr .BOLUS ONE Administration Lactated Ringer's 1,000 mls @ 75 mls/hr 11/30/19 18:45 Ringers, Lactated IV ASDIRECTED OREN Morphine Sulfate 1 mg 11/30/19 18:30 Morphine IVPUSH 12/01/19 18:31 Q4H PRN Pain (severe 7-10) Oxycodone/Acetaminophen 2 tab 11/30/19 15:34 11/30/19 16:16 Percocet 325-5 Mg PO 11/30/19 15:35 2 tab ONETIME ONE Administration Departure - Departure Time of Disposition: 17:58 Disposition: Refer to Observation Condition: Good Clinical Impression: Syncope and collapse, Acute renal insufficiency Skin tear of left hand without complication Qualifiers: Encounter type: initial encounter Qualified Code(s): S61.412A - Laceration without foreign body of left hand, initial encounter Abrasion of knee, left Qualifiers: Encounter type: initial encounter Qualified Code(s): S80.212A - Abrasion, left knee, initial encounter - Discharge Information Sepsis Event Note (ED) - Evaluation Sepsis Screening Result: No Definite Risk - Focused Exam Vital Signs: Vital Signs Temp Pulse Resp BP Pulse Ox 11/30/19 17:01 36.2 C 76 16 112/61 98 11/30/19 15:13 36.5 C 88 20 96 - My Orders Last 24 Hours: My Active Orders 11/30/19 15:33 Cardiac Monitoring [RC] . DIRECTED EKG Documentation Completion [RC] STAT Pulse Oximetry [RC] ASDIRECTED Sodium Chloride 0.9% [Saline Flush] 10 ml FLUSH ASDIRECTED PRN Sodium Chloride 0.9% [Saline Flush] 2.5 ml FLUSH ASDIRECTED PRN 11/30/19 15:34 Saline Lock Insert [OM.PC] Stat 11/30/19 15:37 Vaccines to be Administered [RC] PER UNIT ROUTINE - Assessment/Plan Last 24 Hours: My Active Orders 11/30/19 15:33 Cardiac Monitoring [RC] . DIRECTED EKG Documentation Completion [RC] STAT Pulse Oximetry [RC] ASDIRECTED Sodium Chloride 0.9% [Saline Flush] 10 ml FLUSH ASDIRECTED PRN Sodium Chloride 0.9% [Saline Flush] 2.5 ml FLUSH ASDIRECTED PRN 11/30/19 15:34 Saline Lock Insert [OM.PC] Stat 11/30/19 15:37 Vaccines to be Administered [RC] PER UNIT ROUTINE
[2019-11-30 16:18] LABS: BLOOD UREA NITROGEN,BUN 33 mg/dL (7.0-18.0); CARBON DIOXIDE,CO2 28.8 mmol/L (21.0-32.0); CHLORIDE,CL 100 mmol/L (98-107); GLUCOSE RANDOM 114 mg/dL (74-106); POTASSIUM,K 4.2 mmol/L (3.5-5.1); SODIUM,NA 132 mmol/L (136-145)
[2019-11-30] MEDS ORDERED: Lactated Ringers 1,000 ML IV ONE (16:21)
--- NOTE | 2019-11-30 16:29 | CR ---
Left hand: 3 views of the left hand were obtained. Comparison: No prior left hand study is available. Mild degenerative change is noted with CMC joint of the thumb. Small calcification is noted off the ulnar styloid process within the wrist which is seen on only one view most likely relating to old injury. Mild degenerative change is scattered within the DIP joints of the fingers. Osteopenia is noted. No acute fracture or other bony abnormality is appreciated. Impression: 1. Slight degenerative change. Old injury within the wrist. 2. Nothing acute is appreciated on three-view left hand exam. Diagnostic code #2 This report was dictated in MDT
--- NOTE | 2019-11-30 17:25 | CT ---
Head CT Technique: Multiple axial sections through the brain were obtained. Intravenous contrast was not utilized. Comparison: Prior head CT study of 07/02/19. Findings: Ventricles along with basal cisterns and sulci over the convexities are mildly prominent. No abnormal parenchymal densities are seen. No evidence of intracranial hemorrhage. No midline shift or mass-effect is appreciated. Bone window settings were reviewed. No acute paranasal sinus findings or mastoid sinus findings are seen. No acute calvarial abnormality is appreciated. Impression: 1. Mild generalized atrophy. 2. No acute intracranial abnormality is appreciated. Diagnostic code #2 This report was dictated in MDT
--- NOTE | 2019-11-30 17:46 | CT ---
CT cervical spine Technique: Multiple axial sections were obtained from above C1 inferiorly to the mid T4 level. Reconstructed sagittal and coronal images were reviewed. Findings: Slight mucosal thickening is noted within both maxillary sinuses which is believed to be chronic. Disc space narrowing is noted at C3-4 through C6-7. Posterior osteophytes are seen at these same levels. Mild spondylolisthesis is noted at C2-3 which is due to degenerative apophyseal change. Other degenerative apophyseal change is scattered throughout the cervical spine. Mild left-sided neural foraminal stenosis is noted at C5-6. Other neural foramina appear fairly well patent. No bony central canal stenosis is seen. No fracture is appreciated. Impression: 1. Diffuse degenerative change. 2. No acute fracture is appreciated on CT study of the cervical spine. Diagnostic code #2 This report was dictated in MDT
[2019-11-30] MEDS ORDERED: Ondansetron 4 MG/2 ML SDV IVPUSH PRN (18:30)
[2019-11-30] MEDS ORDERED: Morphine 2 MG/ML SYRINGE IVPUSH PRN (18:30)
[2019-11-30] MEDS ORDERED: Ondansetron 4 MG Tab.DIS PO PRN (18:30)
[2019-11-30] MEDS ORDERED: Acetaminophen 325 MG Tab PO PRN (18:30)
--- NOTE | 2019-11-30 18:30 | PCM.HP.2 ---
H&P History of Present Illness - General Date of Service: 11/30/19 Admit Problem/Dx: Admission Diagnosis/Problem Admission Diagnosis/Problem Syncope and collapse Source of Information: Patient History Limitations: Reports: No Limitations - History of Present Illness Initial Comments - Free Text/Narative: 73-year-old female presents after falling at home. She has a PMH of [place] s/p stents, CHF, COPD, DM type II, HTN and liver cirrhosis. Patient reports that she got up to go to the bathroom earlier today and when she was about to enter her legs suddenly felt weak and she fell. She hit her head and left arm while falling. She recalls the event and denies any LOC, dizziness, syncope, palpitations, headache, bowel or bladder incontinence. She reports being in her normal state of health today and has been eating and drinking appropriately. Denies any recent illness. Patient denies any blurry vision, sore throat, cough, SOB, nausea, vomiting, abdominal pain, chest pain, palpitations, diarrhea, dysuria, blood in stool, blood in urine, numbness or tingling in extremities. In the ER, EKG showed sinus rhythm with PVC/s and no acute ischemic changes. CBC unremarkable and CMP revealed sodium level of 132 and creatinine of 1.5. Troponin was negative. CT head was negative. CT c-spine was negative. Left hand x-ray was negative. COVID19 test negative. Patient given 1 L IV LR bolus and Percocet 325/5 mg. Patient admitted for further evaluation and treatment. bilateral hips to feet Pain Score (Numeric/FACES): 9 - Related Data Allergies/Adverse Reactions: Allergies Allergy/AdvReac Type Severity Reaction Status Date / Time codeine Allergy Vomiting Verified 11/30/19 15:17 diphenhydramine Allergy Itching Verified 11/30/19 15:17 [From Benadryl] propoxyphene HCl Allergy Vomiting Verified 11/30/19 15:17 [From Darvon] Home Medications: Home Meds Aspirin 81 mg PO DAILY 01/08/19 [History] Glimepiride [Amaryl] 2 mg PO DAILY 01/08/19 [History] Nortriptyline 20 mg PO DAILY 01/08/19 [History] Pravastatin [Pravachol] 80 mg PO DAILY 01/08/19 [History] Sertraline [Zoloft] 100 mg PO DAILY 01/08/19 [History] metFORMIN HCl [Metformin HCl] 500 mg PO BID 05/26/19 [History] Azithromycin 500 mg PO DAILY 2 Days #2 tablet 07/06/19 [Rx] Cefdinir [Omnicef] 300 mg PO BID 4 Days #8 cap 07/06/19 [Rx] Furosemide 40 mg PO DAILY 30 Days #30 tablet 07/06/19 [Rx] Lactulose 10 gm PO DAILY 30 Days #1350 ml 07/06/19 [Rx] Past Medical History - Past Health History Medical/Surgical History: Denies Medical/Surgical History HEENT History: Reports: Impaired Vision Other HEENT History: wears corrective glasses Cardiovascular History: Reports: CAD, Heart Failure, High Cholesterol, Hypertension, NC, SOB on Exertion, Stents, Other (See Below) Other Cardiovascular History: states she has had 7 stents placed. 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: Musculoskeletal History: Reports: Back Pain, Chronic, RA Neurological History: Reports: Migraines Psychiatric History: Reports: Anxiety, Depression, Panic Attack Endocrine/Metabolic History: Reports: Diabetes, Type II, Osteopenia Hematologic History: Reports: Anticoagulation Therapy - Infectious Disease History Infectious Disease History: Reports: Chicken Pox, Measles, Mumps - Past Surgical History HEENT Surgical History: Reports: Tonsillectomy Cardiovascular Surgical History: Reports: Other (See Below) Musculoskeletal Surgical History: Reports: None Social & Family History - Family History Family Medical History: Noncontributory - Tobacco Use Smoking Status *Q: Current Every Day Smoker Years of Tobacco use: 55 Packs/Tins Daily: 0.2 - Caffeine Use Caffeine Use: Reports: Coffee - Recreational Drug Use Recreational Drug Use: No H&P Review of Systems - Review of Systems: Review Of Systems: Comprehensive ROS is negative, except as noted in HPI. Exam - Exam Exam: See Below - Vital Signs Vital Signs: Last Vital Signs Temp 36.2 C 11/30/19 17:01 Pulse 76 11/30/19 17:01 Resp 16 11/30/19 17:01 BP 112/61 11/30/19 17:01 Pulse Ox 98 11/30/19 17:01 Weight: 61.235 kg - Exam General: Alert, Oriented, Cooperative, Other (NAD) HEENT: Conjunctiva Clear, EOMI, Hearing Intact, Pupils Equal, Pupils Reactive, Other (mild scleral icterus) Neck: Supple, Trachea Midline Lungs: Clear to Auscultation, Normal Respiratory Effort Cardiovascular: Regular Rate, Regular Rhythm GI/Abdominal Exam: Normal Bowel Sounds, Soft, Non-Tender, Other (mild distention). No: Rigid Extremities: Other (trace pitting edema in feet b/l) Peripheral Pulses: 2+: Radial (L), Radial (R) Skin: Other (Abrasion on left hand dorsal surface. Abrasion over left knee patella.) Neurological: Cranial Nerves Intact, Strength Equal Bilateral, Normal Speech, Normal Tone Neuro Extensive - Mental Status: Alert, Oriented x3, Normal Mood/Affect Psychiatric: Alert, Normal Affect, Normal Mood - Patient Data Lab Results Last 24 hrs: Laboratory Results - last 24 hr 11/30/19 11/30/19 11/30/19 Range/Units 15:47 15:47 17:19 WBC 4.86 (4.0-11.0) K/uL RBC 3.69 L (4.30-5.90) M/uL Hgb 11.0 L (12.0-16.0) g/dL Hct 33.7 L (36.0-46.0) % MCV 91.3 (80.0-98.0) fL MCH 29.8 (27.0-32.0) pg MCHC 32.6 (31.0-37.0) g/dL RDW Std Deviation 57.2 (28.0-62.0) fl RDW Coeff of Ame 17 H (11.0-15.0) % Plt Count 146 L (150-400) K/uL MPV 10.30 (7.40-12.00) fL Neut % (Auto) 50.7 (48.0-80.0) % Lymph % (Auto) 31.9 (16.0-40.0) % [place] % (Auto) 15.4 H (0.0-15.0) % Eos % (Auto) 1.4 (0.0-7.0) % Baso % (Auto) 0.6 (0.0-1.5) % Neut # (Auto) 2.5 (1.4-5.7) K/uL Lymph # (Auto) 1.6 (0.6-2.4) K/uL [place] # (Auto) 0.8 (0.0-0.8) K/uL Eos # (Auto) 0.1 (0.0-0.7) K/uL Baso # (Auto) 0.0 (0.0-0.1) K/uL Nucleated RBC % 0.0 /100WBC Nucleated RBCs # 0 K/uL Sodium 132 L (136-145) mmol/L Potassium 4.2 (3.5-5.1) mmol/L Chloride 100 (98-107) mmol/L Carbon Dioxide 28.8 (21.0-32.0) mmol/L BUN 33 H (7.0-18.0) mg/dL Creatinine 1.5 H (0.6-1.0) mg/dL Est Cr Clr Drug Dosing 28.84 mL/min Estimated GFR (MDRD) 34.0 ml/min Glucose 114 H (74-106) mg/dL Calcium 9.1 (8.5-10.1) mg/dL Total Bilirubin 0.8 (0.2-1.0) mg/dL AST 54 H (15-37) IU/L ALT 37 (14-63) IU/L Alkaline Phosphatase 196 H (46-116) U/L Troponin I < 0.050 (0.000-0.056) ng/mL Total Protein 7.5 (6.4-8.2) g/dL Albumin 2.5 L (3.4-5.0) g/dL Globulin 5.0 H (2.6-4.0) g/dL Albumin/Globulin Ratio 0.5 L (0.9-1.6) COVID-19 (REINA) NEGATIVE (NEGATIVE) Result Diagrams: 11/30/19 15:47 11/30/19 15:47 Sepsis Event Note - Evaluation Sepsis Screening Result: No Definite Risk - Focused Exam Vital Signs: Vital Signs Temp Pulse Resp BP Pulse Ox 11/30/19 17:01 36.2 C 76 16 112/61 98 11/30/19 15:13 36.5 C 88 20 96 Problem List Initiated/Reviewed/Updated: Yes Orders Last 24hrs: Active Orders 24 hr Category Date Time Status Admission Status [Patient Status] [ADT] Stat ADT 11/30/19 17:56 Active Cardiac Monitoring [RC] . DIRECTED Care 11/30/19 15:33 Active EKG Documentation Completion [RC] STAT Care 11/30/19 15:33 Active Pulse Oximetry [RC] ASDIRECTED Care 11/30/19 15:33 Active Vaccines to be Administered [RC] PER UNIT ROUTINE Care 11/30/19 15:37 Active Sodium Chloride 0.9% [Saline Flush] Med 11/30/19 15:33 Active 10 ml FLUSH ASDIRECTED PRN Sodium Chloride 0.9% [Saline Flush] Med 11/30/19 15:33 Active 2.5 ml FLUSH ASDIRECTED PRN Saline Lock Insert [OM.PC] Stat Oth 11/30/19 15:34 Ordered Medication Orders Sodium Chloride (Saline Flush) 10 ml FLUSH ASDIRECTED PRN PRN Reason: Keep Vein Open Last Admin: 11/30/19 16:41 Dose: 10 ml Documented by: MARTHA Sodium Chloride (Saline Flush) 2.5 ml FLUSH ASDIRECTED PRN PRN Reason: Keep Vein Open Last Admin: 11/30/19 16:41 Dose: 2.5 ml Documented by: MARTHA Assessment/Plan Comment:: Assessment and Plan: 1. Syncope: - Admit to med/surg, patient on telemetry. CT head and CT c-spine were negative. Will order ECHO. Patient received 1L IV LR bolus in ER. Will consult PT. UA is pending. Will check orthostatic vitals. 2. Left hand abrasion: - Consult wound care. - Left hand x-ray was negative. 3. FRANCIS: - Patient received 1L bolus in ER. Will continue to monitor with AM labs. 4. Hyponatremia, mild: - Patient received fluid bolus in ER. Will recheck with AM labs. 5. Diabetes mellitus type II: - ADA diet, SSI, blood glucose checks TIDAC. 6. Past medical history of NC s/p stents, CHF, COPD and liver cirrhosis: - Continue home medications.
[2019-11-30] MEDS ORDERED: Lactated Ringers 1,000 ML IV SCH (18:45)
[2019-11-30] MEDS ORDERED: Albuterol/Ipratropium 3.0-0.5 MG/3 ML Neb Soln NEB PRN (19:05)
[2019-11-30] MEDS ORDERED: Nortriptyline 10 MG Cap PO SCH (21:00)
[2019-12-01 06:33] LABS: CARBON DIOXIDE,CO2 28.6 mmol/L (21.0-32.0); POTASSIUM,K 3.8 mmol/L (3.5-5.1)
[2019-12-01] MEDS: Insulin Aspart 100 Units/ML 3 ML Pen SUBCUT SCH ×2 (06:58→12:34)
[2019-12-01] MEDS ORDERED: Aspirin 81 MG Tab.Chew PO SCH (09:00)
[2019-12-01 11:38] VITALS: BP 105/62; PULSE 76
--- NOTE | 2019-12-01 12:12 | PCM.DCSUM1 ---
<Osei Melvin - Last Filed: 12/01/19 13:09> Discharge Summary - Hospital Course Free Text/Narrative:: 73-year-old female admitted after falling at home. She has a PMH of [place] s/p stents, CHF, COPD, DM type II and liver cirrhosis. Patient reports that she got up to go the bathroom and then her legs felt weak and she fell. She denies any LOC and recalls the entire incident. She reports hitting her head and her left arm while falling. On admission, CT head and CT c-spine were negative. Left hand x-ray was negative. COVID 19 test negative. UA was negative. Orthostatic vital signs unremarkable. Patient noted to have FRANCIS. Patient given IV fluids. Overnight, patient had no recurrence of any falls and no reported events on telemetry. ECHO ordered and pending at time of discharge. Wound care consult for left hand dorsal aspect abrasion and recommended Allevyn dressings and wrap with gauze. Allevyn dressing can be changed every 3 days. Patient discharged in stable condition with no changes to her home medications. - Discharge Data Discharge Date: 12/01/19 Discharge Disposition: Home, Self-Care 01 Condition: Stable - Referral to Home Health Primary Care Physician: Amrik Carmichael MD - Patient Summary/Data Consults: Consultations 11/30/19 18:30 PT Evaluation and Treatment [CONS] Routine 11/30/19 18:33 Consult to Wound Care Services [CONS] Routine - Patient Instructions Diet: Low Sodium, Diabetic Diet Activity: As Tolerated Notify Provider of: Fever, Increased Pain, Swelling and Redness, Drainage, Nausea and/or Vomiting - Discharge Plan *PRESCRIPTION DRUG MONITORING PROGRAM REVIEWED*: Not Applicable *COPY OF PRESCRIPTION DRUG MONITORING REPORT IN PATIENT RICKY: Not Applicable Prescriptions/Med Rec: Torsemide [Demadex] 20 mg PO DAILY 30 Days #30 Home Medications: Home Meds Aspirin 81 mg PO DAILY 01/08/19 [History] Nortriptyline 20 mg PO BEDTIME 01/08/19 [History] Pravastatin [Pravachol] 80 mg PO DAILY 01/08/19 [History] Lactulose 10 gm PO BID 11/30/19 [History] Albuterol [Proair HFA] 90 mcg IH ASDIRECTED PRN 12/01/19 [History] Celecoxib 100 mg PO DAILY 12/01/19 [History] Potassium Chloride 20 meq PO DAILY 12/01/19 [History] Spironolactone [Aldactone] 100 mg PO DAILY 12/01/19 [History] Torsemide [Demadex] 20 mg PO DAILY 30 Days #30 12/01/19 [Rx] buPROPion HCL [Bupropion HCl Sr] 100 mg PO DAILY 12/01/19 [History] metOLazone [Metolazone] 2.5 mg PO WEEKLY PRN 12/01/19 [History] Oxygen Therapy Mode: Room Air Patient Handouts: Torsemide tablets, Syncope, [id number] Referrals: Amrik Carmichael MD [Primary Care Provider] - (Dr. Carmichael is booked until after December, and we wanted her hand to be seen sooner than that so we got her in with his NETWORK SECURITY ENGINEER, Carolyn Fonseca. ) Carolyn Parsons, ANDREA [Nurse Practitioner] - 12/08/19 9:15 am (Please arrive 15 minutes early with your ID and insurance card and with a mask on for you appointment. ) - Discharge Summary/Plan Comment DC Time >30 min.: No - Patient Data Vitals - Most Recent: Last Vital Signs Temp 35.9 C L 12/01/19 11:37 Pulse 76 12/01/19 11:37 Resp 20 12/01/19 11:37 BP 105/62 12/01/19 11:37 Pulse Ox 97 12/01/19 11:37 Orthostatic Blood Pressure [ 97/51 Standing] Orthostatic Blood Pressure [ 106/53 Sitting] Orthostatic Blood Pressure [ 106/51 Supine] Weight - Most Recent: 59.058 kg I&O - Last 24 hours: Intake & Output 11/30/19 12/01/19 12/01/19 22:59 06:59 14:59 Intake Total 450 Output Total 350 Balance 100 Lab Results - Last 24 hrs: Laboratory Results - last 24 hr 11/30/19 11/30/19 11/30/19 Range/Units 15:47 15:47 15:49 WBC 4.86 (4.0-11.0) K/uL RBC 3.69 L (4.30-5.90) M/uL Hgb 11.0 L (12.0-16.0) g/dL Hct 33.7 L (36.0-46.0) % MCV 91.3 (80.0-98.0) fL MCH 29.8 (27.0-32.0) pg MCHC 32.6 (31.0-37.0) g/dL RDW Std Deviation 57.2 (28.0-62.0) fl RDW Coeff of Ame 17 H (11.0-15.0) % Plt Count 146 L (150-400) K/uL MPV 10.30 (7.40-12.00) fL Neut % (Auto) 50.7 (48.0-80.0) % Lymph % (Auto) 31.9 (16.0-40.0) % [place] % (Auto) 15.4 H (0.0-15.0) % Eos % (Auto) 1.4 (0.0-7.0) % Baso % (Auto) 0.6 (0.0-1.5) % Neut # (Auto) 2.5 (1.4-5.7) K/uL Lymph # (Auto) 1.6 (0.6-2.4) K/uL [place] # (Auto) 0.8 (0.0-0.8) K/uL Eos # (Auto) 0.1 (0.0-0.7) K/uL Baso # (Auto) 0.0 (0.0-0.1) K/uL Nucleated RBC % 0.0 /100WBC Nucleated RBCs # 0 K/uL Sodium 132 L (136-145) mmol/L Potassium 4.2 (3.5-5.1) mmol/L Chloride 100 (98-107) mmol/L Carbon Dioxide 28.8 (21.0-32.0) mmol/L BUN 33 H (7.0-18.0) mg/dL Creatinine 1.5 H (0.6-1.0) mg/dL Est Cr Clr Drug Dosing 28.84 mL/min Estimated GFR (MDRD) 34.0 ml/min Glucose 114 H (74-106) mg/dL POC Glucose (60-110) mg/dL Calcium 9.1 (8.5-10.1) mg/dL Phosphorus 3.6 (2.6-4.7) mg/dL Magnesium 1.9 (1.8-2.4) mg/dL Total Bilirubin 0.8 (0.2-1.0) mg/dL AST 54 H (15-37) IU/L ALT 37 (14-63) IU/L Alkaline Phosphatase 196 H (46-116) U/L Troponin I < 0.050 (0.000-0.056) ng/mL Total Protein 7.5 (6.4-8.2) g/dL Albumin 2.5 L (3.4-5.0) g/dL Globulin 5.0 H (2.6-4.0) g/dL Albumin/Globulin Ratio 0.5 L (0.9-1.6) Urine Color Urine Appearance Urine pH (5.0-8.0) Ur Specific [place] (1.001-1.035) Urine Protein (NEGATIVE) mg/dL Urine Glucose (UA) (NEGATIVE) mg/dL Urine Ketones (NEGATIVE) mg/dL Urine Occult Blood (NEGATIVE) Urine Nitrite (NEGATIVE) Urine Bilirubin (NEGATIVE) Urine Urobilinogen (<2.0) EU/dL Ur Leukocyte Esterase (NEGATIVE) COVID-19 (REINA) (NEGATIVE) 11/30/19 11/30/19 12/01/19 Range/Units 17:19 22:00 05:40 WBC 4.50 (4.0-11.0) K/uL RBC 3.47 L (4.30-5.90) M/uL Hgb 10.2 L (12.0-16.0) g/dL Hct 32.0 L (36.0-46.0) % MCV 92.2 (80.0-98.0) fL MCH 29.4 (27.0-32.0) pg MCHC 31.9 (31.0-37.0) g/dL RDW Std Deviation 57.5 (28.0-62.0) fl RDW Coeff of Ame 17 H (11.0-15.0) % Plt Count 129 L (150-400) K/uL MPV 9.70 (7.40-12.00) fL Neut % (Auto) 51.3 (48.0-80.0) % Lymph % (Auto) 30.7 (16.0-40.0) % [place] % (Auto) 13.8 (0.0-15.0) % Eos % (Auto) 3.3 (0.0-7.0) % Baso % (Auto) 0.9 (0.0-1.5) % Neut # (Auto) 2.3 (1.4-5.7) K/uL Lymph # (Auto) 1.4 (0.6-2.4) K/uL [place] # (Auto) 0.6 (0.0-0.8) K/uL Eos # (Auto) 0.2 (0.0-0.7) K/uL Baso # (Auto) 0.0 (0.0-0.1) K/uL Nucleated RBC % 0.0 /100WBC Nucleated RBCs # 0 K/uL Sodium (136-145) mmol/L Potassium (3.5-5.1) mmol/L Chloride (98-107) mmol/L Carbon Dioxide (21.0-32.0) mmol/L BUN (7.0-18.0) mg/dL Creatinine (0.6-1.0) mg/dL Est Cr Clr Drug Dosing mL/min Estimated GFR (MDRD) ml/min Glucose (74-106) mg/dL POC Glucose (60-110) mg/dL Calcium (8.5-10.1) mg/dL Phosphorus (2.6-4.7) mg/dL Magnesium (1.8-2.4) mg/dL Total Bilirubin (0.2-1.0) mg/dL AST (15-37) IU/L ALT (14-63) IU/L Alkaline Phosphatase (46-116) U/L Troponin I (0.000-0.056) ng/mL Total Protein (6.4-8.2) g/dL Albumin (3.4-5.0) g/dL Globulin (2.6-4.0) g/dL Albumin/Globulin Ratio (0.9-1.6) Urine Color YELLOW Urine Appearance CLEAR Urine pH 5.5 (5.0-8.0) Ur Specific [place] 1.010 (1.001-1.035) Urine Protein NEGATIVE (NEGATIVE) mg/dL Urine Glucose (UA) NEGATIVE (NEGATIVE) mg/dL Urine Ketones NEGATIVE (NEGATIVE) mg/dL Urine Occult Blood NEGATIVE (NEGATIVE) Urine Nitrite NEGATIVE (NEGATIVE) Urine Bilirubin NEGATIVE (NEGATIVE) Urine Urobilinogen 0.2 (<2.0) EU/dL Ur Leukocyte Esterase NEGATIVE (NEGATIVE) COVID-19 (REINA) NEGATIVE (NEGATIVE) 12/01/19 12/01/19 12/01/19 Range/Units 05:40 06:23 12:00 WBC (4.0-11.0) K/uL RBC (4.30-5.90) M/uL Hgb (12.0-16.0) g/dL Hct (36.0-46.0) % MCV (80.0-98.0) fL MCH (27.0-32.0) pg MCHC (31.0-37.0) g/dL RDW Std Deviation (28.0-62.0) fl RDW Coeff of Ame (11.0-15.0) % Plt Count (150-400) K/uL MPV (7.40-12.00) fL Neut % (Auto) (48.0-80.0) % Lymph % (Auto) (16.0-40.0) % [place] % (Auto) (0.0-15.0) % Eos % (Auto) (0.0-7.0) % Baso % (Auto) (0.0-1.5) % Neut # (Auto) (1.4-5.7) K/uL Lymph # (Auto) (0.6-2.4) K/uL [place] # (Auto) (0.0-0.8) K/uL Eos # (Auto) (0.0-0.7) K/uL Baso # (Auto) (0.0-0.1) K/uL Nucleated RBC % /100WBC Nucleated RBCs # K/uL Sodium 134 L (136-145) mmol/L Potassium 3.8 (3.5-5.1) mmol/L Chloride 100 (98-107) mmol/L Carbon Dioxide 28.6 (21.0-32.0) mmol/L BUN 32 H (7.0-18.0) mg/dL Creatinine 1.3 H (0.6-1.0) mg/dL Est Cr Clr Drug Dosing 33.28 mL/min Estimated GFR (MDRD) 40.2 ml/min Glucose 113 H (74-106) mg/dL POC Glucose 106 107 (60-110) mg/dL Calcium 8.7 (8.5-10.1) mg/dL Phosphorus (2.6-4.7) mg/dL Magnesium (1.8-2.4) mg/dL Total Bilirubin 0.5 (0.2-1.0) mg/dL AST 45 H (15-37) IU/L ALT 29 (14-63) IU/L Alkaline Phosphatase 174 H (46-116) U/L Troponin I (0.000-0.056) ng/mL Total Protein 6.5 (6.4-8.2) g/dL Albumin 2.1 L (3.4-5.0) g/dL Globulin 4.4 H (2.6-4.0) g/dL Albumin/Globulin Ratio 0.5 L (0.9-1.6) Urine Color Urine Appearance Urine pH (5.0-8.0) Ur Specific [place] (1.001-1.035) Urine Protein (NEGATIVE) mg/dL Urine Glucose (UA) (NEGATIVE) mg/dL Urine Ketones (NEGATIVE) mg/dL Urine Occult Blood (NEGATIVE) Urine Nitrite (NEGATIVE) Urine Bilirubin (NEGATIVE) Urine Urobilinogen (<2.0) EU/dL Ur Leukocyte Esterase (NEGATIVE) COVID-19 (REINA) (NEGATIVE) Med Orders - Current: Current Medications Acetaminophen (Tylenol) 650 mg PO Q4H PRN PRN Reason: Pain (Mild 1-3)/fever Last Admin: 12/01/19 09:21 Dose: 650 mg Documented by: Albuterol/Ipratropium (Duoneb 3.0-0.5 Mg/3 Ml) 3 ml NEB Q4HRRT PRN PRN Reason: Dyspnea Aspirin (Aspirin) 81 mg PO DAILY [facility] Last Admin: 12/01/19 09:21 Dose: 81 mg Documented by: Insulin Aspart (Novolog) 0 unit SUBCUT TIDAC [facility]; Protocol Last Admin: 12/01/19 06:58 Dose: Not Given Documented by: Nortriptyline HCl (Nortriptyline) 20 mg PO BEDTIME [facility] Last Admin: 11/30/19 20:30 Dose: 20 mg Documented by: Ondansetron HCl (Zofran Odt) 4 mg PO Q4H PRN PRN Reason: nausea, able to take PO Ondansetron HCl (Zofran) 4 mg IVPUSH Q4H PRN PRN Reason: Nausea Sodium Chloride (Saline Flush) 10 ml FLUSH ASDIRECTED PRN PRN Reason: Keep Vein Open Last Admin: 11/30/19 16:41 Dose: 10 ml Documented by: Sodium Chloride (Saline Flush) 2.5 ml FLUSH ASDIRECTED PRN PRN Reason: Keep Vein Open Last Admin: 11/30/19 16:41 Dose: 2.5 ml Documented by: Discontinued Medications Diphtheria/Tetanus/Acell Pertussis (Adacel) 0.5 ml IM .ONCE ONE Stop: 11/30/19 15:38 Last Admin: 11/30/19 16:15 Dose: 0.5 ml Documented by: Lactated Ringer's (Ringers, Lactated) 1,000 mls @ 999 mls/hr IV .BOLUS ONE Stop: 11/30/19 17:21 Last Admin: 11/30/19 16:41 Dose: 999 mls/hr Documented by: Lactated Ringer's (Ringers, Lactated) 1,000 mls @ 75 mls/hr IV ASDIRECTED OREN Morphine Sulfate (Morphine) 1 mg IVPUSH Q4H PRN PRN Reason: Pain (severe 7-10) Stop: 12/01/19 18:31 Oxycodone/Acetaminophen (Percocet 325-5 Mg) 2 tab PO ONETIME ONE Stop: 11/30/19 15:35 Last Admin: 11/30/19 16:16 Dose: 2 tab Documented by: - Exam General: Reports: Alert, Oriented, Cooperative, No Acute Distress Lungs: Reports: Clear to Auscultation, Normal Respiratory Effort Cardiovascular: Reports: Regular Rate, Regular Rhythm GI/Abdominal Exam: Normal Bowel Sounds, Soft, Non-Tender, No Distention Extremities: Other (trace edema in feet b/l) Skin: Reports: Other (Left hand: dorsum aspect abrasion, approximately 6 cm x 6 cm. Left Knee: superficial abrasion over patella.) Psy/Mental Status: Reports: Alert, Normal Affect, Normal Mood <Emery Perry - Last Filed: 12/03/19 20:53> Discharge Summary - Referral to Home Health Primary Care Physician: Amrik Carmichael MD - Patient Summary/Data Consults: Consultations 11/30/19 18:30 PT Evaluation and Treatment [CONS] Routine 11/30/19 18:33 Consult to Wound Care Services [CONS] Routine - Patient Data Vitals - Most Recent: Last Vital Signs Temp 35.9 C L 12/01/19 11:37 Pulse 76 12/01/19 11:37 Resp 20 12/01/19 11:37 BP 105/62 12/01/19 11:37 Pulse Ox 97 12/01/19 11:37 Orthostatic Blood Pressure [ 97/51 Standing] Orthostatic Blood Pressure [ 106/53 Sitting] Orthostatic Blood Pressure [ 106/51 Supine] Med Orders - Current: Current Medications Discontinued Medications Acetaminophen (Tylenol) 650 mg PO Q4H PRN PRN Reason: Pain (Mild 1-3)/fever Last Admin: 12/01/19 09:21 Dose: 650 mg Documented by: Albuterol/Ipratropium (Duoneb 3.0-0.5 Mg/3 Ml) 3 ml NEB Q4HRRT PRN PRN Reason: Dyspnea Aspirin (Aspirin) 81 mg PO DAILY [facility] Last Admin: 12/01/19 09:21 Dose: 81 mg Documented by: Diphtheria/Tetanus/Acell Pertussis (Adacel) 0.5 ml IM .ONCE ONE Stop: 11/30/19 15:38 Last Admin: 11/30/19 16:15 Dose: 0.5 ml Documented by: Lactated Ringer's (Ringers, Lactated) 1,000 mls @ 999 mls/hr IV .BOLUS ONE Stop: 11/30/19 17:21 Last Admin: 11/30/19 16:41 Dose: 999 mls/hr Documented by: Lactated Ringer's (Ringers, Lactated) 1,000 mls @ 75 mls/hr IV ASDIRECTED [facility] Insulin Aspart (Novolog) 0 unit SUBCUT TIDAC [facility]; Protocol Last Admin: 12/01/19 12:34 Dose: Not Given Documented by: Morphine Sulfate (Morphine) 1 mg IVPUSH Q4H PRN PRN Reason: Pain (severe 7-10) Stop: 12/01/19 18:31 Nortriptyline HCl (Nortriptyline) 20 mg PO BEDTIME [facility] Last Admin: 11/30/19 20:30 Dose: 20 mg Documented by: Ondansetron HCl (Zofran Odt) 4 mg PO Q4H PRN PRN Reason: nausea, able to take PO Ondansetron HCl (Zofran) 4 mg IVPUSH Q4H PRN PRN Reason: Nausea Oxycodone/Acetaminophen (Percocet 325-5 Mg) 2 tab PO ONETIME ONE Stop: 11/30/19 15:35 Last Admin: 11/30/19 16:16 Dose: 2 tab Documented by: Sodium Chloride (Saline Flush) 10 ml FLUSH ASDIRECTED PRN PRN Reason: Keep Vein Open Last Admin: 11/30/19 16:41 Dose: 10 ml Documented by: Sodium Chloride (Saline Flush) 2.5 ml FLUSH ASDIRECTED PRN PRN Reason: Keep Vein Open Last Admin: 11/30/19 16:41 Dose: 2.5 ml Documented by: - Free Text/Narrative Note: I have seen and evaluated the patient. I have discussed findings and treatment plan with resident. I agree with the assessment and plan in the following note.
--- NOTE | 2019-12-06 14:57 | ECHO ---
EXAM DATE: 11/30/19 PATIENT'S AGE: 73 The ECHO report has been scanned into [employer] and can be seen in this patient's EMR (Electronic Medical Record) under the REPORTS section. The report has also been scanned into PACS. HANNA
== END 2019-12-01 15:25 | disposition home or self-care (01) ==
LOC: MW.ED 14:46 → MW.MS 17:56
PROVIDERS: ADMIT Internal Medicine; ATTEND Internal Medicine
DX: R55 Syncope and collapse (principal); N17.9 Acute kidney failure, unspecified; S60.512A Abrasion of left hand, initial encounter; E87.1 Hypo-osmolality and hyponatremia; E11.9 Type 2 diabetes mellitus without complications; Z23 Encounter for immunization; I25.2 Old myocardial infarction; I50.9 Heart failure, unspecified; J44.9 Chronic obstructive pulmonary disease, unspecified; K74.60 Unspecified cirrhosis of liver; F17.210 Nicotine dependence, cigarettes, uncomplicated; Z20.828 Contact with and (suspected) exposure to other viral communicable diseases; Z88.5 Allergy status to narcotic agent; Z88.8 Allergy status to other drugs, medicaments and biological substances; W01.10XA Fall on same level from slipping, tripping and stumbling with subsequent striking against unspecified object, initial encounter; Y93.9 Activity, unspecified; Y92.002 Bathroom of unspecified non-institutional (private) residence as the place of occurrence of the external cause; Z79.82 Long term (current) use of aspirin; Z79.84 Long term (current) use of oral hypoglycemic drugs; Z79.899 Other long term (current) drug therapy
CPT/HCPCS: 36415; 70450; 72125; 73130; 80053; 81003; 82962; 83735; 84100; 84484; 85025; 90471; 90715; 93005; 93306; 96360; 97161; 99285; A9270; G0378; J7120; U0002; 99284

== ENCOUNTER 2020-07-17 15:34 | Inpatient (IN) | payer MEDICARE ==
--- NOTE | 2020-07-17 15:46 | EDM.PDOC ---
ED HPI GENERAL MEDICAL PROBLEM - General Chief Complaint: Gastrointestinal Problem Stated Complaint: VOMITTING Time Seen by Provider: 07/17/20 15:39 Source of Information: Reports: Patient History Limitations: Reports: No Limitations - History of Present Illness INITIAL COMMENTS - FREE TEXT/NARRATIVE: HISTORY AND PHYSICAL: History of present illness: Patient is a 74-year-old female who presents to the emergency room with complaints of weakness, nausea, vomiting and decreased PO take. states that she has not been able to get up and ambulate due to her weakness and "needs to be admitted". She states she has mild generalized abdominal pain which is chronic. No new abdominal pain today. No recent travel. Patient denies any fever, chills, headache, change in vision, syncope or near syncope. Denies any chest pain, back pain, shortness of breath or cough. Denies any diarrhea, constipation or dysuria. Has not noted any blood in urine or stool. Past medical history of NE status post stents, congestive heart failure, COPD, type 2 diabetes, hypertension and liver cirrhosis. Patient is a daily smoker over the past 55 years. Review of systems: As per history of present illness and below otherwise all systems reviewed and negative. Past medical history: As per history of present illness and as reviewed below otherwise noncontributory. Surgical history: As per history of present illness and as reviewed below otherwise noncontributory. Social history: See social history for further information Family history: As per history of present illness and as reviewed below otherwise noncontributory. Physical exam: General: Chronically ill appearing but well nourished 74 year old female. Alert and orientated x 3. Nontoxic in appearance and in no acute distress. Vital signs are stable and have been reviewed by me. Nursing notes were reviewed. Accompanied by . HEENT: Atraumatic, normocephalic, pupils equal and reactive bilaterally, negative for conjunctival pallor or scleral icterus, mucous membranes moist, trachea midline. No drooling or trismus noted. No meningeal signs. No hot potato voice noted. Lungs: Clear to auscultation bilaterally. No wheezes, rales, or rhonchi. Chest nontender. Normal work of breathing, no accessory muscles used. Heart: S1S2, regular rate and rhythm without overt murmur, gallops, or rubs. No JVD. No peripheral edema Abdomen: Soft, nondistended, nontender. Normoactive bowel sounds. Negative for masses or costovertebral tenderness. Skin: Intact, warm, dry. No lesions or rashes noted. Hematologic: No petechiae or purpra. Mucosa appropriate color and normal nail bed color and refill. Extremities: Atraumatic, moves all extremities per self without difficulty or deficits, negative for cords or calf pain. Neurovascular unremarkable. Neuro: Awake, alert, oriented. Cranial nerves II through XII unremarkable. Cerebellum unremarkable. Motor and sensory unremarkable throughout. Exam nonfocal. Psychiatric: Mood and affect are appropriate. Normal thought process. Answering questions appropriately. Notes: *This patient was seen and evaluated during the 2019 SARS-CoV-2 novel coronavirus pandemic period. Community viral transmission is ongoing at time of this encounter and the emergency department is operating under pandemic response procedures. Patient appears dehydrated. BUN/Creat 53, 2.0 with Total Bili of 1.6. Negative COVID testing. Chest x-ray shows hyperinflation and chronic interstitial changes without evidence of dense consolidation. Vital signs remained stable. Patient and state they do not want discharged to home and expected admission, hence why they presented to the emergency room. I have talked with the patient about today's findings, in addition to providing specific details for plan of care. Reassessment at the time of disposition demonstrates that the patient is in no acute distress. Dr Ryan was consulted, she agreed to keep patient for further care and management. Diagnostics: CBC, CMP, Lipase, UA, Troponin, EKG, CXR Therapeutics: IV fluids, Zofran Impression: FRANCIS Dehydration Weakness Plan: Observation admission to Med/Surg Definitive disposition and diagnosis as appropriate pending reevaluation and review of above. Abdomen Pain Score (Numeric/FACES): 2 - Related Data Allergies Allergy/AdvReac Type Severity Reaction Status Date / Time codeine Allergy Vomiting Verified 07/17/20 19:33 diphenhydramine Allergy Itching Verified 07/17/20 19:33 [From Benadryl] propoxyphene HCl Allergy Vomiting Verified 07/17/20 19:33 [From Darvon] Home Meds: Home Meds Aspirin 81 mg PO DAILY 01/08/19 [History] Nortriptyline 20 mg PO BEDTIME 01/08/19 [History] Pravastatin [Pravachol] 80 mg PO DAILY 01/08/19 [History] Lactulose 10 gm PO BID 11/30/19 [History] Albuterol [Proair HFA] 90 mcg IH ASDIRECTED PRN 12/01/19 [History] Celecoxib 100 mg PO DAILY 12/01/19 [History] Potassium Chloride 20 meq PO DAILY 12/01/19 [History] Spironolactone [Aldactone] 100 mg PO DAILY 12/01/19 [History] Torsemide [Demadex] 20 mg PO DAILY 30 Days #30 12/01/19 [Rx] buPROPion HCL [Bupropion HCl Sr] 100 mg PO DAILY 12/01/19 [History] metOLazone [Metolazone] 2.5 mg PO WEEKLY PRN 12/01/19 [History] Past Medical History - Past Health History Medical/Surgical History: Denies Medical/Surgical History HEENT History: Reports: Impaired Vision Other HEENT History: wears corrective glasses Cardiovascular History: Reports: CAD, Heart Failure, High Cholesterol, Hypertension, NE, SOB on Exertion, Stents, Other (See Below) Other Cardiovascular History: states she has had 7 stents placed. Peripheral Atery Disease Respiratory History: Reports: COPD, Pneumonia, Recurrent Gastrointestinal History: Reports: Irritable Bowel Syndrome Genitourinary History: Reports: UTI, Recurrent CAD OPERATOR History: Reports: Musculoskeletal History: Reports: Back Pain, Chronic, RA Neurological History: Reports: Migraines Psychiatric History: Reports: Anxiety, Depression, Panic Attack Endocrine/Metabolic History: Reports: Diabetes, Type II, Osteopenia Hematologic History: Reports: Anticoagulation Therapy - Infectious Disease History Infectious Disease History: Reports: Chicken Pox, Measles, Mumps - Past Surgical History HEENT Surgical History: Reports: Tonsillectomy Cardiovascular Surgical History: Reports: Other (See Below) Musculoskeletal Surgical History: Reports: None Social & Family History - Family History Family Medical History: No Pertinent Family History - Caffeine Use Caffeine Use: Reports: Coffee ED ROS GENERAL - Review of Systems Review Of Systems: Comprehensive ROS is negative, except as noted in HPI. ED EXAM, GI/ABD - Physical Exam Exam: See Below (See dictation) Course - Vital Signs Last Recorded V/S: Last Vital Signs Temp 98 F 07/17/20 15:53 Pulse 102 H 07/17/20 15:53 Resp 18 07/17/20 15:53 BP 130/59 L 07/17/20 15:53 Pulse Ox 97 07/17/20 15:53 - Orders/Labs/Meds Orders: Active Orders 24 hr Category Date Time Status EKG Documentation Completion [RC] STAT Care 07/17/20 15:53 Active Sodium Chloride 0.9% [Normal Saline] 1,000 ml Med 07/17/20 17:46 Active IV STAT Sodium Chloride 0.9% [Saline Flush] Med 07/17/20 15:53 Active 10 ml FLUSH ASDIRECTED PRN Sodium Chloride 0.9% [Saline Flush] Med 07/17/20 15:53 Active 2.5 ml FLUSH ASDIRECTED PRN Saline Lock Insert [OM.PC] Stat Oth 07/17/20 15:53 Ordered Medication Orders Albuterol/Ipratropium (Albuterol/Ipratropium 3.0-0.5 Mg/3 Ml Neb Soln) 3 ml NEB Q4HRRT PRN PRN Reason: Shortness Of Breath/wheezing Aspirin (Aspirin 81 Mg Tab.Chew) 81 mg PO DAILY [facility] Sodium Chloride (Normal Saline) 1,000 mls @ 200 mls/hr IV STAT ONE Stop: 07/17/20 22:45 Last Admin: 07/17/20 18:15 Dose: 200 mls/hr Documented by: MAILE Lactated Ringer's (Ringers, Lactated) 1,000 mls @ 125 mls/hr IV ASDIRECTED OREN Morphine Sulfate (Morphine 10 Mg/Ml Syringe) 1 mg IVPUSH Q2H PRN PRN Reason: Pain (severe 7-10) Stop: 07/18/20 18:56 Nortriptyline HCl (Nortriptyline 10 Mg Cap) 20 mg PO BEDTIME [facility] Ondansetron HCl (Ondansetron 4 Mg/2 Ml Sdv) 4 mg IVPUSH Q4H PRN PRN Reason: Nausea/Vomiting Pantoprazole Sodium (Pantoprazole 40 Mg Vial) 40 mg IV DAILY [facility] Last Admin: 07/17/20 20:06 Dose: 40 mg Documented by: IFEANYI Potassium Chloride (Potassium Chloride 10 Meq Tab.Er) 20 meq PO DAILY [facility] Pravastatin Sodium (Pravastatin 40 Mg Tab) 80 mg PO DAILY [facility] Sodium Chloride (Sodium Chloride 0.9% 10 Ml Syringe) 10 ml FLUSH ASDIRECTED PRN PRN Reason: Keep Vein Open Last Admin: 07/17/20 15:59 Dose: 10 ml Documented by: SARAH Sodium Chloride (Sodium Chloride 0.9% 2.5 Ml Syringe) 2.5 ml FLUSH ASDIRECTED PRN PRN Reason: Keep Vein Open Last Admin: 07/17/20 15:59 Dose: 2.5 ml Documented by: SARAH Labs: Laboratory Tests 07/17/20 07/17/20 07/17/20 Range/Units 16:00 16:17 16:45 WBC 6.85 (4.0-11.0) K/uL RBC 4.58 (4.30-5.90) M/uL Hgb 14.9 (12.0-16.0) g/dL Hct 43.3 (36.0-46.0) % MCV 94.5 (80.0-98.0) fL MCH 32.5 H (27.0-32.0) pg MCHC 34.4 (31.0-37.0) g/dL RDW Std Deviation 52.1 (28.0-62.0) fl RDW Coeff of Ame 15 (11.0-15.0) % Plt Count 192 (150-400) K/uL MPV 11.00 (7.40-12.00) fL Neut % (Auto) 57.9 (48.0-80.0) % Lymph % (Auto) 27.0 (16.0-40.0) % Morrill % (Auto) 13.7 (0.0-15.0) % Eos % (Auto) 0.4 (0.0-7.0) % Baso % (Auto) 1.0 (0.0-1.5) % Neut # (Auto) 4.0 (1.4-5.7) K/uL Lymph # (Auto) 1.9 (0.6-2.4) K/uL Morrill # (Auto) 0.9 H (0.0-0.8) K/uL Eos # (Auto) 0.0 (0.0-0.7) K/uL Baso # (Auto) 0.1 (0.0-0.1) K/uL Nucleated RBC % 0.0 /100WBC Nucleated RBCs # 0 K/uL Sodium 131 L (136-145) mmol/L Potassium 3.2 L (3.5-5.1) mmol/L Chloride 94 L (98-107) mmol/L Carbon Dioxide 31.1 (21.0-32.0) mmol/L BUN 53 H (7.0-18.0) mg/dL Creatinine 2.0 H (0.6-1.0) mg/dL Est Cr Clr Drug Dosing 20.53 mL/min Estimated GFR (MDRD) 24.4 ml/min Glucose 134 H (74-106) mg/dL Calcium 9.5 (8.5-10.1) mg/dL Total Bilirubin 1.6 H (0.2-1.0) mg/dL AST 50 H (15-37) IU/L ALT 35 (14-63) IU/L Alkaline Phosphatase 273 H (46-116) U/L Troponin I < 0.050 (0.000-0.056) ng/mL Total Protein 7.5 (6.4-8.2) g/dL Albumin 2.5 L (3.4-5.0) g/dL Globulin 5.0 H (2.6-4.0) g/dL Albumin/Globulin Ratio 0.5 L (0.9-1.6) Lipase 129 (73-393) U/L SARS-CoV-2 RNA (REINA) NEGATIVE (NEGATIVE) Meds: Medications Generic Name Dose Route Start Last Admin Trade Name Freq PRN Reason Stop Dose Admin Albuterol/Ipratropium 3 ml 07/17/20 18:55 Albuterol/Ipratropium 3.0-0.5 Mg/3 Ml Neb Soln NEB Q4HRRT PRN Shortness Of Breath/wheezing Aspirin 81 mg 07/18/20 09:00 Aspirin 81 Mg Tab.Chew PO DAILY OREN Sodium Chloride 1,000 mls @ 200 mls/hr 07/17/20 17:46 07/17/20 18:15 Normal Saline IV 07/17/20 22:45 200 mls/hr STAT ONE Administration Lactated Ringer's 1,000 mls @ 125 mls/hr 07/17/20 19:00 Ringers, Lactated IV ASDIRECTED OREN Morphine Sulfate 1 mg 07/17/20 18:55 Morphine 10 Mg/Ml Syringe IVPUSH 07/18/20 18:56 Q2H PRN Pain (severe 7-10) Nortriptyline HCl 20 mg 07/17/20 21:00 Nortriptyline 10 Mg Cap PO BEDTIME OREN Ondansetron HCl 4 mg 07/17/20 18:55 Ondansetron 4 Mg/2 Ml Sdv IVPUSH Q4H PRN Nausea/Vomiting Pantoprazole Sodium 40 mg 07/17/20 18:59 07/17/20 20:06 Pantoprazole 40 Mg Vial IV 40 mg DAILY OREN Administration Potassium Chloride 20 meq 07/18/20 09:00 Potassium Chloride 10 Meq Tab.Er PO DAILY OREN Pravastatin Sodium 80 mg 07/18/20 09:00 Pravastatin 40 Mg Tab PO DAILY OREN Sodium Chloride 10 ml 07/17/20 15:53 07/17/20 15:59 Sodium Chloride 0.9% 10 Ml Syringe FLUSH 10 ml ASDIRECTED PRN Administration Keep Vein Open Sodium Chloride 2.5 ml 07/17/20 15:53 07/17/20 15:59 Sodium Chloride 0.9% 2.5 Ml Syringe FLUSH 2.5 ml ASDIRECTED PRN Administration Keep Vein Open Discontinued Medications Generic Name Dose Route Start Last Admin Trade Name Freq PRN Reason Stop Dose Admin Sodium Chloride 1,000 mls @ 999 mls/hr 07/17/20 15:53 07/17/20 15:59 Normal Saline IV 07/17/20 16:53 999 mls/hr STAT ONE Administration Ondansetron HCl 4 mg 07/17/20 15:53 07/17/20 15:59 Ondansetron 4 Mg/2 Ml Sdv IVPUSH 07/17/20 15:54 4 mg ONETIME ONE Administration Pantoprazole Sodium 40 mg 07/18/20 09:00 Pantoprazole 40 Mg Vial IV DAILY [facility] Departure - Departure Time of Disposition: 20:10 Disposition: Refer to Observation Clinical Impression: Dehydration, Weakness, FRANCIS (acute kidney injury) - Discharge Information Sepsis Event Note (ED) - Focused Exam Vital Signs: Vital Signs Temp Pulse Resp BP Pulse Ox 07/17/20 15:53 98 F 102 H 18 130/59 L 97 - My Orders Last 24 Hours: My Active Orders 07/17/20 15:53 EKG Documentation Completion [RC] STAT Sodium Chloride 0.9% [Saline Flush] 10 ml FLUSH ASDIRECTED PRN Sodium Chloride 0.9% [Saline Flush] 2.5 ml FLUSH ASDIRECTED PRN Saline Lock Insert [OM.PC] Stat 07/17/20 17:46 Sodium Chloride 0.9% [Normal Saline] 1,000 ml IV STAT - Assessment/Plan Last 24 Hours: My Active Orders 07/17/20 15:53 EKG Documentation Completion [RC] STAT Sodium Chloride 0.9% [Saline Flush] 10 ml FLUSH ASDIRECTED PRN Sodium Chloride 0.9% [Saline Flush] 2.5 ml FLUSH ASDIRECTED PRN Saline Lock Insert [OM.PC] Stat 07/17/20 17:46 Sodium Chloride 0.9% [Normal Saline] 1,000 ml IV STAT
[2020-07-17] MEDS ORDERED: Sodium Chloride 0.9% 10 ML Syringe FLUSH PRN (15:53)
[2020-07-17] MEDS ORDERED: Sodium Chloride 0.9% 2.5 ML Syringe FLUSH PRN (15:53)
[2020-07-17] MEDS ORDERED: Sodium Chloride 0.9% 1,000 ML IV ONE ×2 (15:53→17:46)
[2020-07-17] MEDS ORDERED: Ondansetron 4 MG/2 ML SDV IVPUSH ONE (15:53)
--- NOTE | 2020-07-17 16:33 | CR ---
indication: Weakness, nausea and vomiting Comparison: Single-view chest July 02, 2019 Technique: Single AP view chest Findings: There is hyperinflation and chronic interstitial change. There is no focal consolidation, effusion, or pneumothorax. The cardiomediastinal silhouette is within normal limits. The bony thorax is grossly intact. Impression: Hyperinflation and chronic interstitial changes without evidence of dense consolidation. Dictated by Asad Martin MD @ Jul 17 2020 4:31PM Signed by Dr. Asad Martin @ Jul 17 2020 4:32PM
[2020-07-17 17:19] LABS: BLOOD UREA NITROGEN,BUN 53 mg/dL (7.0-18.0); CARBON DIOXIDE,CO2 31.1 mmol/L (21.0-32.0); CHLORIDE,CL 94 mmol/L (98-107); GLUCOSE RANDOM 134 mg/dL (74-106); LIPASE 129 U/L (73-393); POTASSIUM,K 3.2 mmol/L (3.5-5.1); SODIUM,NA 131 mmol/L (136-145)
[2020-07-17] MEDS ORDERED: Ondansetron 4 MG/2 ML SDV IVPUSH PRN (18:55)
[2020-07-17] MEDS ORDERED: Albuterol/Ipratropium 3.0-0.5 MG/3 ML Neb Soln NEB PRN (18:55)
[2020-07-17] MEDS ORDERED: Pantoprazole 40 MG Vial IV SCH (18:59)
--- NOTE | 2020-07-17 19:08 | PCM.HP.2 ---
H&P History of Present Illness - General Date of Service: 07/17/20 Admit Problem/Dx: Admission Diagnosis/Problem Admission Diagnosis/Problem Acute kidney injury - History of Present Illness Initial Comments - Free Text/Narative: Patient is a 74-year-old female with PMH TN status post stents, congestive heart failure, COPD, type 2 diabetes, hypertension and liver cirrhosis. Patient is a daily smoker over the past 55 years. who presents to the emergency room with complaints of weakness, nausea, vomiting and decreased PO take. Patient sttaes that for last few days she hasnt been able to eat or drink much. she does use a walker and cane at home and needs a lot of assistance from her to get around. She states she has mild generalized abdominal pain which is chronic, no new abdominal pain today. Patient has chronic right knee pain due to arthritis but is not a candidate for surgery due to her poor health, which limits her ambulation further. No recent travel. Patient denies any fever, chills, headache, change in vision, syncope or near syncope. Denies any chest pain, back pain, shortness of breath or cough. Denies any diarrhea, constipation or dysuria. Has not noted any blood in urine or stool. 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 Patient was admitted for further care. Abdomen Pain Score (Numeric/FACES): 2 - Related Data Allergies/Adverse Reactions: Allergies Allergy/AdvReac Type Severity Reaction Status Date / Time codeine Allergy Vomiting Verified 07/17/20 19:33 diphenhydramine Allergy Itching Verified 07/17/20 19:33 [From Benadryl] propoxyphene HCl Allergy Vomiting Verified 07/17/20 19:33 [From Darvon] Home Medications: Home Meds Aspirin 81 mg PO DAILY 01/08/19 [History] Nortriptyline 20 mg PO BEDTIME 01/08/19 [History] Pravastatin [Pravachol] 80 mg PO DAILY 01/08/19 [History] Lactulose 10 gm PO BID 11/30/19 [History] Albuterol [Proair HFA] 90 mcg IH ASDIRECTED PRN 12/01/19 [History] Celecoxib 100 mg PO DAILY 12/01/19 [History] Potassium Chloride 20 meq PO DAILY 12/01/19 [History] Spironolactone [Aldactone] 100 mg PO DAILY 12/01/19 [History] Torsemide [Demadex] 20 mg PO DAILY 30 Days #30 12/01/19 [Rx] buPROPion HCL [Bupropion HCl Sr] 100 mg PO DAILY 12/01/19 [History] metOLazone [Metolazone] 2.5 mg PO WEEKLY PRN 12/01/19 [History] Past Medical History - Past Health History Medical/Surgical History: Denies Medical/Surgical History HEENT History: Reports: Hard of Hearing, Impaired Vision Other HEENT History: wears corrective glasses Cardiovascular History: Reports: CAD, Heart Failure, High Cholesterol, Hypertension, [place], SOB on Exertion, Stents, Other (See Below) Other Cardiovascular History: states she has had 7 stents placed. Peripheral Atery Disease Respiratory History: Reports: COPD, Pneumonia, Recurrent Gastrointestinal History: Reports: Cirrhosis, Irritable Bowel Syndrome Genitourinary History: Reports: UTI, Recurrent [place] History: Reports: Musculoskeletal History: Reports: Back Pain, Chronic, RA Neurological History: Reports: Migraines Psychiatric History: Reports: Anxiety, Depression, Panic Attack Endocrine/Metabolic History: Reports: Diabetes, Type II, Osteopenia Hematologic History: Reports: Anticoagulation Therapy - Infectious Disease History Infectious Disease History: Reports: Chicken Pox, Measles, Mumps - Past Surgical History HEENT Surgical History: Reports: Tonsillectomy Cardiovascular Surgical History: Reports: Other (See Below) Other Cardiovascular Surgeries/Procedures: STENTS X7 GI Surgical History: Reports: Cholecystectomy Female Surgical History: Reports: Hysterectomy Musculoskeletal Surgical History: Reports: None Social & Family History - Family History Family Medical History: No Pertinent Family History - Caffeine Use Caffeine Use: Reports: None - Recreational Drug Use Recreational Drug Use: No H&P Review of Systems - Review of Systems: Review Of Systems: See Below General: Reports: Malaise, Weakness, Fatigue. Denies: Fever, Chills Pulmonary: Denies: Shortness of Breath, Wheezing Cardiovascular: Denies: Chest Pain, Palpitations, Dyspnea on Exertion Gastrointestinal: Reports: Abdominal Pain, Anorexia, Black Stool, Decreased Appetite, Nausea, Vomiting. Denies: Bloody Stool, Constipation, Diarrhea Genitourinary: Denies: Dysuria, Frequency, Burning Musculoskeletal: Reports: Joint Pain. Denies: Neck Pain, Shoulder Pain, Arm Pain Skin: Denies: Cyanosis, Jaundice, Pallor Psychiatric: Denies: Confusion, Depression, Mood Lability Neurological: Reports: Difficulty Walking. Denies: Confusion, Dizziness, Headache, Numbness Hematologic/Lymphatic: Denies: Easy Bleeding, Easy Bruising Exam - Exam Exam: See Below - Vital Signs Vital Signs: Last Vital Signs Temp 36.6 C 07/17/20 15:53 Pulse 102 H 07/17/20 15:53 Resp 18 07/17/20 15:53 BP 130/59 L 07/17/20 15:53 Pulse Ox 97 07/17/20 15:53 Weight: 52.7 kg - Exam General: Alert, Oriented, Cooperative, Mild Distress Neck: Supple, Trachea Midline Lungs: Clear to Auscultation, Normal Respiratory Effort Cardiovascular: Regular Rate, Regular Rhythm, Normal S1, Normal S2 GI/Abdominal Exam: Normal Bowel Sounds, Soft, Non-Tender Extremities: Normal Inspection, No Pedal Edema, Leg Pain (right knee), Limited Range of Motion. No: Joint Swelling, Increased Warmth, Redness - Patient Data Lab Results Last 24 hrs: Laboratory Results - last 24 hr 07/17/20 07/17/20 07/17/20 Range/Units 16:00 16:17 16:45 WBC 6.85 (4.0-11.0) K/uL RBC 4.58 (4.30-5.90) M/uL Hgb 14.9 (12.0-16.0) g/dL Hct 43.3 (36.0-46.0) % MCV 94.5 (80.0-98.0) fL MCH 32.5 H (27.0-32.0) pg MCHC 34.4 (31.0-37.0) g/dL RDW Std Deviation 52.1 (28.0-62.0) fl RDW Coeff of Ame 15 (11.0-15.0) % Plt Count 192 (150-400) K/uL MPV 11.00 (7.40-12.00) fL Neut % (Auto) 57.9 (48.0-80.0) % Lymph % (Auto) 27.0 (16.0-40.0) % [place] % (Auto) 13.7 (0.0-15.0) % Eos % (Auto) 0.4 (0.0-7.0) % Baso % (Auto) 1.0 (0.0-1.5) % Neut # (Auto) 4.0 (1.4-5.7) K/uL Lymph # (Auto) 1.9 (0.6-2.4) K/uL [place] # (Auto) 0.9 H (0.0-0.8) K/uL Eos # (Auto) 0.0 (0.0-0.7) K/uL Baso # (Auto) 0.1 (0.0-0.1) K/uL Nucleated RBC % 0.0 /100WBC Nucleated RBCs # 0 K/uL Sodium 131 L (136-145) mmol/L Potassium 3.2 L (3.5-5.1) mmol/L Chloride 94 L (98-107) mmol/L Carbon Dioxide 31.1 (21.0-32.0) mmol/L BUN 53 H (7.0-18.0) mg/dL Creatinine 2.0 H (0.6-1.0) mg/dL Est Cr Clr Drug Dosing 20.53 mL/min Estimated GFR (MDRD) 24.4 ml/min Glucose 134 H (74-106) mg/dL Calcium 9.5 (8.5-10.1) mg/dL Total Bilirubin 1.6 H (0.2-1.0) mg/dL AST 50 H (15-37) IU/L ALT 35 (14-63) IU/L Alkaline Phosphatase 273 H (46-116) U/L Troponin I < 0.050 (0.000-0.056) ng/mL Total Protein 7.5 (6.4-8.2) g/dL Albumin 2.5 L (3.4-5.0) g/dL Globulin 5.0 H (2.6-4.0) g/dL Albumin/Globulin Ratio 0.5 L (0.9-1.6) Lipase 129 (73-393) U/L Urine Color Urine Appearance Urine pH (5.0-8.0) Ur Specific [place] (1.001-1.035) Urine Protein (NEGATIVE) mg/dL Urine Glucose (UA) (NEGATIVE) mg/dL Urine Ketones (NEGATIVE) mg/dL Urine Occult Blood (NEGATIVE) Urine Nitrite (NEGATIVE) Urine Bilirubin (NEGATIVE) Urine Urobilinogen (<2.0) EU/dL Ur Leukocyte Esterase (NEGATIVE) SARS-CoV-2 RNA (REINA) NEGATIVE (NEGATIVE) 07/17/20 Range/Units 18:18 WBC (4.0-11.0) K/uL RBC (4.30-5.90) M/uL Hgb (12.0-16.0) g/dL Hct (36.0-46.0) % MCV (80.0-98.0) fL MCH (27.0-32.0) pg MCHC (31.0-37.0) g/dL RDW Std Deviation (28.0-62.0) fl RDW Coeff of Ame (11.0-15.0) % Plt Count (150-400) K/uL MPV (7.40-12.00) fL Neut % (Auto) (48.0-80.0) % Lymph % (Auto) (16.0-40.0) % [place] % (Auto) (0.0-15.0) % Eos % (Auto) (0.0-7.0) % Baso % (Auto) (0.0-1.5) % Neut # (Auto) (1.4-5.7) K/uL Lymph # (Auto) (0.6-2.4) K/uL [place] # (Auto) (0.0-0.8) K/uL Eos # (Auto) (0.0-0.7) K/uL Baso # (Auto) (0.0-0.1) K/uL Nucleated RBC % /100WBC Nucleated RBCs # K/uL Sodium (136-145) mmol/L Potassium (3.5-5.1) mmol/L Chloride (98-107) mmol/L Carbon Dioxide (21.0-32.0) mmol/L BUN (7.0-18.0) mg/dL Creatinine (0.6-1.0) mg/dL Est Cr Clr Drug Dosing mL/min Estimated GFR (MDRD) ml/min Glucose (74-106) mg/dL Calcium (8.5-10.1) mg/dL Total Bilirubin (0.2-1.0) mg/dL AST (15-37) IU/L ALT (14-63) IU/L Alkaline Phosphatase (46-116) U/L Troponin I (0.000-0.056) ng/mL Total Protein (6.4-8.2) g/dL Albumin (3.4-5.0) g/dL Globulin (2.6-4.0) g/dL Albumin/Globulin Ratio (0.9-1.6) Lipase (73-393) U/L Urine Color YELLOW Urine Appearance CLEAR Urine pH 7.0 (5.0-8.0) Ur Specific [place] 1.015 (1.001-1.035) Urine Protein NEGATIVE (NEGATIVE) mg/dL Urine Glucose (UA) NEGATIVE (NEGATIVE) mg/dL Urine Ketones NEGATIVE (NEGATIVE) mg/dL Urine Occult Blood NEGATIVE (NEGATIVE) Urine Nitrite NEGATIVE (NEGATIVE) Urine Bilirubin NEGATIVE (NEGATIVE) Urine Urobilinogen 1.0 (<2.0) EU/dL Ur Leukocyte Esterase NEGATIVE (NEGATIVE) SARS-CoV-2 RNA (REINA) (NEGATIVE) Result Diagrams: 07/17/20 16:00 07/17/20 16:45 Sepsis Event Note - Evaluation Sepsis Screening Result: No Definite Risk - Focused Exam Vital Signs: Vital Signs Temp Pulse Resp BP Pulse Ox 07/17/20 15:53 36.6 C 102 H 18 130/59 L 97 - Problem List (1) Right knee DJD SNOMED Code(s): 291156451147974 ICD Code: M17.11 - UNILATERAL PRIMARY OSTEOARTHRITIS, RIGHT KNEE Status: Acute Current Visit: Yes (2) FRANCIS (acute kidney injury) SNOMED Code(s): 65222375, 88651562 ICD Code: N17.9 - ACUTE KIDNEY FAILURE, UNSPECIFIED Status: Acute Current Visit: Yes (3) Dehydration SNOMED Code(s): 66186362 ICD Code: E86.0 - DEHYDRATION Status: Acute Current Visit: Yes (4) Weakness SNOMED Code(s): 23135428 ICD Code: R53.1 - WEAKNESS Status: Acute Current Visit: Yes (5) Ambulatory dysfunction SNOMED Code(s): 522916277 ICD Code: R26.2 - DIFFICULTY IN WALKING, NOT ELSEWHERE CLASSIFIED Status: Acute Current Visit: No (6) Esophageal varices SNOMED Code(s): 61673712 ICD Code: I85.00 - ESOPHAGEAL VARICES WITHOUT BLEEDING Status: Acute Current Visit: No Qualifiers: Esophageal varices type: unspecified type Esophageal varices bleeding: without bleeding Qualified Code(s): I85.00 - Esophageal varices without bleeding (7) Knee pain, right SNOMED Code(s): 13418879 ICD Code: M25.561 - PAIN IN RIGHT KNEE Status: Acute Current Visit: No (8) CAD (coronary artery disease) SNOMED Code(s): 70629067 ICD Code: I25.10 - ATHSCL HEART DISEASE OF [place] CORONARY ARTERY W/O ANG PCTRS Status: Chronic Current Visit: No (9) COPD (chronic obstructive pulmonary disease) SNOMED Code(s): 42687045 ICD Code: J44.9 - CHRONIC OBSTRUCTIVE PULMONARY DISEASE, UNSPECIFIED Status: Chronic Current Visit: No (10) Congestive heart failure (CHF) SNOMED Code(s): 56105748 ICD Code: I50.9 - HEART FAILURE, UNSPECIFIED Status: Chronic Current Visit: No Qualifiers: Heart failure type: unspecified Heart failure chronicity: unspecified Qualified Code(s): I50.9 - Heart failure, unspecified (11) DM type 2 (diabetes mellitus, type 2) SNOMED Code(s): 75782739 ICD Code: E11.9 - TYPE 2 DIABETES MELLITUS WITHOUT COMPLICATIONS Status: Chronic Current Visit: No (12) History of coronary artery stent placement SNOMED Code(s): 644591168, 943810488 ICD Code: Z95.5 - PRESENCE OF CORONARY ANGIOPLASTY IMPLANT AND GRAFT Status: Chronic Current Visit: No (13) Nausea & vomiting SNOMED Code(s): 48729605 ICD Code: R11.2 - NAUSEA WITH VOMITING, UNSPECIFIED Status: Acute Current Visit: Yes (14) Liver cirrhosis SNOMED Code(s): 00621100 ICD Code: K74.60 - UNSPECIFIED CIRRHOSIS OF LIVER Status: Acute Current Visit: No Qualifiers: Hepatic cirrhosis type: unspecified hepatic cirrhosis Ascites presence: unspecified Qualified Code(s): K74.60 - Unspecified cirrhosis of liver Problem List Initiated/Reviewed/Updated: Yes Orders Last 24hrs: Active Orders 24 hr Category Date Time Status Patient Status [ADT] Stat ADT 07/17/20 18:38 Active Accu Check [Blood Glucose Check, Bedside] [RC] Q6H Care 07/17/20 18:58 Ordered Ambulate [RC] ASDIRECTED Care 07/17/20 18:55 Ordered Antiembolic Devices [RC] PER UNIT ROUTINE Care 07/17/20 18:56 Ordered EKG Documentation Completion [RC] STAT Care 07/17/20 15:53 Active Oxygen Therapy [RC] PRN Care 07/17/20 18:55 Ordered Pulse Oximetry [RC] PRN Care 07/17/20 18:55 Ordered RT Aerosol Therapy [RC] ASDIRECTED Care 07/17/20 18:57 Ordered VTE/DVT Education [RC] PER UNIT ROUTINE Care 07/17/20 18:55 Ordered Vital Signs [RC] Q4H Care 07/17/20 18:55 Ordered Nothing per Oral Now Diet [DIET] Diet 07/17/20 Dinner Ordered CBC WITH AUTO DIFF [HEME] AM Lab 07/18/20 05:11 Ordered CMP [COMPREHENSIVE METABOLIC PN,CMP] [CHEM] AM Lab 07/18/20 05:11 Ordered CREATININE,URINE RAND [URCHEM] Routine Lab 07/17/20 19:06 Ordered ELECTROLYTES,URINE RANDOM [URCHEM] Routine Lab 07/17/20 19:06 Ordered MAGNESIUM [CHEM] AM Lab 07/18/20 05:11 Ordered PHOSPHORUS [CHEM] AM Lab 07/18/20 05:11 Ordered Albuterol/Ipratropium [DuoNeb 3.0-0.5 MG/3 ML] Med 07/17/20 18:55 Ordered 3 ml NEB Q4HRRT PRN Aspirin Med 07/18/20 09:00 Ordered 81 mg PO DAILY Lactated Ringers @ 125 MLS/HR(1000ml) Med 07/17/20 19:00 Ordered Lactated Ringers [Ringers, Lactated] 1,000 ml IV ASDIRECTED Morphine Med 07/17/20 18:55 Ordered 1 mg IVPUSH Q2H PRN Nortriptyline Med 07/17/20 21:00 Ordered 20 mg PO BEDTIME Ondansetron [Zofran] Med 07/17/20 18:55 Ordered 4 mg IVPUSH Q4H PRN Pantoprazole [ProTONIX IV] Med 07/17/20 18:59 Ordered 40 mg IV DAILY Potassium Chloride [Klor-Con 10] Med 07/18/20 09:00 Ordered 20 meq PO DAILY Pravastatin [Pravachol] Med 07/18/20 09:00 Ordered 80 mg PO DAILY Sodium Chloride 0.9% [Normal Saline] 1,000 ml Med 07/17/20 17:46 Active IV STAT Sodium Chloride 0.9% [Saline Flush] Med 07/17/20 15:53 Active 10 ml FLUSH ASDIRECTED PRN Sodium Chloride 0.9% [Saline Flush] Med 07/17/20 15:53 Active 2.5 ml FLUSH ASDIRECTED PRN Saline Lock Insert [OM.PC] Stat Ot 07/17/20 15:53 Ordered Sequential Compression Device [OM.PC] Per Unit Routine Ot 07/17/20 18:56 Ordered Medication Orders Albuterol/Ipratropium (Albuterol/Ipratropium 3.0-0.5 Mg/3 Ml Neb Soln) 3 ml NEB Q4HRRT PRN PRN Reason: Shortness Of Breath/wheezing Aspirin (Aspirin 81 Mg Tab.Chew) 81 mg PO DAILY OREN Sodium Chloride (Normal Saline) 1,000 mls @ 200 mls/hr IV STAT ONE Stop: 07/17/20 22:45 Last Admin: 07/17/20 18:15 Dose: 200 mls/hr Documented by: MAILE Lactated Ringer's (Ringers, Lactated) 1,000 mls @ 125 mls/hr IV ASDIRECTED OREN Morphine Sulfate (Morphine 10 Mg/Ml Syringe) 1 mg IVPUSH Q2H PRN PRN Reason: Pain (severe 7-10) Stop: 07/18/20 18:56 Nortriptyline HCl (Nortriptyline 10 Mg Cap) 20 mg PO BEDTIME OREN Ondansetron HCl (Ondansetron 4 Mg/2 Ml Sdv) 4 mg IVPUSH Q4H PRN PRN Reason: Nausea/Vomiting Pantoprazole Sodium (Pantoprazole 40 Mg Vial) 40 mg IV DAILY OREN Potassium Chloride (Potassium Chloride 10 Meq Tab.Er) 20 meq PO DAILY OREN Pravastatin Sodium (Pravastatin 40 Mg Tab) 80 mg PO DAILY OREN Sodium Chloride (Sodium Chloride 0.9% 10 Ml Syringe) 10 ml FLUSH ASDIRECTED PRN PRN Reason: Keep Vein Open Last Admin: 07/17/20 15:59 Dose: 10 ml Documented by: SARAH Sodium Chloride (Sodium Chloride 0.9% 2.5 Ml Syringe) 2.5 ml FLUSH ASDIRECTED PRN PRN Reason: Keep Vein Open Last Admin: 07/17/20 15:59 Dose: 2.5 ml Documented by: SARAH Assessment/Plan Comment:: 74 y/o F admitted for N/V, generalized weakness, FRANCIS ambulatory dysfunction NPO for now, start IV fluids IV zofran, IV PPI Monitor and replete electrolyses Trend creatinine daily , obtain urine Lytes and creatinine to calculate FENA Morphine for pain PT eval for ambulatory dysfunction and weakness
[2020-07-17] MEDS: Nortriptyline 10 MG Cap PO SCH (22:21)
[2020-07-17] MEDS: Morphine 10 MG/ML Syringe IVPUSH PRN (22:48)
[2020-07-18] MEDS: Lactated Ringers 1,000 ML IV SCH ×3 (00:33→18:28)
[2020-07-18] MEDS: Morphine 10 MG/ML Syringe IVPUSH PRN (01:09)
[2020-07-18 05:41] LABS: POTASSIUM,K 3.4 mmol/L (3.5-5.1)
[2020-07-18 05:50] LABS: CARBON DIOXIDE,CO2 31.2 mmol/L (21.0-32.0)
[2020-07-18] MEDS: Aspirin 81 MG Tab.Chew PO SCH (08:43)
[2020-07-18] MEDS: Potassium Chloride 10 MEQ Tab.ER PO SCH (08:43)
[2020-07-18] MEDS ORDERED: Pantoprazole 40 MG Vial IV SCH (09:00)
--- NOTE | 2020-07-18 09:15 | PCM.PN ---
- General Info Date of Service: 07/18/20 Admission Dx/Problem (Free Text): Admission Diagnosis/Problem Admission Diagnosis/Problem Acute kidney injury Subjective Update: patient seen at examined at bedside, still feels very weak, appetite is slightly better,, spoke to at bedside, he agrees with PT soumya , has to think about possible domingo placement. - Review of Systems General: Reports: Weakness, Fatigue, Malaise. Denies: Fever Cardiovascular: Denies: Chest Pain, Palpitations Gastrointestinal: Reports: Nausea. Denies: Abdominal Pain, Constipation, Diarrhea, Difficulty Swallowing, Vomiting Genitourinary: Denies: Dysuria, Frequency, Burning Musculoskeletal: Reports: Leg Pain, Joint Pain. Denies: Neck Pain, Shoulder Pain, Arm Pain Skin: Denies: Cyanosis, Jaundice, Mottled Neurological: Denies: Confusion, Dizziness, Headache - Patient Data Vitals - Most Recent: Last Vital Signs Temp 36.3 C 07/18/20 08:10 Pulse 80 07/18/20 08:10 Resp 16 07/18/20 08:10 BP 111/57 L 07/18/20 08:10 Pulse Ox 91 L 07/18/20 08:10 Weight - Most Recent: 57.47 kg I&O - Last 24 Hours: Intake & Output 07/17/20 07/18/20 07/18/20 22:59 06:59 14:59 Intake Total 1433 Balance 1433 Lab Results Last 24 Hours: Laboratory Results - last 24 hr 07/17/20 07/17/20 07/17/20 Range/Units 16:00 16:17 16:45 WBC 6.85 (4.0-11.0) K/uL RBC 4.58 (4.30-5.90) M/uL Hgb 14.9 (12.0-16.0) g/dL Hct 43.3 (36.0-46.0) % MCV 94.5 (80.0-98.0) fL MCH 32.5 H (27.0-32.0) pg MCHC 34.4 (31.0-37.0) g/dL RDW Std Deviation 52.1 (28.0-62.0) fl RDW Coeff of Ame 15 (11.0-15.0) % Plt Count 192 (150-400) K/uL MPV 11.00 (7.40-12.00) fL Neut % (Auto) 57.9 (48.0-80.0) % Lymph % (Auto) 27.0 (16.0-40.0) % Cache % (Auto) 13.7 (0.0-15.0) % Eos % (Auto) 0.4 (0.0-7.0) % Baso % (Auto) 1.0 (0.0-1.5) % Neut # (Auto) 4.0 (1.4-5.7) K/uL Lymph # (Auto) 1.9 (0.6-2.4) K/uL Cache # (Auto) 0.9 H (0.0-0.8) K/uL Eos # (Auto) 0.0 (0.0-0.7) K/uL Baso # (Auto) 0.1 (0.0-0.1) K/uL Nucleated RBC % 0.0 /100WBC Nucleated RBCs # 0 K/uL Sodium 131 L (136-145) mmol/L Potassium 3.2 L (3.5-5.1) mmol/L Chloride 94 L (98-107) mmol/L Carbon Dioxide 31.1 (21.0-32.0) mmol/L BUN 53 H (7.0-18.0) mg/dL Creatinine 2.0 H (0.6-1.0) mg/dL Est Cr Clr Drug Dosing 20.53 mL/min Estimated GFR (MDRD) 24.4 ml/min Glucose 134 H (74-106) mg/dL POC Glucose (60-110) mg/dL Calcium 9.5 (8.5-10.1) mg/dL Phosphorus (2.6-4.7) mg/dL Magnesium (1.8-2.4) mg/dL Total Bilirubin 1.6 H (0.2-1.0) mg/dL AST 50 H (15-37) IU/L ALT 35 (14-63) IU/L Alkaline Phosphatase 273 H (46-116) U/L Troponin I < 0.050 (0.000-0.056) ng/mL Total Protein 7.5 (6.4-8.2) g/dL Albumin 2.5 L (3.4-5.0) g/dL Globulin 5.0 H (2.6-4.0) g/dL Albumin/Globulin Ratio 0.5 L (0.9-1.6) Lipase 129 (73-393) U/L Urine Color Urine Appearance Urine pH (5.0-8.0) Ur Specific [place] (1.001-1.035) Urine Protein (NEGATIVE) mg/dL Urine Glucose (UA) (NEGATIVE) mg/dL Urine Ketones (NEGATIVE) mg/dL Urine Occult Blood (NEGATIVE) Urine Nitrite (NEGATIVE) Urine Bilirubin (NEGATIVE) Urine Urobilinogen (<2.0) EU/dL Ur Leukocyte Esterase (NEGATIVE) Ur Random Creatinine mg/dL Ur Random Sodium (40.0-220.0) mmol/L Ur Random Potassium mmol/L Ur Random Chloride mmol/L SARS-CoV-2 RNA (REINA) NEGATIVE (NEGATIVE) 07/17/20 07/17/20 07/17/20 Range/Units 18:18 18:18 21:26 WBC (4.0-11.0) K/uL RBC (4.30-5.90) M/uL Hgb (12.0-16.0) g/dL Hct (36.0-46.0) % MCV (80.0-98.0) fL MCH (27.0-32.0) pg MCHC (31.0-37.0) g/dL RDW Std Deviation (28.0-62.0) fl RDW Coeff of Ame (11.0-15.0) % Plt Count (150-400) K/uL MPV (7.40-12.00) fL Neut % (Auto) (48.0-80.0) % Lymph % (Auto) (16.0-40.0) % Cache % (Auto) (0.0-15.0) % Eos % (Auto) (0.0-7.0) % Baso % (Auto) (0.0-1.5) % Neut # (Auto) (1.4-5.7) K/uL Lymph # (Auto) (0.6-2.4) K/uL Cache # (Auto) (0.0-0.8) K/uL Eos # (Auto) (0.0-0.7) K/uL Baso # (Auto) (0.0-0.1) K/uL Nucleated RBC % /100WBC Nucleated RBCs # K/uL Sodium (136-145) mmol/L Potassium (3.5-5.1) mmol/L Chloride (98-107) mmol/L Carbon Dioxide (21.0-32.0) mmol/L BUN (7.0-18.0) mg/dL Creatinine (0.6-1.0) mg/dL Est Cr Clr Drug Dosing mL/min Estimated GFR (MDRD) ml/min Glucose (74-106) mg/dL POC Glucose 106 (60-110) mg/dL Calcium (8.5-10.1) mg/dL Phosphorus (2.6-4.7) mg/dL Magnesium (1.8-2.4) mg/dL Total Bilirubin (0.2-1.0) mg/dL AST (15-37) IU/L ALT (14-63) IU/L Alkaline Phosphatase (46-116) U/L Troponin I (0.000-0.056) ng/mL Total Protein (6.4-8.2) g/dL Albumin (3.4-5.0) g/dL Globulin (2.6-4.0) g/dL Albumin/Globulin Ratio (0.9-1.6) Lipase (73-393) U/L Urine Color YELLOW Urine Appearance CLEAR Urine pH 7.0 (5.0-8.0) Ur Specific [place] 1.015 (1.001-1.035) Urine Protein NEGATIVE (NEGATIVE) mg/dL Urine Glucose (UA) NEGATIVE (NEGATIVE) mg/dL Urine Ketones NEGATIVE (NEGATIVE) mg/dL Urine Occult Blood NEGATIVE (NEGATIVE) Urine Nitrite NEGATIVE (NEGATIVE) Urine Bilirubin NEGATIVE (NEGATIVE) Urine Urobilinogen 1.0 (<2.0) EU/dL Ur Leukocyte Esterase NEGATIVE (NEGATIVE) Ur Random Creatinine 70.6 mg/dL Ur Random Sodium 28.0 L (40.0-220.0) mmol/L Ur Random Potassium 39.6 mmol/L Ur Random Chloride 53 mmol/L SARS-CoV-2 RNA (REINA) (NEGATIVE) 07/18/20 07/18/20 07/18/20 Range/Units 00:50 04:56 04:56 WBC 4.15 (4.0-11.0) K/uL RBC 3.83 L (4.30-5.90) M/uL Hgb 11.9 L (12.0-16.0) g/dL Hct 36.6 (36.0-46.0) % MCV 95.6 (80.0-98.0) fL MCH 31.1 (27.0-32.0) pg MCHC 32.5 (31.0-37.0) g/dL RDW Std Deviation 53.4 (28.0-62.0) fl RDW Coeff of Ame 15 (11.0-15.0) % Plt Count 138 L (150-400) K/uL MPV 10.20 (7.40-12.00) fL Neut % (Auto) 41.2 L (48.0-80.0) % Lymph % (Auto) 40.7 H (16.0-40.0) % Cache % (Auto) 14.2 (0.0-15.0) % Eos % (Auto) 2.7 (0.0-7.0) % Baso % (Auto) 1.2 (0.0-1.5) % Neut # (Auto) 1.7 (1.4-5.7) K/uL Lymph # (Auto) 1.7 (0.6-2.4) K/uL Cache # (Auto) 0.6 (0.0-0.8) K/uL Eos # (Auto) 0.1 (0.0-0.7) K/uL Baso # (Auto) 0.1 (0.0-0.1) K/uL Nucleated RBC % 0.0 /100WBC Nucleated RBCs # 0 K/uL Sodium 135 L (136-145) mmol/L Potassium 3.4 L (3.5-5.1) mmol/L Chloride 100 (98-107) mmol/L Carbon Dioxide 31.2 (21.0-32.0) mmol/L BUN 43 H (7.0-18.0) mg/dL Creatinine 1.5 H (0.6-1.0) mg/dL Est Cr Clr Drug Dosing 28.30 mL/min Estimated GFR (MDRD) 33.9 ml/min Glucose 86 (74-106) mg/dL POC Glucose 91 (60-110) mg/dL Calcium 8.8 (8.5-10.1) mg/dL Phosphorus 2.8 (2.6-4.7) mg/dL Magnesium 2.3 (1.8-2.4) mg/dL Total Bilirubin 1.2 H (0.2-1.0) mg/dL AST 44 H (15-37) IU/L ALT 32 (14-63) IU/L Alkaline Phosphatase 226 H (46-116) U/L Troponin I (0.000-0.056) ng/mL Total Protein 6.4 (6.4-8.2) g/dL Albumin 2.1 L (3.4-5.0) g/dL Globulin 4.3 H (2.6-4.0) g/dL Albumin/Globulin Ratio 0.5 L (0.9-1.6) Lipase (73-393) U/L Urine Color Urine Appearance Urine pH (5.0-8.0) Ur Specific [place] (1.001-1.035) Urine Protein (NEGATIVE) mg/dL Urine Glucose (UA) (NEGATIVE) mg/dL Urine Ketones (NEGATIVE) mg/dL Urine Occult Blood (NEGATIVE) Urine Nitrite (NEGATIVE) Urine Bilirubin (NEGATIVE) Urine Urobilinogen (<2.0) EU/dL Ur Leukocyte Esterase (NEGATIVE) Ur Random Creatinine mg/dL Ur Random Sodium (40.0-220.0) mmol/L Ur Random Potassium mmol/L Ur Random Chloride mmol/L SARS-CoV-2 RNA (REINA) (NEGATIVE) 07/18/20 Range/Units 05:44 WBC (4.0-11.0) K/uL RBC (4.30-5.90) M/uL Hgb (12.0-16.0) g/dL Hct (36.0-46.0) % MCV (80.0-98.0) fL MCH (27.0-32.0) pg MCHC (31.0-37.0) g/dL RDW Std Deviation (28.0-62.0) fl RDW Coeff of Ame (11.0-15.0) % Plt Count (150-400) K/uL MPV (7.40-12.00) fL Neut % (Auto) (48.0-80.0) % Lymph % (Auto) (16.0-40.0) % Cache % (Auto) (0.0-15.0) % Eos % (Auto) (0.0-7.0) % Baso % (Auto) (0.0-1.5) % Neut # (Auto) (1.4-5.7) K/uL Lymph # (Auto) (0.6-2.4) K/uL Cache # (Auto) (0.0-0.8) K/uL Eos # (Auto) (0.0-0.7) K/uL Baso # (Auto) (0.0-0.1) K/uL Nucleated RBC % /100WBC Nucleated RBCs # K/uL Sodium (136-145) mmol/L Potassium (3.5-5.1) mmol/L Chloride (98-107) mmol/L Carbon Dioxide (21.0-32.0) mmol/L BUN (7.0-18.0) mg/dL Creatinine (0.6-1.0) mg/dL Est Cr Clr Drug Dosing mL/min Estimated GFR (MDRD) ml/min Glucose (74-106) mg/dL POC Glucose 82 (60-110) mg/dL Calcium (8.5-10.1) mg/dL Phosphorus (2.6-4.7) mg/dL Magnesium (1.8-2.4) mg/dL Total Bilirubin (0.2-1.0) mg/dL AST (15-37) IU/L ALT (14-63) IU/L Alkaline Phosphatase (46-116) U/L Troponin I (0.000-0.056) ng/mL Total Protein (6.4-8.2) g/dL Albumin (3.4-5.0) g/dL Globulin (2.6-4.0) g/dL Albumin/Globulin Ratio (0.9-1.6) Lipase (73-393) U/L Urine Color Urine Appearance Urine pH (5.0-8.0) Ur Specific [place] (1.001-1.035) Urine Protein (NEGATIVE) mg/dL Urine Glucose (UA) (NEGATIVE) mg/dL Urine Ketones (NEGATIVE) mg/dL Urine Occult Blood (NEGATIVE) Urine Nitrite (NEGATIVE) Urine Bilirubin (NEGATIVE) Urine Urobilinogen (<2.0) EU/dL Ur Leukocyte Esterase (NEGATIVE) Ur Random Creatinine mg/dL Ur Random Sodium (40.0-220.0) mmol/L Ur Random Potassium mmol/L Ur Random Chloride mmol/L SARS-CoV-2 RNA (REINA) (NEGATIVE) Med Orders - Current: Current Medications Albuterol/Ipratropium (Albuterol/Ipratropium 3.0-0.5 Mg/3 Ml Neb Soln) 3 ml NEB Q4HRRT PRN PRN Reason: Shortness Of Breath/wheezing Aspirin (Aspirin 81 Mg Tab.Chew) 81 mg PO DAILY [facility] Last Admin: 07/18/20 08:43 Dose: 81 mg Documented by: Lactated Ringer's (Ringers, Lactated) 1,000 mls @ 125 mls/hr IV ASDIRECTED [facility] Last Admin: 07/18/20 08:43 Dose: 125 mls/hr Documented by: Pantoprazole Sodium 40 mg/ (Sodium Chloride) 10 mls @ 200 mls/hr IV Q24H OREN Morphine Sulfate (Morphine 2 Mg/Ml Syringe) 1 mg IVPUSH Q2H PRN PRN Reason: Pain (severe 7-10) Nortriptyline HCl (Nortriptyline 10 Mg Cap) 20 mg PO BEDTIME [facility] Last Admin: 07/17/20 22:21 Dose: 20 mg Documented by: Ondansetron HCl (Ondansetron 4 Mg/2 Ml Sdv) 4 mg IVPUSH Q4H PRN PRN Reason: Nausea/Vomiting Potassium Chloride (Potassium Chloride 10 Meq Tab.Er) 20 meq PO DAILY [facility] Last Admin: 07/18/20 08:43 Dose: 20 meq Documented by: Potassium Chloride (Potassium Chloride 20 Meq Tab.Er) 40 meq PO ONETIME ONE Stop: 07/18/20 09:14 Pravastatin Sodium (Pravastatin 40 Mg Tab) 80 mg PO BEDTIME OREN Sodium Chloride (Sodium Chloride 0.9% 10 Ml Syringe) 10 ml FLUSH ASDIRECTED PRN PRN Reason: Keep Vein Open Last Admin: 07/17/20 15:59 Dose: 10 ml Documented by: Sodium Chloride (Sodium Chloride 0.9% 2.5 Ml Syringe) 2.5 ml FLUSH ASDIRECTED PRN PRN Reason: Keep Vein Open Last Admin: 07/17/20 15:59 Dose: 2.5 ml Documented by: Discontinued Medications Sodium Chloride (Normal Saline) 1,000 mls @ 999 mls/hr IV STAT ONE Stop: 07/17/20 16:53 Last Admin: 07/17/20 15:59 Dose: 999 mls/hr Documented by: Sodium Chloride (Normal Saline) 1,000 mls @ 200 mls/hr IV STAT ONE Stop: 07/17/20 22:45 Last Admin: 07/17/20 18:15 Dose: 200 mls/hr Documented by: Morphine Sulfate (Morphine 10 Mg/Ml Syringe) 1 mg IVPUSH Q2H PRN PRN Reason: Pain (severe 7-10) Stop: 07/18/20 18:56 Last Admin: 07/18/20 01:09 Dose: 1 mg Documented by: Ondansetron HCl (Ondansetron 4 Mg/2 Ml Sdv) 4 mg IVPUSH ONETIME ONE Stop: 07/17/20 15:54 Last Admin: 07/17/20 15:59 Dose: 4 mg Documented by: Pantoprazole Sodium (Pantoprazole 40 Mg Vial) 40 mg IV DAILY [facility] Pantoprazole Sodium (Pantoprazole 40 Mg Vial) 40 mg IV DAILY [facility] Last Admin: 07/17/20 20:06 Dose: 40 mg Documented by: - Exam Quality Assessment: Supplemental Oxygen General: Alert, Oriented, Cooperative Lungs: Clear to Auscultation, Normal Respiratory Effort GI/Abdominal Exam: Normal Bowel Sounds, Soft, Non-Tender Extremities: Normal Inspection, No Pedal Edema, Leg Pain - Patient Data Lab Results Last 24 hrs: Laboratory Results - last 24 hr 07/17/20 07/17/20 07/17/20 Range/Units 16:00 16:17 16:45 WBC 6.85 (4.0-11.0) K/uL RBC 4.58 (4.30-5.90) M/uL Hgb 14.9 (12.0-16.0) g/dL Hct 43.3 (36.0-46.0) % MCV 94.5 (80.0-98.0) fL MCH 32.5 H (27.0-32.0) pg MCHC 34.4 (31.0-37.0) g/dL RDW Std Deviation 52.1 (28.0-62.0) fl RDW Coeff of Ame 15 (11.0-15.0) % Plt Count 192 (150-400) K/uL MPV 11.00 (7.40-12.00) fL Neut % (Auto) 57.9 (48.0-80.0) % Lymph % (Auto) 27.0 (16.0-40.0) % Cache % (Auto) 13.7 (0.0-15.0) % Eos % (Auto) 0.4 (0.0-7.0) % Baso % (Auto) 1.0 (0.0-1.5) % Neut # (Auto) 4.0 (1.4-5.7) K/uL Lymph # (Auto) 1.9 (0.6-2.4) K/uL Cache # (Auto) 0.9 H (0.0-0.8) K/uL Eos # (Auto) 0.0 (0.0-0.7) K/uL Baso # (Auto) 0.1 (0.0-0.1) K/uL Nucleated RBC % 0.0 /100WBC Nucleated RBCs # 0 K/uL Sodium 131 L (136-145) mmol/L Potassium 3.2 L (3.5-5.1) mmol/L Chloride 94 L (98-107) mmol/L Carbon Dioxide 31.1 (21.0-32.0) mmol/L BUN 53 H (7.0-18.0) mg/dL Creatinine 2.0 H (0.6-1.0) mg/dL Est Cr Clr Drug Dosing 20.53 mL/min Estimated GFR (MDRD) 24.4 ml/min Glucose 134 H (74-106) mg/dL POC Glucose (60-110) mg/dL Calcium 9.5 (8.5-10.1) mg/dL Phosphorus (2.6-4.7) mg/dL Magnesium (1.8-2.4) mg/dL Total Bilirubin 1.6 H (0.2-1.0) mg/dL AST 50 H (15-37) IU/L ALT 35 (14-63) IU/L Alkaline Phosphatase 273 H (46-116) U/L Troponin I < 0.050 (0.000-0.056) ng/mL Total Protein 7.5 (6.4-8.2) g/dL Albumin 2.5 L (3.4-5.0) g/dL Globulin 5.0 H (2.6-4.0) g/dL Albumin/Globulin Ratio 0.5 L (0.9-1.6) Lipase 129 (73-393) U/L Urine Color Urine Appearance Urine pH (5.0-8.0) Ur Specific [place] (1.001-1.035) Urine Protein (NEGATIVE) mg/dL Urine Glucose (UA) (NEGATIVE) mg/dL Urine Ketones (NEGATIVE) mg/dL Urine Occult Blood (NEGATIVE) Urine Nitrite (NEGATIVE) Urine Bilirubin (NEGATIVE) Urine Urobilinogen (<2.0) EU/dL Ur Leukocyte Esterase (NEGATIVE) Ur Random Creatinine mg/dL Ur Random Sodium (40.0-220.0) mmol/L Ur Random Potassium mmol/L Ur Random Chloride mmol/L SARS-CoV-2 RNA (REINA) NEGATIVE (NEGATIVE) 07/17/20 07/17/20 07/17/20 Range/Units 18:18 18:18 21:26 WBC (4.0-11.0) K/uL RBC (4.30-5.90) M/uL Hgb (12.0-16.0) g/dL Hct (36.0-46.0) % MCV (80.0-98.0) fL MCH (27.0-32.0) pg MCHC (31.0-37.0) g/dL RDW Std Deviation (28.0-62.0) fl RDW Coeff of Ame (11.0-15.0) % Plt Count (150-400) K/uL MPV (7.40-12.00) fL Neut % (Auto) (48.0-80.0) % Lymph % (Auto) (16.0-40.0) % Cache % (Auto) (0.0-15.0) % Eos % (Auto) (0.0-7.0) % Baso % (Auto) (0.0-1.5) % Neut # (Auto) (1.4-5.7) K/uL Lymph # (Auto) (0.6-2.4) K/uL Cache # (Auto) (0.0-0.8) K/uL Eos # (Auto) (0.0-0.7) K/uL Baso # (Auto) (0.0-0.1) K/uL Nucleated RBC % /100WBC Nucleated RBCs # K/uL Sodium (136-145) mmol/L Potassium (3.5-5.1) mmol/L Chloride (98-107) mmol/L Carbon Dioxide (21.0-32.0) mmol/L BUN (7.0-18.0) mg/dL Creatinine (0.6-1.0) mg/dL Est Cr Clr Drug Dosing mL/min Estimated GFR (MDRD) ml/min Glucose (74-106) mg/dL POC Glucose 106 (60-110) mg/dL Calcium (8.5-10.1) mg/dL Phosphorus (2.6-4.7) mg/dL Magnesium (1.8-2.4) mg/dL Total Bilirubin (0.2-1.0) mg/dL AST (15-37) IU/L ALT (14-63) IU/L Alkaline Phosphatase (46-116) U/L Troponin I (0.000-0.056) ng/mL Total Protein (6.4-8.2) g/dL Albumin (3.4-5.0) g/dL Globulin (2.6-4.0) g/dL Albumin/Globulin Ratio (0.9-1.6) Lipase (73-393) U/L Urine Color YELLOW Urine Appearance CLEAR Urine pH 7.0 (5.0-8.0) Ur Specific [place] 1.015 (1.001-1.035) Urine Protein NEGATIVE (NEGATIVE) mg/dL Urine Glucose (UA) NEGATIVE (NEGATIVE) mg/dL Urine Ketones NEGATIVE (NEGATIVE) mg/dL Urine Occult Blood NEGATIVE (NEGATIVE) Urine Nitrite NEGATIVE (NEGATIVE) Urine Bilirubin NEGATIVE (NEGATIVE) Urine Urobilinogen 1.0 (<2.0) EU/dL Ur Leukocyte Esterase NEGATIVE (NEGATIVE) Ur Random Creatinine 70.6 mg/dL Ur Random Sodium 28.0 L (40.0-220.0) mmol/L Ur Random Potassium 39.6 mmol/L Ur Random Chloride 53 mmol/L SARS-CoV-2 RNA (REINA) (NEGATIVE) 07/18/20 07/18/20 07/18/20 Range/Units 00:50 04:56 04:56 WBC 4.15 (4.0-11.0) K/uL RBC 3.83 L (4.30-5.90) M/uL Hgb 11.9 L (12.0-16.0) g/dL Hct 36.6 (36.0-46.0) % MCV 95.6 (80.0-98.0) fL MCH 31.1 (27.0-32.0) pg MCHC 32.5 (31.0-37.0) g/dL RDW Std Deviation 53.4 (28.0-62.0) fl RDW Coeff of Ame 15 (11.0-15.0) % Plt Count 138 L (150-400) K/uL MPV 10.20 (7.40-12.00) fL Neut % (Auto) 41.2 L (48.0-80.0) % Lymph % (Auto) 40.7 H (16.0-40.0) % Cache % (Auto) 14.2 (0.0-15.0) % Eos % (Auto) 2.7 (0.0-7.0) % Baso % (Auto) 1.2 (0.0-1.5) % Neut # (Auto) 1.7 (1.4-5.7) K/uL Lymph # (Auto) 1.7 (0.6-2.4) K/uL Cache # (Auto) 0.6 (0.0-0.8) K/uL Eos # (Auto) 0.1 (0.0-0.7) K/uL Baso # (Auto) 0.1 (0.0-0.1) K/uL Nucleated RBC % 0.0 /100WBC Nucleated RBCs # 0 K/uL Sodium 135 L (136-145) mmol/L Potassium 3.4 L (3.5-5.1) mmol/L Chloride 100 (98-107) mmol/L Carbon Dioxide 31.2 (21.0-32.0) mmol/L BUN 43 H (7.0-18.0) mg/dL Creatinine 1.5 H (0.6-1.0) mg/dL Est Cr Clr Drug Dosing 28.30 mL/min Estimated GFR (MDRD) 33.9 ml/min Glucose 86 (74-106) mg/dL POC Glucose 91 (60-110) mg/dL Calcium 8.8 (8.5-10.1) mg/dL Phosphorus 2.8 (2.6-4.7) mg/dL Magnesium 2.3 (1.8-2.4) mg/dL Total Bilirubin 1.2 H (0.2-1.0) mg/dL AST 44 H (15-37) IU/L ALT 32 (14-63) IU/L Alkaline Phosphatase 226 H (46-116) U/L Troponin I (0.000-0.056) ng/mL Total Protein 6.4 (6.4-8.2) g/dL Albumin 2.1 L (3.4-5.0) g/dL Globulin 4.3 H (2.6-4.0) g/dL Albumin/Globulin Ratio 0.5 L (0.9-1.6) Lipase (73-393) U/L Urine Color Urine Appearance Urine pH (5.0-8.0) Ur Specific [place] (1.001-1.035) Urine Protein (NEGATIVE) mg/dL Urine Glucose (UA) (NEGATIVE) mg/dL Urine Ketones (NEGATIVE) mg/dL Urine Occult Blood (NEGATIVE) Urine Nitrite (NEGATIVE) Urine Bilirubin (NEGATIVE) Urine Urobilinogen (<2.0) EU/dL Ur Leukocyte Esterase (NEGATIVE) Ur Random Creatinine mg/dL Ur Random Sodium (40.0-220.0) mmol/L Ur Random Potassium mmol/L Ur Random Chloride mmol/L SARS-CoV-2 RNA (REINA) (NEGATIVE) 07/18/20 Range/Units 05:44 WBC (4.0-11.0) K/uL RBC (4.30-5.90) M/uL Hgb (12.0-16.0) g/dL Hct (36.0-46.0) % MCV (80.0-98.0) fL MCH (27.0-32.0) pg MCHC (31.0-37.0) g/dL RDW Std Deviation (28.0-62.0) fl RDW Coeff of Ame (11.0-15.0) % Plt Count (150-400) K/uL MPV (7.40-12.00) fL Neut % (Auto) (48.0-80.0) % Lymph % (Auto) (16.0-40.0) % Cache % (Auto) (0.0-15.0) % Eos % (Auto) (0.0-7.0) % Baso % (Auto) (0.0-1.5) % Neut # (Auto) (1.4-5.7) K/uL Lymph # (Auto) (0.6-2.4) K/uL Cache # (Auto) (0.0-0.8) K/uL Eos # (Auto) (0.0-0.7) K/uL Baso # (Auto) (0.0-0.1) K/uL Nucleated RBC % /100WBC Nucleated RBCs # K/uL Sodium (136-145) mmol/L Potassium (3.5-5.1) mmol/L Chloride (98-107) mmol/L Carbon Dioxide (21.0-32.0) mmol/L BUN (7.0-18.0) mg/dL Creatinine (0.6-1.0) mg/dL Est Cr Clr Drug Dosing mL/min Estimated GFR (MDRD) ml/min Glucose (74-106) mg/dL POC Glucose 82 (60-110) mg/dL Calcium (8.5-10.1) mg/dL Phosphorus (2.6-4.7) mg/dL Magnesium (1.8-2.4) mg/dL Total Bilirubin (0.2-1.0) mg/dL AST (15-37) IU/L ALT (14-63) IU/L Alkaline Phosphatase (46-116) U/L Troponin I (0.000-0.056) ng/mL Total Protein (6.4-8.2) g/dL Albumin (3.4-5.0) g/dL Globulin (2.6-4.0) g/dL Albumin/Globulin Ratio (0.9-1.6) Lipase (73-393) U/L Urine Color Urine Appearance Urine pH (5.0-8.0) Ur Specific [place] (1.001-1.035) Urine Protein (NEGATIVE) mg/dL Urine Glucose (UA) (NEGATIVE) mg/dL Urine Ketones (NEGATIVE) mg/dL Urine Occult Blood (NEGATIVE) Urine Nitrite (NEGATIVE) Urine Bilirubin (NEGATIVE) Urine Urobilinogen (<2.0) EU/dL Ur Leukocyte Esterase (NEGATIVE) Ur Random Creatinine mg/dL Ur Random Sodium (40.0-220.0) mmol/L Ur Random Potassium mmol/L Ur Random Chloride mmol/L SARS-CoV-2 RNA (REINA) (NEGATIVE) Result Diagrams: 07/18/20 04:56 07/18/20 04:56 Sepsis Event Note - Evaluation Sepsis Screening Result: No Definite Risk - Focused Exam Vital Signs: Vital Signs Temp Pulse Resp BP Pulse Ox 07/18/20 08:10 36.3 C 80 16 111/57 L 91 L 07/18/20 05:14 36.0 C L 75 18 106/55 L 91 L 07/17/20 23:25 35.7 C L 89 19 103/55 L 96 - Problem List & Annotations (1) Right knee DJD SNOMED Code(s): 637867492592387 Code(s): M17.11 - UNILATERAL PRIMARY OSTEOARTHRITIS, RIGHT KNEE Status: Acute Current Visit: Yes (2) FRANCIS (acute kidney injury) SNOMED Code(s): 53715387, 17290494 Code(s): N17.9 - ACUTE KIDNEY FAILURE, UNSPECIFIED Status: Acute Current Visit: Yes (3) Dehydration SNOMED Code(s): 29060486 Code(s): E86.0 - DEHYDRATION Status: Acute Current Visit: Yes (4) Weakness SNOMED Code(s): 42860969 Code(s): R53.1 - WEAKNESS Status: Acute Current Visit: Yes (5) Ambulatory dysfunction SNOMED Code(s): 218178356 Code(s): R26.2 - DIFFICULTY IN WALKING, NOT ELSEWHERE CLASSIFIED Status: Acute Current Visit: No (6) Esophageal varices SNOMED Code(s): 92732236 Code(s): I85.00 - ESOPHAGEAL VARICES WITHOUT BLEEDING Status: Acute Current Visit: No Qualifiers: Esophageal varices type: unspecified type Esophageal varices bleeding: without bleeding Qualified Code(s): I85.00 - Esophageal varices without bleeding (7) Knee pain, right SNOMED Code(s): 50581887 Code(s): M25.561 - PAIN IN RIGHT KNEE Status: Acute Current Visit: No (8) CAD (coronary artery disease) SNOMED Code(s): 17583748 Code(s): I25.10 - ATHSCL HEART DISEASE OF [place] CORONARY ARTERY W/O ANG PCTRS Status: Chronic Current Visit: No (9) COPD (chronic obstructive pulmonary disease) SNOMED Code(s): 47131611 Code(s): J44.9 - CHRONIC OBSTRUCTIVE PULMONARY DISEASE, UNSPECIFIED Status: Chronic Current Visit: No (10) Congestive heart failure (CHF) SNOMED Code(s): 70092600 Code(s): I50.9 - HEART FAILURE, UNSPECIFIED Status: Chronic Current Visit: No Qualifiers: Heart failure type: unspecified Heart failure chronicity: unspecified Qualified Code(s): I50.9 - Heart failure, unspecified (11) DM type 2 (diabetes mellitus, type 2) SNOMED Code(s): 89230570 Code(s): E11.9 - TYPE 2 DIABETES MELLITUS WITHOUT COMPLICATIONS Status: Chronic Current Visit: No (12) History of coronary artery stent placement SNOMED Code(s): 501606496, 615926584 Code(s): Z95.5 - PRESENCE OF CORONARY ANGIOPLASTY IMPLANT AND GRAFT Status: Chronic Current Visit: No (13) Nausea & vomiting SNOMED Code(s): 56949186 Code(s): R11.2 - NAUSEA WITH VOMITING, UNSPECIFIED Status: Acute Current Visit: Yes (14) Liver cirrhosis SNOMED Code(s): 34999048 Code(s): K74.60 - UNSPECIFIED CIRRHOSIS OF LIVER Status: Acute Current Visit: No Qualifiers: Hepatic cirrhosis type: unspecified hepatic cirrhosis Ascites presence: unspecified Qualified Code(s): K74.60 - Unspecified cirrhosis of liver - Problem List Review Problem List Initiated/Reviewed/Updated: Yes - My Orders Last 24 Hours: My Active Orders 07/17/20 18:55 Ambulate [RC] ASDIRECTED Oxygen Therapy [RC] PRN Pulse Oximetry [RC] PRN VTE/DVT Education [RC] PER UNIT ROUTINE Vital Signs [RC] Q4H Albuterol/Ipratropium [DuoNeb 3.0-0.5 MG/3 ML] 3 ml NEB Q4HRRT PRN Ondansetron [Zofran] 4 mg IVPUSH Q4H PRN 07/17/20 18:56 Antiembolic Devices [RC] PER UNIT ROUTINE Sequential Compression Device [OM.PC] Per Unit Routine 07/17/20 18:57 RT Aerosol Therapy [RC] ASDIRECTED 07/17/20 18:58 Accu Check [Blood Glucose Check, Bedside] [RC] Q6H 07/17/20 19:00 Lactated Ringers [Ringers, Lactated] 1,000 ml IV ASDIRECTED 07/17/20 21:00 Nortriptyline 20 mg PO BEDTIME 07/17/20 21:38 PT Evaluation and Treatment [CONS] Routine 07/18/20 01:17 Morphine 1 mg IVPUSH Q2H PRN 07/18/20 09:00 Aspirin 81 mg PO DAILY Potassium Chloride [Klor-Con 10] 20 meq PO DAILY 07/18/20 09:13 Potassium Chloride [Klor-Con M20] 40 meq PO ONETIME ONE 07/18/20 20:00 Pantoprazole [ProTONIX IV] 40 mg Sodium Chloride 0.9% [Normal Saline] 10 ml IV Q24H 07/18/20 21:00 Pravastatin [Pravachol] 80 mg PO BEDTIME - Plan Plan:: 74 y/o F admitted for N/V, generalized weakness, FRANCIS ambulatory dysfunction cont IV fluids IV zofran, IV PPI Monitor and replete electrolyses Urine lytes noted, pre-renal FRANCIS, creatinine improving, Morphine for pain of right knee PT eval for ambulatory dysfunction and weakness SW consult for possible placement
[2020-07-18] MEDS ORDERED: Potassium Chloride 20 MEQ Tab.ER PO ONE (09:20)
[2020-07-18] MEDS: Morphine 2 MG/ML SYRINGE IVPUSH PRN (18:28)
[2020-07-18] MEDS: Pantoprazole 40 MG in Sodium Chloride 0.9% 10 ML IV SCH (20:50)
[2020-07-18] MEDS: Nortriptyline 10 MG Cap PO SCH (20:52)
[2020-07-18] MEDS: Pravastatin 40 MG Tab PO SCH (20:53)
[2020-07-19] MEDS: Lactated Ringers 1,000 ML IV SCH ×2 (01:54→18:23)
[2020-07-19 07:01] LABS: CARBON DIOXIDE,CO2 27.7 mmol/L (21.0-32.0); POTASSIUM,K 4.2 mmol/L (3.5-5.1)
[2020-07-19] MEDS: Aspirin 81 MG Tab.Chew PO SCH (08:54)
[2020-07-19] MEDS: Potassium Chloride 10 MEQ Tab.ER PO SCH (08:55)
[2020-07-19] MEDS ORDERED: Docusate Sodium 100 MG Cap PO PRN (09:19)
--- NOTE | 2020-07-19 12:20 | PCM.PN ---
- General Info Date of Service: 07/19/20 Admission Dx/Problem (Free Text): Admission Diagnosis/Problem Admission Diagnosis/Problem Acute kidney injury Subjective Update: patient seen at examined at bedside, still feels very weak, appetite is slightly better,, spoke to at bedside, he agrees with PT jayaal , has to think about possible [place] placement. Functional Status: Reports: Pain Controlled, Tolerating Diet, Urinating - Review of Systems General: Denies: Fever, Weakness, Fatigue Cardiovascular: Denies: Chest Pain, Palpitations Gastrointestinal: Denies: Abdominal Pain, Constipation, Decreased Appetite Genitourinary: Denies: Dysuria, Frequency, Burning Musculoskeletal: Denies: Neck Pain, Shoulder Pain, Arm Pain Skin: Denies: Cyanosis, Jaundice, Mottled - Patient Data Vitals - Most Recent: Last Vital Signs Temp 36.6 C 07/19/20 11:32 Pulse 76 07/19/20 11:32 Resp 20 07/19/20 11:32 BP 108/53 L 07/19/20 11:32 Pulse Ox 96 07/19/20 11:32 Weight - Most Recent: 58.241 kg I&O - Last 24 Hours: Intake & Output 07/18/20 07/19/20 07/19/20 22:59 06:59 14:59 Intake Total 2157 2145 Output Total 400 600 Balance 1757 1545 Lab Results Last 24 Hours: Laboratory Results - last 24 hr 07/18/20 07/18/20 07/19/20 Range/Units 17:15 23:47 05:33 WBC (4.0-11.0) K/uL RBC (4.30-5.90) M/uL Hgb (12.0-16.0) g/dL Hct (36.0-46.0) % MCV (80.0-98.0) fL MCH (27.0-32.0) pg MCHC (31.0-37.0) g/dL RDW Std Deviation (28.0-62.0) fl RDW Coeff of Ame (11.0-15.0) % Plt Count (150-400) K/uL MPV (7.40-12.00) fL Neut % (Auto) (48.0-80.0) % Lymph % (Auto) (16.0-40.0) % [place] % (Auto) (0.0-15.0) % Eos % (Auto) (0.0-7.0) % Baso % (Auto) (0.0-1.5) % Neut # (Auto) (1.4-5.7) K/uL Lymph # (Auto) (0.6-2.4) K/uL [place] # (Auto) (0.0-0.8) K/uL Eos # (Auto) (0.0-0.7) K/uL Baso # (Auto) (0.0-0.1) K/uL Nucleated RBC % /100WBC Nucleated RBCs # K/uL Sodium (136-145) mmol/L Potassium (3.5-5.1) mmol/L Chloride (98-107) mmol/L Carbon Dioxide (21.0-32.0) mmol/L BUN (7.0-18.0) mg/dL Creatinine (0.6-1.0) mg/dL Est Cr Clr Drug Dosing mL/min Estimated GFR (MDRD) ml/min Glucose (74-106) mg/dL POC Glucose 101 163 H 77 (60-110) mg/dL Calcium (8.5-10.1) mg/dL Phosphorus (2.6-4.7) mg/dL Magnesium (1.8-2.4) mg/dL Total Bilirubin (0.2-1.0) mg/dL AST (15-37) IU/L ALT (14-63) IU/L Alkaline Phosphatase (46-116) U/L Total Protein (6.4-8.2) g/dL Albumin (3.4-5.0) g/dL Globulin (2.6-4.0) g/dL Albumin/Globulin Ratio (0.9-1.6) 07/19/20 07/19/20 07/19/20 Range/Units 05:46 05:46 11:42 WBC 4.12 (4.0-11.0) K/uL RBC 3.75 L (4.30-5.90) M/uL Hgb 11.9 L (12.0-16.0) g/dL Hct 36.5 (36.0-46.0) % MCV 97.3 (80.0-98.0) fL MCH 31.7 (27.0-32.0) pg MCHC 32.6 (31.0-37.0) g/dL RDW Std Deviation 54.9 (28.0-62.0) fl RDW Coeff of Ame 15 (11.0-15.0) % Plt Count 118 L (150-400) K/uL MPV 10.70 (7.40-12.00) fL Neut % (Auto) 48.5 (48.0-80.0) % Lymph % (Auto) 28.9 (16.0-40.0) % [place] % (Auto) 17.7 H (0.0-15.0) % Eos % (Auto) 3.4 (0.0-7.0) % Baso % (Auto) 1.5 (0.0-1.5) % Neut # (Auto) 2.0 (1.4-5.7) K/uL Lymph # (Auto) 1.2 (0.6-2.4) K/uL [place] # (Auto) 0.7 (0.0-0.8) K/uL Eos # (Auto) 0.1 (0.0-0.7) K/uL Baso # (Auto) 0.1 (0.0-0.1) K/uL Nucleated RBC % 0.0 /100WBC Nucleated RBCs # 0 K/uL Sodium 134 L (136-145) mmol/L Potassium 4.2 (3.5-5.1) mmol/L Chloride 102 (98-107) mmol/L Carbon Dioxide 27.7 (21.0-32.0) mmol/L BUN 26 H (7.0-18.0) mg/dL Creatinine 1.3 H (0.6-1.0) mg/dL Est Cr Clr Drug Dosing 32.78 mL/min Estimated GFR (MDRD) 40.0 ml/min Glucose 90 (74-106) mg/dL POC Glucose 245 H (60-110) mg/dL Calcium 8.7 (8.5-10.1) mg/dL Phosphorus 1.8 L (2.6-4.7) mg/dL Magnesium 2.1 (1.8-2.4) mg/dL Total Bilirubin 1.1 H (0.2-1.0) mg/dL AST 45 H (15-37) IU/L ALT 29 (14-63) IU/L Alkaline Phosphatase 211 H (46-116) U/L Total Protein 6.1 L (6.4-8.2) g/dL Albumin 2.0 L (3.4-5.0) g/dL Globulin 4.1 H (2.6-4.0) g/dL Albumin/Globulin Ratio 0.5 L (0.9-1.6) Med Orders - Current: Current Medications Albuterol/Ipratropium (Albuterol/Ipratropium 3.0-0.5 Mg/3 Ml Neb Soln) 3 ml NEB Q4HRRT PRN PRN Reason: Shortness Of Breath/wheezing Aspirin (Aspirin 81 Mg Tab.Chew) 81 mg PO DAILY [facility] Last Admin: 07/19/20 08:54 Dose: 81 mg Documented by: Docusate Sodium (Docusate Sodium 100 Mg Cap) 100 mg PO BID PRN PRN Reason: Constipation Lactated Ringer's (Ringers, Lactated) 1,000 mls @ 125 mls/hr IV ASDIRECTED [facility] Last Admin: 07/19/20 01:54 Dose: 125 mls/hr Documented by: Pantoprazole Sodium 40 mg/ (Sodium Chloride) 10 mls @ 200 mls/hr IV Q24H [facility] Last Admin: 07/18/20 20:50 Dose: 200 mls/hr Documented by: Morphine Sulfate (Morphine 2 Mg/Ml Syringe) 1 mg IVPUSH Q2H PRN PRN Reason: Pain (severe 7-10) Last Admin: 07/18/20 18:28 Dose: 1 mg Documented by: Nortriptyline HCl (Nortriptyline 10 Mg Cap) 20 mg PO BEDTIME [facility] Last Admin: 07/18/20 20:52 Dose: 20 mg Documented by: Ondansetron HCl (Ondansetron 4 Mg/2 Ml Sdv) 4 mg IVPUSH Q4H PRN PRN Reason: Nausea/Vomiting Potassium Chloride (Potassium Chloride 10 Meq Tab.Er) 20 meq PO DAILY [facility] Last Admin: 07/19/20 08:55 Dose: 20 meq Documented by: Pravastatin Sodium (Pravastatin 40 Mg Tab) 80 mg PO BEDTIME [facility] Last Admin: 07/18/20 20:53 Dose: 80 mg Documented by: Sodium Chloride (Sodium Chloride 0.9% 10 Ml Syringe) 10 ml FLUSH ASDIRECTED PRN PRN Reason: Keep Vein Open Last Admin: 07/17/20 15:59 Dose: 10 ml Documented by: Sodium Chloride (Sodium Chloride 0.9% 2.5 Ml Syringe) 2.5 ml FLUSH ASDIRECTED PRN PRN Reason: Keep Vein Open Last Admin: 07/17/20 15:59 Dose: 2.5 ml Documented by: Discontinued Medications Sodium Chloride (Normal Saline) 1,000 mls @ 999 mls/hr IV STAT ONE Stop: 07/17/20 16:53 Last Admin: 07/17/20 15:59 Dose: 999 mls/hr Documented by: Sodium Chloride (Normal Saline) 1,000 mls @ 200 mls/hr IV STAT ONE Stop: 07/17/20 22:45 Last Admin: 07/17/20 18:15 Dose: 200 mls/hr Documented by: Morphine Sulfate (Morphine 10 Mg/Ml Syringe) 1 mg IVPUSH Q2H PRN PRN Reason: Pain (severe 7-10) Stop: 07/18/20 18:56 Last Admin: 07/18/20 01:09 Dose: 1 mg Documented by: Ondansetron HCl (Ondansetron 4 Mg/2 Ml Sdv) 4 mg IVPUSH ONETIME ONE Stop: 07/17/20 15:54 Last Admin: 07/17/20 15:59 Dose: 4 mg Documented by: Pantoprazole Sodium (Pantoprazole 40 Mg Vial) 40 mg IV DAILY [facility] Pantoprazole Sodium (Pantoprazole 40 Mg Vial) 40 mg IV DAILY [facility] Last Admin: 07/17/20 20:06 Dose: 40 mg Documented by: Potassium Chloride (Potassium Chloride 20 Meq Tab.Er) 40 meq PO ONETIME ONE Stop: 07/18/20 09:21 Last Admin: 07/18/20 10:13 Dose: 40 meq Documented by: - Exam General: Alert, Oriented Neck: Supple Lungs: Clear to Auscultation, Normal Respiratory Effort Cardiovascular: Regular Rate, Regular Rhythm GI/Abdominal Exam: Normal Bowel Sounds, Soft, Non-Tender Back Exam: Normal Inspection, Full Range of Motion - Patient Data Lab Results Last 24 hrs: Laboratory Results - last 24 hr 07/18/20 07/18/20 07/19/20 Range/Units 17:15 23:47 05:33 WBC (4.0-11.0) K/uL RBC (4.30-5.90) M/uL Hgb (12.0-16.0) g/dL Hct (36.0-46.0) % MCV (80.0-98.0) fL MCH (27.0-32.0) pg MCHC (31.0-37.0) g/dL RDW Std Deviation (28.0-62.0) fl RDW Coeff of Ame (11.0-15.0) % Plt Count (150-400) K/uL MPV (7.40-12.00) fL Neut % (Auto) (48.0-80.0) % Lymph % (Auto) (16.0-40.0) % [place] % (Auto) (0.0-15.0) % Eos % (Auto) (0.0-7.0) % Baso % (Auto) (0.0-1.5) % Neut # (Auto) (1.4-5.7) K/uL Lymph # (Auto) (0.6-2.4) K/uL [place] # (Auto) (0.0-0.8) K/uL Eos # (Auto) (0.0-0.7) K/uL Baso # (Auto) (0.0-0.1) K/uL Nucleated RBC % /100WBC Nucleated RBCs # K/uL Sodium (136-145) mmol/L Potassium (3.5-5.1) mmol/L Chloride (98-107) mmol/L Carbon Dioxide (21.0-32.0) mmol/L BUN (7.0-18.0) mg/dL Creatinine (0.6-1.0) mg/dL Est Cr Clr Drug Dosing mL/min Estimated GFR (MDRD) ml/min Glucose (74-106) mg/dL POC Glucose 101 163 H 77 (60-110) mg/dL Calcium (8.5-10.1) mg/dL Phosphorus (2.6-4.7) mg/dL Magnesium (1.8-2.4) mg/dL Total Bilirubin (0.2-1.0) mg/dL AST (15-37) IU/L ALT (14-63) IU/L Alkaline Phosphatase (46-116) U/L Total Protein (6.4-8.2) g/dL Albumin (3.4-5.0) g/dL Globulin (2.6-4.0) g/dL Albumin/Globulin Ratio (0.9-1.6) 07/19/20 07/19/20 07/19/20 Range/Units 05:46 05:46 11:42 WBC 4.12 (4.0-11.0) K/uL RBC 3.75 L (4.30-5.90) M/uL Hgb 11.9 L (12.0-16.0) g/dL Hct 36.5 (36.0-46.0) % MCV 97.3 (80.0-98.0) fL MCH 31.7 (27.0-32.0) pg MCHC 32.6 (31.0-37.0) g/dL RDW Std Deviation 54.9 (28.0-62.0) fl RDW Coeff of Ame 15 (11.0-15.0) % Plt Count 118 L (150-400) K/uL MPV 10.70 (7.40-12.00) fL Neut % (Auto) 48.5 (48.0-80.0) % Lymph % (Auto) 28.9 (16.0-40.0) % [place] % (Auto) 17.7 H (0.0-15.0) % Eos % (Auto) 3.4 (0.0-7.0) % Baso % (Auto) 1.5 (0.0-1.5) % Neut # (Auto) 2.0 (1.4-5.7) K/uL Lymph # (Auto) 1.2 (0.6-2.4) K/uL [place] # (Auto) 0.7 (0.0-0.8) K/uL Eos # (Auto) 0.1 (0.0-0.7) K/uL Baso # (Auto) 0.1 (0.0-0.1) K/uL Nucleated RBC % 0.0 /100WBC Nucleated RBCs # 0 K/uL Sodium 134 L (136-145) mmol/L Potassium 4.2 (3.5-5.1) mmol/L Chloride 102 (98-107) mmol/L Carbon Dioxide 27.7 (21.0-32.0) mmol/L BUN 26 H (7.0-18.0) mg/dL Creatinine 1.3 H (0.6-1.0) mg/dL Est Cr Clr Drug Dosing 32.78 mL/min Estimated GFR (MDRD) 40.0 ml/min Glucose 90 (74-106) mg/dL POC Glucose 245 H (60-110) mg/dL Calcium 8.7 (8.5-10.1) mg/dL Phosphorus 1.8 L (2.6-4.7) mg/dL Magnesium 2.1 (1.8-2.4) mg/dL Total Bilirubin 1.1 H (0.2-1.0) mg/dL AST 45 H (15-37) IU/L ALT 29 (14-63) IU/L Alkaline Phosphatase 211 H (46-116) U/L Total Protein 6.1 L (6.4-8.2) g/dL Albumin 2.0 L (3.4-5.0) g/dL Globulin 4.1 H (2.6-4.0) g/dL Albumin/Globulin Ratio 0.5 L (0.9-1.6) Result Diagrams: 07/19/20 05:46 07/19/20 05:46 Sepsis Event Note - Evaluation Sepsis Screening Result: No Definite Risk - Focused Exam Vital Signs: Vital Signs Temp Pulse Resp BP Pulse Ox 07/19/20 11:32 36.6 C 76 20 108/53 L 96 07/19/20 07:17 36.0 C L 87 20 103/43 L 92 L 07/19/20 03:48 36.4 C 85 16 107/52 L 91 L - Problem List & Annotations (1) Right knee DJD SNOMED Code(s): 525959689495769 Code(s): M17.11 - UNILATERAL PRIMARY OSTEOARTHRITIS, RIGHT KNEE Status: Acute Current Visit: Yes (2) FRANCIS (acute kidney injury) SNOMED Code(s): 92077487, 94017139 Code(s): N17.9 - ACUTE KIDNEY FAILURE, UNSPECIFIED Status: Acute Current Visit: Yes (3) Dehydration SNOMED Code(s): 86258355 Code(s): E86.0 - DEHYDRATION Status: Acute Current Visit: Yes (4) Weakness SNOMED Code(s): 02607065 Code(s): R53.1 - WEAKNESS Status: Acute Current Visit: Yes (5) Ambulatory dysfunction SNOMED Code(s): 727310524 Code(s): R26.2 - DIFFICULTY IN WALKING, NOT ELSEWHERE CLASSIFIED Status: Acute Current Visit: No (6) Esophageal varices SNOMED Code(s): 49935613 Code(s): I85.00 - ESOPHAGEAL VARICES WITHOUT BLEEDING Status: Acute Current Visit: No Qualifiers: Esophageal varices type: unspecified type Esophageal varices bleeding: without bleeding Qualified Code(s): I85.00 - Esophageal varices without bleeding (7) Knee pain, right SNOMED Code(s): 46496629 Code(s): M25.561 - PAIN IN RIGHT KNEE Status: Acute Current Visit: No (8) CAD (coronary artery disease) SNOMED Code(s): 27357080 Code(s): I25.10 - ATHSCL HEART DISEASE OF [place] CORONARY ARTERY W/O ANG PCTRS Status: Chronic Current Visit: No (9) COPD (chronic obstructive pulmonary disease) SNOMED Code(s): 29982327 Code(s): J44.9 - CHRONIC OBSTRUCTIVE PULMONARY DISEASE, UNSPECIFIED Status: Chronic Current Visit: No (10) Congestive heart failure (CHF) SNOMED Code(s): 22957096 Code(s): I50.9 - HEART FAILURE, UNSPECIFIED Status: Chronic Current Visit: No Qualifiers: Heart failure type: unspecified Heart failure chronicity: unspecified Qualified Code(s): I50.9 - Heart failure, unspecified (11) DM type 2 (diabetes mellitus, type 2) SNOMED Code(s): 38054928 Code(s): E11.9 - TYPE 2 DIABETES MELLITUS WITHOUT COMPLICATIONS Status: Chronic Current Visit: No (12) History of coronary artery stent placement SNOMED Code(s): 856249690, 444643209 Code(s): Z95.5 - PRESENCE OF CORONARY ANGIOPLASTY IMPLANT AND GRAFT Status: Chronic Current Visit: No (13) Nausea & vomiting SNOMED Code(s): 23298117 Code(s): R11.2 - NAUSEA WITH VOMITING, UNSPECIFIED Status: Acute Current Visit: Yes (14) Liver cirrhosis SNOMED Code(s): 47629233 Code(s): K74.60 - UNSPECIFIED CIRRHOSIS OF LIVER Status: Acute Current Visit: No Qualifiers: Hepatic cirrhosis type: unspecified hepatic cirrhosis Ascites presence: unspecified Qualified Code(s): K74.60 - Unspecified cirrhosis of liver - Problem List Review Problem List Initiated/Reviewed/Updated: Yes - My Orders Last 24 Hours: My Active Orders 07/18/20 12:23 Resuscitation Status Routine 07/18/20 12:24 Admission Status [Patient Status] [ADT] Routine 07/18/20 20:00 Pantoprazole [ProTONIX IV] 40 mg Sodium Chloride 0.9% [Normal Saline] 10 ml IV Q24H 07/18/20 21:00 Pravastatin [Pravachol] 80 mg PO BEDTIME 07/19/20 04:00 Daily Weight [Height and Weight] [RC] DAILY - Plan Plan:: 74 y/o F admitted for N/V, generalized weakness, FRANCIS ambulatory dysfunction cont IV fluids, eating better IV zofran, IV PPI Monitor and replete electrolyses Urine lytes noted, pre-renal FRANCIS, creatinine improving, Morphine for pain of right knee PT eval for ambulatory dysfunction and weakness SW consult for possible placement , awaiting family to meet SW
[2020-07-19] MEDS ORDERED: Phosphorus #1 250 MG Tab PO ONE ×2 (12:30→12:40)
[2020-07-19] MEDS: Pantoprazole 40 MG in Sodium Chloride 0.9% 10 ML IV SCH (19:51)
[2020-07-19] MEDS: Pravastatin 40 MG Tab PO SCH (20:01)
[2020-07-19] MEDS: Nortriptyline 10 MG Cap PO SCH (20:01)
[2020-07-19] MEDS: Morphine 2 MG/ML SYRINGE IVPUSH PRN (21:41)
[2020-07-20] MEDS: Lactated Ringers 1,000 ML IV SCH (02:26)
[2020-07-20] MEDS: Morphine 2 MG/ML SYRINGE IVPUSH PRN (05:27)
[2020-07-20 05:54] LABS: POTASSIUM,K 4.1 mmol/L (3.5-5.1)
[2020-07-20] MEDS ORDERED: LORazepam 2 MG/ML SDV IVPUSH ONE (06:01)
--- NOTE | 2020-07-20 09:12 | PCM.EKG ---
#1 Interpretation EKG Date: 07/17/20 Time: 16:07 Rhythm: NSR Rate (Beats/Min): 85 [place]: Normal P-Wave: Present QRS: Normal ST-T: Normal QT: Normal Comparison: No Change (11/30/19) EKG Interpretation Comments: Sinus Rhythm
[2020-07-20] MEDS ORDERED: Magnesium Sulfate/Water 2 GM/50 ML BAG IV ONE (09:30)
[2020-07-20] MEDS ORDERED: Phosphorus #1 250 MG Tab PO ONE (09:30)
--- NOTE | 2020-07-20 11:13 | PCM.PN ---
- General Info Date of Service: 07/20/20 Admission Dx/Problem (Free Text): Admission Diagnosis/Problem Admission Diagnosis/Problem Acute kidney injury Subjective Update: patient seen at examined at bedside,somnolent due to IV ativan, able to wake her up on simulation but goes back to sleep, no signs of stroke. - Review of Systems Systems Review Comment:: unable to get due to somnolence - Patient Data Vitals - Most Recent: Last Vital Signs Temp 36.2 C 07/20/20 06:59 Pulse 79 07/20/20 06:59 Resp 14 07/20/20 06:59 BP 100/70 07/20/20 06:59 Pulse Ox 89 L 07/20/20 04:00 Weight - Most Recent: 62.686 kg I&O - Last 24 Hours: Intake & Output 07/19/20 07/20/20 07/20/20 22:59 06:59 14:59 Intake Total 1945 2084 Output Total 1100 400 Balance 845 1684 Lab Results Last 24 Hours: Laboratory Results - last 24 hr 07/19/20 07/19/20 07/20/20 Range/Units 11:42 17:16 05:10 WBC 5.98 (4.0-11.0) K/uL RBC 3.86 L (4.30-5.90) M/uL Hgb 12.2 (12.0-16.0) g/dL Hct 37.2 (36.0-46.0) % MCV 96.4 (80.0-98.0) fL MCH 31.6 (27.0-32.0) pg MCHC 32.8 (31.0-37.0) g/dL RDW Std Deviation 53.8 (28.0-62.0) fl RDW Coeff of Ame 15 (11.0-15.0) % Plt Count 108 L (150-400) K/uL MPV 10.50 (7.40-12.00) fL Neut % (Auto) 59.7 (48.0-80.0) % Lymph % (Auto) 24.7 (16.0-40.0) % [place] % (Auto) 13.9 (0.0-15.0) % Eos % (Auto) 1.2 (0.0-7.0) % Baso % (Auto) 0.5 (0.0-1.5) % Neut # (Auto) 3.6 (1.4-5.7) K/uL Lymph # (Auto) 1.5 (0.6-2.4) K/uL [place] # (Auto) 0.8 (0.0-0.8) K/uL Eos # (Auto) 0.1 (0.0-0.7) K/uL Baso # (Auto) 0.0 (0.0-0.1) K/uL Nucleated RBC % 0.0 /100WBC Nucleated RBCs # 0 K/uL Sodium (136-145) mmol/L Potassium (3.5-5.1) mmol/L Chloride (98-107) mmol/L Carbon Dioxide (21.0-32.0) mmol/L BUN (7.0-18.0) mg/dL Creatinine (0.6-1.0) mg/dL Est Cr Clr Drug Dosing mL/min Estimated GFR (MDRD) ml/min Glucose (74-106) mg/dL POC Glucose 245 H 143 H (60-110) mg/dL Calcium (8.5-10.1) mg/dL Phosphorus (2.6-4.7) mg/dL Magnesium (1.8-2.4) mg/dL 07/20/20 07/20/20 Range/Units 05:10 07:44 WBC (4.0-11.0) K/uL RBC (4.30-5.90) M/uL Hgb (12.0-16.0) g/dL Hct (36.0-46.0) % MCV (80.0-98.0) fL MCH (27.0-32.0) pg MCHC (31.0-37.0) g/dL RDW Std Deviation (28.0-62.0) fl RDW Coeff of Ame (11.0-15.0) % Plt Count (150-400) K/uL MPV (7.40-12.00) fL Neut % (Auto) (48.0-80.0) % Lymph % (Auto) (16.0-40.0) % [place] % (Auto) (0.0-15.0) % Eos % (Auto) (0.0-7.0) % Baso % (Auto) (0.0-1.5) % Neut # (Auto) (1.4-5.7) K/uL Lymph # (Auto) (0.6-2.4) K/uL [place] # (Auto) (0.0-0.8) K/uL Eos # (Auto) (0.0-0.7) K/uL Baso # (Auto) (0.0-0.1) K/uL Nucleated RBC % /100WBC Nucleated RBCs # K/uL Sodium 134 L (136-145) mmol/L Potassium 4.1 (3.5-5.1) mmol/L Chloride 101 (98-107) mmol/L Carbon Dioxide 26.0 (21.0-32.0) mmol/L BUN 17 (7.0-18.0) mg/dL Creatinine 1.0 (0.6-1.0) mg/dL Est Cr Clr Drug Dosing 42.62 mL/min Estimated GFR (MDRD) 54.2 ml/min Glucose 115 H (74-106) mg/dL POC Glucose 120 H (60-110) mg/dL Calcium 8.5 (8.5-10.1) mg/dL Phosphorus 1.7 L (2.6-4.7) mg/dL Magnesium 1.7 L (1.8-2.4) mg/dL Med Orders - Current: Current Medications Albuterol/Ipratropium (Albuterol/Ipratropium 3.0-0.5 Mg/3 Ml Neb Soln) 3 ml NEB Q4HRRT PRN PRN Reason: Shortness Of Breath/wheezing Aspirin (Aspirin 81 Mg Tab.Chew) 81 mg PO DAILY [facility] Last Admin: 07/19/20 08:54 Dose: 81 mg Documented by: Docusate Sodium (Docusate Sodium 100 Mg Cap) 100 mg PO BID PRN PRN Reason: Constipation Last Admin: 07/19/20 18:19 Dose: 100 mg Documented by: Pantoprazole Sodium 40 mg/ (Sodium Chloride) 10 mls @ 200 mls/hr IV Q24H [facility] Last Admin: 07/19/20 19:51 Dose: 200 mls/hr Documented by: Morphine Sulfate (Morphine 2 Mg/Ml Syringe) 1 mg IVPUSH Q2H PRN PRN Reason: Pain (severe 7-10) Last Admin: 07/20/20 05:27 Dose: 1 mg Documented by: Nortriptyline HCl (Nortriptyline 10 Mg Cap) 20 mg PO BEDTIME [facility] Last Admin: 07/19/20 20:01 Dose: 20 mg Documented by: Ondansetron HCl (Ondansetron 4 Mg/2 Ml Sdv) 4 mg IVPUSH Q4H PRN PRN Reason: Nausea/Vomiting Potassium Chloride (Potassium Chloride 10 Meq Tab.Er) 20 meq PO DAILY [facility] Last Admin: 07/19/20 08:55 Dose: 20 meq Documented by: Pravastatin Sodium (Pravastatin 40 Mg Tab) 80 mg PO BEDTIME [facility] Last Admin: 07/19/20 20:01 Dose: 80 mg Documented by: Sodium Chloride (Sodium Chloride 0.9% 10 Ml Syringe) 10 ml FLUSH ASDIRECTED PRN PRN Reason: Keep Vein Open Last Admin: 07/17/20 15:59 Dose: 10 ml Documented by: Sodium Chloride (Sodium Chloride 0.9% 2.5 Ml Syringe) 2.5 ml FLUSH ASDIRECTED PRN PRN Reason: Keep Vein Open Last Admin: 07/17/20 15:59 Dose: 2.5 ml Documented by: Discontinued Medications Sodium Chloride (Normal Saline) 1,000 mls @ 999 mls/hr IV STAT ONE Stop: 07/17/20 16:53 Last Admin: 07/17/20 15:59 Dose: 999 mls/hr Documented by: Sodium Chloride (Normal Saline) 1,000 mls @ 200 mls/hr IV STAT ONE Stop: 07/17/20 22:45 Last Admin: 07/17/20 18:15 Dose: 200 mls/hr Documented by: Lactated Ringer's (Ringers, Lactated) 1,000 mls @ 125 mls/hr IV ASDIRECTED [facility] Last Admin: 07/20/20 02:26 Dose: 125 mls/hr Documented by: Magnesium Sulfate (Magnesium Sulfate In Water 2 Gm/50 Ml) 2 gm in 50 mls @ 50 mls/hr IV ONETIME ONE Stop: 07/20/20 10:29 Last Admin: 07/20/20 10:27 Dose: 50 mls/hr Documented by: Lorazepam (Lorazepam 2 Mg/Ml Sdv) 1 mg IVPUSH ONETIME ONE Stop: 07/20/20 06:02 Last Admin: 07/20/20 06:17 Dose: 1 mg Documented by: Morphine Sulfate (Morphine 10 Mg/Ml Syringe) 1 mg IVPUSH Q2H PRN PRN Reason: Pain (severe 7-10) Stop: 07/18/20 18:56 Last Admin: 07/18/20 01:09 Dose: 1 mg Documented by: Ondansetron HCl (Ondansetron 4 Mg/2 Ml Sdv) 4 mg IVPUSH ONETIME ONE Stop: 07/17/20 15:54 Last Admin: 07/17/20 15:59 Dose: 4 mg Documented by: Pantoprazole Sodium (Pantoprazole 40 Mg Vial) 40 mg IV DAILY [facility] Pantoprazole Sodium (Pantoprazole 40 Mg Vial) 40 mg IV DAILY [facility] Last Admin: 07/17/20 20:06 Dose: 40 mg Documented by: Potassium Chloride (Potassium Chloride 20 Meq Tab.Er) 40 meq PO ONETIME ONE Stop: 07/18/20 09:21 Last Admin: 07/18/20 10:13 Dose: 40 meq Documented by: Sodium Phosphate (Phosphorus #1 250 Mg Tab) 250 mg PO ONETIME ONE Stop: 07/19/20 12:31 Last Admin: 07/19/20 13:07 Dose: 250 mg Documented by: Sodium Phosphate (Phosphorus #1 250 Mg Tab) 250 mg PO ONETIME ONE Stop: 07/19/20 12:41 Last Admin: 07/19/20 13:08 Dose: 250 mg Documented by: Sodium Phosphate (Phosphorus #1 250 Mg Tab) 500 mg PO ONETIME ONE Stop: 07/20/20 09:31 - Exam General: Sedated Neck: Supple Lungs: Clear to Auscultation, Normal Respiratory Effort Cardiovascular: Regular Rate, Regular Rhythm GI/Abdominal Exam: Normal Bowel Sounds, Soft, Non-Tender - Patient Data Lab Results Last 24 hrs: Laboratory Results - last 24 hr 07/19/20 07/19/20 07/20/20 Range/Units 11:42 17:16 05:10 WBC 5.98 (4.0-11.0) K/uL RBC 3.86 L (4.30-5.90) M/uL Hgb 12.2 (12.0-16.0) g/dL Hct 37.2 (36.0-46.0) % MCV 96.4 (80.0-98.0) fL MCH 31.6 (27.0-32.0) pg MCHC 32.8 (31.0-37.0) g/dL RDW Std Deviation 53.8 (28.0-62.0) fl RDW Coeff of Ame 15 (11.0-15.0) % Plt Count 108 L (150-400) K/uL MPV 10.50 (7.40-12.00) fL Neut % (Auto) 59.7 (48.0-80.0) % Lymph % (Auto) 24.7 (16.0-40.0) % [place] % (Auto) 13.9 (0.0-15.0) % Eos % (Auto) 1.2 (0.0-7.0) % Baso % (Auto) 0.5 (0.0-1.5) % Neut # (Auto) 3.6 (1.4-5.7) K/uL Lymph # (Auto) 1.5 (0.6-2.4) K/uL [place] # (Auto) 0.8 (0.0-0.8) K/uL Eos # (Auto) 0.1 (0.0-0.7) K/uL Baso # (Auto) 0.0 (0.0-0.1) K/uL Nucleated RBC % 0.0 /100WBC Nucleated RBCs # 0 K/uL Sodium (136-145) mmol/L Potassium (3.5-5.1) mmol/L Chloride (98-107) mmol/L Carbon Dioxide (21.0-32.0) mmol/L BUN (7.0-18.0) mg/dL Creatinine (0.6-1.0) mg/dL Est Cr Clr Drug Dosing mL/min Estimated GFR (MDRD) ml/min Glucose (74-106) mg/dL POC Glucose 245 H 143 H (60-110) mg/dL Calcium (8.5-10.1) mg/dL Phosphorus (2.6-4.7) mg/dL Magnesium (1.8-2.4) mg/dL 07/20/20 07/20/20 Range/Units 05:10 07:44 WBC (4.0-11.0) K/uL RBC (4.30-5.90) M/uL Hgb (12.0-16.0) g/dL Hct (36.0-46.0) % MCV (80.0-98.0) fL MCH (27.0-32.0) pg MCHC (31.0-37.0) g/dL RDW Std Deviation (28.0-62.0) fl RDW Coeff of Ame (11.0-15.0) % Plt Count (150-400) K/uL MPV (7.40-12.00) fL Neut % (Auto) (48.0-80.0) % Lymph % (Auto) (16.0-40.0) % [place] % (Auto) (0.0-15.0) % Eos % (Auto) (0.0-7.0) % Baso % (Auto) (0.0-1.5) % Neut # (Auto) (1.4-5.7) K/uL Lymph # (Auto) (0.6-2.4) K/uL [place] # (Auto) (0.0-0.8) K/uL Eos # (Auto) (0.0-0.7) K/uL Baso # (Auto) (0.0-0.1) K/uL Nucleated RBC % /100WBC Nucleated RBCs # K/uL Sodium 134 L (136-145) mmol/L Potassium 4.1 (3.5-5.1) mmol/L Chloride 101 (98-107) mmol/L Carbon Dioxide 26.0 (21.0-32.0) mmol/L BUN 17 (7.0-18.0) mg/dL Creatinine 1.0 (0.6-1.0) mg/dL Est Cr Clr Drug Dosing 42.62 mL/min Estimated GFR (MDRD) 54.2 ml/min Glucose 115 H (74-106) mg/dL POC Glucose 120 H (60-110) mg/dL Calcium 8.5 (8.5-10.1) mg/dL Phosphorus 1.7 L (2.6-4.7) mg/dL Magnesium 1.7 L (1.8-2.4) mg/dL Result Diagrams: 07/20/20 05:10 07/20/20 05:10 Sepsis Event Note - Evaluation Sepsis Screening Result: No Definite Risk - Focused Exam Vital Signs: Vital Signs Temp Pulse Resp BP Pulse Ox 07/20/20 06:59 36.2 C 79 14 100/70 07/20/20 04:00 36.6 C 89 18 108/52 L 89 L 07/20/20 00:00 36.7 C 80 18 113/47 L 90 L - Problem List & Annotations (1) Right knee DJD SNOMED Code(s): 235904204182477 Code(s): M17.11 - UNILATERAL PRIMARY OSTEOARTHRITIS, RIGHT KNEE Status: Acute Current Visit: Yes (2) FRANCIS (acute kidney injury) SNOMED Code(s): 72605608, 96818511 Code(s): N17.9 - ACUTE KIDNEY FAILURE, UNSPECIFIED Status: Acute Current Visit: Yes (3) Dehydration SNOMED Code(s): 48096543 Code(s): E86.0 - DEHYDRATION Status: Acute Current Visit: Yes (4) Weakness SNOMED Code(s): 51109339 Code(s): R53.1 - WEAKNESS Status: Acute Current Visit: Yes (5) Ambulatory dysfunction SNOMED Code(s): 528356686 Code(s): R26.2 - DIFFICULTY IN WALKING, NOT ELSEWHERE CLASSIFIED Status: Acute Current Visit: No (6) Esophageal varices SNOMED Code(s): 99584099 Code(s): I85.00 - ESOPHAGEAL VARICES WITHOUT BLEEDING Status: Acute Current Visit: No Qualifiers: Esophageal varices type: unspecified type Esophageal varices bleeding: without bleeding Qualified Code(s): I85.00 - Esophageal varices without bleeding (7) Knee pain, right SNOMED Code(s): 18182000 Code(s): M25.561 - PAIN IN RIGHT KNEE Status: Acute Current Visit: No (8) CAD (coronary artery disease) SNOMED Code(s): 14466696 Code(s): I25.10 - ATHSCL HEART DISEASE OF [place] CORONARY ARTERY W/O ANG PCTRS Status: Chronic Current Visit: No (9) COPD (chronic obstructive pulmonary disease) SNOMED Code(s): 63803008 Code(s): J44.9 - CHRONIC OBSTRUCTIVE PULMONARY DISEASE, UNSPECIFIED Status: Chronic Current Visit: No (10) Congestive heart failure (CHF) SNOMED Code(s): 55636241 Code(s): I50.9 - HEART FAILURE, UNSPECIFIED Status: Chronic Current Visit: No Qualifiers: Heart failure type: unspecified Heart failure chronicity: unspecified Qualified Code(s): I50.9 - Heart failure, unspecified (11) DM type 2 (diabetes mellitus, type 2) SNOMED Code(s): 10960983 Code(s): E11.9 - TYPE 2 DIABETES MELLITUS WITHOUT COMPLICATIONS Status: Chronic Current Visit: No (12) History of coronary artery stent placement SNOMED Code(s): 265459255, 902217973 Code(s): Z95.5 - PRESENCE OF CORONARY ANGIOPLASTY IMPLANT AND GRAFT Status: Chronic Current Visit: No (13) Nausea & vomiting SNOMED Code(s): 17173894 Code(s): R11.2 - NAUSEA WITH VOMITING, UNSPECIFIED Status: Acute Current Visit: Yes (14) Liver cirrhosis SNOMED Code(s): 25689522 Code(s): K74.60 - UNSPECIFIED CIRRHOSIS OF LIVER Status: Acute Current Visit: No Qualifiers: Hepatic cirrhosis type: unspecified hepatic cirrhosis Ascites presence: unspecified Qualified Code(s): K74.60 - Unspecified cirrhosis of liver - Problem List Review Problem List Initiated/Reviewed/Updated: Yes - My Orders Last 24 Hours: My Active Orders 07/19/20 16:14 Consult to Home Health [CONS] Routine - Plan Plan:: 74 y/o F admitted for N/V, generalized weakness, FRANCIS ambulatory dysfunction stop IV fluids, eating better IV Zofran, IV PPI Monitor and replete electrolyses Urine lytes noted, pre-renal FRANCIS, creatinine improving, Morphine for pain of right knee PT eval for ambulatory dysfunction and weakness Family has decided to take patient home with home health PT, Needs another session with PT today when more awake, possible dc tomorrow
[2020-07-20] MEDS: Aspirin 81 MG Tab.Chew PO SCH (13:59)
[2020-07-20] MEDS: Potassium Chloride 10 MEQ Tab.ER PO SCH (13:59)
[2020-07-20] MEDS ORDERED: Acetaminophen 325 MG Tab PO PRN (17:35)
[2020-07-20] MEDS: Pravastatin 40 MG Tab PO SCH (20:28)
[2020-07-20] MEDS: Pantoprazole 40 MG in Sodium Chloride 0.9% 10 ML IV SCH (20:28)
[2020-07-20] MEDS: Nortriptyline 10 MG Cap PO SCH (20:29)
[2020-07-21 04:30] VITALS: PULSE 84
[2020-07-21 06:41] LABS: BLOOD UREA NITROGEN,BUN 15 mg/dL (7.0-18.0); CHLORIDE,CL 104 mmol/L (98-107); GLUCOSE RANDOM 96 mg/dL (74-106); POTASSIUM,K 3.7 mmol/L (3.5-5.1); SODIUM,NA 137 mmol/L (136-145)
[2020-07-21 06:46] LABS: CARBON DIOXIDE,CO2 27.4 mmol/L (21.0-32.0)
[2020-07-21 08:54] VITALS: BP 117/57
[2020-07-21] MEDS: Potassium Chloride 10 MEQ Tab.ER PO SCH (09:40)
[2020-07-21] MEDS: Aspirin 81 MG Tab.Chew PO SCH (09:40)
--- NOTE | 2020-07-21 11:53 | PCM.DCSUM1 ---
Discharge Summary - Discharge Data Discharge Date: 07/21/20 Discharge Disposition: Home, W Home Health Agency 06 Condition: Stable - Referral to Home Health Date of Face to Face Encounter: 07/21/20 Reason for Homebound Status: severe arthritis with limited mobility, great difficult to leave house Primary Care Physician: Amrik Carmichael MD Skilled Need: Physical therapy for increase strength and mobility training - Patient Summary/Data Consults: Consultations 07/17/20 21:38 PT Evaluation and Treatment [CONS] Routine 07/19/20 16:14 Consult to Home Health [CONS] Routine Hospital Course: Patient is a 74-year-old female with PMH of [place] status post stents, congestive heart failure, COPD, type 2 diabetes, hypertension and liver cirrhosis. presents to the emergency room with complaints of weakness, nausea, vomiting and decreased PO take. In the ER patient was found to have an increased creatinine of 2.0, low sodium and potassium. Patient was admitted for dehydration and acute kidney injury. She was given IV fluids and potentially nephrotoxic medications were held including metolazone, spironolactone, and celecoxib. Her nausea resolved and her creatinine returned to normal. Yesterday morning she received Ativan for agitation which cause somnolescent through out the day. Today she is alert and requesting discharge home. Due to her limited mobility she was referred to home health for home physical therapy. After discussing the benefit vs risk of restarting celexoxib, spironolactone, and metolazone patient and family would like to wait and discuss these medications with Dr. Carmichael before resuming. - Patient Instructions Diet: Usual Diet as Tolerated, Diabetic Diet - Discharge Plan Home Medications: Home Meds Aspirin 81 mg PO DAILY 01/08/19 [History] Nortriptyline 20 mg PO BEDTIME 01/08/19 [History] Pravastatin [Pravachol] 80 mg PO BEDTIME 01/08/19 [History] Lactulose 10 gm PO BID 11/30/19 [History] Albuterol [Proair HFA] 90 mcg IH ASDIRECTED PRN 12/01/19 [History] Potassium Chloride 20 meq PO DAILY 12/01/19 [History] buPROPion HCL [Bupropion HCl Sr] 100 mg PO DAILY 12/01/19 [History] metOLazone [Metolazone] 2.5 mg PO Q2D PRN 12/01/19 [History] Glimepiride 2 mg PO DAILY 07/18/20 [History] Forms: ED Department Discharge Referrals: Amrik Carmichael MD [Primary Care Provider] - 07/24/20 1:15 pm - Discharge Summary/Plan Comment DC Time >30 min.: No - Patient Data Vitals - Most Recent: Last Vital Signs Temp 37.0 C 07/21/20 08:00 Pulse 84 07/21/20 08:00 Resp 16 07/21/20 08:00 BP 117/57 L 07/21/20 08:00 Pulse Ox 91 L 07/21/20 08:00 Weight - Most Recent: 58.468 kg I&O - Last 24 hours: Intake & Output 07/20/20 07/21/20 07/21/20 22:59 06:59 14:59 Intake Total 120 350 Output Total 200 Balance -80 350 Lab Results - Last 24 hrs: Laboratory Results - last 24 hr 07/20/20 07/20/20 07/21/20 Range/Units 11:49 17:35 05:00 WBC 4.60 (4.0-11.0) K/uL RBC 3.73 L (4.30-5.90) M/uL Hgb 11.9 L (12.0-16.0) g/dL Hct 36.0 (36.0-46.0) % MCV 96.5 (80.0-98.0) fL MCH 31.9 (27.0-32.0) pg MCHC 33.1 (31.0-37.0) g/dL RDW Std Deviation 54.5 (28.0-62.0) fl RDW Coeff of Ame 15 (11.0-15.0) % Plt Count 96 L (150-400) K/uL MPV 10.70 (7.40-12.00) fL Neut % (Auto) 53.6 (48.0-80.0) % Lymph % (Auto) 27.2 (16.0-40.0) % [place] % (Auto) 15.9 H (0.0-15.0) % Eos % (Auto) 2.4 (0.0-7.0) % Baso % (Auto) 0.9 (0.0-1.5) % Neut # (Auto) 2.5 (1.4-5.7) K/uL Lymph # (Auto) 1.3 (0.6-2.4) K/uL [place] # (Auto) 0.7 (0.0-0.8) K/uL Eos # (Auto) 0.1 (0.0-0.7) K/uL Baso # (Auto) 0.0 (0.0-0.1) K/uL Nucleated RBC % 0.0 /100WBC Nucleated RBCs # 0 K/uL Sodium (136-145) mmol/L Potassium (3.5-5.1) mmol/L Chloride (98-107) mmol/L Carbon Dioxide (21.0-32.0) mmol/L BUN (7.0-18.0) mg/dL Creatinine (0.6-1.0) mg/dL Est Cr Clr Drug Dosing mL/min Estimated GFR (MDRD) ml/min Glucose (74-106) mg/dL POC Glucose 97 113 H (60-110) mg/dL Calcium (8.5-10.1) mg/dL Phosphorus (2.6-4.7) mg/dL Magnesium (1.8-2.4) mg/dL 07/21/20 07/21/20 Range/Units 05:00 06:54 WBC (4.0-11.0) K/uL RBC (4.30-5.90) M/uL Hgb (12.0-16.0) g/dL Hct (36.0-46.0) % MCV (80.0-98.0) fL MCH (27.0-32.0) pg MCHC (31.0-37.0) g/dL RDW Std Deviation (28.0-62.0) fl RDW Coeff of Ame (11.0-15.0) % Plt Count (150-400) K/uL MPV (7.40-12.00) fL Neut % (Auto) (48.0-80.0) % Lymph % (Auto) (16.0-40.0) % [place] % (Auto) (0.0-15.0) % Eos % (Auto) (0.0-7.0) % Baso % (Auto) (0.0-1.5) % Neut # (Auto) (1.4-5.7) K/uL Lymph # (Auto) (0.6-2.4) K/uL [place] # (Auto) (0.0-0.8) K/uL Eos # (Auto) (0.0-0.7) K/uL Baso # (Auto) (0.0-0.1) K/uL Nucleated RBC % /100WBC Nucleated RBCs # K/uL Sodium 137 (136-145) mmol/L Potassium 3.7 (3.5-5.1) mmol/L Chloride 104 (98-107) mmol/L Carbon Dioxide 27.4 (21.0-32.0) mmol/L BUN 15 (7.0-18.0) mg/dL Creatinine 0.9 (0.6-1.0) mg/dL Est Cr Clr Drug Dosing 47.36 mL/min Estimated GFR (MDRD) > 60.0 ml/min Glucose 96 (74-106) mg/dL POC Glucose 147 H (60-110) mg/dL Calcium 9.2 (8.5-10.1) mg/dL Phosphorus 2.0 L (2.6-4.7) mg/dL Magnesium 2.3 (1.8-2.4) mg/dL Med Orders - Current: Current Medications Albuterol/Ipratropium (Albuterol/Ipratropium 3.0-0.5 Mg/3 Ml Neb Soln) 3 ml NEB Q4HRRT PRN PRN Reason: Shortness Of Breath/wheezing Aspirin (Aspirin 81 Mg Tab.Chew) 81 mg PO DAILY [facility] Last Admin: 07/21/20 09:40 Dose: 81 mg Documented by: Docusate Sodium (Docusate Sodium 100 Mg Cap) 100 mg PO BID PRN PRN Reason: Constipation Last Admin: 07/19/20 18:19 Dose: 100 mg Documented by: Pantoprazole Sodium 40 mg/ (Sodium Chloride) 10 mls @ 200 mls/hr IV Q24H [facility] Last Admin: 07/20/20 20:28 Dose: 200 mls/hr Documented by: Morphine Sulfate (Morphine 2 Mg/Ml Syringe) 1 mg IVPUSH Q2H PRN PRN Reason: Pain (severe 7-10) Last Admin: 07/20/20 05:27 Dose: 1 mg Documented by: Nortriptyline HCl (Nortriptyline 10 Mg Cap) 20 mg PO BEDTIME [facility] Last Admin: 07/20/20 20:29 Dose: 20 mg Documented by: Ondansetron HCl (Ondansetron 4 Mg/2 Ml Sdv) 4 mg IVPUSH Q4H PRN PRN Reason: Nausea/Vomiting Potassium Chloride (Potassium Chloride 10 Meq Tab.Er) 20 meq PO DAILY [facility] Last Admin: 07/21/20 09:40 Dose: 20 meq Documented by: Pravastatin Sodium (Pravastatin 40 Mg Tab) 80 mg PO BEDTIME [facility] Last Admin: 07/20/20 20:28 Dose: 80 mg Documented by: Sodium Chloride (Sodium Chloride 0.9% 10 Ml Syringe) 10 ml FLUSH ASDIRECTED PRN PRN Reason: Keep Vein Open Last Admin: 07/17/20 15:59 Dose: 10 ml Documented by: Sodium Chloride (Sodium Chloride 0.9% 2.5 Ml Syringe) 2.5 ml FLUSH ASDIRECTED PRN PRN Reason: Keep Vein Open Last Admin: 07/17/20 15:59 Dose: 2.5 ml Documented by: Discontinued Medications Acetaminophen (Acetaminophen 325 Mg Tab) 650 mg PO Q4H PRN PRN Reason: Pain Sodium Chloride (Normal Saline) 1,000 mls @ 999 mls/hr IV STAT ONE Stop: 07/17/20 16:53 Last Admin: 07/17/20 15:59 Dose: 999 mls/hr Documented by: Sodium Chloride (Normal Saline) 1,000 mls @ 200 mls/hr IV STAT ONE Stop: 07/17/20 22:45 Last Admin: 07/17/20 18:15 Dose: 200 mls/hr Documented by: Lactated Ringer's (Ringers, Lactated) 1,000 mls @ 125 mls/hr IV ASDIRECTED [facility] Last Admin: 07/20/20 02:26 Dose: 125 mls/hr Documented by: Magnesium Sulfate (Magnesium Sulfate In Water 2 Gm/50 Ml) 2 gm in 50 mls @ 50 mls/hr IV ONETIME ONE Stop: 07/20/20 10:29 Last Admin: 07/20/20 10:27 Dose: 50 mls/hr Documented by: Lorazepam (Lorazepam 2 Mg/Ml Sdv) 1 mg IVPUSH ONETIME ONE Stop: 07/20/20 06:02 Last Admin: 07/20/20 06:17 Dose: 1 mg Documented by: Morphine Sulfate (Morphine 10 Mg/Ml Syringe) 1 mg IVPUSH Q2H PRN PRN Reason: Pain (severe 7-10) Stop: 07/18/20 18:56 Last Admin: 07/18/20 01:09 Dose: 1 mg Documented by: Ondansetron HCl (Ondansetron 4 Mg/2 Ml Sdv) 4 mg IVPUSH ONETIME ONE Stop: 07/17/20 15:54 Last Admin: 07/17/20 15:59 Dose: 4 mg Documented by: Pantoprazole Sodium (Pantoprazole 40 Mg Vial) 40 mg IV DAILY OREN Pantoprazole Sodium (Pantoprazole 40 Mg Vial) 40 mg IV DAILY OREN Last Admin: 07/17/20 20:06 Dose: 40 mg Documented by: Potassium Chloride (Potassium Chloride 20 Meq Tab.Er) 40 meq PO ONETIME ONE Stop: 07/18/20 09:21 Last Admin: 07/18/20 10:13 Dose: 40 meq Documented by: Sodium Phosphate (Phosphorus #1 250 Mg Tab) 250 mg PO ONETIME ONE Stop: 07/19/20 12:31 Last Admin: 07/19/20 13:07 Dose: 250 mg Documented by: Sodium Phosphate (Phosphorus #1 250 Mg Tab) 250 mg PO ONETIME ONE Stop: 07/19/20 12:41 Last Admin: 07/19/20 13:08 Dose: 250 mg Documented by: Sodium Phosphate (Phosphorus #1 250 Mg Tab) 500 mg PO ONETIME ONE Stop: 07/20/20 09:31 Last Admin: 07/20/20 13:58 Dose: 500 mg Documented by:
== END 2020-07-21 12:35 | disposition home health service (06) | DRG 683 ==
LOC: MW.ED 15:34 → MW.MS 17:52 → UNDOADMOB 17:52 → OBSVTOIN 07-18 12:24
PROVIDERS: ADMIT Student in an Organized Health Care Education/Training Program; ATTEND Student in an Organized Health Care Education/Training Program
DX: N17.9 Acute kidney failure, unspecified (principal); I85.00 Esophageal varices without bleeding; M17.11 Unilateral primary osteoarthritis, right knee; E86.0 Dehydration; R26.2 Difficulty in walking, not elsewhere classified; R53.1 Weakness; Z79.82 Long term (current) use of aspirin; Z79.899 Other long term (current) drug therapy; Z88.8 Allergy status to other drugs, medicaments and biological substances; Z88.5 Allergy status to narcotic agent; K74.60 Unspecified cirrhosis of liver; H54.7 Unspecified visual loss; H91.90 Unspecified hearing loss, unspecified ear; I25.10 Atherosclerotic heart disease of native coronary artery without angina pectoris; I50.9 Heart failure, unspecified; M54.9 Dorsalgia, unspecified; G89.29 Other chronic pain; M06.9 Rheumatoid arthritis, unspecified; F41.0 Panic disorder [episodic paroxysmal anxiety]; I11.0 Hypertensive heart disease with heart failure; Z95.5 Presence of coronary angioplasty implant and graft; E78.00 Pure hypercholesterolemia, unspecified; I25.2 Old myocardial infarction; J44.9 Chronic obstructive pulmonary disease, unspecified; F32.9 Major depressive disorder, single episode, unspecified; Z87.01 Personal history of pneumonia (recurrent); Z87.440 Personal history of urinary (tract) infections; Z79.01 Long term (current) use of anticoagulants; Z90.49 Acquired absence of other specified parts of digestive tract; Z90.710 Acquired absence of both cervix and uterus; E11.9 Type 2 diabetes mellitus without complications; F41.9 Anxiety disorder, unspecified; Z20.822 Contact with and (suspected) exposure to COVID-19
CPT/HCPCS: 36415; 71045; 71045-26; 80048; 80053; 81003; 82436; 82570; 82962; 83690; 83735; 84100; 84133; 84300; 84484; 85025; 93005; 93010; 96374; 96375; 96376; 97110-GP; 97162-GP; 97530-GP; 99284; 99285-25; A9270-GY; C9113; G0378; J2060; J2270; J2405; J3475; J7030; J7120; U0002

== ENCOUNTER 2020-11-02 13:10 | Inpatient (IN) | payer MEDICARE ==
[2020-11-02] MEDS ORDERED: Sodium Chloride 0.9% 2.5 ML Syringe FLUSH PRN (13:15)
[2020-11-02] MEDS ORDERED: Sodium Chloride 0.9% 10 ML Syringe FLUSH PRN (13:15)
--- NOTE | 2020-11-02 13:21 | EDM.PDOC ---
ED HPI GENERAL MEDICAL PROBLEM - General Chief Complaint: Lower Extremity Injury/Pain Stated Complaint: FALL Time Seen by Provider: 11/02/20 13:14 - History of Present Illness INITIAL COMMENTS - FREE TEXT/NARRATIVE: History of present illness: []The patient lives with her but was alone today and fell. She says she falls frequently. She had pain which prevented her from being able to move about today - it's in the right hip and upper posterior thorax. She has skin tears on her hands as well. Review of systems: As per history of present illness and below otherwise all systems reviewed and negative. Past medical history: As per history of present illness and as reviewed below otherwise noncontributory. Surgical history: As per history of present illness and as reviewed below otherwise noncontributory. Social history: No reported history of drug or alcohol abuse. Family history: As per history of present illness and as reviewed below otherwise noncontributory. Physical exam: Constitutional - well developed, well-nourished and in no acute distress HEENT - normocephalic, no evidence of trauma - external nose and mouth normal - no mass in neck and no JVD - mucosae moist EYES - full EOM, PERRL, no icterus - no evidence of inflammation, injection, or drainage Respiratory - no respiratory distress, equal bilateral expansion, lungs clear to auscultation and no abnormal lung sounds Cardiovascular - Regular Rhythm with S1 and S2 appreciated and no murmur, gallop or rub. GI - abdomen soft without distension or organomegaly - normal bowel sounds - no guard or rebound Musculoskeletal tenderness in the right hip. Tenderness in the upper spine. No gross deformity of long bones or joints - no tenderness, swelling or edema Neurologic - Alert and confused.- CN II-XII grossly intact - motor sensory and coordination symmetrically normal Psychiatric - appropriate mood and affect with normal thought content Hematologic - No petechiae or purpura - mucosa appropriate color and sclera not pale - normal nail bed color and refill Integument -skin tears and ecchymosis over hands and forearms. Otherwise no rash or evidence of trauma - normal turgor Diagnostics: [] Therapeutics: [] Impression: [] Plan: [] Definitive disposition and diagnosis as appropriate pending reevaluation and review of above. - Related Data Allergies Allergy/AdvReac Type Severity Reaction Status Date / Time codeine Allergy Vomiting Verified 11/02/20 13:11 diphenhydramine Allergy Itching Verified 11/02/20 13:11 [From Benadryl] propoxyphene HCl Allergy Vomiting Verified 11/02/20 13:11 [From Darvon] Home Meds: Home Meds Pravastatin [Pravachol] 80 mg PO BEDTIME 01/08/19 [History] Potassium Chloride 20 meq PO DAILY 12/01/19 [History] buPROPion HCL [Bupropion HCl Sr] 100 mg PO DAILY 12/01/19 [History] metOLazone [Metolazone] 2.5 mg PO Q2D PRN 12/01/19 [History] Glimepiride 2 mg PO DAILY 07/18/20 [History] Calcium Carbonate [Calcium] 1 tab PO DAILY 09/25/20 [History] Spironolactone [Aldactone] 1 tab PO DAILY 09/25/20 [History] Lactulose [Enulose] 10 gm PO DAILY 09/26/20 [History] Acetaminophen [Tylenol] 650 mg PO Q6H PRN tablet 09/29/20 [Rx] Albuterol/Ipratropium [DuoNeb 3.0-0.5 MG/3 ML] 3 ml NEB Q4HRRT PRN neb 09/29/20 [Rx] Cefepime [Maxipime in D5W 2 GM/50 ML] 2 gm IV Q8H bag 09/29/20 [Rx] Enoxaparin [Lovenox] 30 mg SUBCUT Q24H syringe 09/29/20 [Rx] Morphine 2 mg IVPUSH Q4H PRN syringe 09/29/20 [Rx] Ondansetron [Zofran ODT] 4 mg PO Q4H PRN tab.dis 09/29/20 [Rx] Pantoprazole [ProTONIX IV] 40 mg IV Q24H vial 09/29/20 [Rx] Past Medical History - Past Health History Medical/Surgical History: Denies Medical/Surgical History HEENT History: Reports: Hard of Hearing, Impaired Vision Other HEENT History: wears corrective glasses Cardiovascular History: Reports: CAD, Heart Failure, High Cholesterol, Hypertension, [place], SOB on Exertion, Stents, Other (See Below) Other Cardiovascular History: states she has had 7 stents placed. 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: Musculoskeletal History: Reports: Back Pain, Chronic, RA Neurological History: Reports: Migraines Psychiatric History: Reports: Anxiety, Depression, Panic Attack, Other (See Below) Other Psychiatric History: Per medical record past has had episodes of confusion, and Encephalopathy Endocrine/Metabolic History: Reports: Diabetes, Type II, Osteopenia Hematologic History: Reports: Anticoagulation Therapy - Infectious Disease History Infectious Disease History: Reports: Chicken Pox, Measles, Mumps - Past Surgical History HEENT Surgical History: Reports: Tonsillectomy Cardiovascular Surgical History: Reports: Other (See Below) Other Cardiovascular Surgeries/Procedures: STENTS X7 GI Surgical History: Reports: Cholecystectomy Female Surgical History: Reports: Hysterectomy Musculoskeletal Surgical History: Reports: None Social & Family History - Family History Family Medical History: No Pertinent Family History - Caffeine Use Caffeine Use: Reports: Coffee, Soda, Tea Course - Orders/Labs/Meds Orders: Active Orders 24 hr Category Date Time Status EKG Documentation Completion [RC] AM Care 11/02/20 13:15 Ordered C-Spine [Cervical Spine wo Cont] [CT] Stat Exams 11/02/20 13:16 Ordered Chest 1V Frontal [CR] Stat Exams 11/02/20 13:16 Ordered Hip Min 2V or 3V w Pelvis Rt [CR] Stat Exams 11/02/20 13:16 Ordered Thoracic Spine wo Cont [CT] Stat Exams 11/02/20 13:17 Ordered CBC WITH AUTO DIFF [HEME] Stat Lab 11/02/20 13:15 Ordered COMPREHENSIVE METABOLIC PN,CMP [CHEM] Stat Lab 11/02/20 13:15 Ordered INR,PT,PROTHROMBIN TIME [COAG] Stat Lab 11/02/20 13:15 Ordered UA W/CATE RFLX IF INDICATED [URIN] Stat Lab 11/02/20 13:15 Ordered Sodium Chloride 0.9% [Saline Flush] Med 11/02/20 13:15 Ordered 10 ml FLUSH ASDIRECTED PRN Sodium Chloride 0.9% [Saline Flush] Med 11/02/20 13:15 Ordered 2.5 ml FLUSH ASDIRECTED PRN Saline Lock Insert [OM.PC] Stat Oth 11/02/20 13:15 Ordered Departure - Discharge Information - My Orders Last 24 Hours: My Active Orders 11/02/20 13:15 EKG Documentation Completion [RC] AM CBC WITH AUTO DIFF [HEME] Stat COMPREHENSIVE METABOLIC PN,CMP [CHEM] Stat INR,PT,PROTHROMBIN TIME [COAG] Stat UA W/CATE RFLX IF INDICATED [URIN] Stat Sodium Chloride 0.9% [Saline Flush] 10 ml FLUSH ASDIRECTED PRN Sodium Chloride 0.9% [Saline Flush] 2.5 ml FLUSH ASDIRECTED PRN Saline Lock Insert [OM.PC] Stat 11/02/20 13:16 C-Spine [Cervical Spine wo Cont] [CT] Stat Chest 1V Frontal [CR] Stat Hip Min 2V or 3V w Pelvis Rt [CR] Stat 11/02/20 13:17 Thoracic Spine wo Cont [CT] Stat - Assessment/Plan Last 24 Hours: My Active Orders 11/02/20 13:15 EKG Documentation Completion [RC] AM CBC WITH AUTO DIFF [HEME] Stat COMPREHENSIVE METABOLIC PN,CMP [CHEM] Stat INR,PT,PROTHROMBIN TIME [COAG] Stat UA W/CATE RFLX IF INDICATED [URIN] Stat Sodium Chloride 0.9% [Saline Flush] 10 ml FLUSH ASDIRECTED PRN Sodium Chloride 0.9% [Saline Flush] 2.5 ml FLUSH ASDIRECTED PRN Saline Lock Insert [OM.PC] Stat 11/02/20 13:16 C-Spine [Cervical Spine wo Cont] [CT] Stat Chest 1V Frontal [CR] Stat Hip Min 2V or 3V w Pelvis Rt [CR] Stat 11/02/20 13:17 Thoracic Spine wo Cont [CT] Stat
--- NOTE | 2020-11-02 13:25 | EDM.PDOC ---
ED HPI GENERAL MEDICAL PROBLEM - General Chief Complaint: Lower Extremity Injury/Pain Stated Complaint: FALL Time Seen by Provider: 11/02/20 13:14 - History of Present Illness INITIAL COMMENTS - FREE TEXT/NARRATIVE: History of present illness: []The patient lives with her but was alone today and fell. She says she falls frequently. She had pain which prevented her from being able to move about today - it's in the right hip and upper posterior thorax. She has skin tears on her hands as well. According to the daughter the was just out for the morning. The patient fell. 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 Patient now has pain in the right knee and right hip as well as the right side and back. Review of systems: As per history of present illness and below otherwise all systems reviewed and negative. Past medical history: As per history of present illness and as reviewed below otherwise noncontributory. Surgical history: As per history of present illness and as reviewed below otherwise noncontributory. Social history: No reported history of drug or alcohol abuse. Family history: As per history of present illness and as reviewed below otherwise noncontributory. Physical exam: Constitutional - well developed, well-nourished and in no acute distress HEENT - normocephalic, no evidence of trauma - external nose and mouth normal - no mass in neck and no JVD - mucosae moist EYES - full EOM, PERRL, no icterus - no evidence of inflammation, injection, or drainage Respiratory - no respiratory distress, equal bilateral expansion, lungs clear to auscultation and no abnormal lung sounds Cardiovascular - Regular Rhythm with S1 and S2 appreciated and no murmur, gallop or rub. GI - abdomen soft without distension or organomegaly - normal bowel sounds - no guard or rebound Musculoskeletal tenderness in the right hip. Tenderness in the upper spine. Tenderness in the right knee otherwise no gross deformity of long bones or joints - no tenderness, swelling or edema Neurologic - Alert and confused.- CN II-XII grossly intact - motor sensory and coordination symmetrically normal Psychiatric - appropriate mood and affect with normal thought content Hematologic - No petechiae or purpura - mucosa appropriate color and sclera not pale - normal nail bed color and refill Integument -skin tears and ecchymosis over hands and forearms. Otherwise no rash or evidence of trauma - normal turgor Diagnostics: [] Therapeutics: [] Impression: [] Plan: [] Definitive disposition and diagnosis as appropriate pending reevaluation and review of above. Right Hip Pain Score (Numeric/FACES): 10 - Related Data Allergies Allergy/AdvReac Type Severity Reaction Status Date / Time codeine Allergy Vomiting Verified 11/02/20 13:11 diphenhydramine Allergy Itching Verified 11/02/20 13:11 [From Benadryl] propoxyphene HCl Allergy Vomiting Verified 11/02/20 13:11 [From Darvon] Home Meds: Home Meds Pravastatin [Pravachol] 80 mg PO BEDTIME 01/08/19 [History] Potassium Chloride 20 meq PO DAILY 12/01/19 [History] buPROPion HCL [Bupropion HCl Sr] 100 mg PO DAILY 12/01/19 [History] metOLazone [Metolazone] 2.5 mg PO Q2D PRN 12/01/19 [History] Glimepiride 2 mg PO DAILY 07/18/20 [History] Calcium Carbonate [Calcium] 1 tab PO DAILY 09/25/20 [History] Spironolactone [Aldactone] 1 tab PO DAILY 09/25/20 [History] Lactulose [Enulose] 10 gm PO DAILY 09/26/20 [History] Acetaminophen [Tylenol] 650 mg PO Q6H PRN tablet 09/29/20 [Rx] Albuterol/Ipratropium [DuoNeb 3.0-0.5 MG/3 ML] 3 ml NEB Q4HRRT PRN neb 09/29/20 [Rx] Cefepime [Maxipime in D5W 2 GM/50 ML] 2 gm IV Q8H bag 09/29/20 [Rx] Enoxaparin [Lovenox] 30 mg SUBCUT Q24H syringe 09/29/20 [Rx] Morphine 2 mg IVPUSH Q4H PRN syringe 09/29/20 [Rx] Ondansetron [Zofran ODT] 4 mg PO Q4H PRN tab.dis 09/29/20 [Rx] Pantoprazole [ProTONIX IV] 40 mg IV Q24H vial 09/29/20 [Rx] Past Medical History - Past Health History Medical/Surgical History: Denies Medical/Surgical History HEENT History: Reports: Hard of Hearing, Impaired Vision Other HEENT History: wears corrective glasses Cardiovascular History: Reports: CAD, Heart Failure, High Cholesterol, Hypertension, [place], SOB on Exertion, Stents, Other (See Below) Other Cardiovascular History: states she has had 7 stents placed. 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: Reports: Musculoskeletal History: Reports: Back Pain, Chronic, RA Neurological History: Reports: Migraines Psychiatric History: Reports: Anxiety, Depression, Panic Attack, Other (See Below) Other Psychiatric History: Per medical record past has had episodes of confusion, and Encephalopathy Endocrine/Metabolic History: Reports: Diabetes, Type II, Osteopenia Hematologic History: Reports: Anticoagulation Therapy - Infectious Disease History Infectious Disease History: Reports: Chicken Pox, Measles, Mumps - Past Surgical History HEENT Surgical History: Reports: Tonsillectomy Cardiovascular Surgical History: Reports: Other (See Below) Other Cardiovascular Surgeries/Procedures: STENTS X7 GI Surgical History: Reports: Cholecystectomy Female Surgical History: Reports: Hysterectomy Musculoskeletal Surgical History: Reports: None Social & Family History - Family History Family Medical History: No Pertinent Family History - Tobacco Use Tobacco Use Status *Q: Current Every Day Tobacco User Years of Tobacco use: 65 Packs/Tins Daily: 0.4 - Caffeine Use Caffeine Use: Reports: Coffee, Soda, Tea - Recreational Drug Use Recreational Drug Use: No ED ROS GENERAL - Review of Systems Review Of Systems: Comprehensive ROS is negative, except as noted in HPI. ED EXAM, GENERAL - Physical Exam Exam: See Below Free Text/Narrative:: History of present illness: []The patient lives with her but was alone today and fell. She says she falls frequently. She had pain which prevented her from being able to move about today - it's in the right hip and upper posterior thorax. She has skin tears on her hands as well. Review of systems: As per history of present illness and below otherwise all systems reviewed and negative. Past medical history: As per history of present illness and as reviewed below otherwise noncontributory. Surgical history: As per history of present illness and as reviewed below otherwise noncontributory. Social history: No reported history of drug or alcohol abuse. Family history: As per history of present illness and as reviewed below otherwise noncontributory. Physical exam: Constitutional - well developed, well-nourished and in no acute distress HEENT - normocephalic, no evidence of trauma - external nose and mouth normal - no mass in neck and no JVD - mucosae moist EYES - full EOM, PERRL, no icterus - no evidence of inflammation, injection, or drainage Respiratory - no respiratory distress, equal bilateral expansion, lungs clear to auscultation and no abnormal lung sounds Cardiovascular - Regular Rhythm with S1 and S2 appreciated and no murmur, gallop or rub. GI - abdomen soft without distension or organomegaly - normal bowel sounds - no guard or rebound Musculoskeletal tenderness in the right hip. Tenderness in the upper spine. No gross deformity of long bones or joints - no tenderness, swelling or edema Neurologic - Alert and confused.- CN II-XII grossly intact - motor sensory and coordination symmetrically normal Psychiatric - appropriate mood and affect with normal thought content Hematologic - No petechiae or purpura - mucosa appropriate color and sclera not pale - normal nail bed color and refill Integument -skin tears and ecchymosis over hands and forearms. Otherwise no rash or evidence of trauma - normal turgor Diagnostics: [] Therapeutics: [] Impression: [] Plan: [] Definitive disposition and diagnosis as appropriate pending reevaluation and review of above. #1 Interpretation EKG Interpretation Comments: EKG sinus tachycardia heart rate 101 ME interval 168 axis XX 5 low voltage otherwise normal impression normal EKG Course - Vital Signs Text/Narrative:: The patient has a patent painful fracture in the sacrum that is nondisplaced. While we do not have orthopedics classification counselor here she does not apparently need surgery. She does need rehab to learn to walk safely and comfortably with her walker. She also needs pain control and bowel management. Discussed with Dr. Perry and placed in observation status. Last Recorded V/S: Last Vital Signs Temp 36.4 C 11/02/20 13:15 Pulse 94 11/02/20 14:10 Resp 16 11/02/20 14:10 BP 120/44 L 11/02/20 14:10 Pulse Ox 97 11/02/20 14:10 - Orders/Labs/Meds Orders: Active Orders 24 hr Category Date Time Status EKG Documentation Completion [RC] AM Care 11/02/20 13:15 Active Insert Willoughby Catheter [Insert Urinary Catheter] [OM.PC] Care 11/02/20 13:30 Ordered Q24H Urinary Catheter Assessment [RC] ASDIRECTED Care 11/02/20 13:20 Active UA W/CATE RFLX IF INDICATED [URIN] Stat Lab 11/02/20 13:15 Ordered Sodium Chloride 0.9% [Saline Flush] Med 11/02/20 13:15 Active 10 ml FLUSH ASDIRECTED PRN Sodium Chloride 0.9% [Saline Flush] Med 11/02/20 13:15 Active 2.5 ml FLUSH ASDIRECTED PRN Saline Lock Insert [OM.PC] Stat Ot 11/02/20 13:15 Ordered Medication Orders Sodium Chloride (Sodium Chloride 0.9% 10 Ml Syringe) 10 ml FLUSH ASDIRECTED PRN PRN Reason: Keep Vein Open Last Admin: 11/02/20 13:51 Dose: 10 ml Documented by: SARAH Sodium Chloride (Sodium Chloride 0.9% 2.5 Ml Syringe) 2.5 ml FLUSH ASDIRECTED PRN PRN Reason: Keep Vein Open Last Admin: 11/02/20 13:51 Dose: 2.5 ml Documented by: SARAH Labs: Laboratory Tests 11/02/20 11/02/20 11/02/20 Range/Units 14:34 14:34 14:34 WBC 8.21 (4.0-11.0) K/uL RBC 3.22 L (4.30-5.90) M/uL Hgb 10.4 L (12.0-16.0) g/dL Hct 32.0 L (36.0-46.0) % MCV 99.4 H (80.0-98.0) fL MCH 32.3 H (27.0-32.0) pg MCHC 32.5 (31.0-37.0) g/dL RDW Std Deviation 65.5 H (28.0-62.0) fl RDW Coeff of Ame 18 H (11.0-15.0) % Plt Count 125 L (150-400) K/uL MPV 10.10 (7.40-12.00) fL Neut % (Auto) 70.5 (48.0-80.0) % Lymph % (Auto) 11.8 L (16.0-40.0) % Loup % (Auto) 16.9 H (0.0-15.0) % Eos % (Auto) 0.4 (0.0-7.0) % Baso % (Auto) 0.4 (0.0-1.5) % Neut # (Auto) 5.8 H (1.4-5.7) K/uL Lymph # (Auto) 1.0 (0.6-2.4) K/uL Loup # (Auto) 1.4 H (0.0-0.8) K/uL Eos # (Auto) 0.0 (0.0-0.7) K/uL Baso # (Auto) 0.0 (0.0-0.1) K/uL Nucleated RBC % 0.0 /100WBC Nucleated RBCs # 0 K/uL INR 1.16 Sodium 138 (136-145) mmol/L Potassium 4.5 (3.5-5.1) mmol/L Chloride 106 (98-107) mmol/L Carbon Dioxide 24.4 (21.0-32.0) mmol/L BUN 25 H (7.0-18.0) mg/dL Creatinine 1.6 H (0.6-1.0) mg/dL Est Cr Clr Drug Dosing 26.64 mL/min Estimated GFR (MDRD) 31.5 ml/min Glucose 66 L (74-106) mg/dL Calcium 9.2 (8.5-10.1) mg/dL Total Bilirubin 1.1 H (0.2-1.0) mg/dL AST 50 H (15-37) IU/L ALT 31 (14-63) IU/L Alkaline Phosphatase 366 H (46-116) U/L Total Protein 6.1 L (6.4-8.2) g/dL Albumin 2.1 L (3.4-5.0) g/dL Globulin 4.0 (2.6-4.0) g/dL Albumin/Globulin Ratio 0.5 L (0.9-1.6) Meds: Medications Generic Name Dose Route Start Last Admin Trade Name Freq PRN Reason Stop Dose Admin Sodium Chloride 10 ml 11/02/20 13:15 11/02/20 13:51 Sodium Chloride 0.9% 10 Ml Syringe FLUSH 10 ml ASDIRECTED PRN Administration Keep Vein Open Sodium Chloride 2.5 ml 11/02/20 13:15 11/02/20 13:51 Sodium Chloride 0.9% 2.5 Ml Syringe FLUSH 2.5 ml ASDIRECTED PRN Administration Keep Vein Open Discontinued Medications Generic Name Dose Route Start Last Admin Trade Name Freq PRN Reason Stop Dose Admin Morphine Sulfate 2 mg 11/02/20 14:10 11/02/20 14:17 Morphine 2 Mg/Ml Syringe IVPUSH 11/02/20 14:11 2 mg ONETIME ONE Administration Morphine Sulfate 2 mg 11/02/20 15:47 Morphine 2 Mg/Ml Syringe IVPUSH 11/02/20 15:48 ONETIME ONE Ondansetron HCl 4 mg 11/02/20 14:11 11/02/20 14:17 Ondansetron 4 Mg/2 Ml Sdv IVPUSH 11/02/20 14:12 4 mg ONETIME ONE Administration Departure - Departure Time of Disposition: 16:14 Disposition: Refer to Observation Condition: Good Clinical Impression: Fall, Fracture of sacrum - Discharge Information Forms: ED Department Discharge Sepsis Event Note (ED) - Evaluation Sepsis Screening Result: No Definite Risk - Focused Exam Vital Signs: Vital Signs Temp Pulse Resp BP Pulse Ox 11/02/20 14:10 94 16 120/44 L 97 11/02/20 13:15 36.4 C 107 H 17 102/52 L 94 L - My Orders Last 24 Hours: My Active Orders 11/02/20 13:15 EKG Documentation Completion [RC] AM UA W/CATE RFLX IF INDICATED [URIN] Stat Sodium Chloride 0.9% [Saline Flush] 10 ml FLUSH ASDIRECTED PRN Sodium Chloride 0.9% [Saline Flush] 2.5 ml FLUSH ASDIRECTED PRN Saline Lock Insert [OM.PC] Stat 11/02/20 13:20 Urinary Catheter Assessment [RC] ASDIRECTED 11/02/20 13:30 Insert Willoughby Catheter [Insert Urinary Catheter] [OM.PC] Q24H - Assessment/Plan Last 24 Hours: My Active Orders 11/02/20 13:15 EKG Documentation Completion [RC] AM UA W/CATE RFLX IF INDICATED [URIN] Stat Sodium Chloride 0.9% [Saline Flush] 10 ml FLUSH ASDIRECTED PRN Sodium Chloride 0.9% [Saline Flush] 2.5 ml FLUSH ASDIRECTED PRN Saline Lock Insert [OM.PC] Stat 11/02/20 13:20 Urinary Catheter Assessment [RC] ASDIRECTED 11/02/20 13:30 Insert Willoughby Catheter [Insert Urinary Catheter] [OM.PC] Q24H
[2020-11-02] MEDS ORDERED: Morphine 2 MG/ML SYRINGE IVPUSH ONE ×2 (14:10→15:47)
[2020-11-02] MEDS ORDERED: Ondansetron 4 MG/2 ML SDV IVPUSH ONE (14:11)
--- NOTE | 2020-11-02 14:45 | CT ---
INDICATION: Trauma, fall. TECHNIQUE: CT cervical spine without contrast. COMPARISON: None FINDINGS: Vertebrae: Alignment is normal. There are no fractures or suspicious bony lesions. Discs and facet joints: There are diffuse degenerative changes in the disc spaces and facet joints. Extraspinal findings: Paraspinous soft tissues are unremarkable. IMPRESSION: 1. No sign of acute injury. 2. Multilevel degenerative spondylosis. Please note that all CT scans at this facility use dose modulation, iterative reconstruction, and/or weight-based dosing when appropriate to reduce radiation dose to as low as reasonably achievable. Dictated by Chet Winn MD @ 11/02/2020 2:44:[address] Chet Winn @ Nov 02 2020 2:44PM
--- NOTE | 2020-11-02 14:47 | CT ---
Indication: Confusion after fall Technique: Volumetric multidetector CT images of the head were obtained without the administration of low osmolar intravenous contrast. Comparison: CT head September 25 2020 Findings: There is no intra-axial or extra-axial fluid collection. There is no mass effect or midline shift. There is age-related cortical atrophy with mild sulcal widening and ex vacuo dilatation of the lateral ventricles. There are chronic small vessel disease changes in the subcortical and periventricular white matter without lost lomeli-white differentiation. The orbits and their contents are grossly within normal limits. The bony calvarium is grossly intact. There is mucosal thickening seen within the paranasal sinuses. The mastoid air cells are well aerated. Impression: Stable age related changes of the brain without acute intracranial abnormality. Please note that all CT scans at this facility use dose modulation, iterative reconstruction, and/or weight-based dosing when appropriate to reduce radiation dose to as low as reasonably achievable. Dictated by Asad Martin MD @ 11/02/2020 2:46:[address] Asad Martin @ Nov 02 2020 2:46PM
--- NOTE | 2020-11-02 14:50 | CT ---
INDICATION: Trauma, fall TECHNIQUE: CT thoracic spine without contrast. COMPARISON: CT chest September 28, 2020 FINDINGS: Vertebral alignment: Alignment is normal. Vertebrae: Stable moderate compression fractures in the T5 and T10 vertebral bodies. No new or worsening fracture. Discs and facet joints: Disc spaces and facets are within normal limits. Extraspinal findings: Prevertebral soft tissues, visualized airway, and visualized lungs are unremarkable. IMPRESSION: No acute findings and no significant changes from the prior exam. Stable moderate compression fractures of the T5 and T10 vertebral bodies. Please note that all CT scans at this facility use dose modulation, iterative reconstruction, and/or weight-based dosing when appropriate to reduce radiation dose to as low as reasonably achievable. Dictated by Chet Winn MD @ 11/02/2020 2:49:[address] Chet Winn @ Nov 02 2020 2:49PM
--- NOTE | 2020-11-02 14:52 | CR ---
INDICATION: Injury TECHNIQUE: Chest 1 views COMPARISON: September 26, 2020 FINDINGS: Cardiovascular and mediastinum: Heart size and vasculature are normal in caliber and appearance. Lungs and pleural spaces: Lungs are clear. No sign of infiltrate or mass. No sign of pleural effusion. No pneumothorax. Bones and soft tissues: No significant findings. IMPRESSION: Negative chest. No sign of acute injury or disease. Dictated by Chet Winn MD @ 11/02/2020 2:51:[address] Chet Winn @ Nov 02 2020 2:51PM
--- NOTE | 2020-11-02 14:56 | CR ---
Indication: Injury and pain Technique: Pelvis and right hip 2 views Comparison: None Findings: Bones: Alignment is normal. No fractures or bone lesions. Joint spaces: Unremarkable. No significant degenerative changes. Soft tissues: Bilateral iliac artery stents present. Impression: No sign of acute injury. Dictated by Chet Winn MD @ 11/02/2020 2:55:[address] Chet Winn @ Nov 02 2020 2:55PM
--- NOTE | 2020-11-02 15:02 | CR ---
Indication: Injury and pain. Technique: Left knee 2 views Comparison: None Findings: Bones: Alignment is normal. No fractures or bone lesions. Joint spaces: Mild osteoarthritis predominantly in the knee joint lateral compartment. No significant joint effusion. Soft tissues: Unremarkable. Impression: No sign of acute injury. Dictated by Chet Winn MD @ 11/02/2020 3:00:[address] Chet Winn @ Nov 02 2020 3:00PM
[2020-11-02 15:21] LABS: CARBON DIOXIDE,CO2 24.4 mmol/L (21.0-32.0); POTASSIUM,K 4.5 mmol/L (3.5-5.1)
--- NOTE | 2020-11-02 15:39 | CT ---
INDICATION: Status post fall with right hip pain. COMPARISON: Plain films of the right hip from today. CT of the abdomen and pelvis from 09/28/2020 TECHNIQUE: CT examination of the pelvis was performed without contrast enhancement using 2 and 3 mm thick axial and 3 millimeter thick sagittal and coronal sections from the superior iliac crest through the pubic symphysis. Oral contrast was not administered. Please note that all CT scans at this facility use dose modulation, iterative reconstruction, and/or weight-based dosing when appropriate to reduce radiation dose to as low as reasonably achievable. FINDINGS: : There is a new acute, oblique, nondisplaced fracture of the right lateral sacral body, not evident even in retrospect on today`s plain films. There is no sign of any disruption of the sacral arches on today`s plain films. There is no sign of any associated disruption of the sacroiliac joints or pubic symphysis. There is stable moderate pubic symphysitis. 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 There is no sign of any additional fracture of the pelvic ring, with intact appearance of the pubic rami. The right hip itself is intact, with no sign of fracture or dislocation. There is no sign of fracture of the right acetabulum. The left hip is also intact. No significant osteoarthritis is seen in either hip. In the pelvis, moderate ascites is again seen, along with moderate diffuse anasarca. The appendix is normal in appearance with no sign of inflammatory process. There is now a moderate amount of fecal material now seen distributed throughout the inferior colon and rectum consistent with constipation. The loops of small bowel and colon in the pelvis are otherwise normal in appearance. The uterus is again seen to be absent and the adnexal regions are normal in appearance. The urinary bladder is normal in appearance. There is no sign of pelvic or inguinal mass or adenopathy. Again seen are bilateral external iliac stents. There is no sign of free air in the pelvis. Again seen is severe L4-5 and L5-S1 disc degenerative disease. IMPRESSION: Acute, nondisplaced, oblique fracture of the right sacral body, without associated disruption of the sacroiliac joint or any additional pelvic fracture elsewhere. Intact appearance of both hips with no significant osteoarthritis. 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 Stable moderate ascites. Stable changes of hysterectomy. New constipation. Please note that all CT scans at this facility use dose modulation, iterative reconstruction, and/or weight-based dosing when appropriate to reduce radiation dose to as low as reasonably achievable. Dictated by Flakito Jones MD @ 11/02/2020 3:37:[address] Flakito Jones @ Nov 02 2020 3:37PM
--- NOTE | 2020-11-02 15:54 | CT ---
INDICATION: Pain after fall COMPARISON: CT of the abdomen and pelvis from 09/28/2020. TECHNIQUE: CT examination of the lumbar spine is performed with spiral technique without contrast. Two mm thick axial, sagittal and coronal reconstructions were made. Please note that all CT scans at this facility use dose modulation, iterative reconstruction, and/or weight-based dosing when appropriate to reduce radiation dose to as low as reasonably achievable. FINDINGS: : There is no change in mild S shaped scoliosis of the inferior thoracic and lumbar spine with the lumbar curve convex towards the left with the apex at the L4 level. The vertebral bodies are normal in height and they are in anatomic alignment. There is no sign of fracture or subluxation. There is stable severe L4-5 and L5-S1 disc degenerative disease with prominent loss of disc height and prominent sclerosis of the vertebral bodies adjacent to the disc space. There is stable moderate right lateral L4-5 disc bulging and posterior osteophytic ridging extending into the right neural foramen, impinging upon the right L4 nerve root, mildly compressing the nerve root. There is stable moderate right lateral L5-S1 disc bulging into the neural foramen, impinging upon the right L5 nerve root, but without compression of the nerve root. There is no change in moderate right L3-4 and mild left L2-3 disc degenerative disease related to the scoliosis. There is stable moderate bilateral L3-4 disc bulging into the neural foramina, without contact with the exiting nerve roots. There is no change in moderate T12-L1 disc degenerative disease. The previously reported nondisplaced, oblique fracture of the right sacral body is also seen on today`s study. Please see the accompanying CT of the pelvis report regarding other degenerative findings in the pelvis. As seen on the previous CT of the abdomen and pelvis, there is moderate ascites with nodularity of the liver consistent with cirrhosis. The rest of the visualized abdominal viscera is normal in appearance. IMPRESSION: New, acute, nondisplaced oblique fracture of the right sacral body as seen on the accompanying CT of the pelvis. Stable degenerative changes in the lumbar spine as described above, primarily related to the scoliosis of the thoracolumbar spine convex to the right and to the inferior lumbar spine convex to the left. Stable moderate ascites. Please note that all CT scans at this facility use dose modulation, iterative reconstruction, and/or weight-based dosing when appropriate to reduce radiation dose to as low as reasonably achievable. Dictated by Flakito Jones MD @ 11/02/2020 3:53:[address] Flaktio Jones @ Nov 02 2020 3:53PM
[2020-11-02] MEDS ORDERED: HYDROmorphone 1 MG/ML Syringe IVPUSH PRN (22:04)
[2020-11-02] MEDS ORDERED: 50% Dextrose in Water 50 ML Syringe IVPUSH PRN (22:16)
[2020-11-02] MEDS ORDERED: Glucagon,Human Recombinant 1 MG Vial IM PRN (22:16)
--- NOTE | 2020-11-02 22:25 | PCM.HP.2 ---
H&P History of Present Illness - General Date of Service: 11/02/20 Admit Problem/Dx: Admission Diagnosis/Problem Admission Diagnosis/Problem Fall - History of Present Illness Initial Comments - Free Text/Narative: 74 yo female with pmh of liver cirrhosis, CAD, and DM who presented to the ED after a fall. Since the fall she has been complaining of hip pain and has not been able to get up. She was walking yesterday but was also complaining of hip pain yesterday too. IN the ED she was discovered to have a nondisplaced sacral fracture. Right Hip Pain Score (Numeric/FACES): 10 - Related Data Allergies/Adverse Reactions: Allergies Allergy/AdvReac Type Severity Reaction Status Date / Time codeine Allergy Vomiting Verified 11/02/20 21:20 diphenhydramine Allergy Itching Verified 11/02/20 21:20 [From Benadryl] propoxyphene HCl Allergy Vomiting Verified 11/02/20 21:20 [From Darvon] Home Medications: Home Meds Pravastatin [Pravachol] 80 mg PO BEDTIME 01/08/19 [History] Potassium Chloride 20 meq PO DAILY 12/01/19 [History] buPROPion HCL [Bupropion HCl Sr] 100 mg PO BID 12/01/19 [History] metOLazone [Metolazone] 2.5 mg PO MOWEFR PRN 12/01/19 [History] Spironolactone [Aldactone] 100 mg PO DAILY 09/25/20 [History] Lactulose [Enulose] 10 gm PO TID PRN 09/26/20 [History] Midodrine 5 mg PO TID 11/02/20 [History] Aspirin [Aspirin EC] 81 mg PO DAILY 11/03/20 [History] Gabapentin [Neurontin] 100 mg PO TID 11/03/20 [History] Mupirocin [Centany] 1 applic TOP BID 11/03/20 [History] Nortriptyline HCl [Pamelor] 20 mg PO BEDTIME 11/03/20 [History] Torsemide 40 mg PO DAILY 11/03/20 [History] traMADol [Ultram] 25 mg PO Q6H PRN 11/03/20 [History] Past Medical History - Past Health History Medical/Surgical History: Denies Medical/Surgical History HEENT History: Reports: Impaired Vision Other HEENT History: wears corrective glasses Cardiovascular History: Reports: CAD, Heart Failure, High Cholesterol, Hypertension, ID, SOB on Exertion, Stents, Other (See Below) Other Cardiovascular History: states she has had 7 stents placed. Peripheral Atery Disease Respiratory History: Reports: COPD, Pneumonia, Recurrent Gastrointestinal History: Reports: Cirrhosis, GERD, Irritable Bowel Syndrome, Other (See Below) Other Gastrointestinal History: colitis Genitourinary History: Reports: Renal Calculus, UTI, Recurrent, Other (See Below) Other Genitourinary History: history of DM2 no longer on meds [employer] History: Reports: Musculoskeletal History: Reports: Arthritis, Back Pain, Chronic, Fracture, Osteoarthritis, Osteoporosis, RA Neurological History: Reports: Migraines Psychiatric History: Reports: Anxiety, Depression, Panic Attack, Other (See Below) Other Psychiatric History: Per medical record past has had episodes of confusion, and Encephalopathy Endocrine/Metabolic History: Reports: Diabetes, Type II, Osteopenia, Osteoporosis Hematologic History: Reports: Anticoagulation Therapy Immunologic History: Reports: None - Infectious Disease History Infectious Disease History: Reports: Chicken Pox, Measles, Mumps - Past Surgical History HEENT Surgical History: Reports: Tonsillectomy Cardiovascular Surgical History: Reports: Other (See Below) Other Cardiovascular Surgeries/Procedures: STENTS X7 GI Surgical History: Reports: Cholecystectomy, Colonoscopy Female Surgical History: Reports: Hysterectomy Musculoskeletal Surgical History: Reports: None Social & Family History - Family History Family Medical History: No Pertinent Family History Respiratory: Reports: COPD Other Respiratory Family Hisory: Mom- Emphysema GI: Reports: Other (See Below) Other GI Family History: throat cancer - Tobacco Use Tobacco Use Status *Q: Current Some Day Tobacco User Years of Tobacco use: 58 Packs/Tins Daily: 0.2 - Caffeine Use Caffeine Use: Reports: None - Recreational Drug Use Recreational Drug Use: No H&P Review of Systems - Review of Systems: Review Of Systems: Comprehensive ROS is negative, except as noted in HPI. Exam - Exam Exam: See Below - Vital Signs Vital Signs: Last Vital Signs Temp 36.5 C 11/02/20 21:53 Pulse 87 11/02/20 21:53 Resp 16 11/02/20 21:53 BP 108/36 L 11/02/20 21:53 Pulse Ox 97 11/02/20 21:53 Weight: 59.9 kg - Exam General: Alert, Oriented HEENT: Mucosa Moist & [place] Cardiovascular: Regular Rate, Regular Rhythm GI/Abdominal Exam: Normal Bowel Sounds, Soft, Non-Tender Extremities: Non-Tender, No Pedal Edema, Limited Range of Motion (due to pain in hip and lower back) Skin: Warm, Dry, Intact Neurological: No: Focal Deficit - Patient Data Lab Results Last 24 hrs: Laboratory Results - last 24 hr 11/02/20 11/02/20 11/02/20 Range/Units 14:34 14:34 14:34 WBC 8.21 (4.0-11.0) K/uL RBC 3.22 L (4.30-5.90) M/uL Hgb 10.4 L (12.0-16.0) g/dL Hct 32.0 L (36.0-46.0) % MCV 99.4 H (80.0-98.0) fL MCH 32.3 H (27.0-32.0) pg MCHC 32.5 (31.0-37.0) g/dL RDW Std Deviation 65.5 H (28.0-62.0) fl RDW Coeff of Ame 18 H (11.0-15.0) % Plt Count 125 L (150-400) K/uL MPV 10.10 (7.40-12.00) fL Neut % (Auto) 70.5 (48.0-80.0) % Lymph % (Auto) 11.8 L (16.0-40.0) % [place] % (Auto) 16.9 H (0.0-15.0) % Eos % (Auto) 0.4 (0.0-7.0) % Baso % (Auto) 0.4 (0.0-1.5) % Neut # (Auto) 5.8 H (1.4-5.7) K/uL Lymph # (Auto) 1.0 (0.6-2.4) K/uL [place] # (Auto) 1.4 H (0.0-0.8) K/uL Eos # (Auto) 0.0 (0.0-0.7) K/uL Baso # (Auto) 0.0 (0.0-0.1) K/uL Nucleated RBC % 0.0 /100WBC Nucleated RBCs # 0 K/uL INR 1.16 Sodium 138 (136-145) mmol/L Potassium 4.5 (3.5-5.1) mmol/L Chloride 106 (98-107) mmol/L Carbon Dioxide 24.4 (21.0-32.0) mmol/L BUN 25 H (7.0-18.0) mg/dL Creatinine 1.6 H (0.6-1.0) mg/dL Est Cr Clr Drug Dosing 26.64 mL/min Estimated GFR (MDRD) 31.5 ml/min Glucose 66 L (74-106) mg/dL Calcium 9.2 (8.5-10.1) mg/dL Total Bilirubin 1.1 H (0.2-1.0) mg/dL AST 50 H (15-37) IU/L ALT 31 (14-63) IU/L Alkaline Phosphatase 366 H (46-116) U/L Total Protein 6.1 L (6.4-8.2) g/dL Albumin 2.1 L (3.4-5.0) g/dL Globulin 4.0 (2.6-4.0) g/dL Albumin/Globulin Ratio 0.5 L (0.9-1.6) Urine Color Urine Appearance Urine pH (5.0-8.0) Ur Specific [place] (1.001-1.035) Urine Protein (NEGATIVE) mg/dL Urine Glucose (UA) (NEGATIVE) mg/dL Urine Ketones (NEGATIVE) mg/dL Urine Occult Blood (NEGATIVE) Urine Nitrite (NEGATIVE) Urine Bilirubin (NEGATIVE) Urine Urobilinogen (<2.0) EU/dL Ur Leukocyte Esterase (NEGATIVE) SARS-CoV-2 RNA (REINA) (NEGATIVE) 11/02/20 11/02/20 Range/Units 16:19 19:09 WBC (4.0-11.0) K/uL RBC (4.30-5.90) M/uL Hgb (12.0-16.0) g/dL Hct (36.0-46.0) % MCV (80.0-98.0) fL MCH (27.0-32.0) pg MCHC (31.0-37.0) g/dL RDW Std Deviation (28.0-62.0) fl RDW Coeff of Ame (11.0-15.0) % Plt Count (150-400) K/uL MPV (7.40-12.00) fL Neut % (Auto) (48.0-80.0) % Lymph % (Auto) (16.0-40.0) % [place] % (Auto) (0.0-15.0) % Eos % (Auto) (0.0-7.0) % Baso % (Auto) (0.0-1.5) % Neut # (Auto) (1.4-5.7) K/uL Lymph # (Auto) (0.6-2.4) K/uL [place] # (Auto) (0.0-0.8) K/uL Eos # (Auto) (0.0-0.7) K/uL Baso # (Auto) (0.0-0.1) K/uL Nucleated RBC % /100WBC Nucleated RBCs # K/uL INR Sodium (136-145) mmol/L Potassium (3.5-5.1) mmol/L Chloride (98-107) mmol/L Carbon Dioxide (21.0-32.0) mmol/L BUN (7.0-18.0) mg/dL Creatinine (0.6-1.0) mg/dL Est Cr Clr Drug Dosing mL/min Estimated GFR (MDRD) ml/min Glucose (74-106) mg/dL Calcium (8.5-10.1) mg/dL Total Bilirubin (0.2-1.0) mg/dL AST (15-37) IU/L ALT (14-63) IU/L Alkaline Phosphatase (46-116) U/L Total Protein (6.4-8.2) g/dL Albumin (3.4-5.0) g/dL Globulin (2.6-4.0) g/dL Albumin/Globulin Ratio (0.9-1.6) Urine Color YELLOW Urine Appearance SLT CLOUDY Urine pH 7.5 (5.0-8.0) Ur Specific [place] 1.015 (1.001-1.035) Urine Protein NEGATIVE (NEGATIVE) mg/dL Urine Glucose (UA) NEGATIVE (NEGATIVE) mg/dL Urine Ketones NEGATIVE (NEGATIVE) mg/dL Urine Occult Blood NEGATIVE (NEGATIVE) Urine Nitrite NEGATIVE (NEGATIVE) Urine Bilirubin NEGATIVE (NEGATIVE) Urine Urobilinogen 1.0 (<2.0) EU/dL Ur Leukocyte Esterase NEGATIVE (NEGATIVE) SARS-CoV-2 RNA (REINA) NEGATIVE (NEGATIVE) Result Diagrams: 11/03/20 05:10 11/03/20 05:10 Sepsis Event Note - Evaluation Sepsis Screening Result: No Definite Risk - Focused Exam Vital Signs: Vital Signs Temp Pulse Resp BP Pulse Ox 11/02/20 21:53 36.5 C 87 16 108/36 L 97 11/02/20 18:44 76 16 138/51 L 98 11/02/20 16:21 93 16 117/58 L 97 11/02/20 15:10 98 16 105/45 L 98 11/02/20 14:10 94 16 120/44 L 97 11/02/20 13:15 36.4 C 107 H 17 102/52 L 94 L Problem List Initiated/Reviewed/Updated: Yes Orders Last 24hrs: Active Orders 24 hr Category Date Time Status Admission Status [Patient Status] [ADT] Stat ADT 11/02/20 16:11 Active Antiembolic Devices [RC] PER UNIT ROUTINE Care 11/02/20 22:09 Active Bedrest Bedside Commode [RC] ASDIRECTED Care 11/02/20 22:04 Active Blood Glucose Check, Bedside [RC] TIDAC Care 11/02/20 22:16 Ordered EKG Documentation Completion [RC] AM Care 11/02/20 13:15 Active Oxygen Therapy [RC] PRN Care 11/02/20 21:44 Active Urinary Catheter Assessment [RC] ASDIRECTED Care 11/02/20 13:20 Active VTE/DVT Education [RC] PER UNIT ROUTINE Care 11/02/20 21:44 Active Vital Signs [RC] Q4H Care 11/02/20 21:44 Active PT Evaluation and Treatment [CONS] Routine Cons 11/02/20 22:04 Active ADA Diabetic [[place] [employer] Diet] [DIET Diet 11/03/20 Breakfast Ordered ] Regular Diet [DIET] Diet 11/02/20 Breakfast Active CBC WITH AUTO DIFF [HEME] AM Lab 11/03/20 05:11 Ordered COMPREHENSIVE METABOLIC PN,CMP [CHEM] AM Lab 11/03/20 05:11 Ordered Dextrose 50% in Water Med 11/02/20 22:16 Ordered 50 ml IVPUSH ASDIRECTED PRN Glucagon,Human Recombinant [GlucaGen] Med 11/02/20 22:16 Ordered 1 mg IM ASDIRECTED PRN HYDROmorphone [Dilaudid] Med 11/02/20 22:04 Active 0.5 mg IVPUSH Q2H PRN Heparin Sodium Med 11/02/20 22:15 Active 5,000 units SUBCUT Q12H Insulin Aspart [NovoLOG] Med 11/03/20 07:30 Ordered See Protocol SUBCUT TIDAC Lactulose [Chronulac] Med 11/02/20 22:15 Active 10 gm PO BID Sodium Chloride 0.9% [Saline Flush] Med 11/02/20 13:15 Active 10 ml FLUSH ASDIRECTED PRN Sodium Chloride 0.9% [Saline Flush] Med 11/02/20 13:15 Active 2.5 ml FLUSH ASDIRECTED PRN oxyCODONE Med 11/02/20 22:04 Active 5 mg PO Q4H PRN Saline Lock Insert [OM.PC] Stat Oth 11/02/20 13:15 Ordered Sequential Compression Device [OM.PC] Per Unit Routine Oth 11/02/20 22:08 Ordered Resuscitation Status Routine Resus Stat 11/02/20 21:44 Ordered Medication Orders Dextrose/Water (50% Dextrose In Water 50 Ml Syringe) 50 ml IVPUSH ASDIRECTED PRN PRN Reason: Hypoglycemia Glucagon (Glucagon,Human Recombinant 1 Mg Vial) 1 mg IM ASDIRECTED PRN PRN Reason: Hypoglycemia Heparin Sodium (Porcine) (Heparin Sodium 5,000 Units/Ml Vial) 5,000 units SUBCUT Q12H OREN Hydromorphone HCl (Hydromorphone 1 Mg/Ml Syringe) 0.5 mg IVPUSH Q2H PRN PRN Reason: Pain (severe 7-10) Insulin Aspart (Insulin Aspart 100 Units/Ml 3 Ml Pen) 0 unit SUBCUT TIDAC OREN; Protocol Lactulose (Lactulose Soln 10 Gm/15 Ml 15 Ml Ud Cup) 10 gm PO BID OREN Oxycodone HCl (Oxycodone 5 Mg Tab) 5 mg PO Q4H PRN PRN Reason: Pain (moderate 4-6) Sodium Chloride (Sodium Chloride 0.9% 10 Ml Syringe) 10 ml FLUSH ASDIRECTED PRN PRN Reason: Keep Vein Open Last Admin: 11/02/20 13:51 Dose: 10 ml Documented by: MURDNIC Sodium Chloride (Sodium Chloride 0.9% 2.5 Ml Syringe) 2.5 ml FLUSH ASDIRECTED PRN PRN Reason: Keep Vein Open Last Admin: 11/02/20 13:51 Dose: 2.5 ml Documented by: SARAH Assessment/Plan Comment:: 74 yo female admitted for sacral fracture following a fall. Sacral fracture: continue pain management. I spoke with orthopedics in [place] regarding the sacral fracture. He was unable to view CT images so stated if worried about fracture can keep her nonweight beiring until she follows up with him in [place]. Liver cirrhosis: resume home medications once verified.
[2020-11-02] MEDS: Lactulose Soln 10 GM/15 ML 15 ML UD Cup PO SCH (23:21)
[2020-11-02] MEDS: Heparin Sodium 5,000 Units/ML Vial SUBCUT SCH (23:21)
[2020-11-03] MEDS ORDERED: Midodrine 5 MG Tab PO ONE (01:07)
[2020-11-03 05:54] LABS: CARBON DIOXIDE,CO2 26.6 mmol/L (21.0-32.0); POTASSIUM,K 4.8 mmol/L (3.5-5.1)
[2020-11-03] MEDS: Midodrine 5 MG Tab PO SCH ×3 (06:42→21:23)
[2020-11-03] MEDS ORDERED: Metolazone 5 MG Tab PO SCH (09:13)
[2020-11-03] MEDS ORDERED: Gabapentin 100 MG Cap PO SCH (09:13)
[2020-11-03] MEDS ORDERED: Aspirin 81 MG Tab.EC PO SCH (09:13)
[2020-11-03] MEDS ORDERED: Potassium Chloride 20 MEQ Tab.ER PO ONE (09:13)
--- NOTE | 2020-11-03 09:43 | PCM.PN ---
- General Info Date of Service: 11/03/20 Admission Dx/Problem (Free Text): Admission Diagnosis/Problem Admission Diagnosis/Problem Fall Subjective Update: Reports she is feeling improved today. Denies chest pain or SOB. Reports constipation. Reports back and pelvic pain with movement. Confirmed meds with Kamla marley at bedside. Functional Status: Reports: Pain Controlled, Tolerating Diet - Review of Systems General: Reports: Weakness HEENT: Reports: No Symptoms. Denies: Headaches, Sore Throat, Visual Changes Pulmonary: Reports: No Symptoms. Denies: Shortness of Breath Cardiovascular: Reports: No Symptoms. Denies: Chest Pain Gastrointestinal: Reports: Constipation. Denies: Abdominal Pain, Nausea, Vomiting Genitourinary: Reports: No Symptoms Musculoskeletal: Reports: Back Pain (especially with movement) Skin: Reports: No Symptoms Neurological: Reports: No Symptoms Psychiatric: Reports: No Symptoms - Patient Data Vitals - Most Recent: Last Vital Signs Temp 97.0 F 11/03/20 07:00 Pulse 71 11/03/20 07:00 Resp 22 H 11/03/20 07:00 BP 103/52 L 11/03/20 07:00 Pulse Ox 91 L 11/03/20 07:00 Weight - Most Recent: 59.9 kg I&O - Last 24 Hours: Intake & Output 11/02/20 11/03/20 11/03/20 22:59 06:59 14:59 Intake Total 470 Balance 470 Lab Results Last 24 Hours: Laboratory Results - last 24 hr 11/02/20 11/02/20 11/02/20 Range/Units 14:34 14:34 14:34 WBC 8.21 (4.0-11.0) K/uL RBC 3.22 L (4.30-5.90) M/uL Hgb 10.4 L (12.0-16.0) g/dL Hct 32.0 L (36.0-46.0) % MCV 99.4 H (80.0-98.0) fL MCH 32.3 H (27.0-32.0) pg MCHC 32.5 (31.0-37.0) g/dL RDW Std Deviation 65.5 H (28.0-62.0) fl RDW Coeff of Ame 18 H (11.0-15.0) % Plt Count 125 L (150-400) K/uL MPV 10.10 (7.40-12.00) fL Neut % (Auto) 70.5 (48.0-80.0) % Lymph % (Auto) 11.8 L (16.0-40.0) % Yates % (Auto) 16.9 H (0.0-15.0) % Eos % (Auto) 0.4 (0.0-7.0) % Baso % (Auto) 0.4 (0.0-1.5) % Neut # (Auto) 5.8 H (1.4-5.7) K/uL Lymph # (Auto) 1.0 (0.6-2.4) K/uL Yates # (Auto) 1.4 H (0.0-0.8) K/uL Eos # (Auto) 0.0 (0.0-0.7) K/uL Baso # (Auto) 0.0 (0.0-0.1) K/uL Nucleated RBC % 0.0 /100WBC Nucleated RBCs # 0 K/uL INR 1.16 Sodium 138 (136-145) mmol/L Potassium 4.5 (3.5-5.1) mmol/L Chloride 106 (98-107) mmol/L Carbon Dioxide 24.4 (21.0-32.0) mmol/L BUN 25 H (7.0-18.0) mg/dL Creatinine 1.6 H (0.6-1.0) mg/dL Est Cr Clr Drug Dosing 26.64 mL/min Estimated GFR (MDRD) 31.5 ml/min Glucose 66 L (74-106) mg/dL POC Glucose (70-99) mg/dL Calcium 9.2 (8.5-10.1) mg/dL Total Bilirubin 1.1 H (0.2-1.0) mg/dL AST 50 H (15-37) IU/L ALT 31 (14-63) IU/L Alkaline Phosphatase 366 H (46-116) U/L Total Protein 6.1 L (6.4-8.2) g/dL Albumin 2.1 L (3.4-5.0) g/dL Globulin 4.0 (2.6-4.0) g/dL Albumin/Globulin Ratio 0.5 L (0.9-1.6) Urine Color Urine Appearance Urine pH (5.0-8.0) Ur Specific [place] (1.001-1.035) Urine Protein (NEGATIVE) mg/dL Urine Glucose (UA) (NEGATIVE) mg/dL Urine Ketones (NEGATIVE) mg/dL Urine Occult Blood (NEGATIVE) Urine Nitrite (NEGATIVE) Urine Bilirubin (NEGATIVE) Urine Urobilinogen (<2.0) EU/dL Ur Leukocyte Esterase (NEGATIVE) SARS-CoV-2 RNA (REINA) (NEGATIVE) 11/02/20 11/02/20 11/03/20 Range/Units 16:19 19:09 00:12 WBC (4.0-11.0) K/uL RBC (4.30-5.90) M/uL Hgb (12.0-16.0) g/dL Hct (36.0-46.0) % MCV (80.0-98.0) fL MCH (27.0-32.0) pg MCHC (31.0-37.0) g/dL RDW Std Deviation (28.0-62.0) fl RDW Coeff of Ame (11.0-15.0) % Plt Count (150-400) K/uL MPV (7.40-12.00) fL Neut % (Auto) (48.0-80.0) % Lymph % (Auto) (16.0-40.0) % Yates % (Auto) (0.0-15.0) % Eos % (Auto) (0.0-7.0) % Baso % (Auto) (0.0-1.5) % Neut # (Auto) (1.4-5.7) K/uL Lymph # (Auto) (0.6-2.4) K/uL Yates # (Auto) (0.0-0.8) K/uL Eos # (Auto) (0.0-0.7) K/uL Baso # (Auto) (0.0-0.1) K/uL Nucleated RBC % /100WBC Nucleated RBCs # K/uL INR Sodium (136-145) mmol/L Potassium (3.5-5.1) mmol/L Chloride (98-107) mmol/L Carbon Dioxide (21.0-32.0) mmol/L BUN (7.0-18.0) mg/dL Creatinine (0.6-1.0) mg/dL Est Cr Clr Drug Dosing mL/min Estimated GFR (MDRD) ml/min Glucose (74-106) mg/dL POC Glucose 108 H (70-99) mg/dL Calcium (8.5-10.1) mg/dL Total Bilirubin (0.2-1.0) mg/dL AST (15-37) IU/L ALT (14-63) IU/L Alkaline Phosphatase (46-116) U/L Total Protein (6.4-8.2) g/dL Albumin (3.4-5.0) g/dL Globulin (2.6-4.0) g/dL Albumin/Globulin Ratio (0.9-1.6) Urine Color YELLOW Urine Appearance SLT CLOUDY Urine pH 7.5 (5.0-8.0) Ur Specific [place] 1.015 (1.001-1.035) Urine Protein NEGATIVE (NEGATIVE) mg/dL Urine Glucose (UA) NEGATIVE (NEGATIVE) mg/dL Urine Ketones NEGATIVE (NEGATIVE) mg/dL Urine Occult Blood NEGATIVE (NEGATIVE) Urine Nitrite NEGATIVE (NEGATIVE) Urine Bilirubin NEGATIVE (NEGATIVE) Urine Urobilinogen 1.0 (<2.0) EU/dL Ur Leukocyte Esterase NEGATIVE (NEGATIVE) SARS-CoV-2 RNA (REINA) NEGATIVE (NEGATIVE) 11/03/20 11/03/20 11/03/20 Range/Units 05:10 05:10 06:38 WBC 7.31 (4.0-11.0) K/uL RBC 3.09 L (4.30-5.90) M/uL Hgb 10.1 L (12.0-16.0) g/dL Hct 31.0 L (36.0-46.0) % MCV 100.3 H (80.0-98.0) fL MCH 32.7 H (27.0-32.0) pg MCHC 32.6 (31.0-37.0) g/dL RDW Std Deviation 66.1 H (28.0-62.0) fl RDW Coeff of Ame 18 H (11.0-15.0) % Plt Count 121 L (150-400) K/uL MPV 9.90 (7.40-12.00) fL Neut % (Auto) 50.9 (48.0-80.0) % Lymph % (Auto) 26.4 (16.0-40.0) % Yates % (Auto) 19.6 H (0.0-15.0) % Eos % (Auto) 2.6 (0.0-7.0) % Baso % (Auto) 0.5 (0.0-1.5) % Neut # (Auto) 3.7 (1.4-5.7) K/uL Lymph # (Auto) 1.9 (0.6-2.4) K/uL Yates # (Auto) 1.4 H (0.0-0.8) K/uL Eos # (Auto) 0.2 (0.0-0.7) K/uL Baso # (Auto) 0.0 (0.0-0.1) K/uL Nucleated RBC % 0.0 /100WBC Nucleated RBCs # 0 K/uL INR Sodium 136 (136-145) mmol/L Potassium 4.8 (3.5-5.1) mmol/L Chloride 105 (98-107) mmol/L Carbon Dioxide 26.6 (21.0-32.0) mmol/L BUN 25 H (7.0-18.0) mg/dL Creatinine 1.4 H (0.6-1.0) mg/dL Est Cr Clr Drug Dosing 30.44 mL/min Estimated GFR (MDRD) 36.8 ml/min Glucose 87 (74-106) mg/dL POC Glucose 73 (70-99) mg/dL Calcium 8.3 L (8.5-10.1) mg/dL Total Bilirubin 1.2 H (0.2-1.0) mg/dL AST 51 H (15-37) IU/L ALT 33 (14-63) IU/L Alkaline Phosphatase 348 H (46-116) U/L Total Protein 5.9 L (6.4-8.2) g/dL Albumin 1.9 L (3.4-5.0) g/dL Globulin 4.0 (2.6-4.0) g/dL Albumin/Globulin Ratio 0.5 L (0.9-1.6) Urine Color Urine Appearance Urine pH (5.0-8.0) Ur Specific [place] (1.001-1.035) Urine Protein (NEGATIVE) mg/dL Urine Glucose (UA) (NEGATIVE) mg/dL Urine Ketones (NEGATIVE) mg/dL Urine Occult Blood (NEGATIVE) Urine Nitrite (NEGATIVE) Urine Bilirubin (NEGATIVE) Urine Urobilinogen (<2.0) EU/dL Ur Leukocyte Esterase (NEGATIVE) SARS-CoV-2 RNA (REINA) (NEGATIVE) Med Orders - Current: Current Medications Aspirin (Aspirin 81 Mg Tab.Ec) 81 mg PO DAILY [facility] Dextrose/Water (50% Dextrose In Water 50 Ml Syringe) 50 ml IVPUSH ASDIRECTED PRN PRN Reason: Hypoglycemia Gabapentin (Gabapentin 100 Mg Cap) 100 mg PO TID [facility] Glucagon (Glucagon,Human Recombinant 1 Mg Vial) 1 mg IM ASDIRECTED PRN PRN Reason: Hypoglycemia Heparin Sodium (Porcine) (Heparin Sodium 5,000 Units/Ml Vial) 5,000 units SUBCUT Q12H [facility] Last Admin: 11/02/20 23:21 Dose: 5,000 units Documented by: Hydromorphone HCl (Hydromorphone 1 Mg/Ml Syringe) 0.5 mg IVPUSH Q2H PRN PRN Reason: Pain (severe 7-10) Last Admin: 11/03/20 04:52 Dose: 0.5 mg Documented by: Insulin Aspart (Insulin Aspart 100 Units/Ml 3 Ml Pen) 0 unit SUBCUT TIDAC [facility]; Protocol Lactulose (Lactulose Soln 10 Gm/15 Ml 15 Ml Ud Cup) 10 gm PO BID [facility] Last Admin: 11/02/20 23:21 Dose: 10 gm Documented by: Metolazone (Metolazone 5 Mg Tab) 2.5 mg PO MoWeFr@0900 [facility] Midodrine (Midodrine 5 Mg Tab) 5 mg PO TID [facility] Last Admin: 11/03/20 06:42 Dose: 5 mg Documented by: Nortriptyline HCl (Nortriptyline 10 Mg Cap) 20 mg PO BEDTIME [facility] Oxycodone HCl (Oxycodone 5 Mg Tab) 5 mg PO Q4H PRN PRN Reason: Pain (moderate 4-6) Bupropion Sr 100mg 1 each PO BID [facility] Pravastatin Sodium (Pravastatin 40 Mg Tab) 80 mg PO BEDTIME [facility] Sodium Chloride (Sodium Chloride 0.9% 10 Ml Syringe) 10 ml FLUSH ASDIRECTED PRN PRN Reason: Keep Vein Open Last Admin: 11/02/20 13:51 Dose: 10 ml Documented by: Sodium Chloride (Sodium Chloride 0.9% 2.5 Ml Syringe) 2.5 ml FLUSH ASDIRECTED PRN PRN Reason: Keep Vein Open Last Admin: 11/02/20 13:51 Dose: 2.5 ml Documented by: Spironolactone (Spironolactone 25 Mg Tab) 100 mg PO DAILY [facility] Torsemide (Torsemide 20 Mg Tab) 40 mg PO DAILY [facility] Discontinued Medications Midodrine (Midodrine 5 Mg Tab) 5 mg PO ONETIME ONE Stop: 11/03/20 01:08 Last Admin: 11/03/20 01:51 Dose: 5 mg Documented by: Morphine Sulfate (Morphine 2 Mg/Ml Syringe) 2 mg IVPUSH ONETIME ONE Stop: 11/02/20 14:11 Last Admin: 11/02/20 14:17 Dose: 2 mg Documented by: Morphine Sulfate (Morphine 2 Mg/Ml Syringe) 2 mg IVPUSH ONETIME ONE Stop: 11/02/20 15:48 Last Admin: 11/02/20 16:17 Dose: 2 mg Documented by: Ondansetron HCl (Ondansetron 4 Mg/2 Ml Sdv) 4 mg IVPUSH ONETIME ONE Stop: 11/02/20 14:12 Last Admin: 11/02/20 14:17 Dose: 4 mg Documented by: Potassium Chloride (Potassium Chloride 20 Meq Tab.Er) 20 meq PO ONETIME ONE Stop: 11/03/20 09:14 - Exam General: Alert, Oriented, Cooperative, No Acute Distress Neck: Supple Lungs: Clear to Auscultation, Normal Respiratory Effort Cardiovascular: Regular Rate, Regular Rhythm GI/Abdominal Exam: Normal Bowel Sounds, Soft, Other (ascites noted, per granddaughter currently at stable level. NO worsening ) Extremities: Normal Inspection, Normal Capillary Refill, Pedal Edema (scant +1 non pitting edema to lower extremities). No: Normal Range of Motion (movement of legs and torso cause pelvic pain) Skin: Ecchymosis (R ortega. Abrasion, skin tear to L hand with ecchymosis.) Wound/Incisions: No Drainage. No: Erythema Neurological: No New Focal Deficit Psy/Mental Status: Alert, Normal Affect, Normal Mood - Patient Data Lab Results Last 24 hrs: Laboratory Results - last 24 hr 11/02/20 11/02/20 11/02/20 Range/Units 14:34 14:34 14:34 WBC 8.21 (4.0-11.0) K/uL RBC 3.22 L (4.30-5.90) M/uL Hgb 10.4 L (12.0-16.0) g/dL Hct 32.0 L (36.0-46.0) % MCV 99.4 H (80.0-98.0) fL MCH 32.3 H (27.0-32.0) pg MCHC 32.5 (31.0-37.0) g/dL RDW Std Deviation 65.5 H (28.0-62.0) fl RDW Coeff of Ame 18 H (11.0-15.0) % Plt Count 125 L (150-400) K/uL MPV 10.10 (7.40-12.00) fL Neut % (Auto) 70.5 (48.0-80.0) % Lymph % (Auto) 11.8 L (16.0-40.0) % Yates % (Auto) 16.9 H (0.0-15.0) % Eos % (Auto) 0.4 (0.0-7.0) % Baso % (Auto) 0.4 (0.0-1.5) % Neut # (Auto) 5.8 H (1.4-5.7) K/uL Lymph # (Auto) 1.0 (0.6-2.4) K/uL Yates # (Auto) 1.4 H (0.0-0.8) K/uL Eos # (Auto) 0.0 (0.0-0.7) K/uL Baso # (Auto) 0.0 (0.0-0.1) K/uL Nucleated RBC % 0.0 /100WBC Nucleated RBCs # 0 K/uL INR 1.16 Sodium 138 (136-145) mmol/L Potassium 4.5 (3.5-5.1) mmol/L Chloride 106 (98-107) mmol/L Carbon Dioxide 24.4 (21.0-32.0) mmol/L BUN 25 H (7.0-18.0) mg/dL Creatinine 1.6 H (0.6-1.0) mg/dL Est Cr Clr Drug Dosing 26.64 mL/min Estimated GFR (MDRD) 31.5 ml/min Glucose 66 L (74-106) mg/dL POC Glucose (70-99) mg/dL Calcium 9.2 (8.5-10.1) mg/dL Total Bilirubin 1.1 H (0.2-1.0) mg/dL AST 50 H (15-37) IU/L ALT 31 (14-63) IU/L Alkaline Phosphatase 366 H (46-116) U/L Total Protein 6.1 L (6.4-8.2) g/dL Albumin 2.1 L (3.4-5.0) g/dL Globulin 4.0 (2.6-4.0) g/dL Albumin/Globulin Ratio 0.5 L (0.9-1.6) Urine Color Urine Appearance Urine pH (5.0-8.0) Ur Specific [place] (1.001-1.035) Urine Protein (NEGATIVE) mg/dL Urine Glucose (UA) (NEGATIVE) mg/dL Urine Ketones (NEGATIVE) mg/dL Urine Occult Blood (NEGATIVE) Urine Nitrite (NEGATIVE) Urine Bilirubin (NEGATIVE) Urine Urobilinogen (<2.0) EU/dL Ur Leukocyte Esterase (NEGATIVE) SARS-CoV-2 RNA (REINA) (NEGATIVE) 11/02/20 11/02/20 11/03/20 Range/Units 16:19 19:09 00:12 WBC (4.0-11.0) K/uL RBC (4.30-5.90) M/uL Hgb (12.0-16.0) g/dL Hct (36.0-46.0) % MCV (80.0-98.0) fL MCH (27.0-32.0) pg MCHC (31.0-37.0) g/dL RDW Std Deviation (28.0-62.0) fl RDW Coeff of Ame (11.0-15.0) % Plt Count (150-400) K/uL MPV (7.40-12.00) fL Neut % (Auto) (48.0-80.0) % Lymph % (Auto) (16.0-40.0) % [place]ates % (Auto) (0.0-15.0) % Eos % (Auto) (0.0-7.0) % Baso % (Auto) (0.0-1.5) % Neut # (Auto) (1.4-5.7) K/uL Lymph # (Auto) (0.6-2.4) K/uL [place] # (Auto) (0.0-0.8) K/uL Eos # (Auto) (0.0-0.7) K/uL Baso # (Auto) (0.0-0.1) K/uL Nucleated RBC % /100WBC Nucleated RBCs # K/uL INR Sodium (136-145) mmol/L Potassium (3.5-5.1) mmol/L Chloride (98-107) mmol/L Carbon Dioxide (21.0-32.0) mmol/L BUN (7.0-18.0) mg/dL Creatinine (0.6-1.0) mg/dL Est Cr Clr Drug Dosing mL/min Estimated GFR (MDRD) ml/min Glucose (74-106) mg/dL POC Glucose 108 H (70-99) mg/dL Calcium (8.5-10.1) mg/dL Total Bilirubin (0.2-1.0) mg/dL AST (15-37) IU/L ALT (14-63) IU/L Alkaline Phosphatase (46-116) U/L Total Protein (6.4-8.2) g/dL Albumin (3.4-5.0) g/dL Globulin (2.6-4.0) g/dL Albumin/Globulin Ratio (0.9-1.6) Urine Color YELLOW Urine Appearance SLT CLOUDY Urine pH 7.5 (5.0-8.0) Ur Specific [place] 1.015 (1.001-1.035) Urine Protein NEGATIVE (NEGATIVE) mg/dL Urine Glucose (UA) NEGATIVE (NEGATIVE) mg/dL Urine Ketones NEGATIVE (NEGATIVE) mg/dL Urine Occult Blood NEGATIVE (NEGATIVE) Urine Nitrite NEGATIVE (NEGATIVE) Urine Bilirubin NEGATIVE (NEGATIVE) Urine Urobilinogen 1.0 (<2.0) EU/dL Ur Leukocyte Esterase NEGATIVE (NEGATIVE) SARS-CoV-2 RNA (REINA) NEGATIVE (NEGATIVE) 11/03/20 11/03/20 11/03/20 Range/Units 05:10 05:10 06:38 WBC 7.31 (4.0-11.0) K/uL RBC 3.09 L (4.30-5.90) M/uL Hgb 10.1 L (12.0-16.0) g/dL Hct 31.0 L (36.0-46.0) % MCV 100.3 H (80.0-98.0) fL MCH 32.7 H (27.0-32.0) pg MCHC 32.6 (31.0-37.0) g/dL RDW Std Deviation 66.1 H (28.0-62.0) fl RDW Coeff of Ame 18 H (11.0-15.0) % Plt Count 121 L (150-400) K/uL MPV 9.90 (7.40-12.00) fL Neut % (Auto) 50.9 (48.0-80.0) % Lymph % (Auto) 26.4 (16.0-40.0) % [place] % (Auto) 19.6 H (0.0-15.0) % Eos % (Auto) 2.6 (0.0-7.0) % Baso % (Auto) 0.5 (0.0-1.5) % Neut # (Auto) 3.7 (1.4-5.7) K/uL Lymph # (Auto) 1.9 (0.6-2.4) K/uL [place] # (Auto) 1.4 H (0.0-0.8) K/uL Eos # (Auto) 0.2 (0.0-0.7) K/uL Baso # (Auto) 0.0 (0.0-0.1) K/uL Nucleated RBC % 0.0 /100WBC Nucleated RBCs # 0 K/uL INR Sodium 136 (136-145) mmol/L Potassium 4.8 (3.5-5.1) mmol/L Chloride 105 (98-107) mmol/L Carbon Dioxide 26.6 (21.0-32.0) mmol/L BUN 25 H (7.0-18.0) mg/dL Creatinine 1.4 H (0.6-1.0) mg/dL Est Cr Clr Drug Dosing 30.44 mL/min Estimated GFR (MDRD) 36.8 ml/min Glucose 87 (74-106) mg/dL POC Glucose 73 (70-99) mg/dL Calcium 8.3 L (8.5-10.1) mg/dL Total Bilirubin 1.2 H (0.2-1.0) mg/dL AST 51 H (15-37) IU/L ALT 33 (14-63) IU/L Alkaline Phosphatase 348 H (46-116) U/L Total Protein 5.9 L (6.4-8.2) g/dL Albumin 1.9 L (3.4-5.0) g/dL Globulin 4.0 (2.6-4.0) g/dL Albumin/Globulin Ratio 0.5 L (0.9-1.6) Urine Color Urine Appearance Urine pH (5.0-8.0) Ur Specific [place] (1.001-1.035) Urine Protein (NEGATIVE) mg/dL Urine Glucose (UA) (NEGATIVE) mg/dL Urine Ketones (NEGATIVE) mg/dL Urine Occult Blood (NEGATIVE) Urine Nitrite (NEGATIVE) Urine Bilirubin (NEGATIVE) Urine Urobilinogen (<2.0) EU/dL Ur Leukocyte Esterase (NEGATIVE) SARS-CoV-2 RNA (REINA) (NEGATIVE) Result Diagrams: 11/03/20 05:10 11/03/20 05:10 Sepsis Event Note - Evaluation Sepsis Screening Result: No Definite Risk - Focused Exam Vital Signs: Vital Signs Temp Pulse Resp BP Pulse Ox Pulse Ox 11/03/20 07:00 97.0 F 71 22 H 103/52 L 91 L 11/03/20 03:00 97.2 F 82 18 107/59 L 94 L 11/02/20 23:27 98.4 F 83 15 99/49 L 92 L 11/02/20 21:53 97.7 F 87 16 108/36 L 97 11/02/20 21:44 94 L - Problem List & Annotations (1) Fall SNOMED Code(s): 9688331, 795852908 Code(s): W19.XXXA - UNSPECIFIED FALL, INITIAL ENCOUNTER Status: Acute Current Visit: Yes (2) Fracture of sacrum SNOMED Code(s): 125000892 Code(s): S32.10XA - UNSP FRACTURE OF SACRUM, INIT ENCNTR FOR CLOSED FRACTURE Status: Acute Current Visit: Yes Qualifiers: Encounter type: initial encounter Fracture type: closed (3) Skin tear of left hand without complication SNOMED Code(s): 906307990, 532342554 Code(s): S61.412A - LACERATION WITHOUT FOREIGN BODY OF LEFT HAND, INIT ENCNTR Status: Acute Current Visit: No Qualifiers: Encounter type: initial encounter Qualified Code(s): S61.412A - Laceration without foreign body of left hand, initial encounter (4) Hyperglycemia due to type 2 diabetes mellitus SNOMED Code(s): 347637243154834, 740445414388688 Code(s): E11.65 - TYPE 2 DIABETES MELLITUS WITH HYPERGLYCEMIA Status: Acute Current Visit: No Qualifiers: Diabetes mellitus rat exterminator insulin use: without rat exterminator use Qualified Code(s): E11.65 - Type 2 diabetes mellitus with hyperglycemia (5) Liver cirrhosis SNOMED Code(s): 56349465 Code(s): K74.60 - UNSPECIFIED CIRRHOSIS OF LIVER Status: Chronic Current Visit: No Qualifiers: Hepatic cirrhosis type: unspecified hepatic cirrhosis Ascites presence: unspecified Qualified Code(s): K74.60 - Unspecified cirrhosis of liver (6) Anxiety and depression SNOMED Code(s): 612145500 Code(s): F41.9 - ANXIETY DISORDER, UNSPECIFIED; F32.9 - MAJOR DEPRESSIVE DISORDER, SINGLE EPISODE, UNSPECIFIED Status: Chronic Current Visit: No (7) CAD (coronary artery disease) SNOMED Code(s): 55998996 Code(s): I25.10 - ATHSCL HEART DISEASE OF [place] CORONARY ARTERY W/O ANG PCTRS Status: Chronic Current Visit: No (8) COPD (chronic obstructive pulmonary disease) SNOMED Code(s): 79361374 Code(s): J44.9 - CHRONIC OBSTRUCTIVE PULMONARY DISEASE, UNSPECIFIED Status: Chronic Current Visit: No (9) Congestive heart failure (CHF) SNOMED Code(s): 73913417 Code(s): I50.9 - HEART FAILURE, UNSPECIFIED Status: Chronic Current Visit: No Qualifiers: Heart failure type: diastolic Heart failure chronicity: chronic Qualified Code(s): I50.32 - Chronic diastolic (congestive) heart failure (10) Dyslipidemia SNOMED Code(s): 594231578 Code(s): E78.5 - HYPERLIPIDEMIA, UNSPECIFIED Status: Chronic Current Visit: No (11) History of coronary artery stent placement SNOMED Code(s): 184014931, 439303771 Code(s): Z95.5 - PRESENCE OF CORONARY ANGIOPLASTY IMPLANT AND GRAFT Status: Chronic Current Visit: No (12) PVD (peripheral vascular disease) SNOMED Code(s): 418426193 Code(s): I73.9 - PERIPHERAL VASCULAR DISEASE, UNSPECIFIED Status: Chronic Current Visit: No - Problem List Review Problem List Initiated/Reviewed/Updated: Yes - My Orders Last 24 Hours: My Active Orders 11/03/20 09:13 Aspirin [Halfprin] 81 mg PO DAILY Gabapentin [Neurontin] 100 mg PO TID Patient's Own Medication [Ptom] 1 each PO BID Spironolactone [Aldactone] 100 mg PO DAILY Torsemide [Demadex] 40 mg PO DAILY metOLazone [Zaroxolyn] 2.5 mg PO MoWeFr@0900 11/03/20 21:00 Nortriptyline 20 mg PO BEDTIME Pravastatin [Pravachol] 80 mg PO BEDTIME - Plan Plan:: 74 yo female admitted for sacral fracture following a mechanical fall. 1. Mechanical Fall/sacral fracture - Continue PT - Spoke with Dr Barnett, Orthopedics in [place], recommended toe touch weight bearing bilaterally until follow up with him in [place]. Patient and family at bedside updated on this - Pain control with Oxycodone and Dilaudid for now. - Bowel regimen 2. Liver cirrhosis - Continue Lactulose 10 gm TID to keep stools at 3-4 times daily - Continue Midodrine 3. CAD/PVD/HTN/HLD/CHF - Continue ASA, family gives every 48 hours - Continue Pravastatin - Continue Spironolactone, Torsemide, Metolazone 4. Hx DM Type II - Monitor BS TID AC 5. COPD - Stable - Duonebs PRN VTE prophylaxis: Heparin CODE STATUS: DNR/DNI Dispo: Pending pain control and safe transfers.
[2020-11-03] MEDS: Insulin Aspart 100 Units/ML 3 ML Pen SUBCUT SCH ×3 (10:08→16:49)
[2020-11-03] MEDS: Lactulose Soln 10 GM/15 ML 15 ML UD Cup PO SCH ×5 (10:09→23:32)
[2020-11-03] MEDS: Torsemide 20 MG Tab PO SCH (10:10)
[2020-11-03] MEDS: Spironolactone 25 MG Tab PO SCH (10:11)
[2020-11-03] MEDS: Heparin Sodium 5,000 Units/ML Vial SUBCUT SCH ×2 (10:12→21:23)
[2020-11-03] MEDS: BUPROPION 100 MG PO SCH ×2 (10:13→21:23)
[2020-11-03] MEDS ORDERED: Sodium Chloride 0.9% 2.5 ML Syringe FLUSH PRN (10:44)
[2020-11-03] MEDS: oxyCODONE 5 MG Tab PO PRN ×2 (10:56→19:35)
[2020-11-03] MEDS: Pravastatin 40 MG Tab PO SCH (10:58)
[2020-11-03] MEDS ORDERED: Pravastatin 40 MG Tab PO SCH (21:00)
[2020-11-03] MEDS: Nortriptyline 10 MG Cap PO SCH (21:23)
[2020-11-04] MEDS: Lactulose Soln 10 GM/15 ML 15 ML UD Cup PO SCH ×3 (06:23→17:46)
[2020-11-04] MEDS: Midodrine 5 MG Tab PO SCH ×3 (06:23→21:30)
[2020-11-04] MEDS: Insulin Aspart 100 Units/ML 3 ML Pen SUBCUT SCH ×3 (07:41→17:43)
[2020-11-04 08:08] LABS: CARBON DIOXIDE,CO2 28.5 mmol/L (21.0-32.0); POTASSIUM,K 3.4 mmol/L (3.5-5.1)
--- NOTE | 2020-11-04 09:35 | PCM.PN ---
- General Info Date of Service: 11/04/20 - Review of Systems Systems Review Comment:: feeling better, able to do straight leg raises - Patient Data Vitals - Most Recent: Last Vital Signs Temp 36.1 C 11/04/20 03:59 Pulse 76 11/04/20 03:59 Resp 19 11/04/20 03:59 BP 96/55 L 11/04/20 03:59 Pulse Ox 91 L 11/04/20 03:59 Weight - Most Recent: 59.9 kg I&O - Last 24 Hours: Intake & Output 11/03/20 11/04/20 11/04/20 22:59 06:59 14:59 Intake Total 977 535 Balance 977 535 Lab Results Last 24 Hours: Laboratory Results - last 24 hr 11/03/20 11/03/20 11/04/20 Range/Units 11:45 16:04 06:26 WBC (4.0-11.0) K/uL RBC (4.30-5.90) M/uL Hgb (12.0-16.0) g/dL Hct (36.0-46.0) % MCV (80.0-98.0) fL MCH (27.0-32.0) pg MCHC (31.0-37.0) g/dL RDW Std Deviation (28.0-62.0) fl RDW Coeff of Ame (11.0-15.0) % Plt Count (150-400) K/uL MPV (7.40-12.00) fL Neut % (Auto) (48.0-80.0) % Lymph % (Auto) (16.0-40.0) % [place] % (Auto) (0.0-15.0) % Eos % (Auto) (0.0-7.0) % Baso % (Auto) (0.0-1.5) % Neut # (Auto) (1.4-5.7) K/uL Lymph # (Auto) (0.6-2.4) K/uL [place] # (Auto) (0.0-0.8) K/uL Eos # (Auto) (0.0-0.7) K/uL Baso # (Auto) (0.0-0.1) K/uL Nucleated RBC % /100WBC Nucleated RBCs # K/uL Sodium (136-145) mmol/L Potassium (3.5-5.1) mmol/L Chloride (98-107) mmol/L Carbon Dioxide (21.0-32.0) mmol/L BUN (7.0-18.0) mg/dL Creatinine (0.6-1.0) mg/dL Est Cr Clr Drug Dosing mL/min Estimated GFR (MDRD) ml/min Glucose (74-106) mg/dL POC Glucose 139 H 116 H 103 H (70-99) mg/dL Calcium (8.5-10.1) mg/dL Total Bilirubin (0.2-1.0) mg/dL AST (15-37) IU/L ALT (14-63) IU/L Alkaline Phosphatase (46-116) U/L Total Protein (6.4-8.2) g/dL Albumin (3.4-5.0) g/dL Globulin (2.6-4.0) g/dL Albumin/Globulin Ratio (0.9-1.6) 11/04/20 11/04/20 Range/Units 07:05 07:05 WBC 4.86 (4.0-11.0) K/uL RBC 3.05 L (4.30-5.90) M/uL Hgb 10.0 L (12.0-16.0) g/dL Hct 30.3 L (36.0-46.0) % MCV 99.3 H (80.0-98.0) fL MCH 32.8 H (27.0-32.0) pg MCHC 33.0 (31.0-37.0) g/dL RDW Std Deviation 64.2 H (28.0-62.0) fl RDW Coeff of Ame 18 H (11.0-15.0) % Plt Count 130 L (150-400) K/uL MPV 10.20 (7.40-12.00) fL Neut % (Auto) 48.8 (48.0-80.0) % Lymph % (Auto) 28.6 (16.0-40.0) % [place] % (Auto) 19.3 H (0.0-15.0) % Eos % (Auto) 2.9 (0.0-7.0) % Baso % (Auto) 0.4 (0.0-1.5) % Neut # (Auto) 2.4 (1.4-5.7) K/uL Lymph # (Auto) 1.4 (0.6-2.4) K/uL [place] # (Auto) 0.9 H (0.0-0.8) K/uL Eos # (Auto) 0.1 (0.0-0.7) K/uL Baso # (Auto) 0.0 (0.0-0.1) K/uL Nucleated RBC % 0.0 /100WBC Nucleated RBCs # 0 K/uL Sodium 135 L (136-145) mmol/L Potassium 3.4 L (3.5-5.1) mmol/L Chloride 101 (98-107) mmol/L Carbon Dioxide 28.5 (21.0-32.0) mmol/L BUN 24 H (7.0-18.0) mg/dL Creatinine 1.5 H (0.6-1.0) mg/dL Est Cr Clr Drug Dosing 28.41 mL/min Estimated GFR (MDRD) 33.9 ml/min Glucose 158 H (74-106) mg/dL POC Glucose (70-99) mg/dL Calcium 7.7 L (8.5-10.1) mg/dL Total Bilirubin 1.0 (0.2-1.0) mg/dL AST 44 H (15-37) IU/L ALT 26 (14-63) IU/L Alkaline Phosphatase 355 H (46-116) U/L Total Protein 5.8 L (6.4-8.2) g/dL Albumin 1.7 L (3.4-5.0) g/dL Globulin 4.1 H (2.6-4.0) g/dL Albumin/Globulin Ratio 0.4 L (0.9-1.6) Med Orders - Current: Current Medications Aspirin (Aspirin 81 Mg Tab.Ec) 81 mg PO Q48H [facility] Dextrose/Water (50% Dextrose In Water 50 Ml Syringe) 50 ml IVPUSH ASDIRECTED PRN PRN Reason: Hypoglycemia Glucagon (Glucagon,Human Recombinant 1 Mg Vial) 1 mg IM ASDIRECTED PRN PRN Reason: Hypoglycemia Heparin Sodium (Porcine) (Heparin Sodium 5,000 Units/Ml Vial) 5,000 units SUBCUT Q12H [facility] Last Admin: 11/03/20 21:23 Dose: 5,000 units Documented by: Hydromorphone HCl (Hydromorphone 1 Mg/Ml Syringe) 0.5 mg IVPUSH Q2H PRN PRN Reason: Pain (severe 7-10) Last Admin: 11/03/20 04:52 Dose: 0.5 mg Documented by: Insulin Aspart (Insulin Aspart 100 Units/Ml 3 Ml Pen) 0 unit SUBCUT TIDAC [facility]; Protocol Last Admin: 11/04/20 07:41 Dose: Not Given Documented by: Lactulose (Lactulose Soln 10 Gm/15 Ml 15 Ml Ud Cup) 10 gm PO QID [facility] Last Admin: 11/04/20 06:23 Dose: 10 gm Documented by: Metolazone (Metolazone 5 Mg Tab) 2.5 mg PO Q7D [facility] Midodrine (Midodrine 5 Mg Tab) 5 mg PO TID [facility] Last Admin: 11/04/20 06:23 Dose: 5 mg Documented by: Nortriptyline HCl (Nortriptyline 10 Mg Cap) 20 mg PO BEDTIME [facility] Last Admin: 11/03/20 21:23 Dose: 20 mg Documented by: Oxycodone HCl (Oxycodone 5 Mg Tab) 5 mg PO Q4H PRN PRN Reason: Pain (moderate 4-6) Last Admin: 11/03/20 19:35 Dose: 5 mg Documented by: Bupropion Sr 100mg 1 each PO BID [facility] Last Admin: 11/03/20 21:23 Dose: 1 each Documented by: Pravastatin Sodium (Pravastatin 40 Mg Tab) 80 mg PO DAILY [facility] Last Admin: 11/03/20 10:58 Dose: 80 mg Documented by: Sodium Chloride (Sodium Chloride 0.9% 2.5 Ml Syringe) 2.5 ml FLUSH ASDIRECTED PRN PRN Reason: Keep Vein Open Spironolactone (Spironolactone 25 Mg Tab) 100 mg PO DAILY [facility] Last Admin: 11/03/20 10:11 Dose: 100 mg Documented by: Torsemide (Torsemide 20 Mg Tab) 40 mg PO DAILY [facility] Last Admin: 11/03/20 10:10 Dose: 40 mg Documented by: Discontinued Medications Aspirin (Aspirin 81 Mg Tab.Ec) 81 mg PO DAILY [facility] Last Admin: 11/03/20 10:09 Dose: 81 mg Documented by: Gabapentin (Gabapentin 100 Mg Cap) 100 mg PO TID [facility] Last Admin: 11/03/20 10:14 Dose: Not Given Documented by: Lactulose (Lactulose Soln 10 Gm/15 Ml 15 Ml Ud Cup) 10 gm PO BID [facility] Last Admin: 11/03/20 10:15 Dose: Not Given Documented by: Metolazone (Metolazone 5 Mg Tab) 2.5 mg PO MoWeFr@0900 [facility] Last Admin: 11/03/20 10:14 Dose: Not Given Documented by: Midodrine (Midodrine 5 Mg Tab) 5 mg PO ONETIME ONE Stop: 11/03/20 01:08 Last Admin: 11/03/20 01:51 Dose: 5 mg Documented by: Morphine Sulfate (Morphine 2 Mg/Ml Syringe) 2 mg IVPUSH ONETIME ONE Stop: 11/02/20 14:11 Last Admin: 11/02/20 14:17 Dose: 2 mg Documented by: Morphine Sulfate (Morphine 2 Mg/Ml Syringe) 2 mg IVPUSH ONETIME ONE Stop: 11/02/20 15:48 Last Admin: 11/02/20 16:17 Dose: 2 mg Documented by: Ondansetron HCl (Ondansetron 4 Mg/2 Ml Sdv) 4 mg IVPUSH ONETIME ONE Stop: 11/02/20 14:12 Last Admin: 11/02/20 14:17 Dose: 4 mg Documented by: Potassium Chloride (Potassium Chloride 20 Meq Tab.Er) 20 meq PO ONETIME ONE Stop: 11/03/20 09:14 Last Admin: 11/03/20 10:14 Dose: Not Given Documented by: Pravastatin Sodium (Pravastatin 40 Mg Tab) 80 mg PO BEDTIME [facility] Sodium Chloride (Sodium Chloride 0.9% 10 Ml Syringe) 10 ml FLUSH ASDIRECTED PRN PRN Reason: Keep Vein Open Last Admin: 11/02/20 13:51 Dose: 10 ml Documented by: Sodium Chloride (Sodium Chloride 0.9% 2.5 Ml Syringe) 2.5 ml FLUSH ASDIRECTED PRN PRN Reason: Keep Vein Open Last Admin: 11/02/20 13:51 Dose: 2.5 ml Documented by: - Exam General: Alert, Oriented Neck: Supple Lungs: Clear to Auscultation, Normal Respiratory Effort Cardiovascular: Regular Rate, Regular Rhythm GI/Abdominal Exam: Normal Bowel Sounds, Soft, Non-Tender Extremities: Non-Tender, No Pedal Edema Skin: Warm, Dry, Intact Neurological: No New Focal Deficit - Patient Data Lab Results Last 24 hrs: Laboratory Results - last 24 hr 11/03/20 11/03/20 11/04/20 Range/Units 11:45 16:04 06:26 WBC (4.0-11.0) K/uL RBC (4.30-5.90) M/uL Hgb (12.0-16.0) g/dL Hct (36.0-46.0) % MCV (80.0-98.0) fL MCH (27.0-32.0) pg MCHC (31.0-37.0) g/dL RDW Std Deviation (28.0-62.0) fl RDW Coeff of Ame (11.0-15.0) % Plt Count (150-400) K/uL MPV (7.40-12.00) fL Neut % (Auto) (48.0-80.0) % Lymph % (Auto) (16.0-40.0) % [place] % (Auto) (0.0-15.0) % Eos % (Auto) (0.0-7.0) % Baso % (Auto) (0.0-1.5) % Neut # (Auto) (1.4-5.7) K/uL Lymph # (Auto) (0.6-2.4) K/uL [place] # (Auto) (0.0-0.8) K/uL Eos # (Auto) (0.0-0.7) K/uL Baso # (Auto) (0.0-0.1) K/uL Nucleated RBC % /100WBC Nucleated RBCs # K/uL Sodium (136-145) mmol/L Potassium (3.5-5.1) mmol/L Chloride (98-107) mmol/L Carbon Dioxide (21.0-32.0) mmol/L BUN (7.0-18.0) mg/dL Creatinine (0.6-1.0) mg/dL Est Cr Clr Drug Dosing mL/min Estimated GFR (MDRD) ml/min Glucose (74-106) mg/dL POC Glucose 139 H 116 H 103 H (70-99) mg/dL Calcium (8.5-10.1) mg/dL Total Bilirubin (0.2-1.0) mg/dL AST (15-37) IU/L ALT (14-63) IU/L Alkaline Phosphatase (46-116) U/L Total Protein (6.4-8.2) g/dL Albumin (3.4-5.0) g/dL Globulin (2.6-4.0) g/dL Albumin/Globulin Ratio (0.9-1.6) 11/04/20 11/04/20 Range/Units 07:05 07:05 WBC 4.86 (4.0-11.0) K/uL RBC 3.05 L (4.30-5.90) M/uL Hgb 10.0 L (12.0-16.0) g/dL Hct 30.3 L (36.0-46.0) % MCV 99.3 H (80.0-98.0) fL MCH 32.8 H (27.0-32.0) pg MCHC 33.0 (31.0-37.0) g/dL RDW Std Deviation 64.2 H (28.0-62.0) fl RDW Coeff of Ame 18 H (11.0-15.0) % Plt Count 130 L (150-400) K/uL MPV 10.20 (7.40-12.00) fL Neut % (Auto) 48.8 (48.0-80.0) % Lymph % (Auto) 28.6 (16.0-40.0) % [place] % (Auto) 19.3 H (0.0-15.0) % Eos % (Auto) 2.9 (0.0-7.0) % Baso % (Auto) 0.4 (0.0-1.5) % Neut # (Auto) 2.4 (1.4-5.7) K/uL Lymph # (Auto) 1.4 (0.6-2.4) K/uL [place] # (Auto) 0.9 H (0.0-0.8) K/uL Eos # (Auto) 0.1 (0.0-0.7) K/uL Baso # (Auto) 0.0 (0.0-0.1) K/uL Nucleated RBC % 0.0 /100WBC Nucleated RBCs # 0 K/uL Sodium 135 L (136-145) mmol/L Potassium 3.4 L (3.5-5.1) mmol/L Chloride 101 (98-107) mmol/L Carbon Dioxide 28.5 (21.0-32.0) mmol/L BUN 24 H (7.0-18.0) mg/dL Creatinine 1.5 H (0.6-1.0) mg/dL Est Cr Clr Drug Dosing 28.41 mL/min Estimated GFR (MDRD) 33.9 ml/min Glucose 158 H (74-106) mg/dL POC Glucose (70-99) mg/dL Calcium 7.7 L (8.5-10.1) mg/dL Total Bilirubin 1.0 (0.2-1.0) mg/dL AST 44 H (15-37) IU/L ALT 26 (14-63) IU/L Alkaline Phosphatase 355 H (46-116) U/L Total Protein 5.8 L (6.4-8.2) g/dL Albumin 1.7 L (3.4-5.0) g/dL Globulin 4.1 H (2.6-4.0) g/dL Albumin/Globulin Ratio 0.4 L (0.9-1.6) Result Diagrams: 11/04/20 07:05 11/04/20 07:05 Sepsis Event Note - Evaluation Sepsis Screening Result: No Definite Risk - Focused Exam Vital Signs: Vital Signs Temp Pulse Resp BP Pulse Ox 11/04/20 03:59 36.1 C 76 19 96/55 L 91 L 11/03/20 23:13 36.2 C 85 19 96/51 L 91 L - Problem List Review Problem List Initiated/Reviewed/Updated: Yes - My Orders Last 24 Hours: My Active Orders 11/03/20 09:45 Lactulose [Chronulac] 10 gm PO QID - Plan Plan:: 74 yo female admitted for sacral fracture following a mechanical fall. 1. Mechanical Fall/sacral fracture - Continue PT - Orthopedics in [place], recommended toe touch weight bearing bilaterally until follow up with him in [place]. - Pain control with Oxycodone and Dilaudid for now. - Bowel regimen 2. Liver cirrhosis - Continue Lactulose 10 gm TID to keep stools at 3-4 times daily - Continue Midodrine 3. CAD/PVD/HTN/HLD/CHF - Continue ASA, family gives every 48 hours - Continue Pravastatin - Continue Spironolactone, Torsemide, Metolazone 4. Hx DM Type II - Monitor BS TID AC 5. COPD - Stable - Duonebs PRN VTE prophylaxis: Heparin CODE STATUS: DNR/DNI Dispo: Pending pain control and safe transfers.
[2020-11-04] MEDS: Heparin Sodium 5,000 Units/ML Vial SUBCUT SCH ×2 (09:50→21:30)
[2020-11-04] MEDS: Spironolactone 25 MG Tab PO SCH (09:51)
[2020-11-04] MEDS: Pravastatin 40 MG Tab PO SCH (09:51)
[2020-11-04] MEDS: Torsemide 20 MG Tab PO SCH (09:51)
[2020-11-04] MEDS: BUPROPION 100 MG PO SCH ×2 (09:53→21:29)
[2020-11-04] MEDS: oxyCODONE 5 MG Tab PO PRN ×4 (09:56→22:41)
[2020-11-04] MEDS: Nortriptyline 10 MG Cap PO SCH (21:30)
[2020-11-05] MEDS: Lactulose Soln 10 GM/15 ML 15 ML UD Cup PO SCH ×5 (01:05→23:48)
[2020-11-05] MEDS: Midodrine 5 MG Tab PO SCH ×3 (06:38→22:38)
[2020-11-05] MEDS: Insulin Aspart 100 Units/ML 3 ML Pen SUBCUT SCH ×3 (06:44→17:29)
[2020-11-05 07:18] LABS: CARBON DIOXIDE,CO2 31.7 mmol/L (21.0-32.0); POTASSIUM,K 3.8 mmol/L (3.5-5.1)
[2020-11-05] MEDS ORDERED: Aspirin 81 MG Tab.EC PO SCH (09:00)
[2020-11-05] MEDS: Torsemide 20 MG Tab PO SCH (09:38)
[2020-11-05] MEDS: Spironolactone 25 MG Tab PO SCH (09:38)
[2020-11-05] MEDS: Heparin Sodium 5,000 Units/ML Vial SUBCUT SCH ×2 (09:38→22:38)
[2020-11-05] MEDS: Pravastatin 40 MG Tab PO SCH (09:38)
[2020-11-05] MEDS: BUPROPION 100 MG PO SCH ×2 (09:40→20:20)
[2020-11-05] MEDS: oxyCODONE 5 MG Tab PO PRN ×2 (12:06→20:20)
--- NOTE | 2020-11-05 13:09 | PCM.PN ---
- General Info Date of Service: 11/05/20 - Review of Systems Systems Review Comment:: feeling better, pain controlled - Patient Data Vitals - Most Recent: Last Vital Signs Temp 36.9 C 11/05/20 11:49 Pulse 85 11/05/20 11:49 Resp 17 11/05/20 11:49 BP 99/56 L 11/05/20 12:09 Pulse Ox 92 L 11/05/20 11:49 Weight - Most Recent: 56.5 kg I&O - Last 24 Hours: Intake & Output 11/04/20 11/05/20 11/05/20 22:59 06:59 14:59 Intake Total 1281 250 Output Total 826 565 Balance 455 -315 Lab Results Last 24 Hours: Laboratory Results - last 24 hr 11/04/20 11/05/20 11/05/20 Range/Units 17:42 06:42 06:50 WBC 5.50 (4.0-11.0) K/uL RBC 3.32 L (4.30-5.90) M/uL Hgb 10.9 L (12.0-16.0) g/dL Hct 32.6 L (36.0-46.0) % MCV 98.2 H (80.0-98.0) fL MCH 32.8 H (27.0-32.0) pg MCHC 33.4 (31.0-37.0) g/dL RDW Std Deviation 61.6 (28.0-62.0) fl RDW Coeff of Ame 17 H (11.0-15.0) % Plt Count 143 L (150-400) K/uL MPV 9.80 (7.40-12.00) fL Neut % (Auto) 47.6 L (48.0-80.0) % Lymph % (Auto) 31.1 (16.0-40.0) % [place] % (Auto) 17.8 H (0.0-15.0) % Eos % (Auto) 3.1 (0.0-7.0) % Baso % (Auto) 0.4 (0.0-1.5) % Neut # (Auto) 2.6 (1.4-5.7) K/uL Lymph # (Auto) 1.7 (0.6-2.4) K/uL [place] # (Auto) 1.0 H (0.0-0.8) K/uL Eos # (Auto) 0.2 (0.0-0.7) K/uL Baso # (Auto) 0.0 (0.0-0.1) K/uL Nucleated RBC % 0.0 /100WBC Nucleated RBCs # 0 K/uL Sodium (136-145) mmol/L Potassium (3.5-5.1) mmol/L Chloride (98-107) mmol/L Carbon Dioxide (21.0-32.0) mmol/L BUN (7.0-18.0) mg/dL Creatinine (0.6-1.0) mg/dL Est Cr Clr Drug Dosing mL/min Estimated GFR (MDRD) ml/min Glucose (74-106) mg/dL POC Glucose 91 91 (70-99) mg/dL Calcium (8.5-10.1) mg/dL 11/05/20 11/05/20 11/05/20 Range/Units 06:50 11:54 12:04 WBC (4.0-11.0) K/uL RBC (4.30-5.90) M/uL Hgb (12.0-16.0) g/dL Hct (36.0-46.0) % MCV (80.0-98.0) fL MCH (27.0-32.0) pg MCHC (31.0-37.0) g/dL RDW Std Deviation (28.0-62.0) fl RDW Coeff of Ame (11.0-15.0) % Plt Count (150-400) K/uL MPV (7.40-12.00) fL Neut % (Auto) (48.0-80.0) % Lymph % (Auto) (16.0-40.0) % [place] % (Auto) (0.0-15.0) % Eos % (Auto) (0.0-7.0) % Baso % (Auto) (0.0-1.5) % Neut # (Auto) (1.4-5.7) K/uL Lymph # (Auto) (0.6-2.4) K/uL [place] # (Auto) (0.0-0.8) K/uL Eos # (Auto) (0.0-0.7) K/uL Baso # (Auto) (0.0-0.1) K/uL Nucleated RBC % /100WBC Nucleated RBCs # K/uL Sodium 135 L (136-145) mmol/L Potassium 3.8 (3.5-5.1) mmol/L Chloride 100 (98-107) mmol/L Carbon Dioxide 31.7 (21.0-32.0) mmol/L BUN 23 H (7.0-18.0) mg/dL Creatinine 1.4 H (0.6-1.0) mg/dL Est Cr Clr Drug Dosing 30.44 mL/min Estimated GFR (MDRD) 36.8 ml/min Glucose 84 (74-106) mg/dL POC Glucose 216 H 210 H (70-99) mg/dL Calcium 8.2 L (8.5-10.1) mg/dL Med Orders - Current: Current Medications Aspirin (Aspirin 81 Mg Tab.Ec) 81 mg PO Q48H [facility] Last Admin: 11/05/20 09:38 Dose: 81 mg Documented by: Dextrose/Water (50% Dextrose In Water 50 Ml Syringe) 50 ml IVPUSH ASDIRECTED PRN PRN Reason: Hypoglycemia Glucagon (Glucagon,Human Recombinant 1 Mg Vial) 1 mg IM ASDIRECTED PRN PRN Reason: Hypoglycemia Heparin Sodium (Porcine) (Heparin Sodium 5,000 Units/Ml Vial) 5,000 units SUBCUT Q12H [facility] Last Admin: 11/05/20 09:38 Dose: 5,000 units Documented by: Hydromorphone HCl (Hydromorphone 1 Mg/Ml Syringe) 0.5 mg IVPUSH Q2H PRN PRN Reason: Pain (severe 7-10) Last Admin: 11/03/20 04:52 Dose: 0.5 mg Documented by: Insulin Aspart (Insulin Aspart 100 Units/Ml 3 Ml Pen) 0 unit SUBCUT TIDAC [facility]; Protocol Last Admin: 11/05/20 12:06 Dose: 2 units Documented by: Lactulose (Lactulose Soln 10 Gm/15 Ml 15 Ml Ud Cup) 10 gm PO QID [facility] Last Admin: 11/05/20 12:00 Dose: 10 gm Documented by: Metolazone (Metolazone 5 Mg Tab) 2.5 mg PO Q7D [facility] Midodrine (Midodrine 5 Mg Tab) 5 mg PO TID [facility] Last Admin: 11/05/20 06:38 Dose: 5 mg Documented by: Nortriptyline HCl (Nortriptyline 10 Mg Cap) 20 mg PO BEDTIME [facility] Last Admin: 11/04/20 21:30 Dose: 20 mg Documented by: Oxycodone HCl (Oxycodone 5 Mg Tab) 5 mg PO Q4H PRN PRN Reason: Pain (moderate 4-6) Last Admin: 11/05/20 12:06 Dose: 5 mg Documented by: Bupropion Sr 100mg 1 each PO BID [facility] Last Admin: 11/05/20 09:40 Dose: 1 each Documented by: Pravastatin Sodium (Pravastatin 40 Mg Tab) 80 mg PO DAILY [facility] Last Admin: 11/05/20 09:38 Dose: 80 mg Documented by: Sodium Chloride (Sodium Chloride 0.9% 2.5 Ml Syringe) 2.5 ml FLUSH ASDIRECTED PRN PRN Reason: Keep Vein Open Spironolactone (Spironolactone 25 Mg Tab) 100 mg PO DAILY [facility] Last Admin: 11/05/20 09:38 Dose: 100 mg Documented by: Torsemide (Torsemide 20 Mg Tab) 40 mg PO DAILY [facility] Last Admin: 11/05/20 09:38 Dose: 40 mg Documented by: Discontinued Medications Aspirin (Aspirin 81 Mg Tab.Ec) 81 mg PO DAILY [facility] Last Admin: 11/03/20 10:09 Dose: 81 mg Documented by: Gabapentin (Gabapentin 100 Mg Cap) 100 mg PO TID [facility] Last Admin: 11/03/20 10:14 Dose: Not Given Documented by: Lactulose (Lactulose Soln 10 Gm/15 Ml 15 Ml Ud Cup) 10 gm PO BID [facility] Last Admin: 11/03/20 10:15 Dose: Not Given Documented by: Metolazone (Metolazone 5 Mg Tab) 2.5 mg PO MoWeFr@0900 [facility] Last Admin: 11/03/20 10:14 Dose: Not Given Documented by: Midodrine (Midodrine 5 Mg Tab) 5 mg PO ONETIME ONE Stop: 11/03/20 01:08 Last Admin: 11/03/20 01:51 Dose: 5 mg Documented by: Morphine Sulfate (Morphine 2 Mg/Ml Syringe) 2 mg IVPUSH ONETIME ONE Stop: 11/02/20 14:11 Last Admin: 11/02/20 14:17 Dose: 2 mg Documented by: Morphine Sulfate (Morphine 2 Mg/Ml Syringe) 2 mg IVPUSH ONETIME ONE Stop: 11/02/20 15:48 Last Admin: 11/02/20 16:17 Dose: 2 mg Documented by: Ondansetron HCl (Ondansetron 4 Mg/2 Ml Sdv) 4 mg IVPUSH ONETIME ONE Stop: 11/02/20 14:12 Last Admin: 11/02/20 14:17 Dose: 4 mg Documented by: Potassium Chloride (Potassium Chloride 20 Meq Tab.Er) 20 meq PO ONETIME ONE Stop: 11/03/20 09:14 Last Admin: 11/03/20 10:14 Dose: Not Given Documented by: Pravastatin Sodium (Pravastatin 40 Mg Tab) 80 mg PO BEDTIME [facility] Sodium Chloride (Sodium Chloride 0.9% 10 Ml Syringe) 10 ml FLUSH ASDIRECTED PRN PRN Reason: Keep Vein Open Last Admin: 11/02/20 13:51 Dose: 10 ml Documented by: Sodium Chloride (Sodium Chloride 0.9% 2.5 Ml Syringe) 2.5 ml FLUSH ASDIRECTED PRN PRN Reason: Keep Vein Open Last Admin: 11/02/20 13:51 Dose: 2.5 ml Documented by: - Exam General: Alert, Oriented Neck: Supple Lungs: Clear to Auscultation, Normal Respiratory Effort Cardiovascular: Regular Rate, Regular Rhythm GI/Abdominal Exam: Soft, Non-Tender, No Distention Extremities: Non-Tender, No Pedal Edema Skin: Warm, Dry, Intact Neurological: No New Focal Deficit - Patient Data Lab Results Last 24 hrs: Laboratory Results - last 24 hr 11/04/20 11/05/20 11/05/20 Range/Units 17:42 06:42 06:50 WBC 5.50 (4.0-11.0) K/uL RBC 3.32 L (4.30-5.90) M/uL Hgb 10.9 L (12.0-16.0) g/dL Hct 32.6 L (36.0-46.0) % MCV 98.2 H (80.0-98.0) fL MCH 32.8 H (27.0-32.0) pg MCHC 33.4 (31.0-37.0) g/dL RDW Std Deviation 61.6 (28.0-62.0) fl RDW Coeff of Ame 17 H (11.0-15.0) % Plt Count 143 L (150-400) K/uL MPV 9.80 (7.40-12.00) fL Neut % (Auto) 47.6 L (48.0-80.0) % Lymph % (Auto) 31.1 (16.0-40.0) % [place] % (Auto) 17.8 H (0.0-15.0) % Eos % (Auto) 3.1 (0.0-7.0) % Baso % (Auto) 0.4 (0.0-1.5) % Neut # (Auto) 2.6 (1.4-5.7) K/uL Lymph # (Auto) 1.7 (0.6-2.4) K/uL [place] # (Auto) 1.0 H (0.0-0.8) K/uL Eos # (Auto) 0.2 (0.0-0.7) K/uL Baso # (Auto) 0.0 (0.0-0.1) K/uL Nucleated RBC % 0.0 /100WBC Nucleated RBCs # 0 K/uL Sodium (136-145) mmol/L Potassium (3.5-5.1) mmol/L Chloride (98-107) mmol/L Carbon Dioxide (21.0-32.0) mmol/L BUN (7.0-18.0) mg/dL Creatinine (0.6-1.0) mg/dL Est Cr Clr Drug Dosing mL/min Estimated GFR (MDRD) ml/min Glucose (74-106) mg/dL POC Glucose 91 91 (70-99) mg/dL Calcium (8.5-10.1) mg/dL 11/05/20 11/05/20 11/05/20 Range/Units 06:50 11:54 12:04 WBC (4.0-11.0) K/uL RBC (4.30-5.90) M/uL Hgb (12.0-16.0) g/dL Hct (36.0-46.0) % MCV (80.0-98.0) fL MCH (27.0-32.0) pg MCHC (31.0-37.0) g/dL RDW Std Deviation (28.0-62.0) fl RDW Coeff of Ame (11.0-15.0) % Plt Count (150-400) K/uL MPV (7.40-12.00) fL Neut % (Auto) (48.0-80.0) % Lymph % (Auto) (16.0-40.0) % [place] % (Auto) (0.0-15.0) % Eos % (Auto) (0.0-7.0) % Baso % (Auto) (0.0-1.5) % Neut # (Auto) (1.4-5.7) K/uL Lymph # (Auto) (0.6-2.4) K/uL [place] # (Auto) (0.0-0.8) K/uL Eos # (Auto) (0.0-0.7) K/uL Baso # (Auto) (0.0-0.1) K/uL Nucleated RBC % /100WBC Nucleated RBCs # K/uL Sodium 135 L (136-145) mmol/L Potassium 3.8 (3.5-5.1) mmol/L Chloride 100 (98-107) mmol/L Carbon Dioxide 31.7 (21.0-32.0) mmol/L BUN 23 H (7.0-18.0) mg/dL Creatinine 1.4 H (0.6-1.0) mg/dL Est Cr Clr Drug Dosing 30.44 mL/min Estimated GFR (MDRD) 36.8 ml/min Glucose 84 (74-106) mg/dL POC Glucose 216 H 210 H (70-99) mg/dL Calcium 8.2 L (8.5-10.1) mg/dL Result Diagrams: 11/05/20 06:50 11/05/20 06:50 Sepsis Event Note - Evaluation Sepsis Screening Result: No Definite Risk - Focused Exam Vital Signs: Vital Signs Temp Pulse Resp BP BP Pulse Ox 11/05/20 12:09 99/56 L 11/05/20 11:49 36.9 C 85 17 90/38 L 92 L 11/05/20 09:27 36.5 C 79 16 97/48 L 90 L 11/05/20 04:40 35.9 C L 73 18 98/58 L 92 L - Problem List Review Problem List Initiated/Reviewed/Updated: Yes - Plan Plan:: 74 yo female admitted for sacral fracture following a mechanical fall. 1. Mechanical Fall/sacral fracture - Continue PT - Orthopedics in [place], recommended toe touch weight bearing bilaterally until follow up with him in [place]. - Pain control with Oxycodone - Bowel regimen 2. Liver cirrhosis - Continue Lactulose 10 gm TID to keep stools at 3-4 times daily - Continue Midodrine 3. CAD/PVD/HTN/HLD/CHF - Continue ASA, family gives every 48 hours - Continue Pravastatin - Continue Spironolactone, Torsemide, Metolazone 4. Hx DM Type II - Monitor BS TID AC 5. COPD - Stable - Duonebs PRN VTE prophylaxis: Heparin CODE STATUS: DNR/DNI Dispo: likely discharge home tomorrow,with orthopedic follow up.
[2020-11-05] MEDS: Nortriptyline 10 MG Cap PO SCH (20:20)
[2020-11-06] MEDS: Lactulose Soln 10 GM/15 ML 15 ML UD Cup PO SCH (05:51)
[2020-11-06] MEDS: Midodrine 5 MG Tab PO SCH (05:52)
[2020-11-06] MEDS: Insulin Aspart 100 Units/ML 3 ML Pen SUBCUT SCH (06:32)
[2020-11-06] MEDS: Heparin Sodium 5,000 Units/ML Vial SUBCUT SCH (09:45)
[2020-11-06] MEDS: Pravastatin 40 MG Tab PO SCH (09:45)
[2020-11-06] MEDS: BUPROPION 100 MG PO SCH (09:46)
[2020-11-06] MEDS: Torsemide 20 MG Tab PO SCH (09:48)
[2020-11-06] MEDS: Spironolactone 25 MG Tab PO SCH (09:48)
--- NOTE | 2020-11-06 13:57 | PCM.DCSUM1 ---
Discharge Summary - Hospital Course Brief History: 74 yo female with pmh of liver cirrhosis, CAD, and DM who presented to the ED after a fall. Since the fall she has been complaining of hip pain and has not been able to get up. She was walking yesterday but was also complaining of hip pain yesterday too. IN the ED she was discovered to have a nondisplaced sacral fracture. Diagnosis: Stroke: No - Discharge Data Discharge Date: 11/06/20 Discharge Disposition: Home, Self-Care 01 Condition: Stable - Referral to Home Health Primary Care Physician: Amrik Carmichael MD - Discharge Diagnosis/Problem(s) (1) Fall SNOMED Code(s): 6327004, 626050216 ICD Code: W19.XXXA - UNSPECIFIED FALL, INITIAL ENCOUNTER Status: Acute Current Visit: Yes (2) Fracture of sacrum SNOMED Code(s): 224161866 ICD Code: S32.10XA - UNSP FRACTURE OF SACRUM, INIT ENCNTR FOR CLOSED FRACTURE Status: Acute Current Visit: Yes Qualifiers: Encounter type: initial encounter Fracture type: closed (3) Skin tear of left hand without complication SNOMED Code(s): 701673069, 854324896 ICD Code: S61.412A - LACERATION WITHOUT FOREIGN BODY OF LEFT HAND, INIT ENCNTR Status: Acute Current Visit: No Qualifiers: Encounter type: initial encounter Qualified Code(s): S61.412A - Laceration without foreign body of left hand, initial encounter (4) Hyperglycemia due to type 2 diabetes mellitus SNOMED Code(s): 845603152533115, 675995952489870 ICD Code: E11.65 - TYPE 2 DIABETES MELLITUS WITH HYPERGLYCEMIA Status: Acute Current Visit: No Qualifiers: Diabetes mellitus intermediate manager insulin use: without intermediate manager use Qualified Code(s): E11.65 - Type 2 diabetes mellitus with hyperglycemia (5) Liver cirrhosis SNOMED Code(s): 16800233 ICD Code: K74.60 - UNSPECIFIED CIRRHOSIS OF LIVER Status: Chronic Current Visit: No Qualifiers: Hepatic cirrhosis type: unspecified hepatic cirrhosis Ascites presence: unspecified Qualified Code(s): K74.60 - Unspecified cirrhosis of liver (6) Anxiety and depression SNOMED Code(s): 949021545 ICD Code: F41.9 - ANXIETY DISORDER, UNSPECIFIED; F32.9 - MAJOR DEPRESSIVE DISORDER, SINGLE EPISODE, UNSPECIFIED Status: Chronic Current Visit: No (7) CAD (coronary artery disease) SNOMED Code(s): 23975522 ICD Code: I25.10 - ATHSCL HEART DISEASE OF [place] CORONARY ARTERY W/O ANG PCTRS Status: Chronic Current Visit: No (8) COPD (chronic obstructive pulmonary disease) SNOMED Code(s): 64076546 ICD Code: J44.9 - CHRONIC OBSTRUCTIVE PULMONARY DISEASE, UNSPECIFIED Status: Chronic Current Visit: No (9) Congestive heart failure (CHF) SNOMED Code(s): 98017311 ICD Code: I50.9 - HEART FAILURE, UNSPECIFIED Status: Chronic Current Visit: No Qualifiers: Heart failure type: diastolic Heart failure chronicity: chronic Qualified Code(s): I50.32 - Chronic diastolic (congestive) heart failure (10) Dyslipidemia SNOMED Code(s): 606836864 ICD Code: E78.5 - HYPERLIPIDEMIA, UNSPECIFIED Status: Chronic Current Visit: No (11) History of coronary artery stent placement SNOMED Code(s): 601183547, 637755628 ICD Code: Z95.5 - PRESENCE OF CORONARY ANGIOPLASTY IMPLANT AND GRAFT Status: Chronic Current Visit: No (12) PVD (peripheral vascular disease) SNOMED Code(s): 270031706 ICD Code: I73.9 - PERIPHERAL VASCULAR DISEASE, UNSPECIFIED Status: Chronic Current Visit: No - Patient Summary/Data Consults: Consultations 11/02/20 22:04 PT Evaluation and Treatment [CONS] Routine Hospital Course: Admission diagnoses Fall Right sacral body fracture Discharge diagnoses Fall Right sacral body fracture Other PMH Cirrhosis CAD Diabetes This 74-year-old female with past medical history of liver cirrhosis, CAD and diabetes presented to the ER after a fall. She was admitted secondary to nondisplaced right sacral body fracture. Orthopedics Dr. Barnett in [place] was consulted via telephone as no orthopedics on-call in our facility. He was unable to view images and felt that patient should be toe-touch bearing until can she can be adequately evaluated by orthopedics but no immediate transfer needed. He recommended outpatient follow-up. Family notified of this and they requested over the weekend to be seen by Dr. Coe. Images and paperwork has been sent to him and she will see his HOSPITALIST today and possibly Dr. coe tomorrow. Patient has been up to chair with pain but she is doing well. Family offered home health but at bedside this morning declined. Patient was evaluated here by physical therapy. They helped assist with transfers as well as increasing strength. Patient will be discharged home with oxycodone 5 mg every 4-6 hours as needed for pain. She is to continue all her other home medications. They are to continue toe-touch weightbearing until further instruction from orthopedic providers today. Patient and family voiced concerns no other questions or comments at this time. She is to return to ER clinic if concerns should arise. - Patient Instructions Diet: Usual Diet as Tolerated Activity: No Strenuous Activities Activity, Other: toe touch until cleared by orthopedics Driving: Do Not Drive Notify Provider of: Fever, Increased Pain, Swelling and Redness, Drainage, Nausea and/or Vomiting - Discharge Plan *PRESCRIPTION DRUG MONITORING PROGRAM REVIEWED*: Not Applicable Prescriptions/Med Rec: oxyCODONE 5 mg PO Q4H PRN #10 tablet PRN Reason: Pain (Moderate 4-6) Home Medications: Home Meds Pravastatin [Pravachol] 80 mg PO BEDTIME 01/08/19 [History] Potassium Chloride 20 meq PO DAILY 12/01/19 [History] buPROPion HCL [Bupropion HCl Sr] 100 mg PO BID 12/01/19 [History] metOLazone [Metolazone] 2.5 mg PO Q7D PRN 12/01/19 [History] Spironolactone [Aldactone] 100 mg PO DAILY 09/25/20 [History] Lactulose [Enulose] 10 gm PO TID PRN 09/26/20 [History] Midodrine 5 mg PO TID 11/02/20 [History] Aspirin [Aspirin EC] 81 mg PO DAILY 11/03/20 [History] Mupirocin [Centany] 1 applic TOP BID 11/03/20 [History] Nortriptyline HCl [Pamelor] 20 mg PO BEDTIME 11/03/20 [History] Torsemide 40 mg PO DAILY 11/03/20 [History] oxyCODONE 5 mg PO Q4H PRN #10 tablet 11/06/20 [Rx] Patient Handouts: Oxycodone tablets or capsules, Tailbone Injury, [id number], Fall Prevention in the Home, Adult, How to Use a Wheelchair Referrals: Ksenia Dai [Ordering Only Provider] - 11/06/20 3:00 pm (Ksenia Dai will be seeing you at: [address], [address] ) Naun Coe MD [Physician] - (Referral information has all been sent, all imaging sent to [facility]; the appointment with Dr. Coe is to be arranged by family practitioner.) Amrik Carmichael MD [Primary Care Provider] - 11/28/20 - Discharge Summary/Plan Comment DC Time >30 min.: No - Patient Data Vitals - Most Recent: Last Vital Signs Temp 98.4 F 11/06/20 09:00 Pulse 75 11/06/20 09:00 Resp 16 11/06/20 09:00 BP 99/51 L 11/06/20 09:00 Pulse Ox 91 L 11/06/20 09:00 Weight - Most Recent: 56.5 kg I&O - Last 24 hours: Intake & Output 11/05/20 11/06/20 11/06/20 22:59 06:59 14:59 Intake Total 977 487 Output Total 100 Balance 977 387 Lab Results - Last 24 hrs: Laboratory Results - last 24 hr 11/05/20 11/06/20 11/06/20 Range/Units 17:28 05:51 11:51 POC Glucose 242 H 83 163 H (70-99) mg/dL Med Orders - Current: Current Medications Aspirin (Aspirin 81 Mg Tab.Ec) 81 mg PO Q48H [facility] Last Admin: 11/05/20 09:38 Dose: 81 mg Documented by: Dextrose/Water (50% Dextrose In Water 50 Ml Syringe) 50 ml IVPUSH ASDIRECTED PRN PRN Reason: Hypoglycemia Glucagon (Glucagon,Human Recombinant 1 Mg Vial) 1 mg IM ASDIRECTED PRN PRN Reason: Hypoglycemia Heparin Sodium (Porcine) (Heparin Sodium 5,000 Units/Ml Vial) 5,000 units SUBCUT Q12H [facility] Last Admin: 11/06/20 09:45 Dose: 5,000 units Documented by: Hydromorphone HCl (Hydromorphone 1 Mg/Ml Syringe) 0.5 mg IVPUSH Q2H PRN PRN Reason: Pain (severe 7-10) Last Admin: 11/03/20 04:52 Dose: 0.5 mg Documented by: Insulin Aspart (Insulin Aspart 100 Units/Ml 3 Ml Pen) 0 unit SUBCUT TIDAC [facility]; Protocol Last Admin: 11/06/20 06:32 Dose: Not Given Documented by: Lactulose (Lactulose Soln 10 Gm/15 Ml 15 Ml Ud Cup) 10 gm PO QID [facility] Last Admin: 11/06/20 05:51 Dose: 10 gm Documented by: Metolazone (Metolazone 5 Mg Tab) 2.5 mg PO Q7D [facility] Midodrine (Midodrine 5 Mg Tab) 5 mg PO TID [facility] Last Admin: 11/06/20 05:52 Dose: 5 mg Documented by: Nortriptyline HCl (Nortriptyline 10 Mg Cap) 20 mg PO BEDTIME [facility] Last Admin: 11/05/20 20:20 Dose: 20 mg Documented by: Oxycodone HCl (Oxycodone 5 Mg Tab) 5 mg PO Q4H PRN PRN Reason: Pain (moderate 4-6) Last Admin: 11/05/20 20:20 Dose: 5 mg Documented by: Bupropion Sr 100mg 1 each PO BID [facility] Last Admin: 11/06/20 09:46 Dose: 1 each Documented by: Pravastatin Sodium (Pravastatin 40 Mg Tab) 80 mg PO DAILY [facility] Last Admin: 11/06/20 09:45 Dose: 80 mg Documented by: Sodium Chloride (Sodium Chloride 0.9% 2.5 Ml Syringe) 2.5 ml FLUSH ASDIRECTED PRN PRN Reason: Keep Vein Open Last Admin: 11/05/20 20:21 Dose: 2.5 ml Documented by: Spironolactone (Spironolactone 25 Mg Tab) 100 mg PO DAILY [facility] Last Admin: 11/06/20 09:48 Dose: Not Given Documented by: Torsemide (Torsemide 20 Mg Tab) 40 mg PO DAILY [facility] Last Admin: 11/06/20 09:48 Dose: Not Given Documented by: Discontinued Medications Aspirin (Aspirin 81 Mg Tab.Ec) 81 mg PO DAILY [facility] Last Admin: 11/03/20 10:09 Dose: 81 mg Documented by: Gabapentin (Gabapentin 100 Mg Cap) 100 mg PO TID [facility] Last Admin: 11/03/20 10:14 Dose: Not Given Documented by: Lactulose (Lactulose Soln 10 Gm/15 Ml 15 Ml Ud Cup) 10 gm PO BID [facility] Last Admin: 11/03/20 10:15 Dose: Not Given Documented by: Metolazone (Metolazone 5 Mg Tab) 2.5 mg PO MoWeFr@0900 [facility] Last Admin: 11/03/20 10:14 Dose: Not Given Documented by: Midodrine (Midodrine 5 Mg Tab) 5 mg PO ONETIME ONE Stop: 11/03/20 01:08 Last Admin: 11/03/20 01:51 Dose: 5 mg Documented by: Morphine Sulfate (Morphine 2 Mg/Ml Syringe) 2 mg IVPUSH ONETIME ONE Stop: 11/02/20 14:11 Last Admin: 11/02/20 14:17 Dose: 2 mg Documented by: Morphine Sulfate (Morphine 2 Mg/Ml Syringe) 2 mg IVPUSH ONETIME ONE Stop: 11/02/20 15:48 Last Admin: 11/02/20 16:17 Dose: 2 mg Documented by: Ondansetron HCl (Ondansetron 4 Mg/2 Ml Sdv) 4 mg IVPUSH ONETIME ONE Stop: 11/02/20 14:12 Last Admin: 11/02/20 14:17 Dose: 4 mg Documented by: Potassium Chloride (Potassium Chloride 20 Meq Tab.Er) 20 meq PO ONETIME ONE Stop: 11/03/20 09:14 Last Admin: 11/03/20 10:14 Dose: Not Given Documented by: Pravastatin Sodium (Pravastatin 40 Mg Tab) 80 mg PO BEDTIME [facility] Sodium Chloride (Sodium Chloride 0.9% 10 Ml Syringe) 10 ml FLUSH ASDIRECTED PRN PRN Reason: Keep Vein Open Last Admin: 11/02/20 13:51 Dose: 10 ml Documented by: Sodium Chloride (Sodium Chloride 0.9% 2.5 Ml Syringe) 2.5 ml FLUSH ASDIRECTED PRN PRN Reason: Keep Vein Open Last Admin: 11/02/20 13:51 Dose: 2.5 ml Documented by:
[2020-11-06 14:13] VITALS: BP 109/46; PULSE 83
[2020-11-09] MEDS ORDERED: Metolazone 5 MG Tab PO SCH (09:00)
== END 2020-11-06 14:45 | disposition home or self-care (01) | DRG 552 ==
LOC: MW.ED 13:10 → MW.MS 17:56 → OBSVTOIN 22:21
PROVIDERS: ADMIT Internal Medicine; ATTEND Internal Medicine
DX: S32.10XA Unspecified fracture of sacrum, initial encounter for closed fracture (principal); I50.32 Chronic diastolic (congestive) heart failure; Z91.81 History of falling; W19.XXXA Unspecified fall, initial encounter; I25.10 Atherosclerotic heart disease of native coronary artery without angina pectoris; K74.60 Unspecified cirrhosis of liver; I50.9 Heart failure, unspecified; E78.00 Pure hypercholesterolemia, unspecified; S61.412A Laceration without foreign body of left hand, initial encounter; E11.65 Type 2 diabetes mellitus with hyperglycemia; F41.9 Anxiety disorder, unspecified; J44.9 Chronic obstructive pulmonary disease, unspecified; E78.5 Hyperlipidemia, unspecified; H54.7 Unspecified visual loss; K58.9 Irritable bowel syndrome, unspecified; I11.0 Hypertensive heart disease with heart failure; K21.9 Gastro-esophageal reflux disease without esophagitis; M19.90 Unspecified osteoarthritis, unspecified site; G89.29 Other chronic pain; M06.9 Rheumatoid arthritis, unspecified; F17.210 Nicotine dependence, cigarettes, uncomplicated; E11.51 Type 2 diabetes mellitus with diabetic peripheral angiopathy without gangrene; M54.9 Dorsalgia, unspecified; G43.909 Migraine, unspecified, not intractable, without status migrainosus; F32.9 Major depressive disorder, single episode, unspecified; M81.0 Age-related osteoporosis without current pathological fracture; M85.80 Other specified disorders of bone density and structure, unspecified site; Z79.01 Long term (current) use of anticoagulants; Z20.822 Contact with and (suspected) exposure to COVID-19; Z95.5 Presence of coronary angioplasty implant and graft; Z88.5 Allergy status to narcotic agent; Z88.8 Allergy status to other drugs, medicaments and biological substances; Z79.899 Other long term (current) drug therapy; Z79.82 Long term (current) use of aspirin; I25.2 Old myocardial infarction; Z87.01 Personal history of pneumonia (recurrent); Z87.442 Personal history of urinary calculi; Z90.89 Acquired absence of other organs; Z90.49 Acquired absence of other specified parts of digestive tract
CPT/HCPCS: 36415; 70450; 71045; 72125; 72128; 72131; 72192; 73502; 73560; 80053; 81003; 85025; 85610; 93005; 96374; 96375; 96376; 99285; J2270 ×2; J2405; U0002; 80048; 82947; 93010; 97110-GP; 97162-GP; 99284; A9270-GY; J1170; J1644